=== PATIENT | male | born 1945 | race Caucasian/White ===

== ENCOUNTER → 2016-12-28 | Outpatient (CLI) | payer BC ==
[~2016-12-28] MED LIST: ATOR-22 PO; CIPR-255 PO; DOCU-94 PO; HYDR-3419 PO; HYDR-5688 PO; MULT-506 PO; NADO40TA PO; NAPR-1169 PO; TAMS0.4C38 PO; TRIA75TA PO; VTME400 PO
== END | disposition home or self-care (01) ==
LOC: C.LABPBG 09:22
PROVIDERS: ATTEND Urology
DX: R31.9 Hematuria, unspecified (principal)

== ENCOUNTER → 2017-01-28 | Outpatient (CLI) | payer BC ==
[2017-01-28 14:44] LABS: BASO % 0.9 %; BASO ABS # 0.06 K/uL (0-0.2); COMPLETE YES; EOS % 7.2 %; HEMATOCRIT 37.3 % (42-52); IG% 0.2 %; LYMPH % 17.1 %; LYMPH ABS # 1.14 K/uL (1.2-3.4); MEAN CELL VOLUME 89.7 fL (80-100); MEAN CORPUSCULAR HEMOGLOBIN 31.5 pg (25-34); MEAN CORPUSCULAR HGB CONC 35.1 g/dl (32-36); MEAN PLATELET VOLUME 11.2 fL (7.4-10.4); MONO % 12.3 %; NEUT % 62.3 %; PLATELET COUNT 118 K/uL (130-400); RED BLOOD COUNT 4.16 M/uL (4.7-6.1); WHITE BLOOD COUNT 6.66 K/uL (4.8-10.8)
[2017-01-28 14:56] LABS: BLOOD UREA NITROGEN 6 mg/dl (7-18); BUN/CREATININE RATIO 8.4 (10-20); CALCIUM 9.1 mg/dl (8.5-10.1); CARBON DIOXIDE 24 mmol/L (21-32); CHLORIDE 107 mmol/L (98-107); CREATININE 0.74 mg/dl (0.60-1.40); GLUCOSE 67 mg/dl (70-99); POTASSIUM 4.4 mmol/L (3.5-5.1); SODIUM 142 mmol/L (136-145)
== END | disposition home or self-care (01) ==
LOC: C.LAB 13:09
PROVIDERS: ATTEND Urology
DX: N40.0 Benign prostatic hyperplasia without lower urinary tract symptoms (principal)

== ENCOUNTER 2017-02-12 09:11 | Day surgery (SDC) | payer BC ==
[2017-01-29 14:21] VITALS: BMI 32.0
[~2017-02-12] VITALS: Ht 172.7 cm; Wt 96.4 kg
[~2017-02-12 09:11] MED LIST changes: +CEFAZOLIN 2000 MG/60 ML D5W IV SCH; -CIPR-255 PO; -DOCU-94 PO; -HYDR-3419 PO; -HYDR-5688 PO; +LACTATED RINGER'S 1000ML 1,000 ML IV SCH
[2017-02-12 09:44] VITALS: BP 145/83; PULSE 76; TEMP 37; O2SAT 98; Ht 172.7 cm; Wt 96.4 kg
--- NOTE | 2017-02-12 11:07 | History & Physical Bridge Note ---
H&P Re-Evaluation Bridge Note: I have examined the patient, reviewed the History & Physical and in the interval since the performance of the History & Physical I have noted the following changes of clinical significance: No changes noted
[2017-02-12] MEDS ORDERED: MIDAZOLAM HCL 1 MG/ML 2ML VIAL ONE (11:19)
[2017-02-12] MEDS ORDERED: PROPOFOL IV EMULSION 10 MG/ML 20 ML VIAL IV ONE (11:19)
[2017-02-12] MEDS ORDERED: FENTANYL CITRATE INJ 50 MCG/1 ML 2 ML VIAL ONE ×2 (11:19→12:06)
[2017-02-12] MEDS ORDERED: DEXAMETHASONE SOD INJ 4 MG/ML VIAL ONE (11:19)
[2017-02-12] MEDS ORDERED: ONDANSETRON INJ 2 MG/ML 2 ML VIAL ONE (11:19)
[2017-02-12] MEDS ORDERED: LIDOCAINE HCL 2% 2 ML VIAL (20MG/ML) ONE (11:19)
[2017-02-12] MEDS ORDERED: BUPIVACAINE 0.5 % 5 MG/1 ML MPF 30ML VIAL ONE (11:44)
[2017-02-12] MEDS ORDERED: EpHEDrine SULFATE INJ 50 MG/ML AMP IV PRN (12:15)
[2017-02-12] MEDS ORDERED: HYDROmorphone INJ 1 MG/ML SYR IV PRN (12:15)
[2017-02-12] MEDS ORDERED: ATROPINE SULFATE 0.1 MG/ML 5ML SYR IV PRN (12:15)
[2017-02-12] MEDS ORDERED: ONDANSETRON INJ 2 MG/ML 2 ML VIAL IV PRN (12:15)
[2017-02-12] MEDS ORDERED: FENTANYL CITRATE INJ 50 MCG/1 ML 2 ML VIAL IV PRN (12:15)
[2017-02-12] MEDS ORDERED: PHENYLEPHRINE 100MCG/ML 5ML SYR ONE (12:31)
[2017-02-12] MEDS ORDERED: EpHEDrine SULFATE 50MG/5ML SYR ONE (12:31)
[2017-02-12] MEDS ORDERED: BACITRACIN OINT 15 GM TUBE ONE (12:42)
[2017-02-12] MEDS ORDERED: SODIUM CHLORIDE 0.9% 1000ML 1,000 ML IV SCH (12:57)
--- NOTE | 2017-02-12 12:57 | [facility] Post Operative Brief Note ---
Immediate Operative Summary Operative Date Feb 12, 2017. Pre-Operative Diagnosis History of bladder cancer, Left hydrocele Post-Operative Diagnosis history of bladder cancer; left communicating hydrocele Procedure(s) Performed Flexible cystoscopy, Left scrotal hydrocelectomy Surgeon Dr Mccord Rn Primary Care Surgeon(s) none Estimated Blood Loss 15 ml Findings Bladder - no evidence of tumor recurrence - small hemangioma on the R lateral wall. - some mild irritation around the right UO - no papillary tumors, no areas consistent with or concerning for CIS Hydrocele - numerous dilated veins within the scrotum - large, non-reducible hydrocele on exam - upon opening the hydrocele sac, inspection revealed a communicating component - with a relatively large communication to the abdomen (2 finger breaths). No herniated intra-abdominal contents (no fat, omentum, bowel). Significant fluid (ascites) Specimens A. Left hydrocele sac Drains [place] Anesthesia gen Complication(s) None Disposition Recovery Room / PACU (stable)
[2017-02-12] MEDS ORDERED: HYDR-5688 PO (12:58)
[2017-02-12] MEDS ORDERED: ACETAMINOPHEN 325 MG TAB PO PRN (13:00)
[2017-02-12] MEDS ORDERED: OXYCODONE/ACETAMINOPHEN 5-325 TAB PO PRN ×2 (13:00)
--- NOTE | 2017-02-12 13:01 | Discharge Instructions ---
Discharge Instructions Date of Service Feb 12, 2017. Admission Reason for Admission: Left Hydrocele Discharge Discharge Diagnosis / Problem: left hydrocele; hx of bladder cancer (no evidence of recurrence) Discharge Goals Goal(s): Decrease discomfort, Improve function, Increase independence, Improve disease control, Prevent Disease Progression Activity Recommendations Activity Limitations: per Instructions/Follow-up section Lifting Limitations: no more than 25 pounds Exercise/Sports Limitations: until after follow-up appointment May Resume Sexual Activity: when tolerated Shower/Bathe: may shower/bathe in 3 days (after drain is removed) Driving or Machine Use: please do not drive while on pain medications . Instructions / Follow-Up Instructions / Follow-Up Please come to Dr. Mccord's office on to have your drain removed. Discharge Diet Recommended Diet: Regular Diet Procedures Procedures Performed: Flexible cystoscopy, Left scrotal hydrocelectomy Pending Studies Studies pending at discharge: no Medical Emergencies . Who to Call and When: Medical Emergencies: If at any time you feel your situation is an emergency, please call 911 immediately. . Non-Emergent Contact Non-Emergency issues call your: Urologist Call Non-Emergent contact if: you have a fever, temperature is above 101.5, your pain is not controlled, your pain is worsening . . "Provider Documentation" section prepared by Chuy Palacios. VTE Core Measure Inpt VTE Proph given/why not?: Treatment not indicated [place] Drug Monitoring Program Search Results: patient reviewed within database, no issues identified
[2017-02-12 13:45] VITALS: BP 136/75; PULSE 67; TEMP 36.5; O2SAT 95
--- NOTE | 2017-02-12 13:46 | Anesthesiology Progress Note ---
Anesthesia Post Op Note Date & Time Feb 12, 2017 at 13:46 Vital Signs Pain Intensity: 0 Vital Signs Past 12 Hours Date Time Temp Pulse Resp B/P Pulse Ox O2 Delivery O2 Flow Rate FiO2 02/12/17 13:40 36.2 70 18 12/79 96 Room Air 02/12/17 13:30 73 17 125/79 97 Room Air 02/12/17 13:20 73 15 134/80 98 Mask 10 02/12/17 13:10 36.2 69 17 132/90 100 Mask 10 02/12/17 13:00 36.2 74 16 121/76 98 Mask 10 02/12/17 09:44 37 76 18 145/83 98 Room Air Notes Mental Status: alert / awake / arousable, participated in evaluation Pt Amnestic to Procedure: Yes Nausea / Vomiting: adequately controlled Pain: adequately controlled Airway Patency, RR, SpO2: stable & adequate BP & HR: stable & adequate Hydration State: stable & adequate Anesthetic Complications: no major complications apparent
--- NOTE | 2017-02-12 13:52 | OPERATIVE REPORT ---
DATE OF OPERATION: 02/12/2017 PREOPERATIVE DIAGNOSES: 1. History of bladder cancer. 2. Left hydrocele. POSTOPERATIVE DIAGNOSES: 1. History of bladder cancer. 2. Left communicating hydrocele. PROCEDURE PERFORMED: 1. Cystoscopy. 2. Left scrotal hydrocelectomy. SURGEON: Dr. Moustapha Mccord. ANESTHESIA: General. ESTIMATED BLOOD LOSS: 15 mL. URINE OUTPUT: Not recorded. SPECIMENS: Hydrocele sac for routine pathology. DRAINS: Wally. DESCRIPTION OF THE PROCEDURE: Baljeet Purcell was identified in the preoperative holding area. Appropriate informed consents were reviewed and completed and the patient was transported to the operating suite. Upon arrival, he received appropriate preoperative antibiotics in the form of Ancef and adequate general anesthesia. He was placed in supine position and sterilely prepped and draped. PROCEDURE #1: Cystoscopy, I passed a flexible cystoscope per urethra. Inspection revealed no evidence of stricture disease and moderately enlarged prostate without significant obstruction. Full inspection was carried out of the bladder. Prior resection scars were visible and well healed. There were no papillary tumors appreciated. Ureteral orifices were in orthotopic position. There was very slight irritation, essentially hypervascularity around the right ureteral orifice; however, no evidence of papillary tumors and this did not appear consistent with classical appearing carcinoma in situ. There were no real findings of concern for cancer recurrence on the cystoscopy and following my complete inspection I withdrew the scope. Of note, I did find 1 hemangioma on the right anterior abdominal bladder wall. I then withdrew the scope and concluded portion #1 of the case. PROCEDURE #2: Portion #2 of the case the patient was reprepped and a midline scrotal incision of approximately 5-7 cm was made. I carried this through dartos fascia and delivered the testis with hydrocele through the incision. Of note, this hydrocele is moderately tense, but nonreducible. It shifted back from the lower scrotum towards the upper scrotum but did not reduce with gentle palpation. I skeletonized the full outside of the hydrocele sac. I encountered numerous dilated veins within the scrotum varicosities. After exposing the whole sac I opened it longitudinally for approximately 2 cm and drained approximately 1 liter of fluid from the hydrocele. Of note, based on my estimates when I would have expected approximately of 500 mL of fluid drainage and increased amount of fluid led me to suspect there may be a communicating component to this hydrocele. I opened the hydrocele sac further towards the inguinal ring by approximately 4 more cm to accommodate a finger and I passed a finger into the upper aspect of the hydrocele. Of note, there was a very small passage palpable at that time. With gentle pressure, I was able to push my finger through this and identify that this was in fact a communicating hydrocele and ultimately with a relatively wide channel I accommodated essentially 2 fingerbreadths up the hydrocele canal. There was no fat or omentum herniated through this hernia, additionally there was no bowel. Following my full inspection, I dissected distally and cleared the remaining portion of the hydrocele sac. I was able to dissect this off the underlying structures of the scrotum and keep the remaining portion of the hydrocele sac intact. I dissected this above the area where I had previously opened and I placed a hemostat across the hydrocele sac to make it watertight. I then used 0 silk suture ligatures to ligate the hernia sac in this location in the upper scrotum. Following this stitch, I placed a silk free tie with 0 silk to again repeat my ligation of the hernia sac. I trimmed the redundant sac. I ensured with gentle pressure on the lower abdomen that this was watertight and I returned the testis to its normal position to lie in the scrotum. I confirmed excellent hemostasis before placing a [place] drain in the dependent portion of the scrotum. This was fixed in place with a 2-0 Vicryl stitch. I then proceeded to reapproximate dartos fascia on the mid median rhaphe utilizing the same 2-0 Vicryl stitch in running fashion. I then reapproximated the skin utilizing 3-0 chromic with vertical mattress stitches. Bacitracin and scrotal supports were placed. The patient was extubated and taken to the PACU in stable condition. I attest to the content of the Intraoperative Record and any orders documented therein. Any exceptio ns are noted below.
[2017-02-12 14:15] VITALS: BP 139/79; PULSE 73; TEMP 36.5; O2SAT 96
[2017-02-12 14:50] VITALS: BP 121/66; PULSE 74; TEMP 36.6; O2SAT 95
[2017-02-12 15:20] VITALS: BP 124/71; PULSE 70; TEMP 36.6; O2SAT 94
== END 2017-02-12 15:35 | disposition home or self-care (01) ==
LOC: C.ACU 09:11
PROVIDERS: ATTEND Urology
DX: N43.2 Other hydrocele (principal); N40.0 Benign prostatic hyperplasia without lower urinary tract symptoms; Z85.51 Personal history of malignant neoplasm of bladder; E78.00 Pure hypercholesterolemia, unspecified; I10 Essential (primary) hypertension

== ENCOUNTER → 2017-02-20 | Outpatient (CLI) | payer BC ==
[~2017-02-20] MED LIST changes: -CEFAZOLIN 2000 MG/60 ML D5W IV SCH; +HYDR-5688 PO; -LACTATED RINGER'S 1000ML 1,000 ML IV SCH
--- NOTE | 2017-02-20 08:59 | DIAGNOSTIC IMAGING REPORT ---
ABDOMEN COMPLETE (US) CLINICAL HISTORY: Abdominal distention COMPARISON STUDY: Biliary ultrasound dated 06/04/2016 FINDINGS: The pancreas is nonvisualized. No focal hepatic masses were visualized. The liver is slightly heterogeneous in echotexture. The spleen is mildly enlarged measuring 13.7 cm. The gallbladder is distended. Multiple calculi are visualized. There are areas of gallbladder wall thickening measuring up to 6 mm. There is no common bile duct dilatation. The common bile duct measures 4 mm. The right kidney measures 12.7 cm in length. The left kidney measures 13 cm in length. There is minor prominence of the right renal collecting system. There is a 9 mm hypoechoic right renal lesion, probably representing a cyst although it does contain a few internal echoes. There is a suspected lower pole left renal calculus. The aorta was not visualized proximally. There is no evidence of a distal abdominal aortic aneurysm. There is low volume ascites. IMPRESSION: 1. Probable hepatic cirrhosis with splenomegaly and low volume ascites. No focal hepatic masses 2. Cholelithiasis with gallbladder distention and areas of gallbladder wall thickening. Clinical correlation in regards to acute cholecystitis is recommended. 3. Nonobstructing lower pole left renal calculus 4. Minimal dilatation of the upper pole right renal collecting system 5. Nondiagnostic evaluation the pancreas Electronically signed by: Jake Brown M.D. 02/20/2017 8:58 AM Dictated Date/Time: 02/20/2017 8:52 AM
== END | disposition home or self-care (01) ==
LOC: C.ULTR 07:57
PROVIDERS: ATTEND Internal Medicine Gastroenterology
DX: R14.0 Abdominal distension (gaseous) (principal); R16.1 Splenomegaly, not elsewhere classified; R18.8 Other ascites; K80.20 Calculus of gallbladder without cholecystitis without obstruction; N20.0 Calculus of kidney

== ENCOUNTER → 2017-03-28 | Outpatient (CLI) | payer BC ==
[~2017-03-28] MED LIST changes: +AMOX1TAB43 PO; +FRS/40 PO; +LACT10SO17 PO; +LCTS240 PO; +SPIR25TA PO; +SPIR50TA2 PO; +SPR25 PO; +VITA1TAB4 PO
== END | disposition home or self-care (01) ==
LOC: C.FOODA 10:19
PROVIDERS: ATTEND Internal Medicine Gastroenterology
DX: K74.60 Unspecified cirrhosis of liver (principal); R18.8 Other ascites

== ENCOUNTER → 2017-07-05 | Outpatient (CLI) | payer BC ==
[~2017-07-05] MED LIST changes: -AMOX1TAB43 PO; -FRS/40 PO; -LACT10SO17 PO; -LCTS240 PO; -SPIR25TA PO; -SPIR50TA2 PO; -SPR25 PO; -VITA1TAB4 PO
--- NOTE | 2017-07-05 09:36 | DIAGNOSTIC IMAGING REPORT ---
BILIARY ULTRASOUND CLINICAL HISTORY: Hepatic cirrhosis COMPARISON STUDY: 02/20/2017 FINDINGS: The liver is of coarsened echotexture with a nodular serosal margin. The findings are consistent with cirrhosis. No focal hepatic masses are generalized. There is no right-sided hydronephrosis. There is an 11 mm lower pole right renal cyst. Multiple gallstones are visualized. There is borderline gallbladder wall thickening. There is no ductal dilatation. The common bile duct measures 5 mm. There is a recannulized umbilical vein. There is suboptimal visualization the pancreas IMPRESSION: 1. Hepatic cirrhosis with minimal perihepatic ascites 2. No focal hepatic masses 3. Cholelithiasis. No ductal dilatation. Electronically signed by: Jake Brown M.D. 07/05/2017 9:34 AM Dictated Date/Time: 07/05/2017 9:33 AM
== END | disposition home or self-care (01) ==
LOC: C.ULTR 08:28
PROVIDERS: ATTEND Internal Medicine Gastroenterology
DX: K74.60 Unspecified cirrhosis of liver (principal); K80.20 Calculus of gallbladder without cholecystitis without obstruction

== ENCOUNTER 2017-10-01 13:17 | Inpatient (IN) | payer BC, OTHER ==
[~2017-10-01] VITALS: Ht 172.7 cm; Wt 88.5 kg
[~2017-10-01 13:17] MED LIST changes: +FRS/40 PO; -HYDR-5688 PO; +SPIR50TA2 PO
[2017-10-01] MEDS ORDERED: PIPERACILLIN/TAZOBACTAM 4.5 GM/100ML D5W IV STA (13:28)
[2017-10-01] MEDS ORDERED: VANCOMYCIN INJ 1,000 MG in SODIUM CHLORIDE 0.9% 250ML 250 ML IV STA (13:28)
[2017-10-01] MEDS ORDERED: SODIUM CHLORIDE 0.9% 1000ML 1,000 ML IV STA (13:28)
[2017-10-01 13:57] LABS: BASO % 0.2 %; BASO ABS # 0.03 K/uL (0-0.2); COMPLETE YES; EOS % 0.2 %; HEMATOCRIT 33.7 % (42-52); IG% 0.4 %; LYMPH ABS # 0.69 K/uL (1.2-3.4); MEAN CELL VOLUME 89.2 fL (80-100); MEAN CORPUSCULAR HEMOGLOBIN 30.4 pg (25-34); MEAN CORPUSCULAR HGB CONC 34.1 g/dl (32-36); MONO % 7.9 %; NEUT % 86.3 %; PLATELET COUNT 158 K/uL (130-400); RED BLOOD COUNT 3.78 M/uL (4.7-6.1); WHITE BLOOD COUNT 13.75 K/uL (4.8-10.8)
--- NOTE | 2017-10-01 14:04 | DIAGNOSTIC IMAGING REPORT ---
CHEST ONE VIEW PORTABLE CLINICAL HISTORY: 71 years-old Male presenting with ABDOMINAL PAIN/GI. TECHNIQUE: Portable upright AP view of the chest was obtained. COMPARISON: 07/18/2016. FINDINGS: Cardiomediastinal silhouette normal. Lungs and pleural spaces clear. Osseous structures normal. Upper abdomen normal. IMPRESSION: 1. No acute cardiopulmonary disease. Electronically signed by: Ollie Morin M.D. 10/01/2017 2:02 PM Dictated Date/Time: 10/01/2017 2:01 PM
[2017-10-01 14:07] LABS: INR 1.3 (0.9-1.1); PARTIAL THROMBOPLASTIN RATIO 1.3; PROTHROMBIN TIME (PATIENT) 14.6 SECONDS (9.0-12.0)
[2017-10-01 14:15] LABS: BUN/CREATININE RATIO 27.1 (10-20); CALCIUM 8.5 mg/dl (8.5-10.1); CREATININE 1.42 mg/dl (0.60-1.40); POTASSIUM 5.8 mmol/L (3.5-5.1)
[2017-10-01] MEDS ORDERED: VITA1TAB4 PO (14:25)
[2017-10-01] MEDS ORDERED: LIDOCAINE/EPINEPHRINE 1% 20 ML VIAL INFIL ONE (14:30)
[2017-10-01 15:40] LABS: PERIT FL WBC 182 /uL (0-300); PERITONEAL FLUID RBC 18000 /uL
--- NOTE | 2017-10-01 15:46 | EMERGENCY ROOM VISIT NOTE ---
History Report prepared by Corie: Mauri Hall Under the Supervision of: Dr. Keron Galdamez M.D. First contact with patient: 13:24 Chief Complaint: ILLNESS Stated Complaint: from [facility] History of Present Illness The patient is a 71 year old white male with a past medical history of liver cirrhosis, hernia and previous bladder cancer who presents to the ED with a cc of persistent generalized illness beginning today. Had a paracentesis for the first time shortly prior to arrival and was referred to the ED by his GI physician. Positive fevers, cough. Negative abdominal pain, leg swelling, bloody stools. No alcohol or tobacco use. No recent medication changes. Source of History: patient Onset: Today Position: other (generalized) Quality: other (illness) Timing: other (persistent) Associated Symptoms: + fevers, + cough, No abdominal pain Note: Negative: leg swelling. Review of Systems See HPI for pertinent positives and negatives. A total of ten systems were reviewed and were otherwise negative. Past Medical & Surgical Medical Problems: (1) Ascites (2) Bladder cancer (3) Cirrhosis (4) Hernia (5) Liver cirrhosis (6) Sepsis Family History No pertinent family history stated. Social History Smoking Status: Former Smoker Housing Status: lives with family Current/Historical Medications Scheduled Furosemide (Lasix), 20 MG PO DAILY Multivitamin (Multivitamin), 1 TAB PO QAM Nadolol (Corgard), 40 MG PO QAM Spironolactone (Aldactone), 50 MG PO BID Vitamin E (Vitamin E), 800 UNITS PO QAM Scheduled PRN Naproxen (Naprosyn), 500 MG PO BID PRN for Pain Allergies Coded Allergies: No Known Allergies (Unverified , 01/29/17) Physical Exam Vital Signs Date Time Temp Pulse Resp B/P (MAP) Pulse Ox O2 Delivery O2 Flow Rate FiO2 10/01/17 17:43 100 22 102/70 100 Nasal Cannula 3.0 10/01/17 17:30 96 10/01/17 16:24 Nasal Cannula 10/01/17 15:45 99 24 117/71 99 Nasal Cannula 3.0 10/01/17 14:00 103 34 97/61 96 Nasal Cannula 3.0 10/01/17 13:37 106 10/01/17 13:22 39.0 106 36 77/51 90 Nasal Cannula 2.0 Physical Exam GENERAL: Awake, alert, well-appearing, NAD HENT: Normocephalic, atraumatic. EYES: Normal conjunctiva. Sclera mildly icteric. NECK: Supple. No nuchal rigidity. FROM. RESPIRATORY: CTAB, no rhonchi, wheezing, crackles CARDIAC: RRR. Systolic ejection murmur noted. ABDOMEN: Soft, NT, BS+. Distended abdomen, positive fluid wave. MSK: No chest wall TTP. Trace bilateral lower extremity edema NEURO: AOx3. GCS 15, CN 2-12 intact, moves all 4s on command SKIN: Warm. No rash or jaundice noted Medical Decision & Procedures ER Provider Diagnostic Interpretation: X-ray: Per my interpretation, radiologist review. CHEST ONE VIEW PORTABLE FINDINGS: Cardiomediastinal silhouette normal. Lungs and pleural spaces clear. Osseous structures normal. Upper abdomen normal. IMPRESSION: 1. No acute cardiopulmonary disease. Electronically signed by: Ollie Morin M.D. 10/01/2017 2:02 PM Laboratory Results 10/01/17 13:40 Red Blood Count 3.78, Mean Corpuscular Volume 89.2, Mean Corpuscular Hemoglobin 30.4, Mean Corpuscular Hemoglobin Concent 34.1, Mean Platelet Volume 10.0, Neutrophils (%) (Auto) 86.3, Lymphocytes (%) (Auto) 5.0, Monocytes (%) (Auto) 7.9, Eosinophils (%) (Auto) 0.2, Basophils (%) (Auto) 0.2, Neutrophils # (Auto) 11.87, Lymphocytes # (Auto) 0.69, Monocytes # (Auto) 1.08, Eosinophils # (Auto) 0.03, Basophils # (Auto) 0.03 10/01/17 13:40 Test 10/01/17 13:40 10/01/17 13:41 10/01/17 16:23 10/01/17 18:22 White Blood Count 13.75 K/uL (4.8-10.8) Red Blood Count 3.78 M/uL (4.7-6.1) Hemoglobin 11.5 g/dL (14.0-18.0) Hematocrit 33.7 % (42-52) Mean Corpuscular Volume 89.2 fL (80-100) Mean Corpuscular Hemoglobin 30.4 pg (25-34) Mean Corpuscular Hemoglobin Concent 34.1 g/dl (32-36) Platelet Count 158 K/uL (130-400) Mean Platelet Volume 10.0 fL (7.4-10.4) Neutrophils (%) (Auto) 86.3 % Lymphocytes (%) (Auto) 5.0 % Monocytes (%) (Auto) 7.9 % Eosinophils (%) (Auto) 0.2 % Basophils (%) (Auto) 0.2 % Neutrophils # (Auto) 11.87 K/uL (1.4-6.5) Lymphocytes # (Auto) 0.69 K/uL (1.2-3.4) Monocytes # (Auto) 1.08 K/uL (0.11-0.59) Eosinophils # (Auto) 0.03 K/uL (0-0.5) Basophils # (Auto) 0.03 K/uL (0-0.2) RDW Standard Deviation 51.5 fL (36.4-46.3) RDW Coefficient of Variation 15.9 % (11.5-14.5) Immature Granulocyte % (Auto) 0.4 % Immature Granulocyte # (Auto) 0.05 K/uL (0.00-0.02) Prothrombin Time 14.6 SECONDS (9.0-12.0) Prothromb Time International Ratio 1.3 (0.9-1.1) Activated Partial Thromboplast Time 33.6 SECONDS (21.0-31.0) Partial Thromboplastin Ratio 1.3 Anion Gap 7.0 mmol/L (3-11) Est Creatinine Clear Calc Drug Dose 52.1 ml/min Estimated GFR () 58.0 Estimated GFR (Non- 50.0 BUN/Creatinine Ratio 27.1 (10-20) Calcium Level 8.5 mg/dl (8.5-10.1) Total Bilirubin 2.1 mg/dl (0.2-1) Direct Bilirubin 1.3 mg/dl (0-0.2) Aspartate Amino Transf (AST/SGOT) 65 U/L (15-37) Alanine Aminotransferase (ALT/SGPT) 48 U/L (12-78) Alkaline Phosphatase 206 U/L (45-117) Troponin I 0.032 ng/ml (0-0.045) Total Protein 7.7 gm/dl (6.4-8.2) Albumin 2.4 gm/dl (3.4-5.0) Lipase 440 U/L (73-393) Procalcitonin 3.91 ng/ml (0-0.5) Ammonia 42.9 umol/L (11-32) Laboratory results reviewed by me Medications Administered Medications (Trade) Dose Ordered Sig/Raffi Route Start Time Stop Time Status Last Admin Dose Admin Sodium Chloride 1,000 ml @ 999 mls/hr Q1H1M STAT IV 10/01/17 13:28 10/01/17 14:28 DC 10/01/17 13:33 999 MLS/HR Piperacillin Sod/ Tazobactam Sod (Zosyn Iv) 4.5 gm NOW STAT IV 10/01/17 13:28 10/01/17 13:31 DC 10/01/17 14:18 4.5 GM Vancomycin HCl 1000 mg/Sodium Chloride 270 ml @ 125 mls/hr NOW STAT IV 10/01/17 13:28 10/01/17 15:37 DC 10/01/17 14:17 125 MLS/HR Procedure Paracentesis Procedure Note INDICATION: Hypotension, ascites, r/o SBP PROCEDURE TIRE TECHNICIAN: Rudolph Ultrasound used to minoo location: Y PROCEDURE SUMMARY: A time-out was performed. My hands were washed immediately prior to the procedure. I wore a surgical cap, mask with protective eyewear, sterile gown and sterile gloves throughout the procedure. The area was cleansed and draped in usual sterile fashion using chlorhexidine scrub. Anesthesia was achieved with 1% lidocaine. The inferior portion of the abdomen was prepped and draped in a sterile fashion using chlorhexidine scrub. 1% lidocaine was used to numb the skin, soft tissue and peritoneum. A needle was inserted and advanced with negative pressure until yellow turbid colored fluid was aspirated. Approximately 10 mL of ascitic fluid was collected and sent for laboratory analysis. A bandaid was placed over the puncture wound. The patient tolerated the procedure well without any immediate complications. Estimated blood loss was < 5 cc. ECG Indication: other (fevers) Rate (beats per minute): 102 Rhythm: sinus tachycardia Findings: T-wave inversion (anterior and hilateral leads), other (Normal axis. No other STS changes or TWI. ) ED Course 1324: The patient was evaluated in room B10. A complete history and physical exam was performed. 1310: I conducted a bedside ultrasound on the patient which showed diffuse ascites. 1425: I preformed the paracentesis. See the procedure note for details. Medical Decision The patient is a 71 year old white male with a past medical history of liver cirrhosis, hernia and previous bladder cancer who presents to the ED with a cc of persistent generalized illness beginning today. Differential diagnosis: Etiologies such as appendicitis, diverticulitis, PUD, biliary pathology, UTI, pancreatitis, obstruction, mesenteric ischemia, aortic pathology, infections, inflammatory bowel disease, renal colic, as well as others were entertained. Patient was seen and evaluated the bedside. Patient did have a prior history of bladder cancer as well as cirrhosis.. This is not related to alcoholic cirrhosis. Patient is not had a prior paracentesis but was sent in for further evaluation and possible therapeutic paracentesis. On exam patient was febrile and was hypotensive. IV fluid was started empirically. Patient did have a bedside ultrasound which did show diffuse ascites. Patient denied abdominal pain. Patient has had some URI type symptoms as well as a cough but that has been nonproductive. Patient had blood work completed along with IV fluids as well as broad-spectrum antibiotics blood cultures urine cultures. Bedside ultrasound was completed that did show a diffuse ascites. Patient's abdomen was prepped appropriately and after marking the epigastric vessels a specimen of ascitic fluid was obtained from the midline inferior to the umbilicus. The fluid did appear cloudy and was sent off for further analysis. Patient did have a mild white count of 13. Patient did have mild elevations in his LFTs and total bilirubin. Patient's potassium is 5.8. Patient did have mild hyponatremia. I did speak with the admitting team for admission for septic workup, and eventually a therapeutic paracentesis for this was not obtained at this time given the recent hypotension and possible fluid shifts that could result in worsening hypotension. Patient's blood pressure did respond well with 1 L fluid. Medication Reconcilliation Current Medication List: was personally reviewed by me Blood Pressure Screening Patient's blood pressure: Low blood pressure Blood pressure disposition: Did not require urgent referral Consults Time Called: 1525 Consulting Physician: Dr. Alireza SYKES Returned Call: 1530 Discussed the patient's case. The patient will be evaluated for further treatment and disposition. Impression Primary Impression: Liver cirrhosis Additional Impressions: Fever Hyperkalemia CKD (chronic kidney disease) Sepsis Hypotension Scribe Attestation The scribe's documentation has been prepared under my direction and personally reviewed by me in its entirety. I confirm that the note above accurately reflects all work, treatment, procedures, and medical decision making performed by me. Departure Information Referrals Martir Brownlee D.O. (PCP) Patient Instructions My [facility] Problem Qualifiers Primary Impression: Liver cirrhosis Hepatic cirrhosis type: unspecified hepatic cirrhosis Ascites presence: with ascites Qualified Codes: K74.60 - Unspecified cirrhosis of liver Additional Impressions: Fever Fever type: unspecified Qualified Codes: R50.9 - Fever, unspecified CKD (chronic kidney disease) Chronic kidney disease stage: stage 3 (moderate) Qualified Codes: N18.3 - Chronic kidney disease, stage 3 (moderate) Sepsis Sepsis type: sepsis due to unspecified organism Qualified Codes: A41.9 - Sepsis, unspecified organism Hypotension Hypotension type: unspecified hypotension type Qualified Codes: I95.9 - Hypotension, unspecified
[2017-10-01 16:24] VITALS: BP 93/59; PULSE 95; TEMP 37.1; O2SAT 99; Ht 172.7 cm; Wt 88.5 kg
[2017-10-01] MEDS ORDERED: NITROGLYCERIN 0.4 MG SL PER TAB CHARGE SL PRN (18:00)
[2017-10-01] MEDS ORDERED: MoRPHine SULFATE 2 MG/ML CARP IV PRN (18:00)
--- NOTE | 2017-10-01 18:23 | History and Physical ---
History & Physical Date & Time of Service: Oct 01, 2017 at 16:42 Chief Complaint: from ASU Primary Care Physician: Martir Brownlee D.O. History of Present Illness 71 yo male with PMHX significant for liver cirrhosis comes to the ED with fever , tachypnea and feeling generally unwell Underlying cause of cirrhosis is steatohepatitis Pt was having a paracentesis of his abdominal ascites when he became acutely ill and severely SOB. Patient says that he was sat up and shortly became less short of breath. Prior to admission, the patient reports that since the beginning of Aug he has had low grade fevers and has felt generally fatigued. Pt reports that he assumed that he had a URI because he had blunted sense of smell and taste. Pt was diagnosed with cirrhosis in Jul 2016 Dr. Gutierrez, but was unaware of ascites until surgery for bladder cancer in January where Dr. Mccord pulled off 4 L of fluid. In addition to bladder surgery, pt had a procedure to treat scrotal hydroceles. Pt describes that since the surgeries he has a had a pink fluid draining from a sinus in his scrotum. With diagnosis of cirrhosis he was put on Lasix and Aldactone. Over this period, the patient denied abdominal pain, N/V/D. Family denies any mental status changes during this period. Pt denies a h/o alcohol abuse or viral hepatitis. Past Medical/Surgical History Medical Problems: (1) Bladder cancer Status: Resolved (2) Hernia Status: Chronic (3) Liver cirrhosis Status: Chronic Social History Smoking Status: Former Smoker Alcohol Use: occasionally Marital Status: Housing status: lives with family Allergies Coded Allergies: No Known Allergies (Unverified , 01/29/17) Home Medications Scheduled Furosemide (Lasix), 20 MG PO DAILY Multivitamin (Multivitamin), 1 TAB PO QAM Nadolol (Corgard), 40 MG PO QAM Spironolactone (Aldactone), 50 MG PO BID Vitamin E (Vitamin E), 800 UNITS PO QAM Scheduled PRN Naproxen (Naprosyn), 500 MG PO BID PRN for Pain Review of Systems Constitutional: + fever, + chills, + sweats Respiratory: + shortness of breath, No cough, No sputum, No wheezing Cardiovascular: No chest pain, No palpitations Abdomen: No pain, No nausea, No vomiting, No diarrhea Neurologic: No memory loss Endocrine: + fatigue Physical Exam Vital Signs Date Time Temp Pulse Resp B/P (MAP) Pulse Ox O2 Delivery O2 Flow Rate FiO2 10/01/17 16:24 Nasal Cannula 10/01/17 15:45 99 24 117/71 99 Nasal Cannula 3.0 10/01/17 14:00 103 34 97/61 96 Nasal Cannula 3.0 10/01/17 13:37 106 10/01/17 13:22 39.0 106 36 77/51 90 Nasal Cannula 2.0 General Appearance: WD/WN, no apparent distress Eyes: + abnormal sclerae exam (yellow sclera ) ENT: normal ENT inspection, hearing grossly normal, pharynx normal Neck: supple, no adenopathy, thyroid normal Respiratory/Chest: chest non-tender, lungs clear, normal breath sounds, no respiratory distress Cardiovascular: regular rate, rhythm, no edema, no gallop, + systolic murmur Abdomen/GI: non tender, + distended, + pertinent finding (distended abdomen, hyperactive bowel sounds) Genitourinary - Male: + pertinent finding (scrotal edema ) Extremities/Musculoskelatal: no pedal edema 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: 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 tech II-XII 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 as tested, no motor/sensory deficits, alert, normal mood/affect, normal reflexes, oriented x 3 Skin: normal color, warm/dry, no rash Diagnostics Laboratory Results Results Past 24 Hours Test 10/01/17 13:40 10/01/17 13:41 10/01/17 16:23 Range/Units White Blood Count 13.75 4.8-10.8 K/uL Red Blood Count 3.78 4.7-6.1 M/uL Hemoglobin 11.5 14.0-18.0 g/dL Hematocrit 33.7 42-52 % Mean Corpuscular Volume 89.2 80-100 fL Mean Corpuscular Hemoglobin 30.4 25-34 pg Mean Corpuscular Hemoglobin Concent 34.1 32-36 g/dl Platelet Count 158 130-400 K/uL Mean Platelet Volume 10.0 7.4-10.4 fL Neutrophils (%) (Auto) 86.3 % Lymphocytes (%) (Auto) 5.0 % Monocytes (%) (Auto) 7.9 % Eosinophils (%) (Auto) 0.2 % Basophils (%) (Auto) 0.2 % Neutrophils # (Auto) 11.87 1.4-6.5 K/uL Lymphocytes # (Auto) 0.69 1.2-3.4 K/uL Monocytes # (Auto) 1.08 0.11-0.59 K/uL Eosinophils # (Auto) 0.03 0-0.5 K/uL Basophils # (Auto) 0.03 0-0.2 K/uL RDW Standard Deviation 51.5 36.4-46.3 fL RDW Coefficient of Variation 15.9 11.5-14.5 % Immature Granulocyte % (Auto) 0.4 % Immature Granulocyte # (Auto) 0.05 0.00-0.02 K/uL Prothrombin Time 14.6 9.0-12.0 SECONDS Prothromb Time International Ratio 1.3 0.9-1.1 Activated Partial Thromboplast Time 33.6 21.0-31.0 SECONDS Partial Thromboplastin Ratio 1.3 Sodium Level 133 136-145 mmol/L Potassium Level 5.8 3.5-5.1 mmol/L Chloride Level 105 98-107 mmol/L Carbon Dioxide Level 22 21-32 mmol/L Anion Gap 7.0 3-11 mmol/L Blood Urea Nitrogen 39 7-18 mg/dl Creatinine 1.42 0.60-1.40 mg/dl Est Creatinine Clear Calc Drug Dose 52.1 ml/min Estimated GFR () 58.0 Estimated GFR (Non- 50.0 BUN/Creatinine Ratio 27.1 10-20 Random Glucose 73 70-99 mg/dl Calcium Level 8.5 8.5-10.1 mg/dl Total Bilirubin 2.1 0.2-1 mg/dl Direct Bilirubin 1.3 0-0.2 mg/dl Aspartate Amino Transf (AST/SGOT) 65 15-37 U/L Alanine Aminotransferase (ALT/SGPT) 48 12-78 U/L Alkaline Phosphatase 206 45-117 U/L Troponin I 0.032 0-0.045 ng/ml Total Protein 7.7 6.4-8.2 gm/dl Albumin 2.4 3.4-5.0 gm/dl Lipase 440 73-393 U/L Procalcitonin 3.91 0-0.5 ng/ml Ammonia 42.9 11-32 umol/L Microbiology Results 10/01/17 Blood Culture, Received Pending 10/01/17 Blood Culture, Received Pending Diagnostic Radiology CHEST ONE VIEW PORTABLE CLINICAL HISTORY: 71 years-old Male presenting with ABDOMINAL PAIN/GI. TECHNIQUE: Portable upright AP view of the chest was obtained. COMPARISON: 07/18/2016. FINDINGS: Cardiomediastinal silhouette normal. Lungs and pleural spaces clear. Osseous structures normal. Upper abdomen normal. IMPRESSION: 1. No acute cardiopulmonary disease. EKG Sinus tachycardia 102 Changes in noted--t waves inversions in V2-V4 No ectopy Impression Assessment and Plan 71 yo male with cirrhosis 2/2 to steatohepatitis comes to the ED with fever, tachypnea and tachycardia Sepsis secondary to potential peritonitis -Pt had a temp of 39, HR 106, RR 36, WBC 13.75, Procalcitonin 3.91 -BC x 2 -Abx;continuing IV Vancomycin/Zosyn -CXR in the ED-normal -UA pending -Lactate pending Hyperammonemia 2/2 to Liver cirrhosis -Lactulose 30 mg once -Recheck levels in the am -Gastro consult ordered Hyperkalemia -Pt seen to have EKG changes, but not typical for elevated K -Will follow K tomorrow EKG changes -New T wave inversions in Leads V2-V4 -Follow up EKG in the am -Troponins x3 q 8 hours Liver cirrhosis 2/2 to steatohepatitis -repeat coags -follow destiney, liver enzymes, lipase [facility] -Patients Cr increased above baseline -maintenence IVF Anemia -Follow CBC -Consider Fe studies if anemia persist Level of Care Telemetry Advanced Directives Existing Living Will: Yes Existing Power of Blueprint Blocker: Yes VTE Prophylaxis VTE Risk Assessment Done? Y/N: Yes Risk Level: Moderate Given or contraindicated: SCD's Assessment/Plan Resident Physician Supervision Note: I was present with Dr. Thomas and James during the history and exam. I discussed the case with the resident and agree with the findings and plan as documented in the note. Any exceptions or clarifications are listed here. 71 y/o male h/o hepatic steatosis induced cirrohosis with sx concerning for SBP.
[2017-10-01] MEDS ORDERED: LACTULOSE SYRUP 30 GM/45 ML UDP PO STA (19:29)
[2017-10-01] MEDS ORDERED: ASPIRIN 325 MG ECTAB PO ONE (19:43)
[2017-10-01] MEDS: SODIUM CHLORIDE 0.9% 1000ML 1,000 ML IV SCH (21:05)
[2017-10-01 23:08] VITALS: BP 100/62; PULSE 90; TEMP 36.6; O2SAT 100
[2017-10-02] MEDS ORDERED: VANCOMYCIN CONSULT ACTIVE PRN (00:54)
[2017-10-02] MEDS ORDERED: PIPERACILL/TAZOBAC CONSULT ACTIVE PRN (01:00)
[2017-10-02] MEDS ORDERED: PIPERACILL/TAZOBAC IV 3.375 GM in DEXTROSE 5% 100ML 100 ML IV ONE (01:00)
[2017-10-02] MEDS: VANCOMYCIN INJ 1,250 MG in SODIUM CHLORIDE 0.9% 250ML 250 ML IV SCH ×2 (01:18→19:01)
[2017-10-02 04:21] VITALS: BP 105/62; PULSE 78; TEMP 36.6; O2SAT 98
[2017-10-02] MEDS: PIPERACILL/TAZOBAC IV 3.375 GM in DEXTROSE 5% 100ML 100 ML IV SCH ×3 (05:51→20:47)
[2017-10-02 05:59] LABS: HEMATOCRIT 28.5 % (42-52); MEAN CELL VOLUME 89.6 fL (80-100); MEAN CORPUSCULAR HEMOGLOBIN 29.6 pg (25-34); RED BLOOD COUNT 3.18 M/uL (4.7-6.1)
[2017-10-02 06:10] LABS: INR 1.6 (0.9-1.1); PROTHROMBIN TIME (PATIENT) 17.6 SECONDS (9.0-12.0)
[2017-10-02 06:26] LABS: MEAN PLATELET VOLUME 10.7 fL (7.4-10.4); PLATELET COUNT 94 K/uL (130-400)
[2017-10-02 06:35] LABS: BASO % 0.1 %; BASO ABS # 0.01 K/uL (0-0.2); COMPLETE YES; HYPERSEGMENTED POLYS 1+; IG% 0.2 %; LYMPH % 8.9 %; LYMPH ABS # 0.78 K/uL (1.2-3.4); MONO % 6.9 %; NEUT % 83.9 %; PLT ESTIMATE DECREASED; VACUOLIZATION 1+
--- NOTE | 2017-10-02 06:44 | Family Medicine Progress Note ---
Progress Note Date of Service Oct 02, 2017. Subjective Pt evaluation today including: conversation w/ patient, physical exam, chart review, lab review Pt denies feeling feverish, being SOB. Pt describes being hungry. Has not eaten since yesterday at 4 am. Pt denies abdominal pain, NVD Constitutional: + fatigue, No fever, No chills, No sweats Respiratory: No cough, No sputum, No wheezing, No shortness of breath, No dyspnea on exertion Cardiovascular: No chest pain, No orthopnea, No palpitations Abdomen: No pain, No nausea, No vomiting, No diarrhea Medications Current Inpatient Medications Medications (Trade) Dose Ordered Sig/Raffi Route Start Time Stop Time Status Last Admin Dose Admin Sodium Chloride 1,000 ml @ 80 mls/hr [id number] IV 10/01/17 17:50 10/31/17 17:49 10/01/17 21:05 80 MLS/HR Ondansetron HCl (Zofran Inj) 4 mg Q6H PRN IV 10/01/17 18:00 10/31/17 17:59 Nitroglycerin (Nitrostat Tab) 0.4 mg UD PRN SL 10/01/17 18:00 10/31/17 17:59 Morphine Sulfate (MoRPHine SULFATE INJ) 2 mg Q30M PRN IV 10/01/17 18:00 10/15/17 17:59 Furosemide (Lasix Tab) 20 mg DAILY PO 10/02/17 09:00 11/01/17 08:59 Multivitamins (Multivitamin Tab) 1 tab QAM PO 10/02/17 09:00 11/01/17 08:59 Nadolol (Corgard Tab) 40 mg QAM PO 10/02/17 09:00 11/01/17 08:59 Spironolactone (Aldactone Tab) 50 mg BID17 PO 10/02/17 09:00 11/01/17 08:59 Piperacillin Sod/ Tazobactam Sod 3.375 gm/Dextrose 115 ml @ 28.75 mls/ hr Q8H IV 10/02/17 06:00 10/12/17 05:59 10/02/17 05:51 28.75 MLS/HR Vancomycin HCl 1250 mg/Sodium Chloride 275 ml @ 125 mls/hr Q18H IV 10/02/17 01:00 10/12/17 00:59 11/8/17 01:18 125 MLS/HR Vancomycin HCl (Consult) 1 ea UD PRN N/A 10/02/17 00:54 11/01/17 00:53 Piperacillin Sod/ Tazobactam Sod (Consult) 1 ea UD PRN N/A 10/02/17 01:00 11/01/17 00:59 Objective Vital Signs Date Time Temp Pulse Resp B/P (MAP) Pulse Ox O2 Delivery O2 Flow Rate FiO2 10/02/17 04:21 36.6 78 18 105/62 (76) 98 Nasal Cannula 2.0 10/02/17 04:00 Nasal Cannula 2.0 10/02/17 04:00 Nasal Cannula 2.0 10/02/17 00:01 Nasal Cannula 2.0 10/01/17 23:08 36.6 90 20 100/62 (75) 100 Nasal Cannula 2.0 10/01/17 19:38 38.7 98 20 105/63 100 10/01/17 19:34 101 20 96/51 100 Nasal Cannula 2.0 10/01/17 17:43 100 22 102/70 100 Nasal Cannula 3.0 10/01/17 17:30 96 10/01/17 16:24 37.1 95 26 93/59 99 Nasal Cannula 2.0 10/01/17 15:45 99 24 117/71 99 Nasal Cannula 3.0 10/01/17 14:00 103 34 97/61 96 Nasal Cannula 3.0 10/01/17 13:37 106 10/01/17 13:22 39.0 106 36 77/51 90 Nasal Cannula 2.0 Physical Exam General Appearance: WD/WN, no apparent distress Respiratory/Chest: chest non-tender, lungs clear, normal breath sounds, no respiratory distress, no accessory muscle use Cardiovascular: regular rate, rhythm, no edema, no gallop Abdomen: non tender, + distended, + pertinent finding (hyperactive bowel sounds ) 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iatric: alert, normal mood/affect, oriented x 3 Laboratory Results 10/02/17 05:29 Red Blood Count 3.18, Mean Corpuscular Volume 89.6, Mean Corpuscular Hemoglobin 29.6, Mean Corpuscular Hemoglobin Concent 33.0, Mean Platelet Volume 10.7, Neutrophils (%) (Auto) 83.9, Lymphocytes (%) (Auto) 8.9, Monocytes (%) (Auto) 6.9, Eosinophils (%) (Auto) 0.0, Basophils (%) (Auto) 0.1, Neutrophils # (Auto) 7.38, Lymphocytes # (Auto) 0.78, Monocytes # (Auto) 0.61, Eosinophils # (Auto) 0.00, Basophils # (Auto) 0.01 Test 10/01/17 13:40 10/01/17 16:23 10/01/17 20:06 10/02/17 05:29 Activated Partial Thromboplast Time 33.6 SECONDS (21.0-31.0) Partial Thromboplastin Ratio 1.3 Est Creatinine Clear Calc Drug Dose 52.1 ml/min Procalcitonin 3.91 ng/ml (0-0.5) Hepatitis C Antibody Screen NEG (NEG) Bedside Glucose 77 mg/dl (70-99) White Blood Count 8.80 K/uL (4.8-10.8) Red Blood Count 3.18 M/uL (4.7-6.1) Hemoglobin 9.4 g/dL (14.0-18.0) Hematocrit 28.5 % (42-52) Mean Corpuscular Volume 89.6 fL (80-100) Mean Corpuscular Hemoglobin 29.6 pg (25-34) Mean Corpuscular Hemoglobin Concent 33.0 g/dl (32-36) Platelet Count 94 K/uL (130-400) Mean Platelet Volume 10.7 fL (7.4-10.4) Neutrophils (%) (Auto) 83.9 % Lymphocytes (%) (Auto) 8.9 % Monocytes (%) (Auto) 6.9 % Eosinophils (%) (Auto) 0.0 % Basophils (%) (Auto) 0.1 % Neutrophils # (Auto) 7.38 K/uL (1.4-6.5) Lymphocytes # (Auto) 0.78 K/uL (1.2-3.4) Monocytes # (Auto) 0.61 K/uL (0.11-0.59) Eosinophils # (Auto) 0.00 K/uL (0-0.5) Basophils # (Auto) 0.01 K/uL (0-0.2) RDW Standard Deviation 52.7 fL (36.4-46.3) RDW Coefficient of Variation 16.2 % (11.5-14.5) Immature Granulocyte % (Auto) 0.2 % Immature Granulocyte # (Auto) 0.02 K/uL (0.00-0.02) Hypersegmented Polys 1+ Toxic Vacuolation 1+ Platelet Estimate DECREASED Prothrombin Time 17.6 SECONDS (9.0-12.0) Prothromb Time International Ratio 1.6 (0.9-1.1) Lactic Acid Level 3.5 mmol/L (0.4-2.0) Ammonia 69.0 umol/L (11-32) Troponin I 0.039 ng/ml (0-0.045) Assessment and Plan 71 yo male with cirrhosis 2/2 to steatohepatitis comes to the ED with fever, tachypnea and tachycardia 10/02 Pt is denies feeling feverish today No acute changes on EKG when compared to yesterday, in fact T inversions have improved Ascites fluid--positive for group B Strep, lymphocyte and blood. No metastatic cells seen. Pt WBC has improved today. 13.75--->8.8 Pt's lactic acid is 3.5 ammonia is 69 Sepsis secondary to potential peritonitis -Pt had a temp of 39, HR 106, RR 36, WBC 13.75, Procalcitonin 3.91 at admission -BC x 2 -Abx;continuing IV Vancomycin/Zosyn -CXR in the ED-normal -UA pending -Lactate 3.5 Hyperammonemia 2/2 to Liver cirrhosis -Lactulose 30 mg once -Gastro consult ordered--awaiting recs Hyperkalemia -Pt seen to have EKG changes, but not typical for elevated K -Will follow K tomorrow EKG changes -New T wave inversions in Leads V2-V4 at admission, improved -Troponins x3 q 8 hours---> .032, .041, .039 Liver cirrhosis 2/2 to steatohepatitis -repeat coags -follow destiney, liver enzymes, lipase [facility] -Patients Cr increased above baseline -maintenence IVF Anemia -Follow CBC -Consider Fe studies if anemia persist Assessment/Plan Resident Physician Supervision Note: I was present with Dr. Thomas and James during the history and exam. I discussed the case with the resident and agree with the findings and plan as documented in the note. Any exceptions or clarifications are listed here. 71 y/o male h/o hepatic steatosis induced cirrohosis p/w suspected sepsis. Today , pt feels less fatigue/malaise and denies abdominal pain, nausea, RODRIGUEZ, lightheadedness, fever. No BM as yet w/ lactulose but feels like may have BM soon. On examination, abdominal distention persists with fluid wave and mild diffuse TTP worse in the lower quadrants. CTAB. S1/S2 nl RRR no MCG. EENT: mild posterior OP cobblestoning and nl nasal mucosa w/o facial TTP SIRS w/o source - GI consulted for ?SBP w/ low suspicion at present based on fluid cell counts. Head imaging pending to evaluate for other pathology. BP has been stable. Repeat lactic acid in AM [facility] in the setting of ascites - continue hydration w/ IVF, can do small bolus and repeat if needed Cirrhosis 2/2 hepatosteatosis w/ hyperammonemia - continue lactulose, nadolol. Trend ammonia, LFTs, coags EKG changes - TWI resolved, troponins as noted above Hyperkalemia - improved w/ hydration, continue same, trend BMP
[2017-10-02] MEDS: MULTIVITAMIN TAB PO SCH (07:48)
[2017-10-02] MEDS: NADOLOL 40 MG TAB PO SCH (07:48)
[2017-10-02] MEDS: SODIUM CHLORIDE 0.9% 1000ML 1,000 ML IV SCH ×2 (07:51→19:02)
[2017-10-02 07:53] VITALS: BP 109/65
[2017-10-02] MEDS ORDERED: FUROSEMIDE 20 MG TAB PO SCH (09:00)
[2017-10-02] MEDS ORDERED: SPIRONOLACTONE 100 MG TAB PO SCH (09:00)
[2017-10-02] MEDS: LACTULOSE SYRUP 30 GM/45 ML UDP PO SCH ×2 (09:29→20:46)
[2017-10-02 09:45] LABS: URINE APPEARANCE CLEAR (CLEAR); URINE BILIRUBIN NEG (NEG); URINE COLOR DK YELLOW; URINE NITRITE NEG (NEG); URINE SPECIFIC GRAVITY 1.024 (1.000-1.030); UROBILINOGEN NEG (NEG); ZZUR CULT IF INDIC CLEAN CATCH NO
[2017-10-02 09:53] LABS: MANUAL MICROSCOPIC REQUIRED? NO; REVIEW REQ? NO
[2017-10-02 10:59] VITALS: BP 107/64; PULSE 76; TEMP 36.8; O2SAT 100
[2017-10-02 10:59] LABS: BUN/CREATININE RATIO 29.1 (10-20); CALCIUM 8.2 mg/dl (8.5-10.1); CREATININE 1.48 mg/dl (0.60-1.40); POTASSIUM 5.1 mmol/L (3.5-5.1)
[2017-10-02 11:05] LABS: ALB/GLOB RATIO 0.4 (0.9-2)
--- NOTE | 2017-10-02 13:40 | Pharmacy Progress Note ---
Pharmacy Abx Dose Short Note Date of Service Oct 02, 2017. Assessment & Plan Assessment 71 year old male receiving Vanc/Zosyn for treatment of sepsis/SBP * Day # 2 of antimicrobial therapy. Plan Vancomycin * Estimated p'kinetics: Vd~0.7L\kg, Ke~0.048hr-1, T1/2~14 hours * LOADING DOSE: VANC 1000mg IV x 1 10/01 @ 1417 * MAINTENANCE DOSE: VANC 1250mg (~14mg/kg) IV every 18 hours * Goal trough level 15 to 20 mcg/mL pending C&S * VANC Trough @ Css prior to 10/03 1300 dose Zosyn: 4.5 grams IV x 1, then 3.375 grams IV CI every 8 hours for est GFR > 20mL/min. Pharmacy will continue to follow and will adjust dose/frequency as necessary. Thank you.
--- NOTE | 2017-10-02 15:46 | Gastrointestinal Consultation ---
Gastrointestinal Consultation Date of Consultation: Oct 02, 2017 Attending Physician: DR Moustapha Dang Consulting Physician: Dr Alexei Tim Reason for Consultation: Ascites History of Present Illness Patient is a 71 year old male with CC of fever. with patient for H and P. Reviewed [facility] EMR and noted Dr Brenda most recent OV 09/27/17. OV note indicates cirrhosis with ascites and from presumed fatty liver as etiology of cirrhosis. Pt with superficial bladder cancer treated 07/[address] Mccord. Hydrocoele repair 01/2017 complicated by fluid leakage which resolved but started up recently. Pt has been fatigued and low grade fevers for last few months. He was getting paracentesis as outpt and noted to have fever of 39. Sent to ER and admitted. He has some green sinus drainage, cough. No abd pain. No red or black stools. Some sinus pressure but no sever pain. Has noted more accumulation of fluid in abdomen over last month. Marked scrotal edema but no significant pain. He has been on low salt diet at home per his . Has been on Aldactone and lasix to help control fluid. Diagnostic paracentesis. 10/01 total WBC only 182 with 17% neutrophils is NOT suggest of SBP. The strep culture positive from fluid I would worry is skin contaminant. CXR negative. UA 5-10 WBCs. Cytology from ascites fluid negative for malignancy. He has elevated ammonia 98 09/27/17 and 71 this admit. His BUN and CR are elevated and worse today. LFTs elevated. WBC 13.75 on admit better today. Past Medical/Surgical History Medical Problems: (1) CKD (chronic kidney disease) Status: Acute (2) Fever Status: Acute (3) Hyperkalemia Status: Acute (4) Hypotension Status: Acute (5) Liver cirrhosis Status: Chronic Family History non contributory Social History Smoking Status: Former Smoker Marital Status: Housing Status: lives with family Allergies Coded Allergies: No Known Allergies (Unverified , 01/29/17) Current Medications Home Meds and Scripts Medications Dose Route/Sig Max Daily Dose Days Date Category Vitamin E 400 Unit Tab 800 Units PO QAM 10/01/17 Reported Lasix (Furosemide) 40 Mg Tab 20 Mg PO DAILY 10/01/17 Reported Aldactone (Spironolactone) 50 Mg Tab 50 Mg PO BID 10/01/17 Reported Naprosyn (Naproxen) 500 Mg Tab 500 Mg PO BID PRN 07/18/16 Reported Corgard (Nadolol) 40 Mg Tab 40 Mg PO QAM 07/18/16 Reported Multivitamin (Multivitamins) Tab 1 Tab PO QAM 05/02/15 Reported Review of Systems ROS in HPI otherwise 10 systems negative. Physical Exam Date Time Temp Pulse Resp B/P (MAP) Pulse Ox O2 Delivery O2 Flow Rate FiO2 10/02/17 12:00 Nasal Cannula 2.0 10/02/17 10:59 36.8 76 22 107/64 (78) 100 Nasal Cannula 2.0 10/02/17 08:00 Nasal Cannula 2.0 10/02/17 07:53 109/65 (80) 10/02/17 04:21 36.6 78 18 105/62 (76) 98 Nasal Cannula 2.0 10/02/17 04:00 Nasal Cannula 2.0 10/02/17 04:00 Nasal Cannula 2.0 10/02/17 00:01 Nasal Cannula 2.0 10/01/17 23:08 36.6 90 20 100/62 (75) 100 Nasal Cannula 2.0 10/01/17 19:38 38.7 98 20 105/63 100 10/01/17 19:34 101 20 96/51 100 Nasal Cannula 2.0 10/01/17 17:43 100 22 102/70 100 Nasal Cannula 3.0 10/01/17 17:30 96 10/01/17 16:24 37.1 95 26 93/59 99 Nasal Cannula 2.0 10/01/17 15:45 99 24 117/71 99 Nasal Cannula 3.0 General Appearance: WD/WN, no apparent distress Eyes: normal inspection, PERRL ENT: hearing grossly normal, pharynx normal Neck: supple, no adenopathy Respiratory/Chest: lungs clear, no respiratory distress Cardiovascular: regular rate, rhythm, no murmur Abdomen: + pertinent finding (positive bowel sounds, marked ascites but not tense, no guarding nor rebound, no obvious organomegaly.) Extremities: normal range of motion, non-tender 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: 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, normal mood/affect, oriented x 3 Skin: normal color, no jaundice Laboratory Results Last 24 Hours Test 10/01/17 16:23 10/01/17 18:22 10/01/17 20:06 10/01/17 21:58 Hepatitis C Antibody Screen NEG Lactic Acid Level 3.2 mmol/L Bedside Glucose 77 mg/dl Troponin I 0.041 ng/ml Test 10/01/17 23:52 10/02/17 05:29 10/02/17 06:29 10/02/17 09:30 Lactic Acid Level 4.2 mmol/L 3.5 mmol/L White Blood Count 8.80 K/uL Red Blood Count 3.18 M/uL Hemoglobin 9.4 g/dL Hematocrit 28.5 % Mean Corpuscular Volume 89.6 fL Mean Corpuscular Hemoglobin 29.6 pg Mean Corpuscular Hemoglobin Concent 33.0 g/dl Platelet Count 94 K/uL Mean Platelet Volume 10.7 fL Neutrophils (%) (Auto) 83.9 % Lymphocytes (%) (Auto) 8.9 % Monocytes (%) (Auto) 6.9 % Eosinophils (%) (Auto) 0.0 % Basophils (%) (Auto) 0.1 % Neutrophils # (Auto) 7.38 K/uL Lymphocytes # (Auto) 0.78 K/uL Monocytes # (Auto) 0.61 K/uL Eosinophils # (Auto) 0.00 K/uL Basophils # (Auto) 0.01 K/uL RDW Standard Deviation 52.7 fL RDW Coefficient of Variation 16.2 % Immature Granulocyte % (Auto) 0.2 % Immature Granulocyte # (Auto) 0.02 K/uL Hypersegmented Polys 1+ Toxic Vacuolation 1+ Platelet Estimate DECREASED Prothrombin Time 17.6 SECONDS Prothromb Time International Ratio 1.6 Sodium Level 135 mmol/L Potassium Level 5.1 mmol/L Chloride Level 108 mmol/L Carbon Dioxide Level 19 mmol/L Anion Gap 8.0 mmol/L Blood Urea Nitrogen 43 mg/dl Creatinine 1.48 mg/dl Est Creatinine Clear Calc Drug Dose 50.4 ml/min Estimated GFR () 55.2 Estimated GFR (Non- 47.6 BUN/Creatinine Ratio 29.1 Random Glucose 113 mg/dl Calcium Level 8.2 mg/dl Magnesium Level 2.0 mg/dl Total Bilirubin 1.7 mg/dl Direct Bilirubin 1.2 mg/dl Aspartate Amino Transf (AST/SGOT) 53 U/L Alanine Aminotransferase (ALT/SGPT) 44 U/L Alkaline Phosphatase 133 U/L Ammonia 69.0 umol/L Troponin I 0.039 ng/ml Total Protein 6.6 gm/dl Albumin 1.9 gm/dl Globulin 4.7 gm/dl Albumin/Globulin Ratio 0.4 Lipase 183 U/L Bedside Glucose 106 mg/dl Urine Color DK YELLOW Urine Appearance CLEAR Urine pH 5.0 Urine Specific [place] 1.024 Urine Protein NEG Urine Glucose (UA) NEG Urine Ketones NEG Urine Occult Blood NEG Urine Nitrite NEG Urine Bilirubin NEG Urine Urobilinogen NEG Urine Leukocyte Esterase SMALL Urine WBC (Auto) 5-10 /hpf Urine RBC (Auto) 5-10 /hpf Urine Hyaline Casts (Auto) 1-5 /lpf Urine Epithelial Cells (Auto) 10-20 /lpf Urine Bacteria (Auto) NEG Test 10/02/17 13:47 Troponin I 0.028 ng/ml Impression Fever--go ahead with broad spectrum coverage until cultures are back but low cell count in ascites fluid argues against SBP; For other infections will get head CT, sinus CT and A/P CT ascites--DC diuretics in setting of worsening BUN/CR, give IVF, if/when BUN/CR better can do therapeutic paracentesis, cytology negative. cirrhosis--presumably from fatty liver---EGD 04/2015 1+ esophageal varices so continue Nadalol elevated ammonia--from cirrhosis--continue Lactulose Elevated lactic acid--sepsis and dehydration most likely, No abd pain to suggest bowel ischemia, follow anemia--no evidence of gross GI bleeding--follow elevated LFTS from cirrhosis--follow elev PT from cirrhosis--follow
[2017-10-02 16:32] VITALS: BP 96/58; PULSE 75; TEMP 36.5; O2SAT 98
--- NOTE | 2017-10-02 18:19 | DIAGNOSTIC IMAGING REPORT ---
CT SCAN OF THE BRAIN WITHOUT IV CONTRAST CLINICAL HISTORY: Fever. Loss of sense and smell and taste. COMPARISON STUDY: No priors. TECHNIQUE: Unenhanced axial CT scan of the brain is performed from the vertex to the skull base. CT DOSE: 2854.14 mGy.cm FINDINGS: Brain parenchyma: There are age-related involutional changes noting mild to moderate patchy subcortical and periventricular microangiopathic change. There is no hemorrhage, mass effect, or evidence of acute territorial ischemia by CT criteria. Cota-white matter is preserved. No extra-axial fluid collection is seen. Ventricles, sulci, cisterns: Prominent secondary to involutional change. Cavum septum pellucidum is incidentally noted. Intracranial vasculature: There is atherosclerotic calcification of the cavernous carotid arteries. Calvarium: Unremarkable. Sinuses and mastoids: There is complete opacification of the left frontal sinus, the sphenoid sinuses, and the left maxillary antrum. There is a 2.3 cm retention cyst in the right maxillary antrum. There is subtotal opacification of the posterior ethmoid sinuses. The mastoid air cells are well pneumatized. Orbits: The bony orbits are grossly intact. IMPRESSION: 1. There is no hemorrhage, mass effect, or evidence of acute territorial ischemia by CT criteria. 2. Paranasal sinus disease as above. Electronically signed by: Abimael Mclaughlin M.D. 10/02/2017 6:15 PM Dictated Date/Time: 10/02/2017 6:11 PM
--- NOTE | 2017-10-02 18:23 | DIAGNOSTIC IMAGING REPORT ---
CT SCAN OF THE PARANASAL SINUSES CLINICAL HISTORY: Fever. Sinus drainage. COMPARISON STUDY: CT of the brain performed concurrently on 10/02/2017. TECHNIQUE: High-resolution CT scan of the paranasal sinuses is performed. Images are reviewed in the axial, sagittal, and coronal planes. IV contrast was not administered for this examination. A dose lowering technique was utilized adhering to the principles of ALARA. FINDINGS: Maxillary antra: There is complete opacification of the left maxillary antrum. There is a 2.3 cm retention cyst in the right maxillary antrum with trace fluid. Anterior ethmoid sinuses: Mild mucosal thickening seen in the right. Moderate mucosal thickening is seen on the left. Posterior ethmoid sinuses: There is near complete opacification of the posterior ethmoid sinuses bilaterally. Sphenoid sinuses: Subtotally opacified bilaterally. Frontal sinuses: There is near complete opacification of the left frontal sinus. The right frontal sinus is clear. Ostiomeatal complexes: The left ostiomeatal complex is occluded. The right is patent. Frontoethmoidal and sphenoethmoidal recesses: The sphenoethmoidal recesses are patent. The frontoethmoidal recesses are patent, with significant narrowing on the left secondary to mucosal thickening. Carotid arteries: The carotid arteries are protuberant but covered. There are bilateral septal attachments. Ethmoid roofs: There is slightly asymmetric elevation of the right ethmoid roof as compared to the left. Nasal turbinates: Normal in appearance. Nasal septum: There is rightward deviation of the bony nasal septum with a small spur. Optic nerves: Covered. Orbits: The bony orbits are intact. Orbital contents are normal in appearance. Calvarium: The imaged calvarium is normal in appearance Mastoid air cells: Trace effusion is seen on the left. The right mastoid air cells are clear. Brain parenchyma: Partially visualized brain parenchyma is within normal limits. IMPRESSION: Pansinusitis as above. Electronically signed by: Abimael Mclaughlin M.D. 10/02/2017 6:21 PM Dictated Date/Time: 10/02/2017 6:16 PM
--- NOTE | 2017-10-02 18:33 | DIAGNOSTIC IMAGING REPORT ---
ABDOMEN AND PELVIS CT WITHOUT CONTRAST HISTORY: Acute fever with ascites fever, scrotum enlargement, cirrhosis, r/o abscess TECHNIQUE: Multiaxial CT images of the abdomen and pelvis were performed without contrast. A dose lowering technique was utilized adhering to the principles of ALARA. COMPARISON STUDY: CT abdomen and pelvis 07/11/2016. FINDINGS: Symmetric bilateral moderate gynecomastia. Moderate cardiomegaly with coronary arterial disease. Calcifications of the aortic annulus also noted. Respiratory motion limits evaluation of the lung bases. The lung bases are generally clear. Small right and trace left pleural effusions are present. No pneumoperitoneum identified. Evaluation of the solid abdominal organs is limited without the use of contrast. Cirrhotic morphology of the liver redemonstrated. No focal hepatic mass lesions or intrahepatic biliary ductal dilation identified. There is evidence of portal hypertension manifested by splenomegaly, 16.0 cm in length, abdominal and pelvic varices and portosystemic collaterals with moderate intra-abdominal and intrapelvic ascites. Ascitic fluid extends into a small fat filled periumbilical hernia, diastases 2.2 cm and also into bilateral fat filled inguinal hernias. Adrenal glands and pancreas are unremarkable. Gallstones are again seen layering within the gallbladder lumen. Areas of mild cortical atrophy are again seen within the kidneys bilaterally. There are 2 nonobstructing calculi of the inferior pole left kidney measuring up to 5 mm. Previously noted nonobstructing calculus of the interpolar right kidney is no longer seen, likely passed in the interval. Ureters are normal in caliber. No obstructive uropathy. Previously noted mass of the urinary bladder lumen is not seen. There is moderate soft tissue swelling of the scrotum with probable hydroceles. Mild atherosclerotic plaquing of the abdominal aorta. Nonspecific mild bilateral inguinal and iliac chain adenopathy with inguinal lymph nodes measuring up to 1.2 cm in short axis, progressed from prior study. Moderate subcutaneous edema is noted within the mons pubis. Wall thickening of the distal esophagus is noted without definite periesophageal varices. There is no bowel obstruction identified. Previously noted metallic linear structure is again seen within the right lower quadrant, image 411 of series 8 which is nonspecific. Moderate diffuse body wall edema. Grade 1 anterolisthesis L5 on S1 secondary to remote bilateral pars defects. IMPRESSION: 1. Cirrhotic morphology of the liver with stigmata of portal venous hypertension including splenomegaly, progressively worsened abdominal and pelvic ascites with abdominal and pelvic varices and portosystemic collaterals. 2. Ascitic fluid extends into a small periumbilical hernia and into large bilateral fat filled inguinal hernias. 3. Moderate soft tissue swelling of the scrotum with subcutaneous edema of the mons pubis and probable bilateral hydroceles. 4. Small right and trace left pleural effusions. 5. Mild bilateral inguinal and iliac chain adenopathy is nonspecific and may be reactive. 6. Additional findings as above including cholelithiasis and nonobstructing left nephrolithiasis. Electronically signed by: Colin Lopez M.D. 10/02/2017 6:32 PM Dictated Date/Time: 10/02/2017 6:18 PM
--- NOTE | 2017-10-02 19:04 | Medical Student: [facility] ---
Med Student Progress Note Date of Service Oct 02, 2017. 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 He experienced a fever shortly after receiving his first paracentesis. Vitals last night include BP 157/77, T 39.2, P 104, RR 36. EKG showed new T-wave inversions. He was admitted to telemetry last night for concern of sepsis and possible cardiac events. Pt was seen at the bedside this morning. No acute events occurred overnight. He reports no fever. He has not yet had a BM as of 0830 this AM. Review of Systems Constitutional: No fever, No chills, No sweats Respiratory: + shortness of breath Cardiac: No chest pain, No edema Abdomen: + problem reported, No pain, No nausea, No vomiting, No diarrhea, No constipation Objective Vital Signs Date Time Temp Pulse Resp B/P (MAP) Pulse Ox O2 Delivery O2 Flow Rate FiO2 10/02/17 16:32 36.5 75 96/58 (71) 98 Room Air 10/02/17 16:31 Nasal Cannula 2.0 10/02/17 12:00 Nasal Cannula 2.0 10/02/17 10:59 36.8 76 22 107/64 (78) 100 Nasal Cannula 2.0 10/02/17 08:00 Nasal Cannula 2.0 10/02/17 07:53 109/65 (80) 10/02/17 04:21 36.6 78 18 105/62 (76) 98 Nasal Cannula 2.0 10/02/17 04:00 Nasal Cannula 2.0 10/02/17 04:00 Nasal Cannula 2.0 10/02/17 00:01 Nasal Cannula 2.0 10/01/17 23:08 36.6 90 20 100/62 (75) 100 Nasal Cannula 2.0 10/01/17 19:38 38.7 98 20 105/63 100 10/01/17 19:34 101 20 96/51 100 Nasal Cannula 2.0 Physical Exam General Appearance: WD/WN, no apparent distress Eyes: bilateral eyes normal inspection, bilateral eyes PERRL Neck: supple, no adenopathy Respiratory/Chest: chest non-tender, lungs clear, normal breath sounds, no respiratory distress, no accessory muscle use Cardiovascular: regular rate, rhythm, no edema, no murmur Abdomen: normal bowel sounds, non tender, soft, + distended (ascites) 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iatric: normal mood/affect, oriented x 3 Skin: normal color Laboratory Results Last 24 Hours Test 10/01/17 20:06 10/01/17 21:58 10/01/17 23:52 10/02/17 05:29 Bedside Glucose 77 mg/dl Troponin I 0.041 ng/ml 0.039 ng/ml Lactic Acid Level 4.2 mmol/L 3.5 mmol/L White Blood Count 8.80 K/uL Red Blood Count 3.18 M/uL Hemoglobin 9.4 g/dL Hematocrit 28.5 % Mean Corpuscular Volume 89.6 fL Mean Corpuscular Hemoglobin 29.6 pg Mean Corpuscular Hemoglobin Concent 33.0 g/dl Platelet Count 94 K/uL Mean Platelet Volume 10.7 fL Neutrophils (%) (Auto) 83.9 % Lymphocytes (%) (Auto) 8.9 % Monocytes (%) (Auto) 6.9 % Eosinophils (%) (Auto) 0.0 % Basophils (%) (Auto) 0.1 % Neutrophils # (Auto) 7.38 K/uL Lymphocytes # (Auto) 0.78 K/uL Monocytes # (Auto) 0.61 K/uL Eosinophils # (Auto) 0.00 K/uL Basophils # (Auto) 0.01 K/uL RDW Standard Deviation 52.7 fL RDW Coefficient of Variation 16.2 % Immature Granulocyte % (Auto) 0.2 % Immature Granulocyte # (Auto) 0.02 K/uL Hypersegmented Polys 1+ Toxic Vacuolation 1+ Platelet Estimate DECREASED Prothrombin Time 17.6 SECONDS Prothromb Time International Ratio 1.6 Sodium Level 135 mmol/L Potassium Level 5.1 mmol/L Chloride Level 108 mmol/L Carbon Dioxide Level 19 mmol/L Anion Gap 8.0 mmol/L Blood Urea Nitrogen 43 mg/dl Creatinine 1.48 mg/dl Est Creatinine Clear Calc Drug Dose 50.4 ml/min Estimated GFR () 55.2 Estimated GFR (Non- 47.6 BUN/Creatinine Ratio 29.1 Random Glucose 113 mg/dl Calcium Level 8.2 mg/dl Magnesium Level 2.0 mg/dl Total Bilirubin 1.7 mg/dl Direct Bilirubin 1.2 mg/dl Aspartate Amino Transf (AST/SGOT) 53 U/L Alanine Aminotransferase (ALT/SGPT) 44 U/L Alkaline Phosphatase 133 U/L Ammonia 69.0 umol/L Total Protein 6.6 gm/dl Albumin 1.9 gm/dl Globulin 4.7 gm/dl Albumin/Globulin Ratio 0.4 Lipase 183 U/L Test 10/02/17 06:29 10/02/17 09:30 10/02/17 13:47 Bedside Glucose 106 mg/dl Urine Color DK YELLOW Urine Appearance CLEAR Urine pH 5.0 Urine Specific [place] 1.024 Urine Protein NEG Urine Glucose (UA) NEG Urine Ketones NEG Urine Occult Blood NEG Urine Nitrite NEG Urine Bilirubin NEG Urine Urobilinogen NEG Urine Leukocyte Esterase SMALL Urine WBC (Auto) 5-10 /hpf Urine RBC (Auto) 5-10 /hpf Urine Hyaline Casts (Auto) 1-5 /lpf Urine Epithelial Cells (Auto) 10-20 /lpf Urine Bacteria (Auto) NEG Troponin I 0.028 ng/ml Assessment and Plan Assessment and Plan: Baljeet is a 71 year old male with a history of cirrhosis secondary to steatohepatitis who presented to the ED with a fever after receiving a paracentesis. He was hospitalized for concerns of sepsis secondary to spontaneous bacterial pneumonitis and possible cardiac events given recent T- wave inversion as compared to an old EKG. He was started on IV vancomycin/Zosyn and fluids and given lactulose for hyperammonemia. 1) Suspected spontaneous bacterial pneumonitis from cirrhosis -WBC count has trended downwards from 13.75 --> 8.80 -Ascitic fluid grew group B strep -Blood and urine cultures are still pending as of this AM, therefore continue with IV vancomycin/Zosyn 2) Cirrhosis secondary to steatohepatitis -hyperammonemia still present (NH3 = 69 on AM labs) after two doses of lactulose - wait until patient has a BM and recheck ammonia tomorrow AM -continue to track coags, LFTs 3) EKG changes -New EKG today showed reversal of T-wave inversion -EKG tomorrow morning 4) Hyperkalemia -Continue monitoring
[2017-10-02 20:37] VITALS: BP 113/70; PULSE 77; TEMP 36.9; O2SAT 99
[2017-10-02 23:31] VITALS: BP 118/67; PULSE 78; TEMP 36.8; O2SAT 97
[2017-10-03 03:36] VITALS: BP 111/73; PULSE 96; TEMP 36.4; O2SAT 98
[2017-10-03] MEDS: PIPERACILL/TAZOBAC IV 3.375 GM in DEXTROSE 5% 100ML 100 ML IV SCH (05:53)
[2017-10-03 06:26] LABS: HEMATOCRIT 28.2 % (42-52); MEAN CELL VOLUME 90.1 fL (80-100); MEAN CORPUSCULAR HGB CONC 33.3 g/dl (32-36); RED BLOOD COUNT 3.13 M/uL (4.7-6.1); WHITE BLOOD COUNT 6.92 K/uL (4.8-10.8)
[2017-10-03 06:35] LABS: INR 1.6 (0.9-1.1); PROTHROMBIN TIME (PATIENT) 16.9 SECONDS (9.0-12.0)
[2017-10-03 06:40] LABS: PLATELET COUNT 89 K/uL (130-400)
[2017-10-03 06:50] LABS: BASO % 0.3 %; BASO ABS # 0.02 K/uL (0-0.2); COMPLETE YES; DOHLE BODIES 1+; ECHINOCYTES 1+; HYPERSEGMENTED POLYS 1+; IG% 0.1 %; LYMPH ABS # 0.62 K/uL (1.2-3.4); MONO % 15.3 %; NEUT % 74.3 %; VACUOLIZATION 1+
[2017-10-03 07:19] LABS: ALB/GLOB RATIO 0.4 (0.9-2); BUN/CREATININE RATIO 33.7 (10-20); CALCIUM 8.1 mg/dl (8.5-10.1); CREATININE 1.04 mg/dl (0.60-1.40); POTASSIUM 4.3 mmol/L (3.5-5.1)
[2017-10-03 07:56] VITALS: BP 120/62; PULSE 66; TEMP 36.8; O2SAT 99
--- NOTE | 2017-10-03 08:21 | Family Medicine Progress Note ---
Progress Note Date of Service Oct 03, 2017. Subjective Pt evaluation today including: conversation w/ patient, physical exam, chart review, lab review Constitutional: No fever, No chills, No sweats Respiratory: No cough, No sputum, No wheezing Cardiovascular: No chest pain, No orthopnea, No palpitations Abdomen: No pain, No nausea, No vomiting, No diarrhea Medications Current Inpatient Medications Medications (Trade) Dose Ordered Sig/Raffi Route Start Time Stop Time Status Last Admin Dose Admin Sodium Chloride 1,000 ml @ 80 mls/hr [id number] IV 10/01/17 17:50 10/31/17 17:49 10/03/17 09:12 80 MLS/HR Ondansetron HCl (Zofran Inj) 4 mg Q6H PRN IV 10/01/17 18:00 10/31/17 17:59 Nitroglycerin (Nitrostat Tab) 0.4 mg UD PRN SL 10/01/17 18:00 10/31/17 17:59 Morphine Sulfate (MoRPHine SULFATE INJ) 2 mg Q30M PRN IV 10/01/17 18:00 10/15/17 17:59 Multivitamins (Multivitamin Tab) 1 tab QAM PO 10/02/17 09:00 11/01/17 08:59 10/03/17 09:10 1 TAB Nadolol (Corgard Tab) 40 mg QAM PO 10/02/17 09:00 11/01/17 08:59 10/03/17 09:10 40 MG Lactulose (Chronulac Syrup) 15 gm DAILY PO 10/04/17 09:00 11/01/17 08:59 Amoxicillin/ Clavulanate Potassium (Augmentin Tab) 875 mg BIDM PO 10/03/17 16:45 10/13/17 16:44 10/03/17 15:26 875 MG Objective Vital Signs Date Time Temp Pulse Resp B/P (MAP) Pulse Ox O2 Delivery O2 Flow Rate FiO2 10/03/17 15:35 36.8 74 16 124/78 (93) 98 Room Air 10/03/17 12:00 Room Air Nasal Cannula 10/03/17 11:35 36.6 74 16 124/66 (85) 98 10/03/17 08:00 Room Air Nasal Cannula 10/03/17 07:56 36.8 66 18 120/62 (81) 99 11/9/17 04:00 Room Air 2.0 Nasal Cannula 10/03/17 03:36 36.4 96 20 111/73 (86) 98 Nasal Cannula 4.0 10/03/17 00:00 Room Air 2.0 Nasal Cannula 10/02/17 23:31 36.8 78 20 118/67 (84) 97 Room Air 10/02/17 20:37 36.9 77 18 113/70 (84) 99 Room Air 10/02/17 20:23 Nasal Cannula 2.0 Physical Exam General Appearance: WD/WN, no apparent distress Respiratory/Chest: chest non-tender, lungs clear, normal breath sounds, no respiratory distress Cardiovascular: regular rate, rhythm, no edema, no gallop, no JVD Abdomen: no organomegaly, no pulsatile mass, + distended 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iatric: alert, normal mood/affect, oriented x 3 Skin: normal color, warm/dry, no rash Laboratory Results 10/03/17 06:05 Red Blood Count 3.13, Mean Corpuscular Volume 90.1, Mean Corpuscular Hemoglobin 30.0, Mean Corpuscular Hemoglobin Concent 33.3, Mean Platelet Volume 11.0, Neutrophils (%) (Auto) 74.3, Lymphocytes (%) (Auto) 9.0, Monocytes (%) (Auto) 15.3, Eosinophils (%) (Auto) 1.0, Basophils (%) (Auto) 0.3, Neutrophils # (Auto ) 5.14, Lymphocytes # (Auto) 0.62, Monocytes # (Auto) 1.06, Eosinophils # (Auto ) 0.07, Basophils # (Auto) 0.02 10/03/17 06:15 Test 10/03/17 06:05 10/03/17 06:14 10/03/17 06:15 10/03/17 09:19 White Blood Count 6.92 K/uL (4.8-10.8) Red Blood Count 3.13 M/uL (4.7-6.1) Hemoglobin 9.4 g/dL (14.0-18.0) Hematocrit 28.2 % (42-52) Mean Corpuscular Volume 90.1 fL (80-100) Mean Corpuscular Hemoglobin 30.0 pg (25-34) Mean Corpuscular Hemoglobin Concent 33.3 g/dl (32-36) Platelet Count 89 K/uL (130-400) Mean Platelet Volume 11.0 fL (7.4-10.4) Neutrophils (%) (Auto) 74.3 % Lymphocytes (%) (Auto) 9.0 % Monocytes (%) (Auto) 15.3 % Eosinophils (%) (Auto) 1.0 % Basophils (%) (Auto) 0.3 % Neutrophils # (Auto) 5.14 K/uL (1.4-6.5) Lymphocytes # (Auto) 0.62 K/uL (1.2-3.4) Monocytes # (Auto) 1.06 K/uL (0.11-0.59) Eosinophils # (Auto) 0.07 K/uL (0-0.5) Basophils # (Auto) 0.02 K/uL (0-0.2) RDW Standard Deviation 54.3 fL (36.4-46.3) RDW Coefficient of Variation 16.4 % (11.5-14.5) Immature Granulocyte % (Auto) 0.1 % Immature Granulocyte # (Auto) 0.01 K/uL (0.00-0.02) Hypersegmented Polys 1+ Toxic Vacuolation 1+ Dohle Bodies 1+ Echinocytes 1+ Prothrombin Time 16.9 SECONDS (9.0-12.0) Prothromb Time International Ratio 1.6 (0.9-1.1) Ammonia 48.1 umol/L (11-32) Lactic Acid Level 1.5 mmol/L (0.4-2.0) Anion Gap 7.0 mmol/L (3-11) Est Creatinine Clear Calc Drug Dose 71.7 ml/min Estimated GFR () 84.5 Estimated GFR (Non- 72.9 BUN/Creatinine Ratio 33.7 (10-20) Calcium Level 8.1 mg/dl (8.5-10.1) Total Bilirubin 1.7 mg/dl (0.2-1) Aspartate Amino Transf (AST/SGOT) 40 U/L (15-37) Alanine Aminotransferase (ALT/SGPT) 38 U/L (12-78) Alkaline Phosphatase 119 U/L (45-117) Total Protein 6.6 gm/dl (6.4-8.2) Albumin 1.9 gm/dl (3.4-5.0) Globulin 4.7 gm/dl (2.5-4.0) Albumin/Globulin Ratio 0.4 (0.9-2) Lipase 328 U/L (73-393) Test 10/03/17 12:30 Vancomycin Level Trough 13.5 mcg/ml (SEE COMMENT) Assessment and Plan 71 yo male with cirrhosis 2/2 to steatohepatitis comes to the ED with fever, tachypnea and tachycardia 10/03 Pt is afebrile, white count WNL, lactic acid WNL CT of the sinuses demonstrate pansinusitis Ascites fluid--positive for group B Strep, lymphocyte and blood. No metastatic cells seen. DC IV vanyco/zosyn Switched to Augmentin to cross cover possible infection of peritoneal fluid and sinuses Sepsis secondary to potential peritonitis -Pt had a temp of 39, HR 106, RR 36, WBC 13.75, Procalcitonin 3.91 at admission -BC x 2 -Abx;DC'ed IV Vancomycin/Zosyn, switched to Augmentin -CXR in the ED-normal -UA inconclusive for UTI Hyperammonemia 2/2 to Liver cirrhosis -Gastro consulted -Liver US demonstrates no flow in the portal vein, likely due to thrombosis -Dr. Tim recommends IV heparin-starting tonight Hyperkalemia resolved EKG changes -New T wave inversions in Leads V2-V4 at admission, improved -Troponins x3 q 8 hours---> .032, .041, .039--likely demand ischemia Liver cirrhosis 2/2 to steatohepatitis -repeat coags -follow destiney, liver enzymes, lipase PARADISE resolved Anemia -Follow CBC -Consider Fe studies if anemia persist Assessment/Plan Resident Physician Supervision Note: I was present with Dr. Soliz during the history and exam. I discussed the case with the resident and agree with the findings and plan as documented in the note. Any exceptions or clarifications are listed here. 71 y/o male h/o hepatic steatosis induced cirrohosis p/w occult infection. Pt reports gradual improvement in malaise and fatigue and is close to baseline. Considerable BM 2/2 lactulose as expected. Abdominal distention persists with fluid wave with minimal TTP. CTAB. S1/S2 nl RRR no MCG. EENT: mild posterior OP cobblestoning and nl nasal mucosa w/o facial TTP unchanged. SBP v. ABRS - CT head w/ ?sinus disease concordant with symptoms, peritoneal fluid w/ strep on Cx. After discussion with gastroenterology, either bacteria would likely be covered by augmentin for identical recommended courses, and so will transition to PO augmentin. PARADISE in the setting of ascites - improved, use caution with large bolus Cirrhosis 2/2 hepatosteatosis w/ hyperammonemia - continue lactulose at reduced dose 2/2 diarrhea, nadolol. Trend ammonia, LFTs, coags. Doppler for venous thrombosis as potential source. Per GI recommendation, nutrition consult for hepatic diet. Hyperkalemia - trend BMP
[2017-10-03] MEDS: LACTULOSE SYRUP 30 GM/45 ML UDP PO SCH (09:10)
[2017-10-03] MEDS: NADOLOL 40 MG TAB PO SCH (09:10)
[2017-10-03] MEDS: MULTIVITAMIN TAB PO SCH (09:10)
[2017-10-03] MEDS: SODIUM CHLORIDE 0.9% 1000ML 1,000 ML IV SCH ×2 (09:12→19:29)
[2017-10-03 11:35] VITALS: BP 124/66; PULSE 74; TEMP 36.6; O2SAT 98
[2017-10-03] MEDS ORDERED: VANCOMYCIN TROUGH ONE (12:30)
[2017-10-03] MEDS: VANCOMYCIN INJ 1,250 MG in SODIUM CHLORIDE 0.9% 250ML 250 ML IV SCH (13:16)
[2017-10-03] MEDS: AMOXICILLIN/CLAVULANATE TAB 875 MG TAB PO SCH (15:26)
[2017-10-03 15:35] VITALS: BP 124/78; PULSE 74; TEMP 36.8; O2SAT 98
--- NOTE | 2017-10-03 16:02 | DIAGNOSTIC IMAGING REPORT ---
DOPPLER ULTRASOUND OF THE HEPATIC AND PORTAL VASCULATURE CLINICAL HISTORY: Worsening ascites. Cirrhosis. COMPARISON STUDY: Abdominal CT dated 10/02/2017. TECHNIQUE: Real-time, grayscale, and color Doppler sonography of the hepatic and portal vasculature is performed. FINDINGS: No flow is identified within the main portal vein or the left portal vein. Trace flow is questioned in the right portal vein. The hepatic veins are patent. There is loss of the normal triphasic hepatic venous waveforms. The splenic vein is patent. The liver is cirrhotic in morphology and heterogeneous in echotexture noting a nodular surface contour. There is a moderate to large volume of abdominal ascites containing debris. Gallbladder wall thickening is nonspecific and likely related to cirrhosis and ascites. The spleen is enlarged measuring up to 15.3 cm. IMPRESSION: 1. No flow is identified within the main portal vein or the left portal vein, likely represent thrombosis. Trace flow is questioned in the right portal vein. Contrast-enhanced CT scan could be used for confirmation. 2. The hepatic veins are patent with loss of the normal hepatic venous waveforms. 3. Cirrhosis, ascites, and splenomegaly as above. Electronically signed by: Abimael Mclaughlin M.D. 10/03/2017 4:00 PM Dictated Date/Time: 10/03/2017 3:57 PM
--- NOTE | 2017-10-03 17:07 | Medical Student: [facility] ---
Med Student Progress Note Date of Service Oct 03, 2017. 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 Developed acute bacterial sinusitis prior to entering the hospital. EKG in ED showed T-wave inversion and poor R-wave progression. He was admitted to telemetry and placed on IV vancomycin and zosyn. Ascitic fluid grew GBS (due to possible skin contamination) and negative blood and urine cultures. Baljeet was seen at the bedside, where he was lying comfortably. He had no complaints or concerns. No acute overnight events. He was transitioned to a clear liquids diet and is tolerating it well. He denies any fever, chills, nausea, or vomiting. Denies any abdominal pain, suprapubic tenderness, or dysuria. Reports continuing to feel "stuffed up" on the left side of his nose. Is having more frequent BMs presumably due to lactulose (which has been scaled back). He is sleeping well and has a good appetite. Review of Systems Constitutional: No fever, No chills, No sweats Respiratory: + sputum, No wheezing, No shortness of breath, No dyspnea on exertion Cardiac: No chest pain Abdomen: No pain, No nausea, No vomiting, No diarrhea, No constipation Male : No dysuria Objective Vital Signs Date Time Temp Pulse Resp B/P (MAP) Pulse Ox O2 Delivery O2 Flow Rate FiO2 10/03/17 15:35 36.8 74 16 124/78 (93) 98 Room Air 10/03/17 12:00 Room Air Nasal Cannula 10/03/17 11:35 36.6 74 16 124/66 (85) 98 10/03/17 08:00 Room Air Nasal Cannula 10/03/17 07:56 36.8 66 18 120/62 (81) 99 10/03/17 04:00 Room Air 2.0 Nasal Cannula 10/03/17 03:36 36.4 96 20 111/73 (86) 98 Nasal Cannula 4.0 10/03/17 00:00 Room Air 2.0 Nasal Cannula 10/02/17 23:31 36.8 78 20 118/67 (84) 97 Room Air 10/02/17 20:37 36.9 77 18 113/70 (84) 99 Room Air 10/02/17 20:23 Nasal Cannula 2.0 Physical Exam General Appearance: WD/WN, no apparent distress Eyes: bilateral eyes normal inspection, bilateral eyes PERRL, bilateral eyes EOMI Neck: supple, no adenopathy, thyroid normal, no JVD Respiratory/Chest: chest non-tender, lungs clear, normal breath sounds, no respiratory distress, no accessory muscle use Abdomen: non tender, + abnormal bowel sounds (hyperactive bowel sounds), + distended (secondary to ascites), + pertinent finding (gynecomastia) Extremities: no pedal edema, no calf tenderness 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iatric: alert, normal mood/affect, oriented x 3 Skin: normal color Laboratory Results Last 24 Hours Test 10/03/17 06:05 10/03/17 06:14 10/03/17 06:15 10/03/17 09:19 White Blood Count 6.92 K/uL Red Blood Count 3.13 M/uL Hemoglobin 9.4 g/dL Hematocrit 28.2 % Mean Corpuscular Volume 90.1 fL Mean Corpuscular Hemoglobin 30.0 pg Mean Corpuscular Hemoglobin Concent 33.3 g/dl Platelet Count 89 K/uL Mean Platelet Volume 11.0 fL Neutrophils (%) (Auto) 74.3 % Lymphocytes (%) (Auto) 9.0 % Monocytes (%) (Auto) 15.3 % Eosinophils (%) (Auto) 1.0 % Basophils (%) (Auto) 0.3 % Neutrophils # (Auto) 5.14 K/uL Lymphocytes # (Auto) 0.62 K/uL Monocytes # (Auto) 1.06 K/uL Eosinophils # (Auto) 0.07 K/uL Basophils # (Auto) 0.02 K/uL RDW Standard Deviation 54.3 fL RDW Coefficient of Variation 16.4 % Immature Granulocyte % (Auto) 0.1 % Immature Granulocyte # (Auto) 0.01 K/uL Hypersegmented Polys 1+ Toxic Vacuolation 1+ Dohle Bodies 1+ Echinocytes 1+ Prothrombin Time 16.9 SECONDS Prothromb Time International Ratio 1.6 Ammonia 48.1 umol/L Lactic Acid Level 1.5 mmol/L Sodium Level 136 mmol/L Potassium Level 4.3 mmol/L Chloride Level 108 mmol/L Carbon Dioxide Level 21 mmol/L Anion Gap 7.0 mmol/L Blood Urea Nitrogen 35 mg/dl Creatinine 1.04 mg/dl Est Creatinine Clear Calc Drug Dose 71.7 ml/min Estimated GFR () 84.5 Estimated GFR (Non- 72.9 BUN/Creatinine Ratio 33.7 Random Glucose 83 mg/dl Calcium Level 8.1 mg/dl Total Bilirubin 1.7 mg/dl Aspartate Amino Transf (AST/SGOT) 40 U/L Alanine Aminotransferase (ALT/SGPT) 38 U/L Alkaline Phosphatase 119 U/L Total Protein 6.6 gm/dl Albumin 1.9 gm/dl Globulin 4.7 gm/dl Albumin/Globulin Ratio 0.4 Lipase 328 U/L Test 10/03/17 12:30 Vancomycin Level Trough 13.5 mcg/ml Assessment and Plan Assessment and Plan: Baljeet is a 71-year-old male with a history of cirrhosis secondary to steatohepatitis who presented 2 days ago for concerns of fever shortly after paracentesis. EKG performed in the ED showed T-wave inversion and poor R-wave progression. Was admitted and started on IV vancomycin and zosyn. Repeat EKG showed reversal of T-wave inversion and improved R-wave progression. WBC, lactic acid are continuing to trend downward today. CT abdomen performed yesterday revealed cirrhosis and the stigmata of portal HTN, including ascites in abdomen/pelvis, esophageal varices, and splenomegaly. Nephrolithiasis was also seen in the left kidney. 1) Febrile illness -possible etiologies include peritonitis from GBS, acute bacterial sinusitis, and/or UTI. The former two are more likely. -given that pt is stable and that he continues to be afebrile with a decreasing WBC, we can transition him from IV vancomycin/zosyn to augmentin po for ten days at discharge 2) Cirrhosis secondary to steatohepatitis -continue to track LFTs, NH3, coag studies -GI consult today indicates a desire to obtain a portal venous doppler to look for thrombi Continued [facility] stay due to: other
[2017-10-03] MEDS: ONDANSETRON INJ 2 MG/ML 2 ML VIAL IV PRN (19:28)
[2017-10-03 19:57] VITALS: BP 105/68; PULSE 72; TEMP 36.4; O2SAT 99
[2017-10-03 21:03] LABS: BASO % 0.3 %; BASO ABS # 0.02 K/uL (0-0.2); EOS % 1.3 %; HEMATOCRIT 30.8 % (42-52); IG% 0.3 %; LYMPH % 10.4 %; LYMPH ABS # 0.77 K/uL (1.2-3.4); MEAN CELL VOLUME 90.1 fL (80-100); MEAN CORPUSCULAR HEMOGLOBIN 30.7 pg (25-34); MEAN PLATELET VOLUME 10.1 fL (7.4-10.4); MONO % 18.6 %; NEUT % 69.1 %; PLATELET COUNT 125 K/uL (130-400); RED BLOOD COUNT 3.42 M/uL (4.7-6.1); WHITE BLOOD COUNT 7.43 K/uL (4.8-10.8)
[2017-10-03 21:19] LABS: INR 1.4 (0.9-1.1); PARTIAL THROMBOPLASTIN RATIO 1.5; PROTHROMBIN TIME (PATIENT) 15.4 SECONDS (9.0-12.0)
[2017-10-03] MEDS: HEPARIN 25000 UNIT/ D5W 500 ML (PHARMACY PREPARED) IV PRN ×2 (21:29)
[2017-10-03 22:14] LABS: COMPLETE YES; MEAN CORPUSCULAR HGB CONC 34.1 g/dl (32-36)
[2017-10-04] VITALS (8 sets, daily range): BP systolic 104–123; BP diastolic 64–79; PULSE 69–76; TEMP 36.4–36.8; O2SAT 95–99
--- NOTE | 2017-10-04 00:32 | GASTROENTEROLOGY PROGRESS NOTE ---
DATE: 10/03/2017 SUBJECTIVE: The patient was seen and examined, patient had his at the bedside. The patient is awake, alert and oriented x3 without evidence of clouded sensorium or asterixis. He is experiencing no abdominal pain, fevers or shaking chills. The patient has a history of presumed fatty liver with cirrhosis. There is no report of prior gastrointestinal hemorrhage although the patient's ascites has been increasing recently. The patient presented with a fever and was found to have a group B beta strep isolated in his ascitic fluid; however, blood cultures to date have been negative. The patient is on antibiotics. Imaging of the CT of the head and sinuses does suggest pansinuitis. The patient's abdominal CT scan suggests identified cholelithiasis, large bilateral fat inguinal hernias, soft tissue swelling of the scrotum with subcutaneous edema. There was hepatosplenomegaly with portal hypertension with increased ascites noted on admission CT. The patient's sinus CT today suggested pansinusitis. Currently the patient is afebrile at 36.6, blood pressure 124/66, respirations 16, pulse ox 98%, heart rate 74. LABORATORY STUDIES: Earlier today show a white count of 6.9, hemoglobin 9.4, platelets are 89,000. Serum chemistry showed potassium 4.3. BUN and creatinine are 35 and 1.0, total bilirubin 1.7, AST 40, alkaline phosphatase 119, ALT 38, total protein 6.6. Lipase is 328. Hepatitis C antibody screen negative. The patient's INR today 1.6. MEDICATIONS: Lactulose 15 grams daily, subQ heparin, Zosyn, IV vancomycin, nadolol, multivitamins, Zofran. Urine culture showed no growth. PHYSICAL EXAMINATION: GENERAL: The patient is awake, alert and oriented x3. There is no discomfort. HEENT: Sclerae are anicteric, conjunctivae moist. Oral mucosa moist. HEART: Normal S1, S2. LUNGS: Clear to auscultation. ABDOMEN: Soft, markedly distended, moderately tense, without rebound, guarding or abdominal bruits. There are positive bowel sounds. There are no hepatic bruits. EXTREMITIES: Without clubbing, cyanosis. There is trace +1 edema. IMPRESSION AND PLAN: I spoke with the patient and his today at length regarding his portal hypertension, cirrhosis presumably due to fatty liver disease as all other markers have been unrevealing. The source of the patient's increased ascites may be multifactorial. There was no evidence for SBP based on cell count on admission, although there was a group B strep noted in it. However this was not present in the blood stream. There is also sinusitis that may be a source of the patient's fever and perhaps the ascites. Antibiotics seemed to be appropriate coverage. He also has been taking significant protein supplements and I am not sure if this is contributing to some of the patient's elevated ammonia level. The patient's BUN and creatinine on admission were 39 and 1.4 in this had increased yesterday morning. Lactate level was also elevated on 10/02/2017. This was 3.5. However, this did resolve this morning of 1.5. I did speak to the attending physician today. The source of the ascites is unclear, but I did recommend getting a portal Doppler to exclude portal vein thrombosis as a source of the increased ascites. Although his renal function had been decline, it seems like this has plateaued and perhaps is now trending back towards his baseline values. Based on this, his ascites, it may be reasonable to start to slow down his fluid intake just limited to oral intake and IV administration of medications although some of these can also be switched to oral. At some point, a therapeutic paracentesis may be helpful for patient comfort. We did speak regarding the necessity of watching for salt intake, excess water intake and high protein diet that be contribute encephalopathy. However, adequate amounts of protein and total calories need to be provided to prevent muscle wasting. I believe it is reasonable to have nutrition see the patient for instruction regarding a hepatic diet. At some point, we may need to reinstitute diuretic therapy cautiously with careful monitoring of the patient's electrolytes to prevent dehydration. If possible, the patient should start to ambulate. All questions answered. Dr. Tim will be following the patient on Saturday and throughout the weekend.
[2017-10-04 03:50] LABS: BASO % 0.5 %; BASO ABS # 0.03 K/uL (0-0.2); COMPLETE YES; EOS % 2.4 %; HEMATOCRIT 28.6 % (42-52); IG% 0.2 %; LYMPH % 13.6 %; LYMPH ABS # 0.75 K/uL (1.2-3.4); MEAN CELL VOLUME 90.2 fL (80-100); MEAN CORPUSCULAR HGB CONC 33.2 g/dl (32-36); MEAN PLATELET VOLUME 10.4 fL (7.4-10.4); MONO % 15.2 %; NEUT % 68.1 %; PLATELET COUNT 106 K/uL (130-400); RED BLOOD COUNT 3.17 M/uL (4.7-6.1); WHITE BLOOD COUNT 5.52 K/uL (4.8-10.8)
[2017-10-04 04:07] LABS: BUN/CREATININE RATIO 29.2 (10-20); CALCIUM 7.7 mg/dl (8.5-10.1); POTASSIUM 4.4 mmol/L (3.5-5.1)
[2017-10-04 04:10] LABS: ALB/GLOB RATIO 0.4 (0.9-2)
[2017-10-04 04:14] LABS: INR 1.4 (0.9-1.1); PARTIAL THROMBOPLASTIN RATIO 5.7; PROTHROMBIN TIME (PATIENT) 15.7 SECONDS (9.0-12.0)
[2017-10-04 06:34] LABS: PARTIAL THROMBOPLASTIN RATIO 3.1
--- NOTE | 2017-10-04 07:11 | Gastroenterology Progress Note ---
Progress Note Date of Service: Oct 04, 2017 Subjective Pt evaluation today including: conversation w/ patient, physical exam, chart review, lab review, review of studies, review of inpatient medication list CC f/u ascites HPI Was called last night by resident regarding report of PV thrombosis on doppler u/s and I recommended IV heparin for now. Pt has protuberant abdomen but no abd pain. Complains of some nausea. Review of Systems Respiratory: + shortness of breath Cardiac: No chest pain Medications Current Inpatient Medications Medications (Trade) Dose Ordered Sig/Raffi Route Start Time Stop Time Status Last Admin Dose Admin Sodium Chloride 1,000 ml @ 80 mls/hr [id number] IV 10/01/17 17:50 10/31/17 17:49 10/03/17 19:29 80 MLS/HR Ondansetron HCl (Zofran Inj) 4 mg Q6H PRN IV 10/01/17 18:00 10/31/17 17:59 10/03/17 19:28 4 MG Nitroglycerin (Nitrostat Tab) 0.4 mg UD PRN SL 10/01/17 18:00 10/31/17 17:59 Morphine Sulfate (MoRPHine SULFATE INJ) 2 mg Q30M PRN IV 10/01/17 18:00 10/15/17 17:59 Multivitamins (Multivitamin Tab) 1 tab QAM PO 10/02/17 09:00 11/01/17 08:59 10/03/17 09:10 1 TAB Nadolol (Corgard Tab) 40 mg QAM PO 10/02/17 09:00 11/01/17 08:59 10/03/17 09:10 40 MG Lactulose (Chronulac Syrup) 15 gm DAILY PO 10/04/17 09:00 11/01/17 08:59 Amoxicillin/ Clavulanate Potassium (Augmentin Tab) 875 mg BIDM PO 10/03/17 16:45 10/13/17 16:44 10/03/17 15:26 875 MG Heparin Sodium (Porcine) 21386 unit/Dextrose 500 ml @ 22 mls/hr [id number] PRN IV 10/03/17 21:00 11/02/17 20:59 10/03/17 21:29 27 MLS/HR Objective Vital Signs Date Time Temp Pulse Resp B/P (MAP) Pulse Ox O2 Delivery O2 Flow Rate FiO2 10/04/17 04:00 36.4 70 24 104/64 (77) 99 Nasal Cannula 2.0 10/04/17 04:00 Nasal Cannula 2.0 10/04/17 00:10 36.6 72 18 108/72 (84) 98 Nasal Cannula 2.0 10/04/17 00:00 Nasal Cannula 2.0 10/03/17 20:00 Nasal Cannula 2.0 10/03/17 19:57 36.4 72 17 105/68 (80) 99 Nasal Cannula 2.0 10/03/17 16:00 Nasal Cannula 2.0 10/03/17 15:35 36.8 74 16 124/78 (93) 98 Room Air 10/03/17 12:00 Room Air Nasal Cannula 10/03/17 11:35 36.6 74 16 124/66 (85) 98 10/03/17 08:00 Room Air Nasal Cannula 10/03/17 07:56 36.8 66 18 120/62 (81) 99 Physical Exam General Appearance: WD/WN, no apparent distress Respiratory/Chest: lungs clear, no respiratory distress Cardiovascular: no edema, no murmur Abdomen: normal bowel sounds, + pertinent finding (protuberant but not tense, no guarding nor rebound) 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: alert, normal mood/affect Skin: normal color, no jaundice Laboratory Results Last 24 Hours Test 10/03/17 09:19 10/03/17 12:30 10/03/17 20:46 10/04/17 03:39 Lipase 328 U/L Vancomycin Level Trough 13.5 mcg/ml White Blood Count 7.43 K/uL 5.52 K/uL Red Blood Count 3.42 M/uL 3.17 M/uL Hemoglobin 10.5 g/dL 9.5 g/dL Hematocrit 30.8 % 28.6 % Mean Corpuscular Volume 90.1 fL 90.2 fL Mean Corpuscular Hemoglobin 30.7 pg 30.0 pg Mean Corpuscular Hemoglobin Concent 34.1 g/dl 33.2 g/dl Platelet Count 125 K/uL 106 K/uL Mean Platelet Volume 10.1 fL 10.4 fL Neutrophils (%) (Auto) 69.1 % 68.1 % Lymphocytes (%) (Auto) 10.4 % 13.6 % Monocytes (%) (Auto) 18.6 % 15.2 % Eosinophils (%) (Auto) 1.3 % 2.4 % Basophils (%) (Auto) 0.3 % 0.5 % Neutrophils # (Auto) 5.14 K/uL 3.76 K/uL Lymphocytes # (Auto) 0.77 K/uL 0.75 K/uL Monocytes # (Auto) 1.38 K/uL 0.84 K/uL Eosinophils # (Auto) 0.10 K/uL 0.13 K/uL Basophils # (Auto) 0.02 K/uL 0.03 K/uL RDW Standard Deviation 53.3 fL 54.2 fL RDW Coefficient of Variation 16.2 % 16.4 % Immature Granulocyte % (Auto) 0.3 % 0.2 % Immature Granulocyte # (Auto) 0.02 K/uL 0.01 K/uL Prothrombin Time 15.4 SECONDS 15.7 SECONDS Prothromb Time International Ratio 1.4 1.4 Activated Partial Thromboplast Time 38.2 SECONDS 148.0 SECONDS Partial Thromboplastin Ratio 1.5 5.7 Sodium Level 136 mmol/L Potassium Level 4.4 mmol/L Chloride Level 108 mmol/L Carbon Dioxide Level 22 mmol/L Anion Gap 6.0 mmol/L Blood Urea Nitrogen 29 mg/dl Creatinine 1.00 mg/dl Est Creatinine Clear Calc Drug Dose 74.6 ml/min Estimated GFR () 88.6 Estimated GFR (Non- 76.5 BUN/Creatinine Ratio 29.2 Random Glucose 85 mg/dl Lactic Acid Level 1.2 mmol/L Calcium Level 7.7 mg/dl Total Bilirubin 1.7 mg/dl Aspartate Amino Transf (AST/SGOT) 64 U/L Alanine Aminotransferase (ALT/SGPT) 51 U/L Alkaline Phosphatase 142 U/L Ammonia 40.0 umol/L Total Protein 6.5 gm/dl Albumin 1.8 gm/dl Globulin 4.7 gm/dl Albumin/Globulin Ratio 0.4 Test 10/04/17 05:21 Activated Partial Thromboplast Time 80.0 SECONDS Partial Thromboplastin Ratio 3.1 Assessment and Plan PV thrombosis--want to get CT A/P with IV contrast once BUN/CR optimized perhaps tomorrow depending on labs to confirm the doppler u/s findings. 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 If the thrombosis is confirmed then would do EGD to assess for large varices that would need attention. For now continue IV heparin as it is short acting and can be stopped is has problemd.. Fever--likely from sinusitis ascites-no diuretics nor large volume paracentesis until renal function optimized and stable after IV CT study. After that would do large volume paracentesis with albumin infusion. Worsening of ascites recently may be from PV thrombosis. cirrhosis--presumably from fatty liver---EGD 04/2015 1+ esophageal varices so continue Nadalol elevated ammonia--from cirrhosis--stable---continue Lactulose Elevated lactic acid--sepsis and dehydration most likely resolved. anemia--no evidence of gross GI bleeding--follow elevated LFTS from cirrhosis--follow elev PT from cirrhosis--follow
--- NOTE | 2017-10-04 07:40 | Family Medicine Progress Note ---
Progress Note Date of Service Oct 04, 2017. Subjective Pt evaluation today including: conversation w/ patient, physical exam, chart review, lab review, review of studies pt describes dyspepsia and nausea on Augmentin Constitutional: No fever, No chills, No sweats Respiratory: No cough, No sputum, No wheezing Cardiovascular: No chest pain, No orthopnea, No edema, No palpitations Abdomen: + pain, + nausea, No vomiting, No diarrhea Medications Reported Home Medications Medications Dose Route/Sig Max Daily Dose Days Date Category Vitamin E 400 Unit Tab 800 Units PO QAM 10/01/17 Reported Lasix (Furosemide) 40 Mg Tab 20 Mg PO DAILY 10/01/17 Reported Aldactone (Spironolactone) 50 Mg Tab 50 Mg PO BID 10/01/17 Reported Naprosyn (Naproxen) 500 Mg Tab 500 Mg PO BID PRN 07/18/16 Reported Corgard (Nadolol) 40 Mg Tab 40 Mg PO QAM 07/18/16 Reported Multivitamin (Multivitamins) Tab 1 Tab PO QAM 05/02/15 Reported Objective Vital Signs Date Time Temp Pulse Resp B/P (MAP) Pulse Ox O2 Delivery O2 Flow Rate FiO2 10/04/17 16:00 Room Air 10/04/17 15:28 36.6 76 18 123/79 (94) 95 Room Air 10/04/17 12:31 36.8 69 18 118/78 (91) 98 10/04/17 12:00 Room Air 10/04/17 08:13 36.8 69 18 118/68 (85) 96 10/04/17 08:00 98 Room Air 10/04/17 04:00 36.4 70 24 104/64 (77) 99 Nasal Cannula 2.0 10/04/17 04:00 Nasal Cannula 2.0 10/04/17 00:10 36.6 72 18 108/72 (84) 98 Nasal Cannula 2.0 10/04/17 00:00 Nasal Cannula 2.0 10/03/17 20:00 Nasal Cannula 2.0 10/03/17 19:57 36.4 72 17 105/68 (80) 99 Nasal Cannula 2.0 Physical Exam General Appearance: WD/WN, no apparent distress Neck: supple, no adenopathy Respiratory/Chest: chest non-tender, lungs clear, normal breath sounds, no respiratory distress, no accessory muscle use Cardiovascular: regular rate, rhythm, no edema, no gallop, no JVD Abdomen: non tender, no pulsatile mass, + distended 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iatric: alert, normal mood/affect, oriented x 3 Skin: normal color, warm/dry, no rash Laboratory Results 10/04/17 03:39 Red Blood Count 3.17, Mean Corpuscular Volume 90.2, Mean Corpuscular Hemoglobin 30.0, Mean Corpuscular Hemoglobin Concent 33.2, Mean Platelet Volume 10.4, Neutrophils (%) (Auto) 68.1, Lymphocytes (%) (Auto) 13.6, Monocytes (%) (Auto) 15.2, Eosinophils (%) (Auto) 2.4, Basophils (%) (Auto) 0.5, Neutrophils # (Auto ) 3.76, Lymphocytes # (Auto) 0.75, Monocytes # (Auto) 0.84, Eosinophils # (Auto ) 0.13, Basophils # (Auto) 0.03 Test 10/04/17 03:39 10/04/17 12:35 10/04/17 16:24 White Blood Count 5.52 K/uL (4.8-10.8) Red Blood Count 3.17 M/uL (4.7-6.1) Hemoglobin 9.5 g/dL (14.0-18.0) Hematocrit 28.6 % (42-52) Mean Corpuscular Volume 90.2 fL (80-100) Mean Corpuscular Hemoglobin 30.0 pg (25-34) Mean Corpuscular Hemoglobin Concent 33.2 g/dl (32-36) Platelet Count 106 K/uL (130-400) Mean Platelet Volume 10.4 fL (7.4-10.4) Neutrophils (%) (Auto) 68.1 % Lymphocytes (%) (Auto) 13.6 % Monocytes (%) (Auto) 15.2 % Eosinophils (%) (Auto) 2.4 % Basophils (%) (Auto) 0.5 % Neutrophils # (Auto) 3.76 K/uL (1.4-6.5) Lymphocytes # (Auto) 0.75 K/uL (1.2-3.4) Monocytes # (Auto) 0.84 K/uL (0.11-0.59) Eosinophils # (Auto) 0.13 K/uL (0-0.5) Basophils # (Auto) 0.03 K/uL (0-0.2) RDW Standard Deviation 54.2 fL (36.4-46.3) RDW Coefficient of Variation 16.4 % (11.5-14.5) Immature Granulocyte % (Auto) 0.2 % Immature Granulocyte # (Auto) 0.01 K/uL (0.00-0.02) Prothrombin Time 15.7 SECONDS (9.0-12.0) Prothromb Time International Ratio 1.4 (0.9-1.1) Est Creatinine Clear Calc Drug Dose 74.6 ml/min Lactic Acid Level 1.2 mmol/L (0.4-2.0) Total Bilirubin 1.7 mg/dl (0.2-1) Aspartate Amino Transf (AST/SGOT) 64 U/L (15-37) Alanine Aminotransferase (ALT/SGPT) 51 U/L (12-78) Alkaline Phosphatase 142 U/L (45-117) Ammonia 40.0 umol/L (11-32) Total Protein 6.5 gm/dl (6.4-8.2) Albumin 1.8 gm/dl (3.4-5.0) Globulin 4.7 gm/dl (2.5-4.0) Albumin/Globulin Ratio 0.4 (0.9-2) Activated Partial Thromboplast Time 74.2 SECONDS (21.0-31.0) Partial Thromboplastin Ratio 2.9 Assessment and Plan 71 yo male with cirrhosis 2/2 to steatohepatitis comes to the ED with fever, tachypnea and tachycardia 10/04 Dr. Tim consulted this morning--waiting for Bun/Cr to optimize for CT with contrast to confirm thrombosis ("Liver CT with contrast") Pt may need EGD if thrombosis is confirmed to access esophageal varices Pt is afebrile, white count WNL, lactic acid WNL Continuing Augmentin (day 2) Sepsis secondary to potential peritonitis -Resolved -Pt peritoneal fluid did show Group B strep -Treating with Augmentin Hyperammonemia 2/2 to Liver cirrhosis -Gastro consulted -Liver US demonstrates no flow in the portal vein, likely due to thrombosis -Dr. Tim recommends IV heparin-starting tonight Hyperkalemia resolved EKG changes -New T wave inversions in Leads V2-V4 at admission, improved -Troponins x3 q 8 hours---> .032, .041, .039--likely demand ischemia Liver cirrhosis 2/2 to steatohepatitis -repeat coags -follow destiney, liver enzymes, lipase PARADISE resolved Anemia -Follow CBC -Consider Fe studies if anemia persist Assessment/Plan Resident Physician Supervision Note: I was present with Dr. Thomas during the history and exam. I discussed the case with the resident and agree with the findings and plan as documented in the note. Any exceptions or clarifications are listed here. 71 y/o male h/o hepatic steatosis induced cirrohosis p/w occult infection. Pt reports gradual improvement in malaise and fatigue and is close to baseline. Improvement in BM frequency w/ decreased lactulose. Abdominal distention persists with fluid wave with minimal TTP. CTAB. S1/S2 nl RRR no MCG. SBP v. ABRS - CT head w/ ?sinus disease concordant with symptoms, peritoneal fluid w/ strep on Cx. After discussion with gastroenterology, either bacteria would likely be covered by augmentin for identical recommended courses - continue augmentin. Portal venous thrombus - after discussion w/ GI, will confirm thrombus w/ CT contrasted in AM. Continue gentle hydration to maintain renal fx. If +ve, will likely need EGD on Saturday to assess bleeding risk re: varices and to determine intermediate AC at that time. PARADISE in the setting of ascites - improved, use caution with large bolus Cirrhosis 2/2 hepatosteatosis w/ hyperammonemia - continue lactulose at reduced dose 2/2 diarrhea, nadolol. Trend ammonia, LFTs, coags. Hyperkalemia - trend BMP
--- NOTE | 2017-10-04 08:01 | Medical Student: [facility] ---
Med Student Progress Note Date of Service Oct 04, 2017. 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 EKG changes (T-wave inversion & poor R-wave progression) developed and he was admitted to telemetry and placed on IV vancomycin/Zosyn. Ascitic fluid grew GBS but blood and urine cultures have been negative to date. Yesterday he was transitioned to Augmentin 875 mg po BID. Experienced some nausea with it and was subsequently given Zofran. Patient was seen at bedside during breakfast. He had no acute complaints/ concerns. Reports eating well and no problem with either urination or BMs. Reports his sinusitis improving. A portal venous Doppler was performed yesterday revealing the presence of a portal vein thrombosis. A CT with IV contrast will be performed today. On ROS, patient denies any chest pain. Reports LYNN and fatigue. Denies abdominal pain and LE edema. Review of Systems Constitutional: + fatigue, No fever, No chills, No sweats ENT: No sore throat Respiratory: + cough, + dyspnea on exertion Cardiac: No chest pain, No orthopnea, No edema Abdomen: + nausea (from augmentin, given Zofran), No pain, No vomiting Male : No dysuria, No urinary frequency Objective Vital Signs Date Time Temp Pulse Resp B/P (MAP) Pulse Ox O2 Delivery O2 Flow Rate FiO2 10/04/17 04:00 36.4 70 24 104/64 (77) 99 Nasal Cannula 2.0 10/04/17 04:00 Nasal Cannula 2.0 10/04/17 00:10 36.6 72 18 108/72 (84) 98 Nasal Cannula 2.0 10/04/17 00:00 Nasal Cannula 2.0 10/03/17 20:00 Nasal Cannula 2.0 10/03/17 19:57 36.4 72 17 105/68 (80) 99 Nasal Cannula 2.0 10/03/17 16:00 Nasal Cannula 2.0 10/03/17 15:35 36.8 74 16 124/78 (93) 98 Room Air 10/03/17 12:00 Room Air Nasal Cannula 10/03/17 11:35 36.6 74 16 124/66 (85) 98 10/03/17 08:00 Room Air Nasal Cannula Physical Exam General Appearance: WD/WN, no apparent distress Eyes: bilateral eyes normal inspection, bilateral eyes PERRL Neck: supple, no adenopathy Respiratory/Chest: chest non-tender, lungs clear, normal breath sounds, no respiratory distress, no accessory muscle use Cardiovascular: regular rate, rhythm, no edema, no murmur Abdomen: normal bowel sounds, non tender, + distended Extremities: normal inspection 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iatric: alert, normal mood/affect, oriented x 3 Skin: normal color Laboratory Results Last 24 Hours Test 10/03/17 09:19 10/03/17 12:30 10/03/17 20:46 10/04/17 03:39 Lipase 328 U/L Vancomycin Level Trough 13.5 mcg/ml White Blood Count 7.43 K/uL 5.52 K/uL Red Blood Count 3.42 M/uL 3.17 M/uL Hemoglobin 10.5 g/dL 9.5 g/dL Hematocrit 30.8 % 28.6 % Mean Corpuscular Volume 90.1 fL 90.2 fL Mean Corpuscular Hemoglobin 30.7 pg 30.0 pg Mean Corpuscular Hemoglobin Concent 34.1 g/dl 33.2 g/dl Platelet Count 125 K/uL 106 K/uL Mean Platelet Volume 10.1 fL 10.4 fL Neutrophils (%) (Auto) 69.1 % 68.1 % Lymphocytes (%) (Auto) 10.4 % 13.6 % Monocytes (%) (Auto) 18.6 % 15.2 % Eosinophils (%) (Auto) 1.3 % 2.4 % Basophils (%) (Auto) 0.3 % 0.5 % Neutrophils # (Auto) 5.14 K/uL 3.76 K/uL Lymphocytes # (Auto) 0.77 K/uL 0.75 K/uL Monocytes # (Auto) 1.38 K/uL 0.84 K/uL Eosinophils # (Auto) 0.10 K/uL 0.13 K/uL Basophils # (Auto) 0.02 K/uL 0.03 K/uL RDW Standard Deviation 53.3 fL 54.2 fL RDW Coefficient of Variation 16.2 % 16.4 % Immature Granulocyte % (Auto) 0.3 % 0.2 % Immature Granulocyte # (Auto) 0.02 K/uL 0.01 K/uL Prothrombin Time 15.4 SECONDS 15.7 SECONDS Prothromb Time International Ratio 1.4 1.4 Activated Partial Thromboplast Time 38.2 SECONDS 148.0 SECONDS Partial Thromboplastin Ratio 1.5 5.7 Sodium Level 136 mmol/L Potassium Level 4.4 mmol/L Chloride Level 108 mmol/L Carbon Dioxide Level 22 mmol/L Anion Gap 6.0 mmol/L Blood Urea Nitrogen 29 mg/dl Creatinine 1.00 mg/dl Est Creatinine Clear Calc Drug Dose 74.6 ml/min Estimated GFR () 88.6 Estimated GFR (Non- 76.5 BUN/Creatinine Ratio 29.2 Random Glucose 85 mg/dl Lactic Acid Level 1.2 mmol/L Calcium Level 7.7 mg/dl Total Bilirubin 1.7 mg/dl Aspartate Amino Transf (AST/SGOT) 64 U/L Alanine Aminotransferase (ALT/SGPT) 51 U/L Alkaline Phosphatase 142 U/L Ammonia 40.0 umol/L Total Protein 6.5 gm/dl Albumin 1.8 gm/dl Globulin 4.7 gm/dl Albumin/Globulin Ratio 0.4 Test 10/04/17 05:21 Activated Partial Thromboplast Time 80.0 SECONDS Partial Thromboplastin Ratio 3.1 Assessment and Plan Assessment and Plan: Baljeet is a 71 year old male with 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 He was placed on IV vancomycin/Zosyn. Ascitic fluid grew GBS; blood and urine cultures have so far been negative. He was transitioned to Augmentin yesterday. CT showed stigmata of portal venous hypertension and left-sided nephrolithiasis. Portal vein Doppler showed signs of thrombosis. Baljeet has been afebrile since starting abx and his WBC has trended downward and remained stable. 1) Fever -continue with Augmentin 875 po BID -administer Zofran prn for nausea 2) Cirrhosis secondary to steatohepatitis -continue tracking labs, including LFTs, coag studies -monitor kidney function with CMP for future use of IV contrast and paracentesis -CT liver with contrast to confirm thrombosis -screen for esophageal varices with an EGD - pending presence of varices, consider anticoagulation. Patient is already on nadolol for BP management and it can also serve as prophylaxis against variceal bleeding. -paracentesis Continued [facility] stay due to: other Discharge planning: home
[2017-10-04] MEDS: NADOLOL 40 MG TAB PO SCH (08:47)
[2017-10-04] MEDS: AMOXICILLIN/CLAVULANATE TAB 875 MG TAB PO SCH ×2 (08:47→17:42)
[2017-10-04] MEDS: MULTIVITAMIN TAB PO SCH (08:48)
[2017-10-04] MEDS: LACTULOSE SYRUP 10 GM/15 ML BTL 473 ML PO SCH (08:48)
[2017-10-04] MEDS: SODIUM CHLORIDE 0.9% 1000ML 1,000 ML IV SCH ×2 (08:52→20:37)
[2017-10-04 13:08] LABS: PARTIAL THROMBOPLASTIN RATIO 2.9
[2017-10-04 19:55] LABS: BUN/CREATININE RATIO 27.4 (10-20); CREATININE 1.14 mg/dl (0.60-1.40); POTASSIUM 4.5 mmol/L (3.5-5.1)
[2017-10-04 20:03] LABS: PARTIAL THROMBOPLASTIN RATIO 2.9
[2017-10-05] VITALS (8 sets, daily range): BP systolic 103–148; BP diastolic 69–80; PULSE 71–75; TEMP 36.5–36.9; O2SAT 95–99
[2017-10-05 03:10] LABS: PARTIAL THROMBOPLASTIN RATIO 3.9
[2017-10-05] MEDS: HEPARIN 25000 UNIT/ D5W 500 ML (PHARMACY PREPARED) IV PRN ×2 (03:45)
[2017-10-05 06:45] LABS: BASO % 0.9 %; BASO ABS # 0.05 K/uL (0-0.2); COMPLETE YES; EOS % 3.5 %; HEMATOCRIT 30.4 % (42-52); IG% 0.2 %; LYMPH % 18.3 %; MEAN CELL VOLUME 89.4 fL (80-100); MEAN CORPUSCULAR HGB CONC 33.6 g/dl (32-36); MEAN PLATELET VOLUME 9.8 fL (7.4-10.4); MONO % 15.7 %; NEUT % 61.4 %; PLATELET COUNT 132 K/uL (130-400); WHITE BLOOD COUNT 5.47 K/uL (4.8-10.8)
[2017-10-05 07:01] LABS: INR 1.4 (0.9-1.1); PARTIAL THROMBOPLASTIN RATIO 2.7; PROTHROMBIN TIME (PATIENT) 14.8 SECONDS (9.0-12.0)
[2017-10-05 07:18] LABS: BUN/CREATININE RATIO 29.1 (10-20); CALCIUM 7.8 mg/dl (8.5-10.1); CREATININE 0.98 mg/dl (0.60-1.40); POTASSIUM 4.8 mmol/L (3.5-5.1)
[2017-10-05 07:21] LABS: ALB/GLOB RATIO 0.4 (0.9-2)
--- NOTE | 2017-10-05 07:41 | Family Medicine Progress Note ---
Progress Note Date of Service Oct 05, 2017. Subjective Pt evaluation today including: conversation w/ patient, physical exam, chart review, lab review, review of studies Pain: Patient reports significant abdominal discomfort Patient reports he is eager to have paracentesis performed. He reports drainage from previous tract formation in scrotum. Constitutional: No fever, No chills, No problem reported Respiratory: No cough, No sputum Cardiovascular: No chest pain, No edema Abdomen: + pain, + nausea Musculoskeletal: No calf pain All Other Systems: Reviewed and Negative Medications Current Inpatient Medications Medications (Trade) Dose Ordered Sig/Raffi Route Start Time Stop Time Status Last Admin Dose Admin Sodium Chloride 1,000 ml @ 80 mls/hr [id number] IV 10/01/17 17:50 10/31/17 17:49 10/05/17 22:04 80 MLS/HR Ondansetron HCl (Zofran Inj) 4 mg Q6H PRN IV 10/01/17 18:00 10/31/17 17:59 10/03/17 19:28 4 MG Nitroglycerin (Nitrostat Tab) 0.4 mg UD PRN SL 10/01/17 18:00 10/31/17 17:59 Morphine Sulfate (MoRPHine SULFATE INJ) 2 mg Q30M PRN IV 10/01/17 18:00 10/15/17 17:59 Multivitamins (Multivitamin Tab) 1 tab QAM PO 10/02/17 09:00 11/01/17 08:59 10/05/17 07:43 1 TAB Nadolol (Corgard Tab) 40 mg QAM PO 10/02/17 09:00 11/01/17 08:59 10/05/17 07:43 40 MG Lactulose (Chronulac Syrup) 15 gm DAILY PO 10/04/17 09:00 11/01/17 08:59 10/05/17 07:43 15 GM Amoxicillin/ Clavulanate Potassium (Augmentin Tab) 875 mg BIDM PO 10/03/17 16:45 10/13/17 16:44 10/05/17 16:49 875 MG Heparin Sodium (Porcine) 58309 unit/Dextrose 500 ml @ 15 mls/hr Q24H PRN IV 10/03/17 21:00 11/02/17 20:59 10/05/17 03:45 18 MLS/HR Ioversol (Optiray 320) 100 ml UD PRN IV 10/05/17 14:00 10/09/17 13:59 Objective Vital Signs Date Time Temp Pulse Resp B/P (MAP) Pulse Ox O2 Delivery O2 Flow Rate FiO2 10/05/17 20:00 Room Air 10/05/17 19:02 36.9 71 16 119/79 (92) 97 Room Air 10/05/17 16:00 Room Air 10/05/17 15:45 36.5 72 16 129/78 (95) 98 10/05/17 12:00 98 Room Air 10/05/17 11:35 36.6 73 16 121/75 (90) 99 Room Air 10/05/17 08:09 75 16 148/80 (102) 99 Room Air 10/05/17 08:00 98 Room Air 10/05/17 04:15 Room Air 10/05/17 03:03 36.7 72 18 112/71 (85) 96 Room Air 10/05/17 00:20 Room Air 10/04/17 23:35 36.8 74 19 118/77 (91) 96 Room Air Physical Exam General Appearance: WD/WN, no apparent distress Eyes: normal inspection, PERRL, EOMI ENT: hearing grossly normal Respiratory/Chest: chest non-tender, lungs clear, normal breath sounds, no respiratory distress, no accessory muscle use Cardiovascular: regular rate, rhythm, no edema, no murmur Abdomen: normal bowel sounds, + distended, + tenderness Extremities: non-tender, no pedal edema 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iatric: no motor/sensory deficits, alert, normal mood/affect, oriented x 3 Skin: normal color, warm/dry, no rash Laboratory Results 10/05/17 06:34 Red Blood Count 3.40, Mean Corpuscular Volume 89.4, Mean Corpuscular Hemoglobin 30.0, Mean Corpuscular Hemoglobin Concent 33.6, Mean Platelet Volume 9.8, Neutrophils (%) (Auto) 61.4, Lymphocytes (%) (Auto) 18.3, Monocytes (%) (Auto) 15.7, Eosinophils (%) (Auto) 3.5, Basophils (%) (Auto) 0.9, Neutrophils # (Auto ) 3.36, Lymphocytes # (Auto) 1.00, Monocytes # (Auto) 0.86, Eosinophils # (Auto ) 0.19, Basophils # (Auto) 0.05 10/05/17 06:34 Test 10/05/17 06:34 10/05/17 10:26 White Blood Count 5.47 K/uL (4.8-10.8) Red Blood Count 3.40 M/uL (4.7-6.1) Hemoglobin 10.2 g/dL (14.0-18.0) Hematocrit 30.4 % (42-52) Mean Corpuscular Volume 89.4 fL (80-100) Mean Corpuscular Hemoglobin 30.0 pg (25-34) Mean Corpuscular Hemoglobin Concent 33.6 g/dl (32-36) Platelet Count 132 K/uL (130-400) Mean Platelet Volume 9.8 fL (7.4-10.4) Neutrophils (%) (Auto) 61.4 % Lymphocytes (%) (Auto) 18.3 % Monocytes (%) (Auto) 15.7 % Eosinophils (%) (Auto) 3.5 % Basophils (%) (Auto) 0.9 % Neutrophils # (Auto) 3.36 K/uL (1.4-6.5) Lymphocytes # (Auto) 1.00 K/uL (1.2-3.4) Monocytes # (Auto) 0.86 K/uL (0.11-0.59) Eosinophils # (Auto) 0.19 K/uL (0-0.5) Basophils # (Auto) 0.05 K/uL (0-0.2) RDW Standard Deviation 52.8 fL (36.4-46.3) RDW Coefficient of Variation 16.2 % (11.5-14.5) Immature Granulocyte % (Auto) 0.2 % Immature Granulocyte # (Auto) 0.01 K/uL (0.00-0.02) Prothrombin Time 14.8 SECONDS (9.0-12.0) Prothromb Time International Ratio 1.4 (0.9-1.1) Anion Gap 7.0 mmol/L (3-11) Est Creatinine Clear Calc Drug Dose 77.3 ml/min Estimated GFR () 90.8 Estimated GFR (Non- 78.4 BUN/Creatinine Ratio 29.1 (10-20) Lactic Acid Level 1.3 mmol/L (0.4-2.0) Calcium Level 7.8 mg/dl (8.5-10.1) Total Bilirubin 2.0 mg/dl (0.2-1) Aspartate Amino Transf (AST/SGOT) 74 U/L (15-37) Alanine Aminotransferase (ALT/SGPT) 62 U/L (12-78) Alkaline Phosphatase 168 U/L (45-117) Ammonia 28.0 umol/L (11-32) Total Protein 7.0 gm/dl (6.4-8.2) Albumin 2.0 gm/dl (3.4-5.0) Globulin 5.0 gm/dl (2.5-4.0) Albumin/Globulin Ratio 0.4 (0.9-2) Activated Partial Thromboplast Time 67.1 SECONDS (21.0-31.0) Partial Thromboplastin Ratio 2.6 Assessment and Plan 71 yo male with cirrhosis 2/2 to steatohepatitis came to the ED with fever, tachypnea and tachycardia; admitted for occult infection 10/[address] with contrast showed no portal v. thrombosis; EGD scheduled for saturday Pt is afebrile, white count WNL, lactic acid WNL Continuing Augmentin (day 3) Sepsis secondary to potential peritonitis -Resolved -Pt peritoneal fluid did show Group B strep -Treating with Augmentin Hyperammonemia /2 to Liver cirrhosis -Gastro consulted -Liver US demonstrated no flow in the portal vein, likely due to thrombosis -IV heparin-started -Ct AP repeat showed no evidence of portal vein thrombosis Hyperkalemia resolved EKG changes -New T wave inversions in Leads V2-V4 at admission, improved -Troponins x3 q 8 hours---> .032, .041, .039--likely demand ischemia Liver cirrhosis 2/2 to steatohepatitis -repeat coags -follow destiney, liver enzymes, lipase -EGD saturday -increasing abdominal discomfort: positional modification and supplemental O2 prn; cannot tap until after EGD PARADISE resolved Anemia -Follow CBC -Consider Fe studies if anemia persist Dispo: tele DVTP: heparin Code: full code Assessment/Plan Resident Physician Supervision Note: I was present with Dr. Philip during the history and exam. I discussed the case with the resident and agree with the findings and plan as documented in the note. Any exceptions or clarifications are listed here. 71 y/o male h/o hepatic steatosis induced cirrohosis p/w occult infection. Presently, abdominal distention is at baseline per patient with minimal discomfort and breathing at baseline. Abdominal distention persists with fluid wave with minimal TTP. CTAB. S1/S2 nl RRR no MCG. SBP v. ABRS - CT head w/ ?sinus disease concordant with symptoms, peritoneal fluid w/ strep on Cx. - continue augmentin. Portal venous thrombus - GI consulted, awaiting contrasted CT. Continue gentle hydration to maintain renal fx. If +ve, will likely need EGD on Saturday to assess bleeding risk re: varices and to determine manager terminal AC at that time. PARADISE in the setting of ascites - improved, use caution with large bolus Cirrhosis 2/2 hepatosteatosis w/ hyperammonemia - continue lactulose at reduced dose 2/2 diarrhea, nadolol. Trend ammonia, LFTs, coags. Hyperkalemia - trend BMP Resident Tracking Resident Involvement: Resident Care Provided Care Provided: Adult Hospital Medicine
[2017-10-05] MEDS: LACTULOSE SYRUP 10 GM/15 ML BTL 473 ML PO SCH (07:43)
[2017-10-05] MEDS: MULTIVITAMIN TAB PO SCH (07:43)
[2017-10-05] MEDS: NADOLOL 40 MG TAB PO SCH (07:43)
[2017-10-05] MEDS: AMOXICILLIN/CLAVULANATE TAB 875 MG TAB PO SCH ×2 (07:43→16:49)
[2017-10-05] MEDS: SODIUM CHLORIDE 0.9% 1000ML 1,000 ML IV SCH ×2 (07:46→22:04)
[2017-10-05 10:59] LABS: PARTIAL THROMBOPLASTIN RATIO 2.6
[2017-10-05] MEDS ORDERED: OPTIRAY 320 IV PRN (14:00)
--- NOTE | 2017-10-05 14:01 | Gastroenterology Progress Note ---
Progress Note Date of Service: Oct 05, 2017 Subjective Pt evaluation today including: conversation w/ patient, conversation w/ family (), physical exam, chart review, lab review, review of studies, review of inpatient medication list CC f/u ascites, PV thrombosis HPI Has some abdominal pressure and shortness of breath from ascites. Review of Systems Respiratory: + shortness of breath (from abd distension) Cardiac: No chest pain Medications Current Inpatient Medications Medications (Trade) Dose Ordered Sig/Raffi Route Start Time Stop Time Status Last Admin Dose Admin Sodium Chloride 1,000 ml @ 80 mls/hr [id number] IV 10/01/17 17:50 10/31/17 17:49 10/05/17 07:46 80 MLS/HR Ondansetron HCl (Zofran Inj) 4 mg Q6H PRN IV 10/01/17 18:00 10/31/17 17:59 10/03/17 19:28 4 MG Nitroglycerin (Nitrostat Tab) 0.4 mg UD PRN SL 10/01/17 18:00 10/31/17 17:59 Morphine Sulfate (MoRPHine SULFATE INJ) 2 mg Q30M PRN IV 10/01/17 18:00 10/15/17 17:59 Multivitamins (Multivitamin Tab) 1 tab QAM PO 10/02/17 09:00 11/01/17 08:59 10/05/17 07:43 1 TAB Nadolol (Corgard Tab) 40 mg QAM PO 10/02/17 09:00 11/01/17 08:59 10/05/17 07:43 40 MG Lactulose (Chronulac Syrup) 15 gm DAILY PO 10/04/17 09:00 11/01/17 08:59 10/05/17 07:43 15 GM Amoxicillin/ Clavulanate Potassium (Augmentin Tab) 875 mg BIDM PO 10/03/17 16:45 10/13/17 16:44 10/05/17 07:43 875 MG Heparin Sodium (Porcine) 69528 unit/Dextrose 500 ml @ 15 mls/hr Q24H PRN IV 10/03/17 21:00 11/02/17 20:59 10/05/17 03:45 18 MLS/HR Objective Vital Signs Date Time Temp Pulse Resp B/P (MAP) Pulse Ox O2 Delivery O2 Flow Rate FiO2 10/05/17 12:00 98 Room Air 10/05/17 11:35 36.6 73 16 121/75 (90) 99 Room Air 10/05/17 08:09 75 16 148/80 (102) 99 Room Air 10/05/17 08:00 98 Room Air 10/05/17 04:15 Room Air 10/05/17 03:03 36.7 72 18 112/71 (85) 96 Room Air 10/05/17 00:20 Room Air 10/04/17 23:35 36.8 74 19 118/77 (91) 96 Room Air 10/04/17 20:00 Room Air 10/04/17 19:17 36.8 75 18 118/75 (89) 99 Room Air 10/04/17 16:00 Room Air 10/04/17 15:28 36.6 76 18 123/79 (94) 95 Room Air Physical Exam General Appearance: WD/WN, no apparent distress Respiratory/Chest: lungs clear, no respiratory distress Cardiovascular: no murmur, + pertinent finding (bilateral lower ext edema) Abdomen: normal bowel sounds, non tender, no organomegaly, + pertinent finding (protuberant but not tense, no guarding nor rebound) 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: alert, oriented x 3 Laboratory Results Last 24 Hours Test 10/04/17 19:27 10/05/17 02:41 10/05/17 06:34 10/05/17 10:26 Activated Partial Thromboplast Time 75.3 SECONDS 102.2 SECONDS 69.7 SECONDS 67.1 SECONDS Partial Thromboplastin Ratio 2.9 3.9 2.7 2.6 Sodium Level 135 mmol/L 135 mmol/L Potassium Level 4.5 mmol/L 4.8 mmol/L Chloride Level 107 mmol/L 107 mmol/L Carbon Dioxide Level 22 mmol/L 21 mmol/L Anion Gap 6.0 mmol/L 7.0 mmol/L Blood Urea Nitrogen 31 mg/dl 28 mg/dl Creatinine 1.14 mg/dl 0.98 mg/dl Est Creatinine Clear Calc Drug Dose 66.4 ml/min 77.3 ml/min Estimated GFR () 75.6 90.8 Estimated GFR (Non- 65.3 78.4 BUN/Creatinine Ratio 27.4 29.1 Random Glucose 94 mg/dl 85 mg/dl Calcium Level 8.0 mg/dl 7.8 mg/dl White Blood Count 5.47 K/uL Red Blood Count 3.40 M/uL Hemoglobin 10.2 g/dL Hematocrit 30.4 % Mean Corpuscular Volume 89.4 fL Mean Corpuscular Hemoglobin 30.0 pg Mean Corpuscular Hemoglobin Concent 33.6 g/dl Platelet Count 132 K/uL Mean Platelet Volume 9.8 fL Neutrophils (%) (Auto) 61.4 % Lymphocytes (%) (Auto) 18.3 % Monocytes (%) (Auto) 15.7 % Eosinophils (%) (Auto) 3.5 % Basophils (%) (Auto) 0.9 % Neutrophils # (Auto) 3.36 K/uL Lymphocytes # (Auto) 1.00 K/uL Monocytes # (Auto) 0.86 K/uL Eosinophils # (Auto) 0.19 K/uL Basophils # (Auto) 0.05 K/uL RDW Standard Deviation 52.8 fL RDW Coefficient of Variation 16.2 % Immature Granulocyte % (Auto) 0.2 % Immature Granulocyte # (Auto) 0.01 K/uL Prothrombin Time 14.8 SECONDS Prothromb Time International Ratio 1.4 Lactic Acid Level 1.3 mmol/L Total Bilirubin 2.0 mg/dl Aspartate Amino Transf (AST/SGOT) 74 U/L Alanine Aminotransferase (ALT/SGPT) 62 U/L Alkaline Phosphatase 168 U/L Ammonia 28.0 umol/L Total Protein 7.0 gm/dl Albumin 2.0 gm/dl Globulin 5.0 gm/dl Albumin/Globulin Ratio 0.4 Assessment and Plan PV thrombosis--CT with IV contrast pending to confirms diagnosis, If confirmed will need EGD saturday to assess risk for ongoing anticoagulation Fever--likely from sinusitis--resolveedDi ascites-no diuretics nor large volume paracentesis until renal function optimized and stable after IV CT study. After that would do large volume paracentesis with albumin infusion. Worsening of ascites recently may be from PV thrombosis. cirrhosis--presumably from fatty liver---EGD 04/2015 1+ esophageal varices so continue Nadalol elevated ammonia--from cirrhosis--stable---continue Lactulose Elevated lactic acid--sepsis and dehydration most likely resolved. anemia--no evidence of gross GI bleeding--follow elevated LFTS from cirrhosis--worse elev PT from cirrhosis--follow Discussed with Dr Dang.
--- NOTE | 2017-10-05 17:14 | DIAGNOSTIC IMAGING REPORT ---
ABD/PELVIS IV CONTRAST ONLY CLINICAL HISTORY: 71 years-old Male presenting with Rule out portal vein thrombosis, ascites, cirrhosis, sepsis. TECHNIQUE: Multidetector CT of the abdomen and pelvis was performed after the administration of intravenous contrast. IV contrast: 95 mL of Optiray 320. A dose lowering technique was used consistent with the principles of ALARA (as low as reasonably achievable). COMPARISON: 10/02/2017. CT DOSE (mGy.cm): The estimated cumulative dose is 1417.48 mGy.cm. 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 Lung bases: Lung bases clear. Aortic valve and coronary artery calcification. Normal heart size. No pericardial or pleural effusion. Liver: Cirrhotic morphology of the liver. Allowing for the single postcontrast phase, no evidence of a mass. Patent hepatic vasculature. Specifically, the portal vein is patent. Biliary: No intrahepatic or extrahepatic biliary ductal dilatation. Gallbladder contains gallstones. Pancreas: Normal. Spleen: Top normal in size measuring nearly 13 cm in sagittal dimension. Adrenal glands: Normal. Kidneys and ureters: Few hypodensities in the kidneys, too small to characterize but likely simple cysts. No hydronephrosis. Nonobstructing calculi noted at the lower pole of the left kidney. Bladder: Mild circumferential bladder wall thickening. Pelvic organs: Prostate and seminal vesicles normal. Bowel: Mild small bowel wall thickening, likely portal enteropathy. No bowel obstruction. Peritoneal cavity: Large volume ascites stable to slightly increased from prior exam. No free intraperitoneal gas. Lymph nodes: No enlarged lymph nodes in the abdomen or pelvis. Vasculature: Atherosclerosis of the normal caliber abdominal aorta. IVC patent. Prominent perisplenic and perigastric varices. Abdominal wall: Ascites containing umbilical hernia. Ascites containing bilateral inguinal hernias. Bilateral gynecomastia. Musculoskeletal: Bilateral pars defects of L5. IMPRESSION: 1. Cirrhosis with portal hypertension evidenced by top normal spleen size, varices, and increasing large volume ascites. 2. No evidence of portal vein thrombosis. 3. Nonobstructing left nephrolithiasis. Electronically signed by: Ollie Morin M.D. 10/05/2017 5:13 PM Dictated Date/Time: 10/05/2017 5:05 PM
[2017-10-06] VITALS (8 sets, daily range): BP systolic 111–131; BP diastolic 71–87; PULSE 66–79; TEMP 36.3–36.7; O2SAT 96–100
[2017-10-06 06:12] LABS: BASO % 0.9 %; BASO ABS # 0.05 K/uL (0-0.2); COMPLETE YES; HEMATOCRIT 29.6 % (42-52); IG% 0.4 %; LYMPH ABS # 0.87 K/uL (1.2-3.4); MEAN CELL VOLUME 88.6 fL (80-100); MEAN CORPUSCULAR HEMOGLOBIN 29.9 pg (25-34); MEAN CORPUSCULAR HGB CONC 33.8 g/dl (32-36); MONO % 16.3 %; NEUT % 61.4 %; PLATELET COUNT 124 K/uL (130-400); RED BLOOD COUNT 3.34 M/uL (4.7-6.1); WHITE BLOOD COUNT 5.45 K/uL (4.8-10.8)
[2017-10-06 06:50] LABS: INR 1.3 (0.9-1.1); PARTIAL THROMBOPLASTIN RATIO 3.3; PROTHROMBIN TIME (PATIENT) 14.4 SECONDS (9.0-12.0)
[2017-10-06 06:52] LABS: BUN/CREATININE RATIO 31.7 (10-20); CREATININE 0.84 mg/dl (0.60-1.40); POTASSIUM 4.6 mmol/L (3.5-5.1)
[2017-10-06 06:55] LABS: ALB/GLOB RATIO 0.4 (0.9-2)
--- NOTE | 2017-10-06 07:23 | Family Medicine Progress Note ---
Progress Note Date of Service Oct 06, 2017. Subjective Pt evaluation today including: conversation w/ patient, conversation w/ family Pain: moderate discomfort Voiding: no voiding problems Patient reports moderate discomfort but is tolerating well. Eager to have paracentesis performed. No scrotal drainage today Constitutional: + weakness, No fever, No chills, No sweats, No weight loss, No fatigue, No problem reported Abdomen: + pain All Other Systems: Reviewed and Negative Medications Current Inpatient Medications Medications (Trade) Dose Ordered Sig/Raffi Route Start Time Stop Time Status Last Admin Dose Admin Ondansetron HCl (Zofran Inj) 4 mg Q6H PRN IV 10/01/17 18:00 10/31/17 17:59 10/03/17 19:28 4 MG Nitroglycerin (Nitrostat Tab) 0.4 mg UD PRN SL 10/01/17 18:00 10/31/17 17:59 Morphine Sulfate (MoRPHine SULFATE INJ) 2 mg Q30M PRN IV 10/01/17 18:00 10/15/17 17:59 Multivitamins (Multivitamin Tab) 1 tab QAM PO 10/02/17 09:00 11/01/17 08:59 10/06/17 07:45 1 TAB Nadolol (Corgard Tab) 40 mg QAM PO 10/02/17 09:00 11/01/17 08:59 10/06/17 07:45 40 MG Lactulose (Chronulac Syrup) 15 gm DAILY PO 10/04/17 09:00 11/01/17 08:59 10/05/17 07:43 15 GM Amoxicillin/ Clavulanate Potassium (Augmentin Tab) 875 mg BIDM PO 10/03/17 16:45 10/13/17 16:44 10/06/17 16:58 875 MG Ioversol (Optiray 320) 100 ml UD PRN IV 10/05/17 14:00 10/09/17 13:59 Objective Vital Signs Date Time Temp Pulse Resp B/P (MAP) Pulse Ox O2 Delivery O2 Flow Rate FiO2 10/06/17 20:00 Room Air 10/06/17 19:10 36.6 72 16 131/78 (95) 99 Room Air 10/06/17 16:00 Room Air 10/06/17 15:05 36.5 69 18 130/80 (97) 97 Room Air 10/06/17 12:24 98 Room Air 10/06/17 12:19 36.4 66 20 122/78 (93) 98 10/06/17 08:20 36.4 76 16 127/87 (100) 100 Room Air 10/06/17 08:00 98 Room Air 10/06/17 04:00 Room Air 10/06/17 03:25 36.3 79 22 128/78 (95) 97 Room Air 10/05/17 23:59 Room Air Physical Exam General Appearance: WD/WN, no apparent distress Eyes: normal inspection, PERRL ENT: normal ENT inspection Neck: supple, no adenopathy Respiratory/Chest: chest non-tender, lungs clear, normal breath sounds, no respiratory distress, no accessory muscle use Cardiovascular: regular rate, rhythm, no edema, + systolic murmur Abdomen: normal bowel sounds, + distended, + tenderness Extremities: non-tender, no pedal edema 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iatric: no motor/sensory deficits, alert, normal mood/affect, oriented x 3 Skin: + jaundice Laboratory Results 10/06/17 06:00 Red Blood Count 3.34, Mean Corpuscular Volume 88.6, Mean Corpuscular Hemoglobin 29.9, Mean Corpuscular Hemoglobin Concent 33.8, Mean Platelet Volume 10.0, Neutrophils (%) (Auto) 61.4, Lymphocytes (%) (Auto) 16.0, Monocytes (%) (Auto) 16.3, Eosinophils (%) (Auto) 5.0, Basophils (%) (Auto) 0.9, Neutrophils # (Auto ) 3.35, Lymphocytes # (Auto) 0.87, Monocytes # (Auto) 0.89, Eosinophils # (Auto ) 0.27, Basophils # (Auto) 0.05 10/06/17 06:00 Test 10/06/17 06:00 White Blood Count 5.45 K/uL (4.8-10.8) Red Blood Count 3.34 M/uL (4.7-6.1) Hemoglobin 10.0 g/dL (14.0-18.0) Hematocrit 29.6 % (42-52) Mean Corpuscular Volume 88.6 fL (80-100) Mean Corpuscular Hemoglobin 29.9 pg (25-34) Mean Corpuscular Hemoglobin Concent 33.8 g/dl (32-36) Platelet Count 124 K/uL (130-400) Mean Platelet Volume 10.0 fL (7.4-10.4) Neutrophils (%) (Auto) 61.4 % Lymphocytes (%) (Auto) 16.0 % Monocytes (%) (Auto) 16.3 % Eosinophils (%) (Auto) 5.0 % Basophils (%) (Auto) 0.9 % Neutrophils # (Auto) 3.35 K/uL (1.4-6.5) Lymphocytes # (Auto) 0.87 K/uL (1.2-3.4) Monocytes # (Auto) 0.89 K/uL (0.11-0.59) Eosinophils # (Auto) 0.27 K/uL (0-0.5) Basophils # (Auto) 0.05 K/uL (0-0.2) RDW Standard Deviation 52.4 fL (36.4-46.3) RDW Coefficient of Variation 16.3 % (11.5-14.5) Immature Granulocyte % (Auto) 0.4 % Immature Granulocyte # (Auto) 0.02 K/uL (0.00-0.02) Prothrombin Time 14.4 SECONDS (9.0-12.0) Prothromb Time International Ratio 1.3 (0.9-1.1) Activated Partial Thromboplast Time 87.0 SECONDS (21.0-31.0) Partial Thromboplastin Ratio 3.3 Anion Gap 6.0 mmol/L (3-11) Est Creatinine Clear Calc Drug Dose 91.2 ml/min Estimated GFR () 103.5 Estimated GFR (Non- 89.3 BUN/Creatinine Ratio 31.7 (10-20) Lactic Acid Level 1.2 mmol/L (0.4-2.0) Calcium Level 8.0 mg/dl (8.5-10.1) Total Bilirubin 1.7 mg/dl (0.2-1) Aspartate Amino Transf (AST/SGOT) 58 U/L (15-37) Alanine Aminotransferase (ALT/SGPT) 52 U/L (12-78) Alkaline Phosphatase 170 U/L (45-117) Ammonia 39.5 umol/L (11-32) Total Protein 6.7 gm/dl (6.4-8.2) Albumin 1.9 gm/dl (3.4-5.0) Globulin 4.8 gm/dl (2.5-4.0) Albumin/Globulin Ratio 0.4 (0.9-2) Assessment and Plan 71 yo male with cirrhosis 2/2 to steatohepatitis came to the ED with fever, tachypnea and tachycardia; admitted for occult infection 10/[address] with contrast showed no portal v. thrombosis; EGD cancelled, IV hep DCd , Paracentesis saturday Pt is afebrile, white count WNL, lactic acid WNL Continuing Augmentin (day 3) IVF DCd Albumin infusion tomorrow with paracentesis Send for paracentesis culture and cell count tomorrow Gentle aldactone supplement at 50 mg tomorrow: NO LASIX Continue <2G salt diet on discharge. Plan for weekly BMP on discharge Sepsis secondary to potential peritonitis -Resolved -Pt peritoneal fluid did show Group B strep -Treating with Augmentin, finish course as outpatient Hyperammonemia 2/2 to Liver cirrhosis -Gastro consulted -Liver US demonstrated no flow in the portal vein, likely due to thrombosis -IV heparin-started -Ct AP repeat showed no evidence of portal vein thrombosis -IV Hep DCd--consider anticoag options if patient stays Hyperkalemia resolved EKG changes -New T wave inversions in Leads V2-V4 at admission, improved -Troponins x3 q 8 hours---> .032, .041, .039--likely demand ischemia Liver cirrhosis 2/2 to steatohepatitis -repeat coags -follow destiney, liver enzymes, lipase -EGD cancelled as has NPO after midnight order -increasing abdominal discomfort: positional modification and supplemental O2 prn; cannot tap til Mon PARADISE resolved Anemia -Follow CBC -Consider Fe studies if anemia persist Dispo: tele DVTP: IV hep DCd Code: full code Assessment/Plan Resident Physician Supervision Note: I was present with Dr. Philip during the history and exam. I discussed the case with the resident and agree with the findings and plan as documented in the note. Any exceptions or clarifications are listed here. 71 y/o male h/o hepatic steatosis induced cirrohosis p/w occult infection. Abdominal distention is at baseline per patient with minimal discomfort and breathing at baseline. Abdominal distention persists with fluid wave with minimal TTP. CTAB. S1/S2 nl RRR no MCG. Completed contrasted CT shows no portal venous thrombus. Cirrhosis 2/2 hepatosteatosis w/ hyperammonemia - GI consulted. d/c maintenance fluids and heparin today. No EGD Wednesday 12/[address] therefore no need for AC. Will be prepped for therapeutic paracentesis on Saturday w/ albumin infusion prior. continue lactulose at reduced dose 2/2 diarrhea, nadolol. Trend ammonia, LFTs, coags SBP v. ABRS - CT head w/ ?sinus disease concordant with symptoms, peritoneal fluid w/ strep on Cx. - continue augmentin. PARADISE in the setting of ascites - improved, use caution with large bolus Resident Tracking Resident Involvement: Resident Care Provided Care Provided: Adult Hospital Medicine
[2017-10-06] MEDS: AMOXICILLIN/CLAVULANATE TAB 875 MG TAB PO SCH ×2 (07:44→16:58)
[2017-10-06] MEDS: MULTIVITAMIN TAB PO SCH (07:45)
[2017-10-06] MEDS: NADOLOL 40 MG TAB PO SCH (07:45)
[2017-10-06] MEDS: LACTULOSE SYRUP 10 GM/15 ML BTL 473 ML PO SCH (09:00)
[2017-10-06] MEDS: SODIUM CHLORIDE 0.9% 1000ML 1,000 ML IV SCH (10:35)
--- NOTE | 2017-10-06 13:31 | Gastroenterology Progress Note ---
Progress Note Date of Service: Oct 06, 2017 Subjective Pt evaluation today including: conversation w/ patient, physical exam, chart review, lab review, review of studies, review of inpatient medication list CC f/u ascites HPI Pt states abd pressure about the same with some shortness of breath secondary to that. Review of Systems Respiratory: + shortness of breath Cardiac: No chest pain Medications Current Inpatient Medications Medications (Trade) Dose Ordered Sig/Raffi Route Start Time Stop Time Status Last Admin Dose Admin Ondansetron HCl (Zofran Inj) 4 mg Q6H PRN IV 10/01/17 18:00 10/31/17 17:59 10/03/17 19:28 4 MG Nitroglycerin (Nitrostat Tab) 0.4 mg UD PRN SL 10/01/17 18:00 10/31/17 17:59 Morphine Sulfate (MoRPHine SULFATE INJ) 2 mg Q30M PRN IV 10/01/17 18:00 10/15/17 17:59 Multivitamins (Multivitamin Tab) 1 tab QAM PO 10/02/17 09:00 11/01/17 08:59 10/06/17 07:45 1 TAB Nadolol (Corgard Tab) 40 mg QAM PO 10/02/17 09:00 11/01/17 08:59 10/06/17 07:45 40 MG Lactulose (Chronulac Syrup) 15 gm DAILY PO 10/04/17 09:00 11/01/17 08:59 10/05/17 07:43 15 GM Amoxicillin/ Clavulanate Potassium (Augmentin Tab) 875 mg BIDM PO 10/03/17 16:45 10/13/17 16:44 10/06/17 07:44 875 MG Heparin Sodium (Porcine) 19127 unit/Dextrose 500 ml @ 12 mls/hr Q24H PRN IV 10/03/17 21:00 11/02/17 20:59 10/05/17 03:45 18 MLS/HR Ioversol (Optiray 320) 100 ml UD PRN IV 10/05/17 14:00 10/09/17 13:59 Objective Vital Signs Date Time Temp Pulse Resp B/P (MAP) Pulse Ox O2 Delivery O2 Flow Rate FiO2 10/06/17 12:24 98 Room Air 10/06/17 12:19 36.4 66 20 122/78 (93) 98 11/12/17 08:20 36.4 76 16 127/87 (100) 100 Room Air 10/06/17 08:00 98 Room Air 10/06/17 04:00 Room Air 10/06/17 03:25 36.3 79 22 128/78 (95) 97 Room Air 10/05/17 23:59 Room Air 10/05/17 23:15 36.7 75 19 103/69 (80) 95 Room Air 10/05/17 20:00 Room Air 10/05/17 19:02 36.9 71 16 119/79 (92) 97 Room Air 10/05/17 16:00 Room Air 10/05/17 15:45 36.5 72 16 129/78 (95) 98 Physical Exam General Appearance: WD/WN, no apparent distress Respiratory/Chest: lungs clear, no respiratory distress Cardiovascular: regular rate, rhythm, no murmur Abdomen: normal bowel sounds, non tender, no organomegaly, + pertinent finding (protuberant but not tense, no guarding nor rebound) Laboratory Results Last 24 Hours Test 10/06/17 06:00 White Blood Count 5.45 K/uL Red Blood Count 3.34 M/uL Hemoglobin 10.0 g/dL Hematocrit 29.6 % Mean Corpuscular Volume 88.6 fL Mean Corpuscular Hemoglobin 29.9 pg Mean Corpuscular Hemoglobin Concent 33.8 g/dl Platelet Count 124 K/uL Mean Platelet Volume 10.0 fL Neutrophils (%) (Auto) 61.4 % Lymphocytes (%) (Auto) 16.0 % Monocytes (%) (Auto) 16.3 % Eosinophils (%) (Auto) 5.0 % Basophils (%) (Auto) 0.9 % Neutrophils # (Auto) 3.35 K/uL Lymphocytes # (Auto) 0.87 K/uL Monocytes # (Auto) 0.89 K/uL Eosinophils # (Auto) 0.27 K/uL Basophils # (Auto) 0.05 K/uL RDW Standard Deviation 52.4 fL RDW Coefficient of Variation 16.3 % Immature Granulocyte % (Auto) 0.4 % Immature Granulocyte # (Auto) 0.02 K/uL Prothrombin Time 14.4 SECONDS Prothromb Time International Ratio 1.3 Activated Partial Thromboplast Time 87.0 SECONDS Partial Thromboplastin Ratio 3.3 Sodium Level 136 mmol/L Potassium Level 4.6 mmol/L Chloride Level 109 mmol/L Carbon Dioxide Level 21 mmol/L Anion Gap 6.0 mmol/L Blood Urea Nitrogen 27 mg/dl Creatinine 0.84 mg/dl Est Creatinine Clear Calc Drug Dose 91.2 ml/min Estimated GFR () 103.5 Estimated GFR (Non- 89.3 BUN/Creatinine Ratio 31.7 Random Glucose 79 mg/dl Lactic Acid Level 1.2 mmol/L Calcium Level 8.0 mg/dl Total Bilirubin 1.7 mg/dl Aspartate Amino Transf (AST/SGOT) 58 U/L Alanine Aminotransferase (ALT/SGPT) 52 U/L Alkaline Phosphatase 170 U/L Ammonia 39.5 umol/L Total Protein 6.7 gm/dl Albumin 1.9 gm/dl Globulin 4.8 gm/dl Albumin/Globulin Ratio 0.4 Assessment and Plan PV thrombosis on u/S-CT with IV contrast normal so no PV thrombosis as far as I am concerned. DC heparin. No need for EGD at this time. Fever--likely from sinusitis--resolveed ascites-recommend large volume paracentesis with albumin infusion tomorrow with repeat of cell count and culture--then recommend restart diuretics at lower dose aldactone 50mg daily and no lasix with weekly BMP to follow renal function. Also 2gm Na diet should be strictly followed. cirrhosis--presumably from fatty liver---EGD 04/2015 1+ esophageal varices so continue Nadalol elevated ammonia--from cirrhosis--stable---continue Lactulose Elevated lactic acid--sepsis and dehydration most likely resolved. anemia--no evidence of gross GI bleeding--follow elevated LFTS from cirrhosis--worse elev PT from cirrhosis--follow Discussed DC heparin and paracentesis with albumin infusion with resident on primary team.
[2017-10-06] MEDS: ONDANSETRON INJ 2 MG/ML 2 ML VIAL IV PRN (23:35)
[2017-10-07 03:51] VITALS: BP 104/64; PULSE 71; TEMP 36.9; O2SAT 96
[2017-10-07 06:49] LABS: BASO ABS # 0.06 K/uL (0-0.2); COMPLETE YES; EOS % 4.6 %; HEMATOCRIT 31.6 % (42-52); IG% 0.3 %; LYMPH % 14.2 %; LYMPH ABS # 0.89 K/uL (1.2-3.4); MEAN CORPUSCULAR HEMOGLOBIN 30.1 pg (25-34); MEAN CORPUSCULAR HGB CONC 33.9 g/dl (32-36); MONO % 12.5 %; NEUT % 67.4 %; PLATELET COUNT 172 K/uL (130-400); RED BLOOD COUNT 3.55 M/uL (4.7-6.1); WHITE BLOOD COUNT 6.25 K/uL (4.8-10.8)
[2017-10-07 07:20] LABS: BUN/CREATININE RATIO 27.7 (10-20); CALCIUM 8.4 mg/dl (8.5-10.1); CREATININE 0.92 mg/dl (0.60-1.40); POTASSIUM 5.1 mmol/L (3.5-5.1)
[2017-10-07 07:23] LABS: ALB/GLOB RATIO 0.4 (0.9-2)
[2017-10-07 07:25] LABS: INR 1.3 (0.9-1.1); PARTIAL THROMBOPLASTIN RATIO 1.4; PROTHROMBIN TIME (PATIENT) 14.3 SECONDS (9.0-12.0)
[2017-10-07] MEDS: LACTULOSE SYRUP 10 GM/15 ML BTL 473 ML PO SCH (07:47)
[2017-10-07] MEDS: SPIRONOLACTONE 25 MG TAB PO SCH (07:47)
[2017-10-07] MEDS: AMOXICILLIN/CLAVULANATE TAB 875 MG TAB PO SCH ×2 (07:47→17:02)
[2017-10-07] MEDS: MULTIVITAMIN TAB PO SCH (07:47)
[2017-10-07 07:51] VITALS: BP 137/84; PULSE 72; TEMP 36.4; O2SAT 97
[2017-10-07] MEDS ORDERED: ALBUMIN HUMAN 25% 12.5 GM/50 ML VIAL IV ONE (10:00)
[2017-10-07 12:06] VITALS: BP 142/88; PULSE 73; TEMP 36.9; O2SAT 98
[2017-10-07] MEDS: NADOLOL 40 MG TAB PO SCH (13:43)
--- NOTE | 2017-10-07 15:00 | DIAGNOSTIC IMAGING REPORT ---
PARACENTESIS ABDOMEN W/IMAGING CLINICAL HISTORY: 71 years-old Male with ascites. COMPARISON: CT abdomen 10/05/2017 PROCEDURE: The procedure was explained to the patient in the care including the benefits and possible risks/complications. The patient gave verbal understanding and written consent was obtained. A time-out was performed prior to the start of the procedure. The patient was placed on the ultrasound table in the supine position. Using ultrasound guidance, an appropriate procedure site in the left lower abdomen was marked. This area was then prepped and draped in the usual sterile fashion. Local anesthesia was achieved within 1% lidocaine. An 8-Lithuanian centesis catheter was then inserted. Approximately 3 liters of clear, yellowish fluid was removed and sent to the lab for analysis. The catheter was removed and external pressure was held to achieve hemostasis. A sterile dressing was applied to the procedure site. The patient tolerated the procedure well without immediate complications. IMPRESSION: Successful ultrasound-guided paracentesis with removal of 3 L ascitic fluid The above report was generated using voice recognition software. It may contain grammatical, syntax or spelling errors. Electronically signed by: Colin Lopez M.D. 10/07/2017 2:58 PM Dictated Date/Time: 10/07/2017 2:58 PM
[2017-10-07 15:30] VITALS: BP 109/68; PULSE 73; TEMP 36.9; O2SAT 97
--- NOTE | 2017-10-07 16:15 | Family Medicine Progress Note ---
Progress Note Date of Service Oct 07, 2017. Subjective Pt evaluation today including: conversation w/ patient, physical exam, chart review, lab review, review of studies Pt is feeling fine today No fever, NV or diarrhea Reports discomfort from abdominal distension Constitutional: No fever, No chills, No sweats Respiratory: No cough, No sputum, No wheezing, No shortness of breath Cardiovascular: No chest pain, No orthopnea, No edema, No palpitations Abdomen: No pain, No nausea, No vomiting, No diarrhea Medications Current Inpatient Medications Medications (Trade) Dose Ordered Sig/Raffi Route Start Time Stop Time Status Last Admin Dose Admin Ondansetron HCl (Zofran Inj) 4 mg Q6H PRN IV 10/01/17 18:00 10/31/17 17:59 10/06/17 23:35 4 MG Nitroglycerin (Nitrostat Tab) 0.4 mg UD PRN SL 10/01/17 18:00 10/31/17 17:59 Morphine Sulfate (MoRPHine SULFATE INJ) 2 mg Q30M PRN IV 10/01/17 18:00 10/15/17 17:59 Multivitamins (Multivitamin Tab) 1 tab QAM PO 10/02/17 09:00 11/01/17 08:59 10/07/17 07:47 1 TAB Nadolol (Corgard Tab) 40 mg QAM PO 10/02/17 09:00 11/01/17 08:59 10/07/17 13:43 40 MG Lactulose (Chronulac Syrup) 15 gm DAILY PO 10/04/17 09:00 11/01/17 08:59 10/07/17 07:47 15 GM Amoxicillin/ Clavulanate Potassium (Augmentin Tab) 875 mg BIDM PO 10/03/17 16:45 10/13/17 16:44 10/07/17 07:47 875 MG Ioversol (Optiray 320) 100 ml UD PRN IV 10/05/17 14:00 10/09/17 13:59 Spironolactone (Aldactone Tab) 50 mg QAM PO 10/07/17 09:00 11/06/17 08:59 10/07/17 07:47 50 MG Objective Vital Signs Date Time Temp Pulse Resp B/P (MAP) Pulse Ox O2 Delivery O2 Flow Rate FiO2 10/07/17 15:30 36.9 73 16 109/68 (82) 97 Room Air 10/07/17 12:06 36.9 73 16 142/88 (106) 98 Room Air 10/07/17 11:00 Room Air 10/07/17 07:51 36.4 72 16 137/84 (101) 97 Room Air 10/07/17 07:30 Room Air 10/07/17 04:00 Room Air 10/07/17 03:51 36.9 71 18 104/64 (77) 96 Room Air 10/06/17 23:59 Room Air 10/06/17 23:07 36.7 73 18 111/71 (84) 96 Room Air 10/06/17 20:00 Room Air 10/06/17 19:10 36.6 72 16 131/78 (95) 99 Room Air Physical Exam General Appearance: WD/WN, no apparent distress Respiratory/Chest: chest non-tender, lungs clear, normal breath sounds, no respiratory distress, no accessory muscle use Cardiovascular: regular rate, rhythm, no edema, no gallop, no JVD, no murmur Abdomen: normal bowel sounds, + distended 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iatric: alert, normal mood/affect, oriented x 3 Skin: normal color, warm/dry, no rash Laboratory Results 10/07/17 06:29 Red Blood Count 3.55, Mean Corpuscular Volume 89.0, Mean Corpuscular Hemoglobin 30.1, Mean Corpuscular Hemoglobin Concent 33.9, Mean Platelet Volume 10.0, Neutrophils (%) (Auto) 67.4, Lymphocytes (%) (Auto) 14.2, Monocytes (%) (Auto) 12.5, Eosinophils (%) (Auto) 4.6, Basophils (%) (Auto) 1.0, Neutrophils # (Auto ) 4.21, Lymphocytes # (Auto) 0.89, Monocytes # (Auto) 0.78, Eosinophils # (Auto ) 0.29, Basophils # (Auto) 0.06 10/07/17 06:29 Test 10/07/17 06:29 10/07/17 12:50 White Blood Count 6.25 K/uL (4.8-10.8) Red Blood Count 3.55 M/uL (4.7-6.1) Hemoglobin 10.7 g/dL (14.0-18.0) Hematocrit 31.6 % (42-52) Mean Corpuscular Volume 89.0 fL (80-100) Mean Corpuscular Hemoglobin 30.1 pg (25-34) Mean Corpuscular Hemoglobin Concent 33.9 g/dl (32-36) Platelet Count 172 K/uL (130-400) Mean Platelet Volume 10.0 fL (7.4-10.4) Neutrophils (%) (Auto) 67.4 % Lymphocytes (%) (Auto) 14.2 % Monocytes (%) (Auto) 12.5 % Eosinophils (%) (Auto) 4.6 % Basophils (%) (Auto) 1.0 % Neutrophils # (Auto) 4.21 K/uL (1.4-6.5) Lymphocytes # (Auto) 0.89 K/uL (1.2-3.4) Monocytes # (Auto) 0.78 K/uL (0.11-0.59) Eosinophils # (Auto) 0.29 K/uL (0-0.5) Basophils # (Auto) 0.06 K/uL (0-0.2) RDW Standard Deviation 52.5 fL (36.4-46.3) RDW Coefficient of Variation 16.2 % (11.5-14.5) Immature Granulocyte % (Auto) 0.3 % Immature Granulocyte # (Auto) 0.02 K/uL (0.00-0.02) Prothrombin Time 14.3 SECONDS (9.0-12.0) Prothromb Time International Ratio 1.3 (0.9-1.1) Activated Partial Thromboplast Time 37.0 SECONDS (21.0-31.0) Partial Thromboplastin Ratio 1.4 Anion Gap 10.0 mmol/L (3-11) Est Creatinine Clear Calc Drug Dose 83.4 ml/min Estimated GFR () 98.0 Estimated GFR (Non- 84.6 BUN/Creatinine Ratio 27.7 (10-20) Calcium Level 8.4 mg/dl (8.5-10.1) Total Bilirubin 1.7 mg/dl (0.2-1) Aspartate Amino Transf (AST/SGOT) 58 U/L (15-37) Alanine Aminotransferase (ALT/SGPT) 52 U/L (12-78) Alkaline Phosphatase 187 U/L (45-117) Ammonia 37.1 umol/L (11-32) Total Protein 7.2 gm/dl (6.4-8.2) Albumin 2.0 gm/dl (3.4-5.0) Globulin 5.2 gm/dl (2.5-4.0) Albumin/Globulin Ratio 0.4 (0.9-2) Peritoneal Fluid Total Protein 0.4 g/dl Peritoneal Fluid Albumin < 0.6 g/dl Peritoneal Fluid LDH 23 IU Peritoneal Fluid Glucose 103 mg/dl Peritoneal Fluid Amylase 25 U/L Peritoneal Fluid Lipase 392 U/L Peritoneal Fluid Triglycerides 88 mg/dl Assessment and Plan 71 yo male with 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 Plan for weekly BMP on discharge Liver cirrhosis 2/2 to steatohepatitis Hyperammonemia 2/2 to Liver cirrhosis -Gastro consulted -Liver CT with contrast showed no portal v. thrombosis; EGD cancelled, IV hep DCd, -Paracentesis today, 3L removed -Pt no longer on anticoagulation Hyperkalemia resolved EKG changes -New T wave inversions in Leads V2-V4 at admission, improved -Troponins x3 q 8 hours---> .032, .041, .039--likely demand ischemia PARADISE resolved Anemia -Follow CBC Dispo: tele DVTP: IV hep DCd Code: full code Reviewed: Pt Seen/Exam by Me History abdomen distension from ascites is very uncomfortable Constitutional: denies: fever Respiratory: negative: short of breath Cardiovascular: denies chest pain General Appearance: mild distress (sec to abdominal distension) Respiratory: lungs clear, no respiratory distress Cardiovascular: regular rate, rhythm Gastrointestinal: non tender, soft, distended 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iatric: alert, oriented x 3 Skin Characteristics: warm/dry Assessment/Plan Resident Physician Supervision Note: I independently interviewed and examined the patient and verified the no history and physical, reviewed labs and image studies, discussed the case with the resident Dr. Thomas and agree with the findings and care plan.
[2017-10-07 16:18] LABS: PERIT FL WBC 194 /uL (0-300); PERITONEAL FLUID RBC 15000 /uL
[2017-10-07 19:00] VITALS: BP 121/75; PULSE 75; TEMP 37.1; O2SAT 98
[2017-10-07 23:26] VITALS: BP 119/73; PULSE 85; TEMP 36.5; O2SAT 98
[2017-10-08 04:09] VITALS: BP 117/69; PULSE 72; TEMP 36.5; O2SAT 93
[2017-10-08] MEDS ORDERED: ALBUMIN HUMAN 25% 12.5 GM/50 ML VIAL IV SCH (07:30)
[2017-10-08 07:47] LABS: BASO % 0.8 %; BASO ABS # 0.05 K/uL (0-0.2); COMPLETE YES; HEMATOCRIT 32.2 % (42-52); IG% 0.3 %; LYMPH ABS # 0.96 K/uL (1.2-3.4); MEAN CELL VOLUME 89.7 fL (80-100); MEAN CORPUSCULAR HEMOGLOBIN 30.1 pg (25-34); MEAN CORPUSCULAR HGB CONC 33.5 g/dl (32-36); MEAN PLATELET VOLUME 9.6 fL (7.4-10.4); NEUT % 70.9 %; PLATELET COUNT 166 K/uL (130-400); RED BLOOD COUNT 3.59 M/uL (4.7-6.1); WHITE BLOOD COUNT 6.39 K/uL (4.8-10.8)
[2017-10-08 07:56] LABS: INR 1.4 (0.9-1.1); PARTIAL THROMBOPLASTIN RATIO 1.4
[2017-10-08 07:57] VITALS: BP 133/82; PULSE 73; TEMP 36.5; O2SAT 94
[2017-10-08 08:23] LABS: BUN/CREATININE RATIO 24.1 (10-20); CALCIUM 8.5 mg/dl (8.5-10.1); CREATININE 0.9 mg/dl (0.60-1.40); POTASSIUM 5.1 mmol/L (3.5-5.1)
[2017-10-08 08:27] LABS: ALB/GLOB RATIO 0.4 (0.9-2)
--- NOTE | 2017-10-08 08:46 | Discharge Instructions ---
Discharge Instructions Date of Service Oct 08, 2017. Admission Reason for Admission: Ascites, Cirrhosis, Sepsis Discharge Discharge Diagnosis / Problem: Ascites (abdominal swelling) Discharge Goals Goal(s): Improve function, Improve disease control Activity Recommendations Activity Limitations: resume your previous activity . Instructions / Follow-Up Instructions / Follow-Up Kobi Becerra came to the hospital with fever and shortness of breath. You were found to have lab markers suggestive of infection. You were started on IV antibiotics. We suspected the source of the infection to be from your abdominal fluid. We tested the fluid and selected an antibiotic specific to the organisms grown on culture. Within the first day, your fevers subsided and your lab numbers improved. On ultrasound of the liver, we suspected a blood clot in the liver. After further imaging, you were determined to not have a clot. We kept you in the hospital to further treat the fluid in your abdomen. We did a paracentesis and albumin infusion. We removed 6L of fluid. We advise you to follow up with your assistant pastry chef and PCP as soon as possible. The hospital is arranging these appointments. Please review the following changes to your medications: 1. Take two more days of Augmentin-->875mg twice daily 2. We are reducing your Aldactone to 25mg twice daily. Continue to take Lasix 20 mg. 3. Lactulose 15mg once daily Current Hospital Diet Patient's current hospital diet: Low Sodium Diet (2gm Na) Discharge Diet Recommended Diet: Low Sodium Diet (2gm Na) Pending Studies Studies pending at discharge: yes List of pending studies: paracentesis cultures Medical Emergencies . Who to Call and When: Medical Emergencies: If at any time you feel your situation is an emergency, please call 911 immediately. . Non-Emergent Contact Non-Emergency issues call your: Primary Care Provider, Internet Retailer Call Non-Emergent contact if: you have a fever, wound has increased drainage, wound has increased redness . . "Provider Documentation" section prepared by Connor Thomas. . VTE Core Measure Inpt VTE Proph given/why not?: SCD's
--- NOTE | 2017-10-08 08:51 | GASTROENTEROLOGY PROGRESS NOTE ---
DATE: 10/07/2017 DATE: 10/07/2017 at 6:30 p.m. I spoke with the patient, examine him, and reviewed the chart. HISTORY OF PRESENT ILLNESS: The patient underwent a 3 liter paracentesis for therapeutic reasons for which the patient did derive some relief in his respiratory status. The cell count on that was a total white count of under 200 with multiple red blood cells. Clinically the patient is doing well, is lucid, awake, alert and oriented x3. His appetite is fair. He has not been on diuretic at this point since earlier in hospitalization due to some mild renal insufficiency. This has resolved. In addition, the patient was seen by nutrition counseling regarding a sodium water restriction and hepatic diet and continues to work with them. Initial cytology from last week was unrevealing. There is a large serum albumin ascites albumin grade greater than 1.3 and this likely reflects portal hypertension. CURRENT MEDICATIONS: Include Augmentin, multivitamins, nadolol, Zofran and nitroglycerin as well as p.r.n. morphine. He is also on lactulose 15 grams daily. LABORATORY STUDIES: Blood work from 10/07/2017 include white count 6.25, hemoglobin 10.7, MCV is 89, platelets are 172,000. Coagulation status shows an INR of 1.3. The fluid showed 194 white blood cells, 15,000 red blood cells with satisfactory lipase, triglyceride, amylase and glucose levels as well as a normal LDH. PHYSICAL EXAMINATION: VITAL SIGNS: Today blood pressure 117/69, heart rate 72, respirations 93% on room air, respiratory rate 17, afebrile at 36.5. GENERAL: The patient demonstrates no evidence of asterixis, is fully awake and alert and lucid to all questions. HEART: Normal S1, S2. LUNGS: Clear to auscultation without rales, rhonchi or wheezes. ABDOMEN: Distended; however, mostly tympanitic. The body habitus is somewhat difficult to ascertain whether or not there is still tense ascites present however. EXTREMITIES: Show trace to +1 pitting edema. RECTAL: Deferred. HEENT: Sclerae are anicteric. Conjunctivae are moist. IMPRESSION AND PLAN: The patient with worsening of ascites. There was a question on imaging which demonstrated no flow in the main portal vein or left portal vein with trace flow in the right portal vein. The hepatic veins are patent. Splenic vein is patent; therefore, there may be suggestion of a thrombosis; however, review of the CT scan from 10/05/2017 suggests patent hepatic vasculature, specifically with a patent portal vein and morphology consistent with a cirrhotic liver. There is no evidence of mass. These are equivocal studies, although at the present time I would not favor anticoagulation. I believe with the patient's current renal function and fluid status that it is reasonable to begin a diuretic therapy; however, would reduce if from his admission dosing schedule. At the present time, his BUN and creatinine earlier this morning was 26 and 0.9, so there is still a component of prerenal status. The patient is interested in having an additional paracentesis done. Will attempt to arrange for this for Saturday. I would suggest pretreating with albumin in order to minimize any intravascular depletion during large volume paracentesis. If his renal function remains satisfactory, then he could consider starting Lasix 40 mg daily, along with spironolactone 50 mg daily, and titrate this upwards. We also spoke about the importance of salt and water restriction and to maintain an adequate protein intake, but not excessive to avoid concerns of hepatic encephalopathy. All questions answered. Dr. Gutierrez will be following the patient tomorrow in the hospital. Thank you for allowing me to participate in this patient's care. Sincerely.
[2017-10-08] MEDS: MULTIVITAMIN TAB PO SCH (09:03)
[2017-10-08] MEDS: NADOLOL 40 MG TAB PO SCH (09:03)
[2017-10-08] MEDS: AMOXICILLIN/CLAVULANATE TAB 875 MG TAB PO SCH (09:03)
[2017-10-08] MEDS: LACTULOSE SYRUP 10 GM/15 ML BTL 473 ML PO SCH (09:04)
[2017-10-08] MEDS: SPIRONOLACTONE 25 MG TAB PO SCH (09:04)
--- NOTE | 2017-10-08 10:55 | DIAGNOSTIC IMAGING REPORT ---
PARACENTESIS ABDOMEN W/IMAGING CLINICAL HISTORY: 71 years-old Male with ascites 2/2 to cirrhosis . Ascites. COMPARISON: Ultrasound guided paracentesis 10/07/2017 PROCEDURE: The procedure was explained to the patient in the care including the benefits and possible risks/complications. The patient gave verbal understanding and written consent was obtained. A time-out was performed prior to the start of the procedure. The patient was placed on the ultrasound table in the supine position. Using ultrasound guidance, an appropriate procedure site in the left lower abdomen was marked. This area was then prepped and draped in the usual sterile fashion. Local anesthesia was achieved within 1% lidocaine. An 8-[place] centesis catheter was then inserted. Approximately 3 liters of clear, yellowish fluid was removed for therapeutic purposes only. The catheter was removed and external pressure was held to achieve hemostasis. A sterile dressing was applied to the procedure site. The patient tolerated the procedure well without immediate complications. IMPRESSION: Successful ultrasound-guided paracentesis with removal of 3 L ascitic fluid The above report was generated using voice recognition software. It may contain grammatical, syntax or spelling errors. Electronically signed by: Colin Lopez M.D. 10/08/2017 10:54 AM Dictated Date/Time: 10/08/2017 10:53 AM
[2017-10-08 11:36] VITALS: BP 136/78; PULSE 67; TEMP 36.4; O2SAT 99
[2017-10-08] MEDS ORDERED: LCTS240 PO (12:01)
[2017-10-08] MEDS ORDERED: AMOX1TAB43 PO (12:01)
[2017-10-08] MEDS ORDERED: SPR25 PO (12:01)
[2017-10-08 12:18] VITALS: BP 136/78; PULSE 67; TEMP 36.4; O2SAT 99
--- NOTE | 2017-10-08 16:44 | Discharge Summary ---
Discharge Summary Date of Service Oct 08, 2017. (Connor Thomas M.D.) Discharge Summary Admission Date: Oct 01, 2017 at 18:07 Discharge Date: Oct 08, 2017 Discharge Disposition: Home Principal Diagnosis: Spontaneous Bacterial Peritonitis Problems/Secondary Diagnoses: (1) Liver cirrhosis Status: Chronic (Connor Thomas M.D.) Medication Reconciliation New Medications: Amoxicillin & Pot Clavulanate (Amoxicillin/Clavulanate P) 1 Tab Tab 875 MG PO BIDM for 2 Days, #5 TAB Lactulose (Chronulac) 10 Gm/15 Ml Syrp 15 GM PO DAILY for 30 Days, #1 BTL Spironolactone (Spironolactone) 25 Mg Tab 25 MG PO QAM for 30 Days, #30 TAB Continued Medications: Furosemide (Lasix) 40 Mg Tab 20 MG PO DAILY, TAB Multivitamin (Multivitamin) Tab 1 TAB PO QAM, TAB Nadolol (Corgard) 40 Mg Tab 40 MG PO QAM, TAB Naproxen (Naprosyn) 500 Mg Tab 500 MG PO BID PRN for Pain, TAB Vitamin E (Vitamin E) 400 Unit Tab 800 UNITS PO QAM Discontinued Medications: Spironolactone (Aldactone) 50 Mg Tab 50 MG PO BID, TAB Discharge Exam Review of Systems: Constitutional: No fever, No chills, No sweats Respiratory: No cough, No sputum, No shortness of breath Cardiovascular: No chest pain, No edema, No palpitations Abdomen: No pain, No nausea, No vomiting, No diarrhea Physical Exam: General Appearance: WD/WN, no apparent distress Neck: supple, no adenopathy Respiratory/Chest: chest non-tender, lungs clear, normal breath sounds, no respiratory distress, no accessory muscle use Cardiovascular: regular rate, rhythm, no edema, no gallop, no JVD, no murmur Abdomen / GI: normal bowel sounds, non tender, + distended 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iatric: alert, normal mood/affect Skin: normal color, warm/dry, no rash (Connor Thomas M.D.) Review of Systems: Constitutional: No fever Respiratory: No shortness of breath Cardiovascular: No chest pain Abdomen: No pain Physical Exam: General Appearance: no apparent distress Respiratory/Chest: lungs clear, no respiratory distress Cardiovascular: regular rate, rhythm Abdomen / GI: normal bowel sounds, non tender, soft, + distended 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iatric: alert, oriented x 3 Skin: warm/dry (Valencia Colmenares M.D.) Hospital Course 71 yo male presented to [facility] with fever and SOB. He was experiencing the symptoms when receiving paracentesis for worsening ascites. The patient was admitted and treated for suspected SBP. Pt was started on broad spectrum antibiotics. Fluid cultures grew Group B Strep and patient was started on Augmentin and continued in the outpatient. Pts clinical status improved markedly on day 2. Pt lactic acid, WBC and temp normalized. Pt was seen by GI who found a suspected PV thrombosis on liver USG, pt was empirically started on anticoagulation, but later withdrawn after CT with IV contrast did not show PV thrombosis. Pt is not currently on anticoagulation. Although patients sepsis picture improved, patient was uncomfortable due to ascites. Two paracentesis were completed, withdrawing 6 L of fluid. Pt was also administered albumin infusion x2. Pt was dc with instructions to closely follow up with GI and PCP. 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 (Connor Thomas M.D.) Resident Physician Supervision Note: I independently interviewed and examined the patient and verified the no history and physical, reviewed labs and image studies, discussed the case with the resident Dr. Thomas and agree with the findings and care plan. Total Time Spent: Greater than 30 minutes (35) (Valencia Colmenares M.D.) Discharge Instructions Please refer to the electronic Patient Visit Report (Discharge Instructions) for additional information. (Connor Thomas M.D.) Additional Copies To Joey Gutierrez M.D.
== END 2017-10-08 13:00 | disposition home or self-care (01) | DRG 871 ==
LOC: EDBD 13:17 → C.EDB 13:18 → C.2T 18:07 → ENRESERV 19:21 → C.2T 10-03 05:02 → CANBEDREQ 10-08 11:30
PROVIDERS: ADMIT Family Medicine; ATTEND Family Medicine
PROC: 0W9G3ZZ Drainage of Peritoneal Cavity, Percutaneous Approach (ICD-10-PCS; principal; 2017-10-07)
DX: A40.1 Sepsis due to streptococcus, group B (principal); K65.2 Spontaneous bacterial peritonitis; N17.9 Acute kidney failure, unspecified; R18.8 Other ascites; K76.6 Portal hypertension; E72.20 Disorder of urea cycle metabolism, unspecified; K52.1 Toxic gastroenteritis and colitis; T47.3X5A Adverse effect of saline and osmotic laxatives, initial encounter; K74.60 Unspecified cirrhosis of liver; K75.81 Nonalcoholic steatohepatitis (NASH); R93.2 Abnormal findings on diagnostic imaging of liver and biliary tract; E87.5 Hyperkalemia; E86.0 Dehydration; R79.1 Abnormal coagulation profile; R94.31 Abnormal electrocardiogram [ECG] [EKG]; J32.4 Chronic pansinusitis; D64.9 Anemia, unspecified; Z87.891 Personal history of nicotine dependence; Z79.899 Other long term (current) drug therapy

== ENCOUNTER 2017-10-27 14:10 | Inpatient (IN) | payer BC, OTHER ==
[~2017-10-27] VITALS: Ht 170.2 cm; Wt 72.4 kg
[~2017-10-27 14:10] MED LIST changes: +AMOX1TAB43 PO; -ATOR-22 PO; +LCTS240 PO; -SPIR50TA2 PO; +SPR25 PO; -TAMS0.4C38 PO; -TRIA75TA PO; +VITA1TAB4 PO; -VTME400 PO
[2017-10-27] MEDS ORDERED: LACT10SO17 PO (15:04)
[2017-10-27] MEDS ORDERED: SPIR25TA PO (15:04)
--- NOTE | 2017-10-27 15:39 | DIAGNOSTIC IMAGING REPORT ---
SINGLE VIEW CHEST CLINICAL HISTORY: Fever. FINDINGS: An AP, portable, semierect chest radiograph is compared to study dated 10/01/2017. The examination is degraded by portable technique and patient rotation. The cardiomediastinal silhouette is unremarkable. There are low lung volumes. No airspace consolidation or large pleural effusion is identified. No pneumothorax is seen. The skeletal structures are osteopenic. The bony thorax is grossly intact. IMPRESSION: Low lung volumes with no acute cardiopulmonary abnormality. Electronically signed by: Abimael Mclaughlin M.D. 10/27/2017 3:37 PM Dictated Date/Time: 10/27/2017 3:37 PM
[2017-10-27 16:40] LABS: ISTAT CREATININE 2.3 mg/dl (0.6-1.3); ISTAT HEMOGLOBIN 11.6 g/dl (14.0-18.0); ISTAT IONIZED CALCIUM 1.18 mmol/l (1.12-1.32)
[2017-10-27 16:47] LABS: INR 1.4 (0.9-1.1); PROTHROMBIN TIME (PATIENT) 15.3 SECONDS (9.0-12.0)
[2017-10-27 16:48] LABS: BASO % 0.1 %; BASO ABS # 0.01 K/uL (0-0.2); COMPLETE YES; EOS % 0.5 %; HEMATOCRIT 34.7 % (42-52); IG% 0.3 %; LYMPH % 13.2 %; LYMPH ABS # 1.45 K/uL (1.2-3.4); MEAN CELL VOLUME 88.7 fL (80-100); MEAN CORPUSCULAR HEMOGLOBIN 30.9 pg (25-34); MEAN CORPUSCULAR HGB CONC 34.9 g/dl (32-36); MEAN PLATELET VOLUME 10.9 fL (7.4-10.4); MONO % 6.7 %; NEUT % 79.2 %; PLATELET COUNT 191 K/uL (130-400); RED BLOOD COUNT 3.91 M/uL (4.7-6.1); WHITE BLOOD COUNT 10.96 K/uL (4.8-10.8)
[2017-10-27 16:55] LABS: BUN/CREATININE RATIO 41.3 (10-20); CALCIUM 8.7 mg/dl (8.5-10.1); CREATININE 2.24 mg/dl (0.60-1.40); MAGNESIUM 2.5 mg/dl (1.8-2.4); POTASSIUM 5.7 mmol/L (3.5-5.1)
[2017-10-27] MEDS ORDERED: SODIUM CHLORIDE 0.9% 1000ML 1,000 ML IV STA (17:02)
[2017-10-27] MEDS ORDERED: ALBUMIN HUMAN 25% 12.5 GM/50 ML VIAL IV STA (17:02)
--- NOTE | 2017-10-27 17:04 | DIAGNOSTIC IMAGING REPORT ---
CT SCAN OF THE ABDOMEN AND PELVIS WITHOUT IV CONTRAST CLINICAL HISTORY: Generalized abdominal pain. COMPARISON STUDY: Abdominal CT dated 10/05/2017. TECHNIQUE: CT scan of the abdomen and pelvis is performed from the lung bases to the proximal femora. Images are reviewed in the axial, sagittal, and coronal planes. IV contrast was not administered for this examination as per the referring clinician. Note that the examination was performed in significantly suboptimal fashion without oral and IV contrast. A dose lowering technique was utilized adhering to the principles of ALARA. CT DOSE: 786.14 mGy.cm FINDINGS: Lung bases: The heart is normal in size and without pericardial effusion. The coronary arteries are densely calcified. There is calcification of the aortic valve leaflets and mitral annulus. There is diminished attenuation of the cardiac blood pool as compared to the myocardium suggesting anemia. The lung bases are clear. Gynecomastia is noted. Liver: The unenhanced liver is normal in size, contour, and attenuation. There is no intrahepatic biliary ductal dilatation. Gallbladder: There are numerous small calcified gallstones without CT evidence of acute cholecystitis. Spleen: The spleen is mildly enlarged, measuring 13.6 cm in length. There are numerous perisplenic collaterals. Perigastric collaterals are also noted. Pancreas: The unenhanced pancreas is atrophic and grossly unremarkable. Adrenal glands: Unremarkable. Kidneys: The unenhanced kidneys demonstrate cortical atrophy and are without hydronephrosis. A 7 mm nonobstructing calculus is present in the left lower pole. There is no evidence of contour deforming renal mass lesion. Abdominal vasculature: The abdominal aorta is normal in course and caliber noting moderate atherosclerotic calcification. Bowel: The small bowel and colon are normal in course and caliber. The appendix is identified in the right lower quadrant and is filled with hyperdense material. There is no CT evidence of acute appendicitis. Peritoneum: There is a moderate volume of abdominopelvic ascites. No intraperitoneal free air is seen. There is a fluid containing umbilical hernia. Lymphadenopathy: None. Pelvic viscera: The bladder, prostate, and seminal vesicles are normal as visualized. Fluid fills bilateral inguinal hernias. Skeletal structures: The skeletal structures are osteopenic. There is moderate lumbosacral spondylosis. There are bilateral pars defects at L5 with 10 mm anterolisthesis at L5-S1. No lytic or blastic lesions are seen. IMPRESSION: 1. Suboptimal examination without oral and IV contrast. 2. Cirrhotic liver morphology with evidence of portal hypertension. 3. There is a moderate volume of abdominopelvic ascites, decreased from 10/05/2017. 4. There is mild splenomegaly and numerous perisplenic collaterals. 5. Cholelithiasis without CT evidence of acute cholecystitis. 6. Nonobstructing left renal calculus. 7. Additional findings as above. Electronically signed by: Abimael Mclaughlin M.D. 10/27/2017 5:02 PM Dictated Date/Time: 10/27/2017 4:53 PM
[2017-10-27] MEDS ORDERED: NAPROXEN 250 MG TAB PO PRN (19:45)
[2017-10-27] MEDS ORDERED: ONDANSETRON INJ 2 MG/ML 2 ML VIAL IV PRN (19:45)
--- NOTE | 2017-10-27 20:30 | EMERGENCY ROOM VISIT NOTE ---
History Report prepared by Corie: Evgeny Espinal Under the Supervision of: Dr. Jeffrey Aquino D.O. First contact with patient: 14:51 Chief Complaint: DEHYDRATION Stated Complaint: DEHYDRATION, NOT EATING/DRINKING C. LIVER PATIENT Nursing Triage Summary: Pt arrived to triage in wheelchair. Pt nikhil. Pt states patient is incoherant, weakness, possible constipation and not eating and drinking since Saturday. Cirrhosis. Admitted for a week 2 weeks ago. Pt called Dr Gutierrez's office and was told to bring him here. Last BM Saturday. History of Present Illness The patient is a 72 year old male who presents to the Emergency Room with complaints of constant confusion starting two days ago. The patient's family states that the patient does not want to drink, eat, sleep, or do anything. The family additionally states that the patient is not talking, and all of these things are abnormal for the patient and has never had anything like this before. The patient is stating that he is currently nauseous, and he has had dark stools for the past while. He has a history of non-alcoholic cirrhosis. Additionally, the states that the patient had a paracentesis done, and he is currently having drainage from his scrotum from a sore. Pt denies headache, change in vision, fevers, chest pain, shortness of breath, vomiting, diarrhea, and pain with urination. Source of History: patient Onset: two days ago Position: other (global) Quality: other (confusion) Timing: constant Associated Symptoms: + nausea Note: Associated symptoms: Not eating, drinking, sleeping, or doing anything. Review of Systems See HPI for pertinent positives & negatives. A total of 10 systems reviewed and were otherwise negative. Past Medical & Surgical Medical Problems: (1) Ascites (2) Bladder cancer (3) Cirrhosis (4) Cirrhosis (5) Dehydration (6) Fatigue (7) Hernia (8) Hyperammonemia (9) Liver cirrhosis (10) Sepsis Social History Smoking Status: Never Smoker Marital Status: Housing Status: lives with family Occupation Status: retired Current/Historical Medications Scheduled Furosemide (Lasix), 20 MG PO QAM Lactulose (Chronulac), 10 GM PO QAM Multivitamin (Multivitamin), 1 TAB PO QAM Nadolol (Corgard), 40 MG PO QAM Spironolactone (Aldactone), 25 MG PO QAM Vitamin E (Vitamin E), 800 UNITS PO QAM Scheduled PRN Naproxen (Naprosyn), 500 MG PO BID PRN for GOUT PAIN Allergies Coded Allergies: No Known Allergies (Unverified , 10/27/17) Physical Exam Vital Signs Date Time Temp Pulse Resp B/P (MAP) Pulse Ox O2 Delivery O2 Flow Rate FiO2 10/27/17 19:52 64 18 91/48 98 Room Air 10/27/17 18:51 66 18 108/62 99 Room Air 10/27/17 17:47 67 18 91/55 100 Room Air 10/27/17 16:28 62 18 89/63 100 Room Air 10/27/17 14:13 36.3 62 22 102/66 100 Room Air Physical Exam GENERAL: Ill-appearing, disheveled, no distress, non-toxic EYE EXAM: normal conjunctiva. OROPHARYNX: no exudate, no erythema, lips, buccal mucosa, and tongue normal and mucous membranes are moist NECK: supple, no nuchal rigidity, no adenopathy, non-tender LUNGS: Clear to auscultation. Normal chest wall mechanics HEART: no murmurs, S1 normal and S2 normal ABDOMEN: abdomen soft, non-tender, but distended, normo-active bowel sounds, no masses, no rebound or guarding. BACK: Back is symmetrical on inspection and there is no deformity, no midline tenderness, no CVA tenderness. RECTAL: Gross heme positive. SKIN: no rashes and no bruising UPPER EXTREMITIES: upper extremities are grossly normal. LOWER EXTREMITIES: No pitting edema. NEURO EXAM: Awake, alert, oriented. Following commands. No focal deficits. Medical Decision & Procedures ER Provider Diagnostic Interpretation: Radiology results as stated below per my review and the radiologist's interpretation: SINGLE VIEW CHEST CLINICAL HISTORY: Fever. FINDINGS: An AP, portable, semierect chest radiograph is compared to study dated 10/01/2017. The examination is degraded by portable technique and patient rotation. The cardiomediastinal silhouette is unremarkable. There are low lung volumes. No airspace consolidation or large pleural effusion is identified. No pneumothorax is seen. The skeletal structures are osteopenic. The bony thorax is grossly intact. IMPRESSION: Low lung volumes with no acute cardiopulmonary abnormality. Electronically signed by: Abimael Mclaughlin M.D. 10/27/2017 3:37 PM Dictated Date/Time: 10/27/2017 3:[address] SCAN OF THE ABDOMEN AND PELVIS WITHOUT IV CONTRAST CLINICAL HISTORY: Generalized abdominal pain. COMPARISON STUDY: Abdominal CT dated 10/05/2017. TECHNIQUE: CT scan of the abdomen and pelvis is performed from the lung bases to the proximal femora. Images are reviewed in the axial, sagittal, and coronal planes. IV contrast was not administered for this examination as per the referring clinician. Note that the examination was performed in significantly suboptimal fashion without oral and IV contrast. A dose lowering technique was utilized adhering to the principles of ALARA. CT DOSE: 786.14 mGy.cm FINDINGS: Lung bases: The heart is normal in size and without pericardial effusion. The coronary arteries are densely calcified. There is calcification of the aortic valve leaflets and mitral annulus. There is diminished attenuation of the cardiac blood pool as compared to the myocardium suggesting anemia. The lung bases are clear. Gynecomastia is noted. Liver: The unenhanced liver is normal in size, contour, and attenuation. There is no intrahepatic biliary ductal dilatation. Gallbladder: There are numerous small calcified gallstones without CT evidence of acute cholecystitis. Spleen: The spleen is mildly enlarged, measuring 13.6 cm in length. There are numerous perisplenic collaterals. Perigastric collaterals are also noted. Pancreas: The unenhanced pancreas is atrophic and grossly unremarkable. Adrenal glands: Unremarkable. Kidneys: The unenhanced kidneys demonstrate cortical atrophy and are without hydronephrosis. A 7 mm nonobstructing calculus is present in the left lower pole. There is no evidence of contour deforming renal mass lesion. Abdominal vasculature: The abdominal aorta is normal in course and caliber noting moderate atherosclerotic calcification. Bowel: The small bowel and colon are normal in course and caliber. The appendix is identified in the right lower quadrant and is filled with hyperdense material. There is no CT evidence of acute appendicitis. Peritoneum: There is a moderate volume of abdominopelvic ascites. No intraperitoneal free air is seen. There is a fluid containing umbilical hernia. Lymphadenopathy: None. Pelvic viscera: The bladder, prostate, and seminal vesicles are normal as visualized. Fluid fills bilateral inguinal hernias. Skeletal structures: The skeletal structures are osteopenic. There is moderate lumbosacral spondylosis. There are bilateral pars defects at L5 with 10 mm anterolisthesis at L5-S1. No lytic or blastic lesions are seen. IMPRESSION: 1. Suboptimal examination without oral and IV contrast. 2. Cirrhotic liver morphology with evidence of portal hypertension. 3. There is a moderate volume of abdominopelvic ascites, decreased from 10/05/2017. 4. There is mild splenomegaly and numerous perisplenic collaterals. 5. Cholelithiasis without CT evidence of acute cholecystitis. 6. Nonobstructing left renal calculus. 7. Additional findings as above. Electronically signed by: Abimael Mclaughlin M.D. 10/27/2017 5:02 PM Dictated Date/Time: 10/27/2017 4:53 PM Laboratory Results 10/27/17 15:56 Red Blood Count 3.91, Mean Corpuscular Volume 88.7, Mean Corpuscular Hemoglobin 30.9, Mean Corpuscular Hemoglobin Concent 34.9, Mean Platelet Volume 10.9, Neutrophils (%) (Auto) 79.2, Lymphocytes (%) (Auto) 13.2, Monocytes (%) (Auto) 6.7, Eosinophils (%) (Auto) 0.5, Basophils (%) (Auto) 0.1, Neutrophils # (Auto) 8.68, Lymphocytes # (Auto) 1.45, Monocytes # (Auto) 0.73, Eosinophils # (Auto) 0.06, Basophils # (Auto) 0.01 10/27/17 15:56 Test 10/27/17 15:56 10/27/17 16:07 10/27/17 16:18 10/27/17 16:24 White Blood Count 10.96 K/uL (4.8-10.8) Red Blood Count 3.91 M/uL (4.7-6.1) Hemoglobin 12.1 g/dL (14.0-18.0) Hematocrit 34.7 % (42-52) Mean Corpuscular Volume 88.7 fL (80-100) Mean Corpuscular Hemoglobin 30.9 pg (25-34) Mean Corpuscular Hemoglobin Concent 34.9 g/dl (32-36) Platelet Count 191 K/uL (130-400) Mean Platelet Volume 10.9 fL (7.4-10.4) Neutrophils (%) (Auto) 79.2 % Lymphocytes (%) (Auto) 13.2 % Monocytes (%) (Auto) 6.7 % Eosinophils (%) (Auto) 0.5 % Basophils (%) (Auto) 0.1 % Neutrophils # (Auto) 8.68 K/uL (1.4-6.5) Lymphocytes # (Auto) 1.45 K/uL (1.2-3.4) Monocytes # (Auto) 0.73 K/uL (0.11-0.59) Eosinophils # (Auto) 0.06 K/uL (0-0.5) Basophils # (Auto) 0.01 K/uL (0-0.2) RDW Standard Deviation 54.8 fL (36.4-46.3) RDW Coefficient of Variation 16.9 % (11.5-14.5) Immature Granulocyte % (Auto) 0.3 % Immature Granulocyte # (Auto) 0.03 K/uL (0.00-0.02) Prothrombin Time 15.3 SECONDS (9.0-12.0) Prothromb Time International Ratio 1.4 (0.9-1.1) Est Creatinine Clear Calc Drug Dose 28.7 ml/min Estimated GFR () 33.2 Estimated GFR (Non- 28.6 BUN/Creatinine Ratio 41.3 (10-20) Calcium Level 8.7 mg/dl (8.5-10.1) Magnesium Level 2.5 mg/dl (1.8-2.4) Total Bilirubin 2.4 mg/dl (0.2-1) Direct Bilirubin 1.3 mg/dl (0-0.2) Aspartate Amino Transf (AST/SGOT) 49 U/L (15-37) Alanine Aminotransferase (ALT/SGPT) 57 U/L (12-78) Alkaline Phosphatase 180 U/L (45-117) Total Creatine Kinase 30 U/L (39-308) Creatine Kinase MB 1.2 ng/ml (0.5-3.6) Creatine Kinase MB Ratio 4.0 (0-3.0) Troponin I 0.038 ng/ml (0-0.045) Total Protein 7.7 gm/dl (6.4-8.2) Albumin 2.0 gm/dl (3.4-5.0) Ammonia 58.0 umol/L (11-32) Bedside Lactic Acid Venous 2.55 mmol/L (0.90-1.70) Bedside Hemoglobin 11.6 g/dl (14.0-18.0) Bedside Hematocrit 34 % (42-52) Bedside Sodium 135 mEq/L (135-144) Bedside Potassium 5.8 mEq/L (3.3-5.0) Bedside Chloride 105 mEq/L (101-112) Bedside Total CO2 20 mEq/l (24-31) Anion Gap 17.0 mmol/L (16-25) Bedside Blood Urea Nitrogen 80 mg/dl (7-18) Bedside Creatinine 2.3 mg/dl (0.6-1.3) Bedside Glucose (other) 93 mg/dl (70-99) Bedside Ionized Calcium (Jackie) 1.18 mmol/l (1.12-1.32) Laboratory results per my review. Medications Administered Medications (Trade) Dose Ordered Sig/Raffi Route Start Time Stop Time Status Last Admin Dose Admin Albumin Human (Albumin 25%) 25 gm NOW STAT IV 10/27/17 17:02 10/27/17 17:04 DC 10/27/17 17:45 25 GM Sodium Chloride 1,000 ml @ 999 mls/hr Q1H1M STAT IV 10/27/17 17:02 10/27/17 18:02 DC 10/27/17 17:44 999 MLS/HR ECG Indication: weakness Rate (beats per minute): 62 Rhythm: sinus rhythm Findings: left axis deviation, other (Early R wave progression) Comparison ECG Date: 10/02/17 Change: no significant change ED Course ED COURSE: Vital signs were reviewed and showed hypotension The patients medical record was reviewed The above diagnostic studies were performed and reviewed. ED treatments and interventions as stated above. 1451: The patient was evaluated in room B5. A complete history and physical examination was performed. 1702: Sodium Chloride 1000 ml @ 999 mls/hr IV, Albumin 25% 25gm IV 1705: Upon reevaluation, the patient is resting.I discussed my findings with the patient and he understands and agrees with the treatment plan. Based on the patients age, coexisting illnesses, exam and lab findings the decision to treat as an inpatient was made. The patient remained stable while under my care. The patient will be evaluated for further management. 1725: I reviewed the patient's case with Dr. Mathis. She will evaluate the patient for further management. Medical Decision Differential Diagnosis includes but is not limited to dehydration, stroke, anemia, hypoglycemia, hyponatremia, hypernatremia, urinary tract infection, pneumonia, bronchitis, sepsis, gastroenteritis, additional abdominal pathology, metabolic abnormalities and infections. Patient is a 72-year-old male who presents to ER for lethargy associated with not eating and drinking. He does have cirrhosis. CBC shows a stable hemoglobin. BMP shows an elevated creatinine at 2.2 off of the baseline of 1. Potassium was slightly elevated at 5.7. EKG does not show peaked T waves. Ammonia was elevated at 58. He is mentating. Bilirubin is elevated. Chest x- ray shows no acute pathology. CT of the abdomen and pelvis was unremarkable. No fevers. Nothing to suggest SBI. Systolic blood pressures were in the 80s. Due to his dehydration was given IV fluids and albumin as his albumin was only 2. Systolic blood pressures did trend up into the low 100s. Rectal was heme positive. He is not having any active bleeding at this time. Discussed case with internal medicine. Patient was admitted for further workup of his [place], lethargy, hyperkalemia, heme positive stools and ascites. Medication Reconcilliation Current Medication List: was personally reviewed by me Blood Pressure Screening Patient's blood pressure: Low blood pressure Consults Time Called: 1705 Consulting Physician: Dr. Mathis Returned Call: 1725 I reviewed the patient's case with Dr. Mathis. She will evaluate the patient for further management. Impression Primary Impression: Acute kidney injury Additional Impressions: Hyperkalemia Ascites Heme positive stool Scribe Attestation The scribe's documentation has been prepared under my direction and personally reviewed by me in its entirety. I confirm that the note above accurately reflects all work, treatment, procedures, and medical decision making performed by me. Departure Information Dispostion Being Evaluated By Hospitalist Referrals No Doctor, Assigned (PCP) Patient Instructions My [facility] Problem Qualifiers Additional Impressions: Ascites Ascites type: other type Qualified Codes: R18.8 - Other ascites
--- NOTE | 2017-10-27 20:37 | History and Physical ---
History & Physical Date & Time of Service: Oct 27, 2017 at 20:37 Chief Complaint: Dehydration, Not Eating/Drinking C. Liver Patient Primary Care Physician: Martir Brownlee D.O. History of Present Illness Source: hospital records Mr Purcell is a 72 yo M with WELCH cirrhosis and hx of bladder cancer who presents with his family for fatigue today and decreased oral intake. Per family , they reported he was not taking anything PO over the weekend, and then was not doing anything around the house which is very unusual for him. He apparently also has a sore on his scrotal area. The pt was recently admitted after an episode of fever and dyspnea during a paracentesis. He was given a course of Augmentin for group B strep in his blood cultures. The pt currently denies any pain. He is not communicating much to me but able to follow commands and provide simple responses. Past Medical/Surgical History Medical Problems: (1) Bladder cancer Status: Resolved (2) Hernia Status: Chronic (3) Liver cirrhosis Status: Chronic PSHx Paracentesis Cystoscopy Family History No pertinent Fhx Social History Smoking Status: Never Smoker Smokeless Tobacco Use: No Alcohol Use: none Drug Use: none Marital Status: Housing status: lives with family Occupational Status: retired Immunizations History of Influenza Vaccine: Unknown History of Tetanus Vaccine?: Unknown History of Pneumococcal: Unknown History of Hepatitis B Vaccine: Unknown Multi-Drug Resistant Organisms History of MDRO: No Allergies Coded Allergies: No Known Allergies (Unverified , 10/27/17) Home Medications Scheduled Furosemide (Lasix), 20 MG PO QAM Lactulose (Chronulac), 10 GM PO QAM Multivitamin (Multivitamin), 1 TAB PO QAM Nadolol (Corgard), 40 MG PO QAM Spironolactone (Aldactone), 25 MG PO QAM Vitamin E (Vitamin E), 800 UNITS PO QAM Scheduled PRN Naproxen (Naprosyn), 500 MG PO BID PRN for GOUT PAIN Review of Systems See HPI for pertinent positives & negatives. A total of 10 systems reviewed and were otherwise negative. Physical Exam Vital Signs Date Time Temp Pulse Resp B/P (MAP) Pulse Ox O2 Delivery O2 Flow Rate FiO2 10/27/17 19:52 64 18 91/48 98 Room Air 10/27/17 18:51 66 18 108/62 99 Room Air 10/27/17 17:47 67 18 91/55 100 Room Air 10/27/17 16:28 62 18 89/63 100 Room Air 10/27/17 14:13 36.3 62 22 102/66 100 Room Air General Appearance: WD/WN, no apparent distress, + cachetic, + thin Head: normocephalic, atraumatic Eyes: normal inspection, PERRL ENT: hearing grossly normal Neck: supple, no JVD Respiratory/Chest: lungs clear, normal breath sounds, no respiratory distress Cardiovascular: regular rate, rhythm, no murmur, normal peripheral pulses Abdomen/GI: normal bowel sounds, non tender, soft, + distended Back: no CVA tenderness, no muscle spasm Extremities/Musculoskelatal: normal inspection, no pedal edema 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: alert Skin: no rash Diagnostics Laboratory Results Results Past 24 Hours Test 10/27/17 15:56 10/27/17 16:07 10/27/17 16:18 10/27/17 16:24 Range/Units White Blood Count 10.96 4.8-10.8 K/uL Red Blood Count 3.91 4.7-6.1 M/uL Hemoglobin 12.1 14.0-18.0 g/dL Hematocrit 34.7 42-52 % Mean Corpuscular Volume 88.7 80-100 fL Mean Corpuscular Hemoglobin 30.9 25-34 pg Mean Corpuscular Hemoglobin Concent 34.9 32-36 g/dl Platelet Count 191 130-400 K/uL Mean Platelet Volume 10.9 7.4-10.4 fL Neutrophils (%) (Auto) 79.2 % Lymphocytes (%) (Auto) 13.2 % Monocytes (%) (Auto) 6.7 % Eosinophils (%) (Auto) 0.5 % Basophils (%) (Auto) 0.1 % Neutrophils # (Auto) 8.68 1.4-6.5 K/uL Lymphocytes # (Auto) 1.45 1.2-3.4 K/uL Monocytes # (Auto) 0.73 0.11-0.59 K/uL Eosinophils # (Auto) 0.06 0-0.5 K/uL Basophils # (Auto) 0.01 0-0.2 K/uL RDW Standard Deviation 54.8 36.4-46.3 fL RDW Coefficient of Variation 16.9 11.5-14.5 % Immature Granulocyte % (Auto) 0.3 % Immature Granulocyte # (Auto) 0.03 0.00-0.02 K/uL Prothrombin Time 15.3 9.0-12.0 SECONDS Prothromb Time International Ratio 1.4 0.9-1.1 Sodium Level 133 136-145 mmol/L Potassium Level 5.7 3.5-5.1 mmol/L Chloride Level 103 98-107 mmol/L Carbon Dioxide Level 19 21-32 mmol/L Anion Gap 12.0 17.0 16-25 mmol/L Blood Urea Nitrogen 93 7-18 mg/dl Creatinine 2.24 0.60-1.40 mg/dl Est Creatinine Clear Calc Drug Dose 28.7 ml/min Estimated GFR () 33.2 Estimated GFR (Non- 28.6 BUN/Creatinine Ratio 41.3 10-20 Random Glucose 89 70-99 mg/dl Calcium Level 8.7 8.5-10.1 mg/dl Magnesium Level 2.5 1.8-2.4 mg/dl Total Bilirubin 2.4 0.2-1 mg/dl Direct Bilirubin 1.3 0-0.2 mg/dl Aspartate Amino Transf (AST/SGOT) 49 15-37 U/L Alanine Aminotransferase (ALT/SGPT) 57 12-78 U/L Alkaline Phosphatase 180 45-117 U/L Total Creatine Kinase 30 39-308 U/L Creatine Kinase MB 1.2 0.5-3.6 ng/ml Creatine Kinase MB Ratio 4.0 0-3.0 Troponin I 0.038 0-0.045 ng/ml Total Protein 7.7 6.4-8.2 gm/dl Albumin 2.0 3.4-5.0 gm/dl Ammonia 58.0 11-32 umol/L Bedside Lactic Acid Venous 2.55 0.90-1.70 mmol/L Bedside Hemoglobin 11.6 14.0-18.0 g/dl Bedside Hematocrit 34 42-52 % Bedside Sodium 135 135-144 mEq/L Bedside Potassium 5.8 3.3-5.0 mEq/L Bedside Chloride 105 101-112 mEq/L Bedside Total CO2 20 24-31 mEq/l Bedside Blood Urea Nitrogen 80 7-18 mg/dl Bedside Creatinine 2.3 0.6-1.3 mg/dl Bedside Glucose (other) 93 70-99 mg/dl Bedside Ionized Calcium (Jackie) 1.18 1.12-1.32 mmol/l Microbiology Results 10/27/17 Blood Culture, Received Pending 10/27/17 Blood Culture, Ordered Pending Diagnostic Radiology SINGLE VIEW CHEST CLINICAL HISTORY: Fever. FINDINGS: An AP, portable, semierect chest radiograph is compared to study dated 10/01/2017. The examination is degraded by portable technique and patient rotation. The cardiomediastinal silhouette is unremarkable. There are low lung volumes. No airspace consolidation or large pleural effusion is identified. No pneumothorax is seen. The skeletal structures are osteopenic. The bony thorax is grossly intact. IMPRESSION: Low lung volumes with no acute cardiopulmonary abnormality. Electronically signed by: Abimael Mclaughlin M.D. 10/27/2017 3:37 PM Dictated Date/Time: 10/27/2017 3:[address] SCAN OF THE ABDOMEN AND PELVIS WITHOUT IV CONTRAST CLINICAL HISTORY: Generalized abdominal pain. COMPARISON STUDY: Abdominal CT dated 10/05/2017. TECHNIQUE: CT scan of the abdomen and pelvis is performed from the lung bases to the proximal femora. Images are reviewed in the axial, sagittal, and coronal planes. IV contrast was not administered for this examination as per the referring clinician. Note that the examination was performed in significantly suboptimal fashion without oral and IV contrast. A dose lowering technique was utilized adhering to the principles of ALARA. CT DOSE: 786.14 mGy.cm FINDINGS: Lung bases: The heart is normal in size and without pericardial effusion. The coronary arteries are densely calcified. There is calcification of the aortic valve leaflets and mitral annulus. There is diminished attenuation of the cardiac blood pool as compared to the myocardium suggesting anemia. The lung bases are clear. Gynecomastia is noted. Liver: The unenhanced liver is normal in size, contour, and attenuation. There is no intrahepatic biliary ductal dilatation. Gallbladder: There are numerous small calcified gallstones without CT evidence of acute cholecystitis. Spleen: The spleen is mildly enlarged, measuring 13.6 cm in length. There are numerous perisplenic collaterals. Perigastric collaterals are also noted. Pancreas: The unenhanced pancreas is atrophic and grossly unremarkable. Adrenal glands: Unremarkable. Kidneys: The unenhanced kidneys demonstrate cortical atrophy and are without hydronephrosis. A 7 mm nonobstructing calculus is present in the left lower pole. There is no evidence of contour deforming renal mass lesion. Abdominal vasculature: The abdominal aorta is normal in course and caliber noting moderate atherosclerotic calcification. Bowel: The small bowel and colon are normal in course and caliber. The appendix is identified in the right lower quadrant and is filled with hyperdense material. There is no CT evidence of acute appendicitis. Peritoneum: There is a moderate volume of abdominopelvic ascites. No intraperitoneal free air is seen. There is a fluid containing umbilical hernia. Lymphadenopathy: None. Pelvic viscera: The bladder, prostate, and seminal vesicles are normal as visualized. Fluid fills bilateral inguinal hernias. Skeletal structures: The skeletal structures are osteopenic. There is moderate lumbosacral spondylosis. There are bilateral pars defects at L5 with 10 mm anterolisthesis at L5-S1. No lytic or blastic lesions are seen. IMPRESSION: 1. Suboptimal examination without oral and IV contrast. 2. Cirrhotic liver morphology with evidence of portal hypertension. 3. There is a moderate volume of abdominopelvic ascites, decreased from 10/05/2017. 4. There is mild splenomegaly and numerous perisplenic collaterals. 5. Cholelithiasis without CT evidence of acute cholecystitis. 6. Nonobstructing left renal calculus. 7. Additional findings as above. Normal EKG (62bpm, no ST elevation), No change from prior EKG Impression Assessment and Plan 72 yo M, WELCH cirrhosis, presents with fatigue, poor PO intake, found to have ammonia of 58, mild hyperkalemia. Hyperammonemia - Lactulose now, continue in AM Mild hyperkalemia - Hold spironolactone - Continue to monitor Acute renal insufficiency - Baseline Cr around 1 - Hold Lasix - Monitor urine output Hypotension - Received a dose of albumin in ED with IV fluids - Repeat his dose of Albumin q6h overnight and NSS at 40cc/hour WELCH Cirrhosis - Ascites improved compared to before - GI Consult - Hold Nadolol tonight - Would consider a Palliative Care consult in AM to establish his goals of care ?Scrotal wound - Wound care consult VTE: SCDs Code status: Full Dispo: Admit to Med/Surg Attending addendum: I have physically seen this patient, have supervised the medical residents activities, and agree with the H&P unless as otherwise noted. Assessment and Plan: 1. Altered mental status/hyperammonemia/cirrhosis due to WELCH-- Increase lactulose, and retest ammonia level serially, to target normal range. Hold Lasix, spironolactone and nadolol due to borderline blood pressure Albumin 25 g IV every 6 hours overnight to support blood pressure NSS at 40 mL's per hour 2. Acute renal insufficiency/mild hyperkalemia/mild hypotension-- Hold Lasix and spironolactone. Gentle hydration with normal saline Serial BMP and magnesium levels Abdomen 25 g IV every 6 hours overnight Level of Care Med/Surg Advanced Directives Existing Advance Directive: No Existing Living Will: No Existing Power of Fabrication Specialist: No Resuscitation Status FULL RESUSCITATION VTE Prophylaxis VTE Risk Assessment Done? Y/N: Yes Risk Level: Moderate Resident Tracking Resident Involvement: Resident Care Provided Care Provided: Adult Hospital Medicine
[2017-10-27 21:07] VITALS: BP 109/68; PULSE 60; TEMP 36.7; O2SAT 100
[2017-10-27 21:16] VITALS: O2SAT 100; Ht 170.2 cm; Wt 72.4 kg
[2017-10-27] MEDS ORDERED: LACTULOSE SYRUP 30 GM/45 ML UDP PO ONE (22:30)
[2017-10-27] MEDS ORDERED: ALBUMIN HUMAN 25% 12.5 GM/50 ML VIAL IV SCH (23:00)
[2017-10-27] MEDS: SODIUM CHLORIDE 0.9% 1000ML 1,000 ML IV SCH (23:24)
[2017-10-27 23:25] VITALS: O2SAT 100
[2017-10-27 23:27] VITALS: BP 90/53; PULSE 64; TEMP 36.7; O2SAT 100
[2017-10-28 00:22] VITALS: BP 109/68; PULSE 59; TEMP 36.3; O2SAT 100
[2017-10-28 07:14] VITALS: BP 95/58; PULSE 69; TEMP 36.5; O2SAT 98
[2017-10-28] MEDS: LACTULOSE SYRUP 10 GM/15 ML BTL 473 ML PO SCH (07:31)
[2017-10-28] MEDS: TOCOPHERYL, DL-ALPHA 400 INTER.UNIT CAP PO SCH (07:31)
[2017-10-28] MEDS ORDERED: NADOLOL 40 MG TAB PO SCH (08:00)
[2017-10-28] MEDS ORDERED: FUROSEMIDE 40 MG TAB PO SCH (08:00)
[2017-10-28] MEDS ORDERED: SPIRONOLACTONE 25 MG TAB PO SCH (08:00)
[2017-10-28] MEDS ORDERED: LACTULOSE SYRUP 20 GM/30 ML UDC PO SCH (08:00)
[2017-10-28 08:49] LABS: BUN/CREATININE RATIO 45.9 (10-20); CALCIUM 8.7 mg/dl (8.5-10.1); CREATININE 1.73 mg/dl (0.60-1.40); POTASSIUM 5.2 mmol/L (3.5-5.1)
[2017-10-28 08:55] LABS: ALB/GLOB RATIO 0.5 (0.9-2)
--- NOTE | 2017-10-28 14:17 | Family Medicine Progress Note ---
Progress Note Date of Service Oct 28, 2017. Subjective Pt evaluation today including: conversation w/ patient, physical exam, chart review, lab review, review of studies Found pt sitting up in bed this morning, stated that he felt "pretty good", denied any pain or current complaints. Knew his name, , date and location without difficulty. Constitutional: No fever, No chills Cardiovascular: No chest pain, No edema Abdomen: + problem reported (ascites), No pain, No nausea, No vomiting Skin: + problem reported (scrotal swelling) Medications Current Inpatient Medications Medications (Trade) Dose Ordered Sig/Raffi Route Start Time Stop Time Status Last Admin Dose Admin Ondansetron HCl (Zofran Inj) 4 mg Q6H PRN IV 10/27/17 19:45 11/26/17 19:44 Naproxen (Naprosyn Tab) 500 mg BID PRN PO 10/27/17 19:45 11/26/17 19:44 Future Hold ra-Nyltz-Kmrkyuvlbz Acetate (Vitamin E Cap) 800 interunit QAM PO 10/28/17 08:00 11/27/17 08:59 10/28/17 07:31 800 INTERUNIT Lactulose (Chronulac Syrup) 10 gm QAM PO 10/28/17 08:00 11/27/17 07:59 10/28/17 07:31 10 GM Sodium Chloride 1,000 ml @ 40 mls/hr Q24H IV 10/27/17 23:00 10/29/17 22:59 10/27/17 23:24 40 MLS/HR Objective Vital Signs Date Time Temp Pulse Resp B/P (MAP) Pulse Ox O2 Delivery O2 Flow Rate FiO2 10/28/17 08:00 Room Air 10/28/17 07:14 36.5 69 18 95/58 (70) 98 Room Air 10/28/17 00:22 36.3 59 16 109/68 (82) 100 Room Air 10/27/17 23:27 36.7 64 16 90/53 (65) 100 Room Air 10/27/17 23:25 100 Room Air 10/27/17 21:16 100 Room Air 10/27/17 21:07 36.7 60 18 109/68 (82) 100 Room Air 10/27/17 20:42 71 18 95/55 98 10/27/17 19:52 64 18 91/48 98 Room Air 10/27/17 18:51 66 18 108/62 99 Room Air 10/27/17 17:47 67 18 91/55 100 Room Air 10/27/17 16:28 62 18 89/63 100 Room Air Physical Exam General Appearance: WD/WN, no apparent distress Respiratory/Chest: lungs clear, normal breath sounds, no respiratory distress Cardiovascular: regular rate, rhythm, no murmur Abdomen: normal bowel sounds, non tender, soft, + distended (with ascitic fluid wave) Extremities: non-tender, no pedal edema Skin: + pertinent finding (fluid-filled stone-edematous scrotum without noted erythema or tenderness) Laboratory Results 10/27/17 15:56 Red Blood Count 3.91, Mean Corpuscular Volume 88.7, Mean Corpuscular Hemoglobin 30.9, Mean Corpuscular Hemoglobin Concent 34.9, Mean Platelet Volume 10.9, Neutrophils (%) (Auto) 79.2, Lymphocytes (%) (Auto) 13.2, Monocytes (%) (Auto) 6.7, Eosinophils (%) (Auto) 0.5, Basophils (%) (Auto) 0.1, Neutrophils # (Auto) 8.68, Lymphocytes # (Auto) 1.45, Monocytes # (Auto) 0.73, Eosinophils # (Auto) 0.06, Basophils # (Auto) 0.01 10/28/17 08:01 Test 10/27/17 15:56 10/27/17 16:18 10/27/17 16:24 10/28/17 08:01 White Blood Count 10.96 K/uL (4.8-10.8) Red Blood Count 3.91 M/uL (4.7-6.1) Hemoglobin 12.1 g/dL (14.0-18.0) Hematocrit 34.7 % (42-52) Mean Corpuscular Volume 88.7 fL (80-100) Mean Corpuscular Hemoglobin 30.9 pg (25-34) Mean Corpuscular Hemoglobin Concent 34.9 g/dl (32-36) Platelet Count 191 K/uL (130-400) Mean Platelet Volume 10.9 fL (7.4-10.4) Neutrophils (%) (Auto) 79.2 % Lymphocytes (%) (Auto) 13.2 % Monocytes (%) (Auto) 6.7 % Eosinophils (%) (Auto) 0.5 % Basophils (%) (Auto) 0.1 % Neutrophils # (Auto) 8.68 K/uL (1.4-6.5) Lymphocytes # (Auto) 1.45 K/uL (1.2-3.4) Monocytes # (Auto) 0.73 K/uL (0.11-0.59) Eosinophils # (Auto) 0.06 K/uL (0-0.5) Basophils # (Auto) 0.01 K/uL (0-0.2) RDW Standard Deviation 54.8 fL (36.4-46.3) RDW Coefficient of Variation 16.9 % (11.5-14.5) Immature Granulocyte % (Auto) 0.3 % Immature Granulocyte # (Auto) 0.03 K/uL (0.00-0.02) Prothrombin Time 15.3 SECONDS (9.0-12.0) Prothromb Time International Ratio 1.4 (0.9-1.1) Magnesium Level 2.5 mg/dl (1.8-2.4) Direct Bilirubin 1.3 mg/dl (0-0.2) Total Creatine Kinase 30 U/L (39-308) Creatine Kinase MB 1.2 ng/ml (0.5-3.6) Creatine Kinase MB Ratio 4.0 (0-3.0) Troponin I 0.038 ng/ml (0-0.045) Bedside Lactic Acid Venous 2.55 mmol/L (0.90-1.70) Bedside Hemoglobin 11.6 g/dl (14.0-18.0) Bedside Hematocrit 34 % (42-52) Bedside Sodium 135 mEq/L (135-144) Bedside Potassium 5.8 mEq/L (3.3-5.0) Bedside Chloride 105 mEq/L (101-112) Bedside Total CO2 20 mEq/l (24-31) Bedside Blood Urea Nitrogen 80 mg/dl (7-18) Bedside Creatinine 2.3 mg/dl (0.6-1.3) Bedside Glucose (other) 93 mg/dl (70-99) Bedside Ionized Calcium (Jackie) 1.18 mmol/l (1.12-1.32) Anion Gap 11.0 mmol/L (3-11) Est Creatinine Clear Calc Drug Dose 37.2 ml/min Estimated GFR () 45.4 Estimated GFR (Non- 39.1 BUN/Creatinine Ratio 45.9 (10-20) Calcium Level 8.7 mg/dl (8.5-10.1) Total Bilirubin 3.1 mg/dl (0.2-1) Aspartate Amino Transf (AST/SGOT) 40 U/L (15-37) Alanine Aminotransferase (ALT/SGPT) 46 U/L (12-78) Alkaline Phosphatase 148 U/L (45-117) Ammonia 26.5 umol/L (11-32) Total Protein 7.3 gm/dl (6.4-8.2) Albumin 2.5 gm/dl (3.4-5.0) Globulin 4.8 gm/dl (2.5-4.0) Albumin/Globulin Ratio 0.5 (0.9-2) Assessment and Plan Mr. Purcell is a 72 yo male with PMH of WELCH cirrhosis & bladder cancer was admitted on after c/o fatigue, poor PO intake, and found to have ammonia of 58 with mild hyperkalemia. Hyperammonemia - On admit 58.0. Repeat following day was improved to 26.5. - Given lactulose 30 grams x1, then started on 10 grams q AM. Mild hyperkalemia - On admit 5.7. Repeat following day was improved to 5.2. Continuing to monitor. - Holding his home spironolactone 25 mg AM. Acute renal insufficiency - Baseline Cr around 1.0 back in early Sep 2017. - Admit Cr here was 2.24. Repeat following day was improved to 1.73. Continuing to monitor. - Holding home lasix 20 mg AM. - Trying to monitor UOP but patient has some urinary incontence. Hypotension on admission - Transient on admittion, since resolved. - Received a dose of albumin in ED with IV fluids - Repeat his dose of Albumin q6h overnight and NSS at 40cc/hour WELCH Cirrhosis - PMH of same. Patient says Dr. Gutierrez (GI) is his outpt provider for same but hasn't been there "in awhile". - GI consulted while inpt, appreciate recs. - Held his home nadolol overnight. Will monitor BP. - Considering Palliative care consult to help establish goals of care. Scrotal swelling - Likely related to his ascites. Not particularly erythematous or tender, though is oozing some yellowish (? ascitic) fluid. No fever, normal WBC count yesterday, thus no clear evidence of infection needing abx coverage at moment. - 03Dec BCx x 2 results pending. - Wound care consulted, appreciate recs. VTE: SCDs Code status: Full Dispo: On Med/Surg. Resident Physician Supervision Note: I was present with Dr. Rawls during the history and exam. I discussed the case with the resident and agree with the findings and plan as documented in the note. Any exceptions or clarifications are listed here: 72 y/o male with WELCH with second admission is roughly one month. Ammonia is improved with Lactulose. Scrotal edema appreciated, however diuretics on hold in setting of worsening renal function. Noted history of 1+ esophageal varices (EGD, April of 2015), continues on Nadalol. Elevated LFTS and PT secondary to cirrhosis; sodium 135 today. MELD score 24 upon admission. PLAN 1) GI consult pending. 2) Monitor LFTs, renal function, and electrolytes. 3) Scrotal elevation and wound care. 4) Continue lactulose 5) Restart diuretics as renal function permits. Resident Tracking Resident Involvement: Resident Care Provided Care Provided: Adult Hospital Medicine (inpt rounds)
[2017-10-28 15:17] VITALS: BP 105/68; PULSE 67; TEMP 36.5; O2SAT 99
[2017-10-28] MEDS: BOOST BREEZE NUTRITION DRINK 1 BOX PO SCH (19:40)
--- NOTE | 2017-10-28 21:03 | GASTROINTESTINAL CONSULTATION ---
DATE OF CONSULTATION: 10/27/2017 REASON FOR EVALUATION: Hepatic encephalopathy. HISTORY OF PRESENT ILLNESS: The patient is a 72-year-old diagnosed with cirrhosis in February 2015 due to steatohepatitis with risk factors including hyperlipidemia and elevated BMI His course has been complicated by ascites and spontaneous bacterial peritonitis; also has esophageal varices being treated with nadolol. His course has been complicated by a bladder cancer that was removed in July and then in January of 2017, he had a hydrocele repair. This resulted in a fistula with fluid leaking out of the scrotum. Despite efforts to reduce the amount of ascites fluid, he continues to leak fluid out of the fistula in his scrotum. The patient presents to the hospital with hepatic encephalopathy with an elevated ammonia level; he also has some signs of renal insufficiency as well. As his nadolol was held due to low blood pressure and his diuretics have also been held and he has been started on lactulose, which has helped improve his ammonia level, although he is still a little bit encephalopathic. PAST MEDICAL HISTORY: Remarkable for bladder cancer, cirrhosis, umbilical hernia and hydrocele. MEDICATIONS: Include Lasix, Aldactone, Corgard, multiple vitamins, lactulose and vitamin E. ALLERGIES: None. FAMILY HISTORY: Noncontributory. SOCIAL HISTORY: The patient is and lives with his . He is retired. Does not smoke. No alcohol. REVIEW OF SYSTEMS: Unreliable, as the patient is currently not oriented adequately. PHYSICAL EXAMINATION: GENERAL: The patient is lying in bed. He is oriented to person and place, but not time. He seems somewhat lethargic. ABDOMEN: Distended. His umbilicus is protruding. Abdomen is dull to percussion. GENITOURINARY: His scrotum is edematous with the fistula, with fluid leaking out of this fistula tract. IMPRESSION: The patient has got a large amount of ascites with some renal insufficiency, making it difficult for us to continue his diuretics at this time. I plan on scheduling him for a large-volume paracentesis tomorrow followed by 37.5 grams of albumin to try to reduce the pressure on his scrotal fistula. Hopefully, we will be able to resume his diuretics soon. His blood pressure, currently, and pulse are low enough that we should continue to hold his nadolol for now and continue the lactulose for his encephalopathy. We will continue to follow the patient during his hospital stay.
[2017-10-28] MEDS: SODIUM CHLORIDE 0.9% 1000ML 1,000 ML IV SCH (23:43)
[2017-10-28 23:59] VITALS: BP 103/67; PULSE 68; TEMP 36.6; O2SAT 100
[2017-10-29] VITALS (9 sets, daily range): BP systolic 97–107; BP diastolic 63–70; PULSE 61–69; TEMP 36.4–36.7; O2SAT 98–100
[2017-10-29] MEDS: TOCOPHERYL, DL-ALPHA 400 INTER.UNIT CAP PO SCH (08:07)
[2017-10-29] MEDS: BOOST BREEZE NUTRITION DRINK 1 BOX PO SCH ×3 (08:08→17:08)
[2017-10-29] MEDS: LACTULOSE SYRUP 10 GM/15 ML BTL 473 ML PO SCH (08:08)
[2017-10-29] MEDS ORDERED: ALBUMIN HUMAN 25% 12.5 GM/50 ML VIAL IV SCH (09:00)
[2017-10-29 09:30] LABS: HEMATOCRIT 34.4 % (42-52); MEAN CELL VOLUME 91.5 fL (80-100); MEAN CORPUSCULAR HEMOGLOBIN 30.1 pg (25-34); MEAN CORPUSCULAR HGB CONC 32.8 g/dl (32-36); MEAN PLATELET VOLUME 11.1 fL (7.4-10.4); PLATELET COUNT 132 K/uL (130-400); RED BLOOD COUNT 3.76 M/uL (4.7-6.1); WHITE BLOOD COUNT 8.28 K/uL (4.8-10.8)
--- NOTE | 2017-10-29 09:33 | Clinical Documentation Query ---
QUERY 1 OF [address] HUNT, In your clinical opinion is this patient being managed for: ( ) Acute hepatic encephalopathy ( ) Not Agree ( ) Other explanation of clinical findings (Please Explain) ( ) Unable to determine (Please Define) ( X ) Need to Discuss PLEASE SEE NOTE BY DR. COMER, OR FORWARD INQUIRY TO HIM. THANKS The medical record reflects the following clinical findings, treatment, and risk factors. Clinical Indicators: 72 yo male presenting with constant confusion. Ammonia level 58 Treatment: IV fluids, IV albumin, lactulose, monitor ammonia levels, GI consult Risk Factors: WELCH, acute renal failure QUERY 2 OF 2 In your clinical opinion is this patient being managed for: ( ) Acute kidney failure ( ) Not Agree ( ) Other explanation of clinical findings (Please Explain) ( ) Unable to determine (Please Define) ( X ) Need to Discuss PLEASE SEE NOTE BY DR. COMER, OR FORWARD INQUIRY TO HIM. THANKS The medical record reflects the following clinical findings, treatment, and risk factors. Clinical Indicators:72 yo male presenting with constant confusion. BUN 93, Cr 2.24. Documentation reflects "acute renal insufficiency" Treatment: IV bolus then continuous fluids, serial CMP's, IV albumin Risk Factors: cirrhosis, poor appetite/fluid intake Please clarify and document your clinical opinion in the progress notes and discharge summary. Terms such as "probable", "suspected", "likely", "questionable", "possible", or "still to be ruled out" are acceptable. IF IN AGREEMENT, YOU MUST DOCUMENT ABOVE DIAGNOSTIC STATEMENT IN DAILY PROGRESS NOTES AND DISCHARGE SUMMARY. This document is not part of the patient's record. Thank You, Cora Lamb, RN [phone]
--- NOTE | 2017-10-29 09:43 | Clinical Documentation Query ---
QUERY 1 OF [address] COMER, In your clinical opinion is this patient being managed for: (X ) Acute hepatic encephalopathy ( ) Not Agree ( ) Other explanation of clinical findings (Please Explain) ( ) Unable to determine (Please Define) ( ) Need to Discuss The medical record reflects the following clinical findings, treatment, and risk factors. Clinical Indicators: 72 yo male presenting with constant confusion. Ammonia level 58 Treatment: IV fluids, IV albumin, lactulose, monitor ammonia levels, GI consult Risk Factors: WELCH, acute renal failure QUERY 2 OF 2 In your clinical opinion is this patient being managed for: x( ) Acute kidney failure ( ) Not Agree ( ) Other explanation of clinical findings (Please Explain) ( ) Unable to determine (Please Define) ( ) Need to Discuss The medical record reflects the following clinical findings, treatment, and risk factors. Clinical Indicators:72 yo male presenting with constant confusion. BUN 93, Cr 2.24. Documentation reflects "acute renal insufficiency" Treatment: IV bolus then continuous fluids, serial CMP's, IV albumin Risk Factors: cirrhosis, poor appetite/fluid intake Please clarify and document your clinical opinion in the progress notes and discharge summary. Terms such as "probable", "suspected", "likely", "questionable", "possible", or "still to be ruled out" are acceptable. IF IN AGREEMENT, YOU MUST DOCUMENT ABOVE DIAGNOSTIC STATEMENT IN DAILY PROGRESS NOTES AND DISCHARGE SUMMARY. This document is not part of the patient's record. Thank You, Cora Lamb, RN [phone]
[2017-10-29 09:45] LABS: INR 1.5 (0.9-1.1); PROTHROMBIN TIME (PATIENT) 15.9 SECONDS (9.0-12.0)
[2017-10-29 10:05] LABS: BUN/CREATININE RATIO 39.7 (10-20); CALCIUM 8.4 mg/dl (8.5-10.1); CREATININE 1.55 mg/dl (0.60-1.40); POTASSIUM 4.7 mmol/L (3.5-5.1)
[2017-10-29 10:08] LABS: ALB/GLOB RATIO 0.4 (0.9-2)
--- NOTE | 2017-10-29 12:40 | Medical Student: [facility] ---
Med Student Progress Note Date of Service Oct 29, 2017. Subjective 72 yo M with history of WELCH cirrhosis and bladder cancer who presented with fatigue and decrease oral intake. In the ED his ammonia level was found to be 54. He has been having abdominal ascitic fluid and scrotal swelling. Dr. Gutierrez from saw him yesterday and is planning for a paracentesis to help reduce the scrotal swelling. He was unable to give a good urine sample for analysis yesterday due to contamination from scrotal drainage. Today he was oriented to person and place, not time. Ascitic fluid and scrotal swelling still present but he says it's not as painful today. Review of Systems Constitutional: No fever, No chills Eyes: No worsening of vision, No eye pain ENT: No hearing loss Respiratory: No cough, No sputum Cardiac: No chest pain, No orthopnea, No edema Abdomen: No pain, No nausea, No vomiting Musculoskeletal: No joint pain, No muscle pain Male : No dysuria Psychiatric: No depression symptoms Endo: + fatigue Objective Vital Signs Date Time Temp Pulse Resp B/P (MAP) Pulse Ox O2 Delivery O2 Flow Rate FiO2 10/29/17 08:09 36.4 66 18 103/65 (78) 98 Room Air 10/29/17 08:00 Room Air 10/28/17 23:59 36.6 68 20 103/67 (79) 100 Room Air 10/28/17 23:45 Room Air 10/28/17 16:00 Room Air 10/28/17 15:17 36.5 67 16 105/68 (80) 99 Room Air Physical Exam General Appearance: WD/WN Eyes: bilateral eyes normal inspection, bilateral eyes PERRL, bilateral eyes EOMI ENT: normal ENT inspection Neck: supple, no adenopathy, thyroid normal Respiratory/Chest: chest non-tender, lungs clear, normal breath sounds, no respiratory distress Cardiovascular: regular rate, rhythm, no edema, no gallop, no JVD, no murmur Abdomen: normal bowel sounds, non tender, soft, + pertinent finding ( generalized ascitic fluid wave around abdominal area) Extremities: normal range of motion, non-tender, normal inspection, no pedal edema, no calf tenderness 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iatric: + pertinent finding (oriented to person and place, not time) Skin: normal color, warm/dry Laboratory Results Last 24 Hours Test 10/29/17 09:11 White Blood Count 8.28 K/uL Red Blood Count 3.76 M/uL Hemoglobin 11.3 g/dL Hematocrit 34.4 % Mean Corpuscular Volume 91.5 fL Mean Corpuscular Hemoglobin 30.1 pg Mean Corpuscular Hemoglobin Concent 32.8 g/dl RDW Standard Deviation 56.5 fL RDW Coefficient of Variation 17.0 % Platelet Count 132 K/uL Mean Platelet Volume 11.1 fL Prothrombin Time 15.9 SECONDS Prothromb Time International Ratio 1.5 Sodium Level 134 mmol/L Potassium Level 4.7 mmol/L Chloride Level 106 mmol/L Carbon Dioxide Level 19 mmol/L Anion Gap 9.0 mmol/L Blood Urea Nitrogen 62 mg/dl Creatinine 1.55 mg/dl Est Creatinine Clear Calc Drug Dose 41.5 ml/min Estimated GFR () 51.8 Estimated GFR (Non- 44.7 BUN/Creatinine Ratio 39.7 Random Glucose 189 mg/dl Calcium Level 8.4 mg/dl Total Bilirubin 2.6 mg/dl Aspartate Amino Transf (AST/SGOT) 39 U/L Alanine Aminotransferase (ALT/SGPT) 43 U/L Alkaline Phosphatase 139 U/L Ammonia 44.4 umol/L Total Protein 6.9 gm/dl Albumin 2.0 gm/dl Globulin 4.9 gm/dl Albumin/Globulin Ratio 0.4 Assessment and Plan Assessment and Plan: Pt is a 72 yo M with hx of WELCH cirrhosis and bladder cancer. He currently has abdominal fluid wave and scrotal swelling, and the scrotal swelling is painful but not as much as yesterday. On exam, he was oriented to person and place, but not time. Hyperammonemia - On admission was 58, this morning was 44. - Received 10 grams lactulose this morning, will continue lactulose 10grams q AM - Consider rifaximin Hyperkalemia - On admission was 5.7, this morning was 4.7 - Hold spironolactone 25 mg Acute renal insufficiency - This morning was 1.55. Continue to monitor creatinine. Baseline from Sep 2017 is around 1. - Hold lasix 20 mg Hypotension - Found at time of admission, since resolved WELCH Cirrhosis - Hold nadolol - Dr. Gutierrez from saw him yesterday and pt is scheduled to undergo paracentesis. Scrotal swelling - Paracentesis to be performed this afternoon - No fever and WBC is normal at 8.28 - Wound care consulted VTE prophylaxis - SCDs
[2017-10-29 14:10] LABS: URINE APPEARANCE CLEAR (CLEAR); URINE BILIRUBIN NEG (NEG); URINE COLOR DK YELLOW; URINE NITRITE NEG (NEG); URINE PH 5.5 (4.5-7.5); UROBILINOGEN NEG (NEG); ZZUR CULT IF INDIC CLEAN CATCH YES
[2017-10-29 14:12] LABS: MANUAL MICROSCOPIC REQUIRED? NO; REVIEW REQ? YES
[2017-10-29] MEDS ORDERED: ACETAMINOPHEN 500 MG TAB PO PRN (15:00)
--- NOTE | 2017-10-29 15:01 | DIAGNOSTIC IMAGING REPORT ---
PARACENTESIS ABDOMEN W/IMAGING CLINICAL HISTORY: 72 years-old Male with ascites. COMPARISON: CT 10/27/2015 PROCEDURE: The procedure was explained to the patient in the care including the benefits and possible risks/complications. The patient gave verbal understanding and written consent was obtained. A time-out was performed prior to the start of the procedure. The patient was placed on the ultrasound table in the supine position. Using ultrasound guidance, an appropriate procedure site in the right lower abdomen was marked. This area was then prepped and draped in the usual sterile fashion. Local anesthesia was achieved within 1% lidocaine. An 8-Kazakh centesis catheter was then inserted. Approximately 3.9 liters of clear, yellowish fluid was removed and sent to the lab for analysis. The catheter was removed and external pressure was held to achieve hemostasis. A sterile dressing was applied to the procedure site. The patient tolerated the procedure well without immediate complications. IMPRESSION: Successful ultrasound-guided paracentesis with removal of 3.9 L of ascitic fluid. The above report was generated using voice recognition software. It may contain grammatical, syntax or spelling errors. Electronically signed by: Colin Lopez M.D. 10/29/2017 3:00 PM Dictated Date/Time: 10/29/2017 2:59 PM
--- NOTE | 2017-10-29 15:46 | GASTROENTEROLOGY PROGRESS NOTE ---
DATE: 10/29/2017 DATE: 10/29/2017 SUBJECTIVE: The patient just returned from paracentesis where approximately 4-1/2 liters of fluid was obtained. The patient was admitted for encephalopathy, found to have an increased BUN to creatinine ratio suggesting dehydration. On admission, his white count was 10.9 and is down to 8.2 today, hemoglobin overall stable 12.1 to 11.3. There are no reports of gastrointestinal bleeding, hematemesis, coffee-ground emesis, melena, bright red blood per rectum, either in the hospital or prior to admission. Platelet count is 132,000 today, BUN and creatinine are 62 and 1.55 but on admission was 93 and 2.24 and yesterday morning 79 and 1.7. LFTs showed a total bilirubin that has slightly decreased at 2.6 from 3.1 yesterday, AST 39, ALT 43, alkaline phosphatase 139. His ammonia level is up today at 44 from 26.5 yesterday, although was 58 on admission. Albumin level is 2.0 today. MEDICATIONS: Currently include albumin for paracentesis today, lactulose 15 mL daily, Zofran. PHYSICAL EXAMINATION: VITAL SIGNS: This morning, blood pressure 103/65, respirations 18, heart rate 66, afebrile 36.4, 98% on room air. GENERAL: Today, the patient currently just returned from paracentesis. He is awake and alert, although fatigued. HEAD, EYES, EARS, NOSE, AND THROAT: The sclerae are minimally icteric. Oral mucosa is moist. No cervical or supraclavicular adenopathy. There is normal range of motion in extremities. There is no focal neurologic defects. HEART: Normal S1, S2. LUNGS: Clear to auscultation. ABDOMEN: Soft with slight bulging at the flanks although his abdomen is softer than previous admission. There is no evidence of tense ascites. There are no abdominal bruits. I do not appreciate hepatosplenomegaly. EXTREMITIES: Without clubbing, cyanosis or edema. RECTAL: There was no evidence for asterixis today. His blood cultures and urine cultures are pending at this time. His CT scan on admission was reviewed. An ultrasound guided paracentesis today revealed 3.9 liters of clear yellowish fluid removed and sent for analysis which is pending at this time. IMPRESSION AND PLAN: The patient with dehydration that likely drove his mental status changes (hepatic encephalopathy). I spoke with the patient and his at length regarding the need for careful monitoring of his weight at least a few times a weekly, reasonable fluid restriction and salt restriction as well as adequate amounts of protein intake, but not in excess to event hepatic encephalopathy. I believe it is reasonable for the patient to have another evaluation by nutrition during this hospitalization, so she can establish a better diet plan and some of the restrictions needed for management of ascites and hepatic encephalopathy. Would avoid the use of any NSAIDs given his liver disease and renal function. The decision to reintroduce diuretics is challenging, but hopefully with some stability in his dietary intake the least amount needed can be administered with careful monitoring of his renal function. We will continue to follow. Await the results of the paracentesis.
[2017-10-29 16:35] LABS: PERIT FL WBC 307 /uL (0-300); PERITONEAL FLUID RBC 11000 /uL
--- NOTE | 2017-10-29 18:38 | Progress Note ---
Subjective Date of Service: Oct 29, 2017. Subjective Pt evaluation today including: conversation w/ patient, physical exam, chart review, lab review, review of studies, review of inpatient medication list Pain: denies PO Intake: good 72-year-old male with history of non-alcoholic steatohepatitis admitted with worsening ascites and elevated ammonia levels is seen late this afternoon after completion of this paracentesis. He reports feeling much better status post paracentesis. Gastroenterology consultation note is reviewed and appreciated. Problem List Medical Problems: (1) Acute kidney injury Status: Acute (2) CKD (chronic kidney disease) Status: Acute (3) Fever Status: Acute (4) Heme positive stool Status: Acute (5) Hyperkalemia Status: Acute (6) Hyperkalemia Status: Acute (7) Hypotension Status: Acute Review of Systems Constitutional: No fever, No chills Eyes: No redness ENT: No problem reported Respiratory: No cough, No sputum, No wheezing, No shortness of breath Cardiac: No chest pain Abdomen: + problem reported (feels less bloated) Musculoskeletal: No problem reported Psychiatric: No problem reported Skin: + problem reported (scrotal irritation) Medications Current Inpatient Medications Medications (Trade) Dose Ordered Sig/Raffi Route Start Time Stop Time Status Last Admin Dose Admin Ondansetron HCl (Zofran Inj) 4 mg Q6H PRN IV 10/27/17 19:45 11/26/17 19:44 Naproxen (Naprosyn Tab) 500 mg BID PRN PO 10/27/17 19:45 11/26/17 19:44 Future Hold [id number] Acetate (Vitamin E Cap) 800 interunit QAM PO 10/28/17 08:00 11/27/17 08:59 10/29/17 08:07 800 INTERUNIT Lactulose (Chronulac Syrup) 10 gm QAM PO 10/28/17 08:00 11/27/17 07:59 10/29/17 08:08 10 GM Sodium Chloride 1,000 ml @ 40 mls/hr Q24H IV 10/27/17 23:00 10/29/17 22:59 10/28/17 23:43 40 MLS/HR Enteral Nutritional Formula (Boost Breeze Nutritional Drink) 1 box TIDM PO 10/28/17 17:00 11/27/17 16:59 10/29/17 17:08 1 BOX Acetaminophen (Tylenol Tab) 1,000 mg Q6H PRN PO 10/29/17 15:00 11/28/17 14:59 Objective Vital Signs Date Time Temp Pulse Resp B/P (MAP) Pulse Ox O2 Delivery O2 Flow Rate FiO2 10/29/17 17:07 61 18 106/68 (81) 100 Room Air 10/29/17 17:03 36.6 62 18 97/63 (74) 99 Room Air 10/29/17 16:25 36.7 62 18 102/65 (77) 100 Room Air 10/29/17 16:15 36.7 67 18 101/69 (80) 100 Room Air 10/29/17 16:00 99 Room Air 10/29/17 15:45 36.5 65 18 97/66 (76) 99 Room Air 10/29/17 15:29 36.5 69 18 107/70 (82) 100 Room Air 10/29/17 15:15 36.5 67 18 99/66 (77) 99 Room Air 10/29/17 08:09 36.4 66 18 103/65 (78) 98 Room Air 10/29/17 08:00 Room Air 10/28/17 23:59 36.6 68 20 103/67 (79) 100 Room Air 10/28/17 23:45 Room Air Physical Exam General Appearance: WD/WN, no apparent distress Eyes: normal inspection, PERRL ENT: normal ENT inspection Neck: supple Respiratory/Chest: chest non-tender, lungs clear, normal breath sounds, no respiratory distress, no accessory muscle use Cardiovascular: regular rate, rhythm, no edema, no JVD Abdomen: normal bowel sounds, non tender, soft, + pertinent finding (decreased ascites and abdominal distention compared to my examination yesterday.) Extremities: normal range of motion, non-tender, normal inspection 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iatric: no motor/sensory deficits, alert, normal mood/affect, oriented x 3 Skin: + pertinent finding (scrotal edema is probably reduce by one third compared to my examination yesterday.) Laboratory Results Last 24 Hours Test 10/29/17 00:00 10/29/17 09:11 10/29/17 13:20 Peritoneal Fluid Color PINK Peritoneal Fluid Appearance CLOUDY Peritoneal Fluid WBC 307 /uL Peritoneal Fluid RBC 94034 /uL Peritoneal Fld Mononuclear WBCs (%) 70.1 % Peritoneal Fld Polynuclear WBCs (%) 29.9 % White Blood Count 8.28 K/uL Red Blood Count 3.76 M/uL Hemoglobin 11.3 g/dL Hematocrit 34.4 % Mean Corpuscular Volume 91.5 fL Mean Corpuscular Hemoglobin 30.1 pg Mean Corpuscular Hemoglobin Concent 32.8 g/dl RDW Standard Deviation 56.5 fL RDW Coefficient of Variation 17.0 % Platelet Count 132 K/uL Mean Platelet Volume 11.1 fL Prothrombin Time 15.9 SECONDS Prothromb Time International Ratio 1.5 Sodium Level 134 mmol/L Potassium Level 4.7 mmol/L Chloride Level 106 mmol/L Carbon Dioxide Level 19 mmol/L Anion Gap 9.0 mmol/L Blood Urea Nitrogen 62 mg/dl Creatinine 1.55 mg/dl Est Creatinine Clear Calc Drug Dose 41.5 ml/min Estimated GFR () 51.8 Estimated GFR (Non- 44.7 BUN/Creatinine Ratio 39.7 Random Glucose 189 mg/dl Calcium Level 8.4 mg/dl Total Bilirubin 2.6 mg/dl Aspartate Amino Transf (AST/SGOT) 39 U/L Alanine Aminotransferase (ALT/SGPT) 43 U/L Alkaline Phosphatase 139 U/L Ammonia 44.4 umol/L Total Protein 6.9 gm/dl Albumin 2.0 gm/dl Globulin 4.9 gm/dl Albumin/Globulin Ratio 0.4 Urine Color DK YELLOW Urine Appearance CLEAR Urine pH 5.5 Urine Specific [place] 1.020 Urine Protein NEG Urine Glucose (UA) NEG Urine Ketones NEG Urine Occult Blood 1+ Urine Nitrite NEG Urine Bilirubin NEG Urine Urobilinogen NEG Urine Leukocyte Esterase NEG Urine WBC (Auto) 1-5 /hpf Urine RBC (Auto) 10-30 /hpf Urine Hyaline Casts (Auto) 1-5 /lpf Urine Epithelial Cells (Auto) 5-10 /lpf Urine Bacteria (Auto) NEG Urine Yeast (Auto) Assessment and Plan 72-year-old male with history of WELCH, with significant ascites and scrotal edema, with worsening renal function complicating continued diuretics. Also has a history of spontaneous bacterial peritonitis on prior hospitalization. Overall he feels better today status post large volume paracentesis. WELCH with ascites, elevated ammonia level Recheck ammonia in the morning; may need to increase lactulose Diuretic use is limited by his renal function; BMP pending in AM His nadolol remains on hold secondary to low-normal blood pressures His INR is 1.5 secondary to his hepatic dysfunction. Nutrition consultation for patient education Mild hyperkalemia Normalized Recheck in a.m. Acute renal insufficiency Baseline creatinine is around 1 Lasix and Aldactone remain on hold BMP in a.m. VTE: SCDs - elevated INR secondary to auto anticoagulation Code status: Full
[2017-10-30 00:02] VITALS: BP 102/61; PULSE 61; TEMP 36.8; O2SAT 100
[2017-10-30 06:44] LABS: HEMATOCRIT 30.7 % (42-52); MEAN CELL VOLUME 91.4 fL (80-100); MEAN CORPUSCULAR HEMOGLOBIN 30.7 pg (25-34); MEAN CORPUSCULAR HGB CONC 33.6 g/dl (32-36); PLATELET COUNT 105 K/uL (130-400); RED BLOOD COUNT 3.36 M/uL (4.7-6.1); WHITE BLOOD COUNT 7.29 K/uL (4.8-10.8)
[2017-10-30 06:48] LABS: INR 1.6 (0.9-1.1); PROTHROMBIN TIME (PATIENT) 16.7 SECONDS (9.0-12.0)
[2017-10-30 07:13] LABS: BUN/CREATININE RATIO 41.9 (10-20); CALCIUM 8.1 mg/dl (8.5-10.1); CREATININE 1.25 mg/dl (0.60-1.40); POTASSIUM 4.7 mmol/L (3.5-5.1)
[2017-10-30 07:16] LABS: ALB/GLOB RATIO 0.6 (0.9-2)
[2017-10-30 08:22] VITALS: BP 97/63; PULSE 64; TEMP 36.3; O2SAT 99
[2017-10-30] MEDS: LACTULOSE SYRUP 10 GM/15 ML BTL 473 ML PO SCH (08:31)
[2017-10-30] MEDS: BOOST BREEZE NUTRITION DRINK 1 BOX PO SCH ×3 (08:31→17:41)
[2017-10-30] MEDS: TOCOPHERYL, DL-ALPHA 400 INTER.UNIT CAP PO SCH (08:31)
[2017-10-30 15:59] VITALS: BP 104/71; PULSE 65; TEMP 36.5; O2SAT 99
[2017-10-30 16:00] VITALS: O2SAT 99
--- NOTE | 2017-10-30 16:45 | Progress Note ---
Subjective Date of Service: Oct 30, 2017. Subjective Pt evaluation today including: conversation w/ family, physical exam, chart review, lab review, review of studies, review of inpatient medication list Pain: Denies PO Intake: Good Voiding: no voiding problems Mr. Purcell states that he feels a little better today.He is actually out of his bed seated in the chair when I saw him this morning. Problem List Medical Problems: (1) Acute kidney injury Status: Acute (2) CKD (chronic kidney disease) Status: Acute (3) Fever Status: Acute (4) Heme positive stool Status: Acute (5) Hyperkalemia Status: Acute (6) Hyperkalemia Status: Acute (7) Hypotension Status: Acute Review of Systems Constitutional: No fever, No chills Eyes: No redness ENT: No problem reported Respiratory: No shortness of breath Cardiac: No chest pain Abdomen: No pain, No nausea Male : + problem reported (scrotal edema) Neurologic: No memory loss All Other Systems: Reviewed and Negative Medications Current Inpatient Medications Medications (Trade) Dose Ordered Sig/Raffi Route Start Time Stop Time Status Last Admin Dose Admin Ondansetron HCl (Zofran Inj) 4 mg Q6H PRN IV 10/27/17 19:45 11/26/17 19:44 Naproxen (Naprosyn Tab) 500 mg BID PRN PO 10/27/17 19:45 11/26/17 19:44 Future Hold [id number] Acetate (Vitamin E Cap) 800 interunit QAM PO 10/28/17 08:00 11/27/17 08:59 10/30/17 08:31 800 INTERUNIT Lactulose (Chronulac Syrup) 10 gm QAM PO 10/28/17 08:00 11/27/17 07:59 10/30/17 08:31 10 GM Enteral Nutritional Formula (Boost Breeze Nutritional Drink) 1 box TIDM PO 10/28/17 17:00 11/27/17 16:59 10/30/17 08:31 1 BOX Acetaminophen (Tylenol Tab) 1,000 mg Q6H PRN PO 10/29/17 15:00 11/28/17 14:59 Objective Vital Signs Date Time Temp Pulse Resp B/P (MAP) Pulse Ox O2 Delivery O2 Flow Rate FiO2 10/30/17 16:00 99 Room Air 10/30/17 15:59 36.5 65 18 104/71 (82) 99 Room Air 10/30/17 08:31 Room Air 10/30/17 08:22 36.3 64 18 97/63 (74) 99 Room Air 10/30/17 00:02 36.8 61 20 102/61 (75) 100 Room Air 10/29/17 23:30 Room Air 10/29/17 17:07 61 18 106/68 (81) 100 Room Air 10/29/17 17:03 36.6 62 18 97/63 (74) 99 Room Air Physical Exam General Appearance: WD/WN, no apparent distress Eyes: normal inspection ENT: normal ENT inspection, hearing grossly normal Neck: supple, no adenopathy Respiratory/Chest: chest non-tender, lungs clear, normal breath sounds Cardiovascular: regular rate, rhythm Abdomen: normal bowel sounds, non tender, soft, + pertinent finding (Non tender , less distention than upon admission.) Extremities: non-tender, normal inspection 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iatric: no motor/sensory deficits, alert, normal mood/affect, oriented x 3 Skin: normal color, warm/dry Laboratory Results Last 24 Hours Test 10/30/17 06:21 White Blood Count 7.29 K/uL Red Blood Count 3.36 M/uL Hemoglobin 10.3 g/dL Hematocrit 30.7 % Mean Corpuscular Volume 91.4 fL Mean Corpuscular Hemoglobin 30.7 pg Mean Corpuscular Hemoglobin Concent 33.6 g/dl RDW Standard Deviation 56.0 fL RDW Coefficient of Variation 17.0 % Platelet Count 105 K/uL Mean Platelet Volume 11.0 fL Prothrombin Time 16.7 SECONDS Prothromb Time International Ratio 1.6 Sodium Level 132 mmol/L Potassium Level 4.7 mmol/L Chloride Level 106 mmol/L Carbon Dioxide Level 20 mmol/L Anion Gap 6.0 mmol/L Blood Urea Nitrogen 52 mg/dl Creatinine 1.25 mg/dl Est Creatinine Clear Calc Drug Dose 51.4 ml/min Estimated GFR () 67.2 Estimated GFR (Non- 58.0 BUN/Creatinine Ratio 41.9 Random Glucose 78 mg/dl Calcium Level 8.1 mg/dl Total Bilirubin 2.5 mg/dl Aspartate Amino Transf (AST/SGOT) 39 U/L Alanine Aminotransferase (ALT/SGPT) 41 U/L Alkaline Phosphatase 124 U/L Ammonia 42.7 umol/L Total Protein 6.5 gm/dl Albumin 2.4 gm/dl Globulin 4.1 gm/dl Albumin/Globulin Ratio 0.6 Assessment and Plan 72-year-old male with history of WELCH, with significant ascites and scrotal edema, with worsening renal function complicating continued diuretics. Also has a history of spontaneous bacterial peritonitis on prior hospitalization. Overall he feels better today status post large volume paracentesis. WELCH with ascites, elevated ammonia level Increase lactulose to 30 ml PO BID Resume Lasix in AM If renal function remains stable, reintroduce Aldactone the following day. Continue to hold nadolol secondary to low-normal blood pressures His INR continues to rise, 1.6 today. Nutrition consultation for patient education Mild hyperkalemia Resolved Monitor with reintroduction of diuretics Acute renal insufficiency Improved today at 1.25 UTI e.coli isolated in urine Cipro 250 mg PO BID VTE: SCDs - elevated INR secondary to auto anticoagulation Code status: Full
[2017-10-30] MEDS: CIPROFLOXACIN 250 MG TAB PO SCH (19:45)
[2017-10-30] MEDS: LACTULOSE SYRUP 20 GM/30 ML UDC PO SCH (19:45)
[2017-10-31 00:12] VITALS: BP 93/59; PULSE 65; TEMP 36.6; O2SAT 99
--- NOTE | 2017-10-31 02:59 | GASTROENTEROLOGY PROGRESS NOTE ---
DATE: 10/30/2017 SUBJECTIVE: Mr. Purcell is resting comfortably in bed this afternoon, feels better than he had since admission. He has no abdominal pain, nausea, vomiting, feels that his breathing is more comfortable now that he had one paracentesis yesterday and his abdomen is more soft. He did meet with nutrition. MEDICATIONS: His current medications includes lactulose at 10 g daily, Zofran. Diuretics had been held. LABORATORY STUDIES: From earlier today, white count 7.29, hemoglobin 10.3, platelets 105. Serum chemistry, BUN and creatinine are 52 and 1.25, which showed continued improvement since admission. LFTs showed a slight reduction in alkaline phosphatase to 124, ALT 41, AST 39. His laboratory studies from yesterday regarding the peritoneal aspirate is total white count 307, there are many red blood cells at 11,000, PMNs 30% of the peritoneal white blood cell count ALLERGIES: He has no known drug allergies. PHYSICAL EXAMINATION: VITAL SIGNS: Today afebrile at 36.5, blood pressure 104/71, 99% on room air, respirations 18, heart rate 65. GENERAL: The patient is awake, alert and oriented. He has no asterixis. HEENT: Sclerae is mildly icteric: Oral mucosa moist. HEART: Normal S1, S2. LUNGS: Clear to auscultation. ABDOMEN: Soft, protuberant. No evidence for tense ascites or significant shifting dullness. Positive bowel sounds. EXTREMITIES: There is trace edema. Normal range of motion. IMPRESSION AND PLAN: Case discussed with Dr. Elise. We will plan to cautiously begin a diuretic therapy with a small dose of Lasix and possibly a small dose of Aldactone. Lactulose dosing should be increased in order to help combat the encephalopathy, although it is likely that this reflects a state of dehydration on admission that led to his hepatic encephalopathy. The patient has evidence of urinary tract infection as well as Escherichia coli and therefore Cipro is a reasonable choice if there is any evidence for a subtle spontaneous bacterial peritonitis although the white count level is only slightly elevated. Would continue with the current therapy, adjust lactulose cautiously and maintain a low sodium (2 gram diet), water restrictions to no more than 2-2.5 liters of total fluids daily, monitoring weight several times weeks and avoid high protein and processed foods.
[2017-10-31 06:50] VITALS: BP 88/48; PULSE 60; TEMP 36.6; O2SAT 100
[2017-10-31 07:38] LABS: HEMATOCRIT 31.4 % (42-52); MEAN CELL VOLUME 90.8 fL (80-100); MEAN CORPUSCULAR HEMOGLOBIN 30.6 pg (25-34); MEAN CORPUSCULAR HGB CONC 33.8 g/dl (32-36); MEAN PLATELET VOLUME 10.8 fL (7.4-10.4); PLATELET COUNT 126 K/uL (130-400); RED BLOOD COUNT 3.46 M/uL (4.7-6.1)
[2017-10-31] MEDS: BOOST BREEZE NUTRITION DRINK 1 BOX PO SCH (08:00)
[2017-10-31 08:15] LABS: BUN/CREATININE RATIO 39.8 (10-20); CALCIUM 8.3 mg/dl (8.5-10.1); CREATININE 1.3 mg/dl (0.60-1.40)
[2017-10-31] MEDS: TOCOPHERYL, DL-ALPHA 400 INTER.UNIT CAP PO SCH (08:16)
[2017-10-31] MEDS: CIPROFLOXACIN 250 MG TAB PO SCH ×2 (08:17→20:12)
[2017-10-31] MEDS: FUROSEMIDE 20 MG TAB PO SCH (08:17)
[2017-10-31] MEDS: LACTULOSE SYRUP 20 GM/30 ML UDC PO SCH ×2 (08:17→20:13)
[2017-10-31 08:18] LABS: ALB/GLOB RATIO 0.5 (0.9-2)
[2017-10-31 10:46] VITALS: BP 90/57; PULSE 66
--- NOTE | 2017-10-31 12:57 | Medical Student: [facility] ---
Med Student Progress Note Date of Service Oct 31, 2017. Subjective Pt evaluation today including: conversation w/ patient, chart review, lab review Pt is a 72 yo M with WELCH cirrhosis who presented with fatigue and decreased oral intake. Ammonia was elevated at ED and he has been receiving lactulose. Over the past few days it was still elevated so lactulose was increased to 20 grams BID. He said cognitively he is feeling a bit clearer today. Had trouble falling asleep last night and is a little tired right now. Appetite still down, and nutrition consult came by again yesterday. He feels like the ascites in abdomen and scrotal swelling are better. He says the scrotal swelling does not really cause pain anymore. He denies any urinary symptoms and currently receiving ciprofloxacin 250mg BID for UTI. Review of Systems Constitutional: No fever, No chills Eyes: No worsening of vision ENT: No hearing loss Respiratory: No cough, No sputum, No wheezing, No shortness of breath Cardiac: No chest pain Abdomen: + see HPI, No pain, No nausea Musculoskeletal: No joint pain, No muscle pain Male : + see HPI, No dysuria, No urinary frequency Neurologic: No memory loss Psychiatric: No depression symptoms Heme: No abnormal bleeding/bruising Endo: + fatigue Skin: No rash Objective Vital Signs Date Time Temp Pulse Resp B/P (MAP) Pulse Ox O2 Delivery O2 Flow Rate FiO2 10/31/17 06:50 36.6 60 20 88/48 (61) 100 Room Air 10/31/17 01:00 Room Air 10/31/17 00:12 36.6 65 18 93/59 (70) 99 Room Air 10/30/17 16:00 99 Room Air 10/30/17 15:59 36.5 65 18 104/71 (82) 99 Room Air 10/30/17 08:31 Room Air Physical Exam General Appearance: WD/WN, no apparent distress Eyes: bilateral eyes normal inspection, bilateral eyes PERRL, bilateral eyes EOMI ENT: normal ENT inspection, hearing grossly normal Neck: supple, no adenopathy Respiratory/Chest: chest non-tender, lungs clear, normal breath sounds, no respiratory distress Cardiovascular: regular rate, rhythm, no edema, no gallop, no JVD Abdomen: normal bowel sounds, non tender, soft, + pertinent finding (still some swelling/ascitic fluid compared to baseline according to patient but looks much better) Extremities: normal range of motion, non-tender, normal inspection, no pedal edema 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, no motor/sensory deficits, alert Skin: normal color, warm/dry Laboratory Results Last 24 Hours Test 10/31/17 06:43 White Blood Count 8.40 K/uL Red Blood Count 3.46 M/uL Hemoglobin 10.6 g/dL Hematocrit 31.4 % Mean Corpuscular Volume 90.8 fL Mean Corpuscular Hemoglobin 30.6 pg Mean Corpuscular Hemoglobin Concent 33.8 g/dl RDW Standard Deviation 56.0 fL RDW Coefficient of Variation 17.0 % Platelet Count 126 K/uL Mean Platelet Volume 10.8 fL Sodium Level 133 mmol/L Potassium Level 5.0 mmol/L Chloride Level 105 mmol/L Carbon Dioxide Level 21 mmol/L Anion Gap 7.0 mmol/L Blood Urea Nitrogen 52 mg/dl Creatinine 1.30 mg/dl Est Creatinine Clear Calc Drug Dose 49.4 ml/min Estimated GFR () 64.1 Estimated GFR (Non- 55.3 BUN/Creatinine Ratio 39.8 Random Glucose 79 mg/dl Calcium Level 8.3 mg/dl Total Bilirubin 2.3 mg/dl Aspartate Amino Transf (AST/SGOT) 40 U/L Alanine Aminotransferase (ALT/SGPT) 42 U/L Alkaline Phosphatase 134 U/L Ammonia 19.0 umol/L Total Protein 6.6 gm/dl Albumin 2.3 gm/dl Globulin 4.3 gm/dl Albumin/Globulin Ratio 0.5 Assessment and Plan Assessment and Plan: pt is a 72 yo M with hx of cirrhosis from WELCH and hepatic encephalopathy. His lactulose dose was increased yesterday after several days of ammonia elevation and this morning it was 19.0. Hyperammonemia - 58 on admission, elevated in the 40s the last few days, this morning was 19. - Currently on lactulose 20 grams BID Hyperkalemia - On admission was 5.7, this morning was 5.0 - Monitor renal function and if stable, can restart spironolactone. Acute renal insufficiency - Creatinine this morning was 1.6 - Lasix 20mg q AM reintroduced this morning. Will monitor Hypotension - Found at time of admission, has been okay. This morning was 88/48. Did not complain of symptoms WELCH Cirrhosis - Hold nadolol - Pt has been feeling better since paracentesis. Scrotal swelling - Paracentesis seems to have helped reduce the swelling. Pt not reporting any pain or drainage. - No fever and WBC is normal at 8.40 - Wound care consulted UTI - Pt not complaining or reporting any dysuria, urgency, frequency, or other urinary symptoms - Ciprofloxacin 250 mg BID VTE prophylaxis - SCDs. - INR 1.6 due to auto-anticoagulation
[2017-10-31] MEDS ORDERED: BOOST GLUCOSE CONTROL PO SCH (14:00)
[2017-10-31 15:16] VITALS: BP 99/62; PULSE 76; TEMP 36.4; O2SAT 100
[2017-10-31 15:49] VITALS: O2SAT 100
--- NOTE | 2017-10-31 17:24 | Progress Note ---
Subjective Date of Service: Oct 31, 2017. Subjective Pt evaluation today including: conversation w/ patient, physical exam, chart review, lab review, review of studies, conversation w/ managing consultant, review of inpatient medication list Pain: denies PO Intake: good Voiding: no voiding problems, no incontinence Overall, he feels better today. He still has some generalized weakness, and is walking with a walker (he does not use and walker at home). He feels that the scrotal edema is much improved; denies scrotal discomfort or abdominal discomfort. Problem List Medical Problems: (1) Acute kidney injury Status: Acute (2) CKD (chronic kidney disease) Status: Acute (3) Fever Status: Acute (4) Heme positive stool Status: Acute (5) Hyperkalemia Status: Acute (6) Hyperkalemia Status: Acute (7) Hypotension Status: Acute Review of Systems Constitutional: No fever, No chills ENT: No nasal symptoms Respiratory: No shortness of breath Cardiac: No chest pain Abdomen: No pain, No nausea, No vomiting, No diarrhea, No constipation Musculoskeletal: No problem reported Male : No problem reported Neurologic: No problem reported All Other Systems: Reviewed and Negative Medications Current Inpatient Medications Medications (Trade) Dose Ordered Sig/Raffi Route Start Time Stop Time Status Last Admin Dose Admin Ondansetron HCl (Zofran Inj) 4 mg Q6H PRN IV 10/27/17 19:45 11/26/17 19:44 Naproxen (Naprosyn Tab) 500 mg BID PRN PO 10/27/17 19:45 11/26/17 19:44 Future Hold id-Sqmui-Wvfylsvykt Acetate (Vitamin E Cap) 800 interunit QAM PO 10/28/17 08:00 11/27/17 08:59 10/31/17 08:16 800 INTERUNIT Acetaminophen (Tylenol Tab) 1,000 mg Q6H PRN PO 10/29/17 15:00 11/28/17 14:59 Ciprofloxacin (Ciprofloxacin Tab) 250 mg BID PO 10/30/17 20:00 11/04/17 19:59 10/31/17 08:17 250 MG Lactulose (Chronulac Syrup) 20 gm BID PO 10/30/17 20:00 11/27/17 07:59 10/31/17 08:17 20 GM Furosemide (Lasix Tab) 20 mg QAM PO 10/31/17 08:00 11/30/17 07:59 10/31/17 08:17 20 MG Enteral Nutritional Formula (Boost Glucose Control) 1 can TID PO 10/31/17 20:00 11/30/17 13:59 Objective Vital Signs Date Time Temp Pulse Resp B/P (MAP) Pulse Ox O2 Delivery O2 Flow Rate FiO2 10/31/17 15:49 100 Room Air 10/31/17 15:16 36.4 76 18 99/62 (74) 100 Room Air 10/31/17 10:46 66 90/57 (68) 10/31/17 08:10 Room Air 10/31/17 06:50 36.6 60 20 88/48 (61) 100 Room Air 10/31/17 01:00 Room Air 10/31/17 00:12 36.6 65 18 93/59 (70) 99 Room Air Physical Exam General Appearance: WD/WN, no apparent distress Eyes: normal inspection ENT: normal ENT inspection, hearing grossly normal Neck: supple, no adenopathy, thyroid normal Respiratory/Chest: chest non-tender, lungs clear Cardiovascular: regular rate, rhythm Abdomen: normal bowel sounds, soft, no organomegaly, + pertinent finding ( moderate ascites; scrotal edema, less compared to yesterday) Extremities: normal range of motion, non-tender, normal inspection, no pedal edema, no calf tenderness 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iatric: no motor/sensory deficits, alert, normal mood/affect, oriented x 3 Skin: normal color, warm/dry Laboratory Results Last 24 Hours Test 10/31/17 06:43 White Blood Count 8.40 K/uL Red Blood Count 3.46 M/uL Hemoglobin 10.6 g/dL Hematocrit 31.4 % Mean Corpuscular Volume 90.8 fL Mean Corpuscular Hemoglobin 30.6 pg Mean Corpuscular Hemoglobin Concent 33.8 g/dl RDW Standard Deviation 56.0 fL RDW Coefficient of Variation 17.0 % Platelet Count 126 K/uL Mean Platelet Volume 10.8 fL Sodium Level 133 mmol/L Potassium Level 5.0 mmol/L Chloride Level 105 mmol/L Carbon Dioxide Level 21 mmol/L Anion Gap 7.0 mmol/L Blood Urea Nitrogen 52 mg/dl Creatinine 1.30 mg/dl Est Creatinine Clear Calc Drug Dose 49.4 ml/min Estimated GFR () 64.1 Estimated GFR (Non- 55.3 BUN/Creatinine Ratio 39.8 Random Glucose 79 mg/dl Calcium Level 8.3 mg/dl Total Bilirubin 2.3 mg/dl Aspartate Amino Transf (AST/SGOT) 40 U/L Alanine Aminotransferase (ALT/SGPT) 42 U/L Alkaline Phosphatase 134 U/L Ammonia 19.0 umol/L Total Protein 6.6 gm/dl Albumin 2.3 gm/dl Globulin 4.3 gm/dl Albumin/Globulin Ratio 0.5 Assessment and Plan 72-year-old male with history of WELCH, with significant ascites and scrotal edema, with worsening renal function complicating continued diuretics. Also has a history of spontaneous bacterial peritonitis on prior hospitalization. Overall he feels better today status post large volume paracentesis. WELCH with ascites, elevated ammonia level Ammonia level improved, lactulose to 30 ml PO BID His creatinine has remained stable , so will continue Lasix 20 mg by mouth every morning His potassium prohibits reintroduction of Aldactone today Continue to hold nadolol secondary to low-normal blood pressures His INR remains elevated; we'll check an a.m. Nutrition consultation for patient education Mild hyperkalemia Resolved Monitor with reintroduction of diuretics Acute renal insufficiency Stable despite reintroduction of Lasix Recheck tomorrow morning UTI e.coli isolated in urine Cipro 250 mg PO BID VTE: SCDs - elevated INR secondary to auto anticoagulation Code status: Full
[2017-10-31] MEDS: BOOST GLUCOSE CONTROL PO SCH (18:16)
[2017-10-31 23:11] VITALS: BP 90/54; PULSE 19; TEMP 36.7; O2SAT 90
--- NOTE | 2017-11-01 07:17 | GASTROENTEROLOGY PROGRESS NOTE ---
DATE: 10/31/2017 Chart reviewed and the patient examined. Mr. Purcell is feeling better today, continues to tolerate p.o. intake. He reports 1 formed bowel movement despite his increase of lactulose yesterday into this morning. He has no nausea or vomiting. He feels his breathing is comfortable and that his abdominal girth is not as bothersome as it had been. CURRENT MEDICATIONS: Reviewed. He is on a small dose of Lasix at 20 mg daily, ciprofloxacin for an E. coli UTI as well as a borderline elevation in his white blood cell count. He is on lactulose 30 mL twice daily (20 grams b.i.d.), vitamin E and Zofran. His microbiology demonstrated E. coli in the urine and a Gram stain that is revealing corynebacterium that were rare. The source of this is unclear. It is unclear if this represents a contaminant from skin. His other laboratory studies include hemoglobin of 10.6, white count 8.4, hemoglobin is essentially stable, platelets 126,000. Serum chemistry, potassium is 5.0, BUN and creatinine are 52 and 1.3 which are in a stable pattern from yesterday. His transaminases were also stable, AST 40, ALT 42, alkaline phosphatase 134 and total bilirubin is slightly decreased from yesterday at 2.3, down from 2.5. REVIEW OF SYSTEMS: Otherwise noncontributory based on 13-point exam except for mentioned above. PHYSICAL EXAMINATION: VITAL SIGNS: Afebrile, 36.4, blood pressure 99/62, 100% on room air, respirations 18, heart rate 76. GENERAL: The patient is awake, alert and oriented. HEENT: Sclerae are minimally icteric. Oral mucosa moist. HEART: Normal S1, S2. LUNGS: Clear to auscultation. ABDOMEN: Soft without distention. No rebound or guarding. Positive bowel sounds noted. EXTREMITIES: Without clubbing, cyanosis or edema. RECTAL: Deferred. IMPRESSION AND PLAN: Regarding the patient's hepatic encephalopathy, would titrate lactulose up to a value that will produce 2-3 pasty bowel movements daily to avoid excess diarrhea and potential dehydration. Regarding the patient's diuresis, potassium is at the upper limit of normal, and therefore, potassium sparing diuretic may not be prudent presently. In addition, his BUN and creatinine are at his stable point on a very small dose of Lasix. I believe the mainstay of therapy needs to also be, in addition to a small dose of furosemide, a sodium and fluid restriction that will hopefully reduce chance of accumulation. Regarding the potential SBP, the corynebacterium is of unclear origin and may reflect a contaminant. We will await the final cultures. The patient is currently on Cipro and would ask microbiology if this is adequate coverage for both the E. coli and the corynebacterium. If not, we will need to titrate that based on sensitivities. Regarding the patient's overall liver prognosis, management of the patient's ascites and encephalopathy will continue to be a challenge, and I will discuss with Dr. Gutierrez who sees the patient in clinic to see if there are any thoughts on considering referral down to [place] for transplant evaluation. In the meantime, the patient should ambulate with caution, maintain a low sodium, fluid restricted diet, and avoid processed meats and excess protein intake to avoid encephalopathy. All questions answered.
[2017-11-01 07:19] VITALS: BP 90/52; PULSE 68; TEMP 36.3; O2SAT 99
[2017-11-01 07:29] LABS: INR 1.5 (0.9-1.1); PROTHROMBIN TIME (PATIENT) 15.3 SECONDS (9.0-12.0)
--- NOTE | 2017-11-01 07:32 | Medical Student: [facility] ---
Med Student Progress Note Date of Service Nov 01, 2017. Subjective Pt evaluation today including: conversation w/ patient, physical exam, chart review, lab review Pt is a 72 yo M with WELCH cirrhosis who presented with hepatic encephalopathy. His ammonia from this morning is pending. Pt looks tired this morning but reports that he slept well. He started walking in the hallways yesterday with a walker and reported no issues. Still has abdominal ascitic fluid and scrotal swelling but says they are better compared to yesterday. He continues to tolerate PO intake and reports a slight increase in appetite. Review of Systems Constitutional: No fever, No chills Eyes: No worsening of vision ENT: No hearing loss Respiratory: No cough, No sputum, No wheezing, No shortness of breath Cardiac: No chest pain, No orthopnea Abdomen: + see HPI, No pain, No nausea, No vomiting Musculoskeletal: No joint pain Male : + see HPI, No dysuria Neurologic: No memory loss Endo: + fatigue Objective Vital Signs Date Time Temp Pulse Resp B/P (MAP) Pulse Ox O2 Delivery O2 Flow Rate FiO2 11/01/17 07:19 36.3 68 18 90/52 (65) 99 Room Air 11/01/17 00:00 Room Air 10/31/17 23:11 36.7 19 17 90/54 (66) 90 Room Air 10/31/17 15:49 100 Room Air 10/31/17 15:16 36.4 76 18 99/62 (74) 100 Room Air 10/31/17 10:46 66 90/57 (68) 10/31/17 08:10 Room Air Physical Exam Eyes: bilateral eyes normal inspection, bilateral eyes PERRL, bilateral eyes EOMI ENT: normal ENT inspection, hearing grossly normal Neck: supple, no adenopathy, thyroid normal, no JVD Respiratory/Chest: chest non-tender, lungs clear, normal breath sounds, no respiratory distress Cardiovascular: regular rate, rhythm, no edema, no gallop Abdomen: normal bowel sounds, non tender, + pertinent finding (ascitic fluid still present) Extremities: non-tender, normal inspection, no pedal edema 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 He has received paracentesis since being at the hospital which reduced abdominal ascitic fluid and scrotal swelling. He has also been receiving lactulose for elevated ammonia. Hyperammonemia - 58 on admission, down to 19 yesterday. - Currently on lactulose 20 grams BID Hyperkalemia - On admission was 5.7, this morning 5.2 - Monitor renal function and if stable, can restart spironolactone. Acute renal insufficiency - Creatinine this morning 1.38 - Lasix 20mg q AM reintroduced this morning. Will monitor Hypotension - Found at time of admission, has been okay. This morning was 90/52. Did not complain of symptoms WELCH Cirrhosis - Hold nadolol - Pt has been feeling better since paracentesis. Scrotal swelling - Paracentesis seems to have helped reduce the swelling. Pt not reporting any pain or drainage. - No fever and WBC 8.40 yesterday - Wound care consulted UTI - Pt not complaining of urinary symptoms - Continue Ciprofloxacin 250 mg BID VTE prophylaxis - SCDs. - INR this morning 1.5
[2017-11-01 07:48] LABS: CALCIUM 8.3 mg/dl (8.5-10.1); CREATININE 1.38 mg/dl (0.60-1.40); MAGNESIUM 2.2 mg/dl (1.8-2.4); POTASSIUM 5.2 mmol/L (3.5-5.1)
[2017-11-01] MEDS: BOOST GLUCOSE CONTROL PO SCH ×3 (08:00→20:00)
[2017-11-01] MEDS: CIPROFLOXACIN 250 MG TAB PO SCH ×2 (08:40→20:25)
[2017-11-01] MEDS: LACTULOSE SYRUP 20 GM/30 ML UDC PO SCH ×2 (08:40→20:24)
[2017-11-01] MEDS: FUROSEMIDE 20 MG TAB PO SCH (08:40)
[2017-11-01] MEDS: TOCOPHERYL, DL-ALPHA 400 INTER.UNIT CAP PO SCH (08:41)
[2017-11-01 15:14] VITALS: BP 96/64; PULSE 67; TEMP 36.4; O2SAT 100
--- NOTE | 2017-11-01 16:02 | Gastroenterology Progress Note ---
Progress Note Date of Service: Nov 01, 2017 Subjective Pt evaluation today including: conversation w/ patient, conversation w/ family (), physical exam, chart review, lab review, review of studies, review of inpatient medication list CC f/u ascites, encephalopathy HPI Pt without abd complaint. Review of Systems Respiratory: No shortness of breath Cardiac: No chest pain Medications Current Inpatient Medications Medications (Trade) Dose Ordered Sig/Raffi Route Start Time Stop Time Status Last Admin Dose Admin Ondansetron HCl (Zofran Inj) 4 mg Q6H PRN IV 10/27/17 19:45 11/26/17 19:44 Naproxen (Naprosyn Tab) 500 mg BID PRN PO 10/27/17 19:45 11/26/17 19:44 Future Hold ch-Isbeh-Tmrxcnnxgt Acetate (Vitamin E Cap) 800 interunit QAM PO 10/28/17 08:00 11/27/17 08:59 11/01/17 08:41 800 INTERUNIT Acetaminophen (Tylenol Tab) 1,000 mg Q6H PRN PO 10/29/17 15:00 11/28/17 14:59 Ciprofloxacin (Ciprofloxacin Tab) 250 mg BID PO 10/30/17 20:00 11/04/17 19:59 11/01/17 08:40 250 MG Lactulose (Chronulac Syrup) 20 gm BID PO 10/30/17 20:00 11/27/17 07:59 11/01/17 08:40 20 GM Furosemide (Lasix Tab) 20 mg QAM PO 10/31/17 08:00 11/30/17 07:59 11/01/17 08:40 20 MG Enteral Nutritional Formula (Boost Glucose Control) 1 can TID PO 10/31/17 20:00 11/30/17 13:59 11/01/17 13:12 1 CAN Objective Vital Signs Date Time Temp Pulse Resp B/P (MAP) Pulse Ox O2 Delivery O2 Flow Rate FiO2 11/01/17 15:14 36.4 67 18 96/64 (75) 100 Room Air 11/01/17 08:00 Room Air 11/01/17 07:19 36.3 68 18 90/52 (65) 99 Room Air 11/01/17 00:00 Room Air 10/31/17 23:11 36.7 19 17 90/54 (66) 90 Room Air Physical Exam General Appearance: no apparent distress, + thin Respiratory/Chest: lungs clear, no respiratory distress Cardiovascular: no murmur Abdomen: normal bowel sounds, non tender, soft, no organomegaly, + pertinent finding (mildly distended) 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: alert, normal mood/affect, oriented x 3 Laboratory Results Last 24 Hours Test 11/01/17 06:46 11/01/17 06:47 Prothrombin Time 15.3 SECONDS Prothromb Time International Ratio 1.5 Sodium Level 131 mmol/L Potassium Level 5.2 mmol/L Chloride Level 104 mmol/L Carbon Dioxide Level 20 mmol/L Anion Gap 7.0 mmol/L Blood Urea Nitrogen 51 mg/dl Creatinine 1.38 mg/dl Est Creatinine Clear Calc Drug Dose 46.6 ml/min Estimated GFR () 59.6 Estimated GFR (Non- 51.4 BUN/Creatinine Ratio 37.0 Random Glucose 91 mg/dl Calcium Level 8.3 mg/dl Magnesium Level 2.2 mg/dl Assessment and Plan encephalopathy--alert, repeat ammonia in am ascites--diuretic dose prior to admit likely too high and precipitated some renal insufficiency. May need to have frequent paracenteses as outpt. Probably not a good candidate for TIPS given his encephalopathy. Should be on 2 gm Na diet. cirrhosis---discussed with DR Foss who recommended patient think about liver transplant. We are not sure of his candidacy given age and other med problems but we want him to think about whether he would want it at all if he were a candidate. If he feels he wants to be evaluated then outpt appt with liver tx hepatology should be arranged. ?SBP--corynebacterium may be skin contaminant but reasonable to complete treatment course.
--- NOTE | 2017-11-01 18:37 | Progress Note ---
Subjective Date of Service: Nov 01, 2017. Subjective Pt evaluation today including: conversation w/ patient, conversation w/ family , physical exam, chart review, lab review, review of studies, conversation w/ sap pp consultant, review of inpatient medication list Pain: denies PO Intake: no issues, appetite is fair Voiding: no voiding problems I was able to talk with the patient and his today. Reviewed the difficulties in treating recurrent ascites in the setting of electrolyte abnormalities and worsening kidney function. It sounds as if he had some discussion as an outpatient regarding liver transplant, although it has not been until his most recent two admissions that he has had any significant issues. His age is probably at the upper limit for consideration, though this would not preclude at least a visit with the liver program. Overall, he states he feels better then his admission. His blood pressures have been low though he denies any orthostatic symptoms when rising from a seated position. He notes a generalized weakness, but has been able living with a walker in the hallway short distances. Problem List Medical Problems: (1) Acute kidney injury Status: Acute (2) CKD (chronic kidney disease) Status: Acute (3) Fever Status: Acute (4) Heme positive stool Status: Acute (5) Hyperkalemia Status: Acute (6) Hyperkalemia Status: Acute (7) Hypotension Status: Acute Review of Systems Constitutional: No fever, No chills Eyes: No problem reported ENT: No problem reported Respiratory: No problem reported Cardiac: No chest pain Abdomen: No pain, No nausea, No vomiting, No diarrhea, No constipation Musculoskeletal: No problem reported Neurologic: No problem reported Psychiatric: No problem reported All Other Systems: Reviewed and Negative Medications Current Inpatient Medications Medications (Trade) Dose Ordered Sig/Raffi Route Start Time Stop Time Status Last Admin Dose Admin Ondansetron HCl (Zofran Inj) 4 mg Q6H PRN IV 10/27/17 19:45 11/26/17 19:44 Naproxen (Naprosyn Tab) 500 mg BID PRN PO 10/27/17 19:45 11/26/17 19:44 Future Hold wy-Pspgq-[id number] Acetate (Vitamin E Cap) 800 interunit QAM PO 10/28/17 08:00 11/27/17 08:59 11/01/17 08:41 800 INTERUNIT Acetaminophen (Tylenol Tab) 1,000 mg Q6H PRN PO 10/29/17 15:00 11/28/17 14:59 Ciprofloxacin (Ciprofloxacin Tab) 250 mg BID PO 10/30/17 20:00 11/04/17 19:59 11/01/17 08:40 250 MG Lactulose (Chronulac Syrup) 20 gm BID PO 10/30/17 20:00 11/27/17 07:59 11/01/17 08:40 20 GM Furosemide (Lasix Tab) 20 mg QAM PO 10/31/17 08:00 11/30/17 07:59 11/01/17 08:40 20 MG Enteral Nutritional Formula (Boost Glucose Control) 1 can TID PO 10/31/17 20:00 11/30/17 13:59 11/01/17 13:12 1 CAN Objective Vital Signs Date Time Temp Pulse Resp B/P (MAP) Pulse Ox O2 Delivery O2 Flow Rate FiO2 11/01/17 15:14 36.4 67 18 96/64 (75) 100 Room Air 11/01/17 08:00 Room Air 11/01/17 07:19 36.3 68 18 90/52 (65) 99 Room Air 11/01/17 00:00 Room Air 10/31/17 23:11 36.7 19 17 90/54 (66) 90 Room Air Physical Exam General Appearance: WD/WN, no apparent distress, + thin Eyes: normal inspection, PERRL, EOMI ENT: normal ENT inspection Neck: supple, no adenopathy Respiratory/Chest: chest non-tender, lungs clear, normal breath sounds Cardiovascular: regular rate, rhythm Abdomen: normal bowel sounds, non tender, soft, + pertinent finding (mild distention) Extremities: normal range of motion, non-tender, no pedal edema, no calf tenderness 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iatric: no motor/sensory deficits, alert, normal mood/affect, oriented x 3 Laboratory Results Last 24 Hours Test 11/01/17 06:46 11/01/17 06:47 Prothrombin Time 15.3 SECONDS Prothromb Time International Ratio 1.5 Sodium Level 131 mmol/L Potassium Level 5.2 mmol/L Chloride Level 104 mmol/L Carbon Dioxide Level 20 mmol/L Anion Gap 7.0 mmol/L Blood Urea Nitrogen 51 mg/dl Creatinine 1.38 mg/dl Est Creatinine Clear Calc Drug Dose 46.6 ml/min Estimated GFR () 59.6 Estimated GFR (Non- 51.4 BUN/Creatinine Ratio 37.0 Random Glucose 91 mg/dl Calcium Level 8.3 mg/dl Magnesium Level 2.2 mg/dl Assessment and Plan 72-year-old male with history of WELCH, with significant ascites and scrotal edema, with worsening renal function complicating continued diuretics. Also has a history of spontaneous bacterial peritonitis on prior hospitalization. WELCH with ascites, elevated ammonia level Ammonia level improved, continue lactulose 30 ml PO BID - the goal is 2 to 3 soft bowel movements daily. His creatinine has remained stable , so will continue Lasix 20 mg by mouth every morning. I contemplated a second dose of Lasix this afternoon, although his blood pressure probably would not tolerated. His potassium again prohibits reintroduction of Aldactone today Continue to hold nadolol secondary to low-normal blood pressures His INR remains elevated; we'll check an a.m. Nutrition consultation for patient education Mild hyperkalemia Resolved Increasing the Lasix would help the hyperkalemia, we do not think his blood pressure tolerate additional diuresis. Acute renal insufficiency Stable today Recheck tomorrow morning UTI e.coli isolated in urine Cipro 250 mg PO BID Will discuss with gastroenterology transitioning him to a SBE prophylaxis dose following treatment of UTI. VTE: SCDs - elevated INR secondary to auto anticoagulation Code status: Full Continued [facility] stay due to: abnormal vital signs
[2017-11-01 23:59] VITALS: BP 91/54; PULSE 74; TEMP 36.8; O2SAT 100
[2017-11-02 06:52] LABS: BASO % 0.6 %; BASO ABS # 0.04 K/uL (0-0.2); COMPLETE YES; EOS % 1.9 %; HEMATOCRIT 32.6 % (42-52); IG% 0.1 %; LYMPH ABS # 1.23 K/uL (1.2-3.4); MEAN CELL VOLUME 89.3 fL (80-100); MEAN CORPUSCULAR HEMOGLOBIN 30.4 pg (25-34); MEAN PLATELET VOLUME 10.4 fL (7.4-10.4); MONO % 9.7 %; NEUT % 70.7 %; PLATELET COUNT 135 K/uL (130-400); RED BLOOD COUNT 3.65 M/uL (4.7-6.1); WHITE BLOOD COUNT 7.25 K/uL (4.8-10.8)
[2017-11-02 07:20] VITALS: BP 101/68; PULSE 64; TEMP 36.5; O2SAT 100
[2017-11-02 07:28] LABS: BUN/CREATININE RATIO 36.8 (10-20); CALCIUM 8.2 mg/dl (8.5-10.1); CREATININE 1.41 mg/dl (0.60-1.40)
[2017-11-02 07:31] LABS: ALB/GLOB RATIO 0.5 (0.9-2)
[2017-11-02] MEDS: TOCOPHERYL, DL-ALPHA 400 INTER.UNIT CAP PO SCH (08:25)
[2017-11-02] MEDS: CIPROFLOXACIN 250 MG TAB PO SCH ×2 (08:25→19:48)
[2017-11-02] MEDS: BOOST GLUCOSE CONTROL PO SCH ×3 (08:25→19:48)
[2017-11-02] MEDS: FUROSEMIDE 20 MG TAB PO SCH (08:25)
[2017-11-02] MEDS: LACTULOSE SYRUP 20 GM/30 ML UDC PO SCH ×2 (08:25→19:48)
--- NOTE | 2017-11-02 14:56 | Gastroenterology Progress Note ---
Progress Note Date of Service: Nov 02, 2017 Subjective Pt evaluation today including: conversation w/ patient, conversation w/ family (), physical exam, chart review, lab review, review of studies, review of inpatient medication list cc f/u ascites HPI Pt denies abd pain, Feels good. Tolerating diet. Review of Systems Respiratory: No shortness of breath Cardiac: No chest pain Medications Current Inpatient Medications Medications (Trade) Dose Ordered Sig/Raffi Route Start Time Stop Time Status Last Admin Dose Admin Ondansetron HCl (Zofran Inj) 4 mg Q6H PRN IV 10/27/17 19:45 11/26/17 19:44 Naproxen (Naprosyn Tab) 500 mg BID PRN PO 10/27/17 19:45 11/26/17 19:44 Future Hold [id number]-Bsxrb-Vtvmckffhk Acetate (Vitamin E Cap) 800 interunit QAM PO 10/28/17 08:00 11/27/17 08:59 11/02/17 08:25 800 INTERUNIT Acetaminophen (Tylenol Tab) 1,000 mg Q6H PRN PO 10/29/17 15:00 11/28/17 14:59 Ciprofloxacin (Ciprofloxacin Tab) 250 mg BID PO 10/30/17 20:00 11/04/17 19:59 11/02/17 08:25 250 MG Lactulose (Chronulac Syrup) 20 gm BID PO 10/30/17 20:00 11/27/17 07:59 11/02/17 08:25 20 GM Furosemide (Lasix Tab) 20 mg QAM PO 10/31/17 08:00 11/30/17 07:59 11/02/17 08:25 20 MG Enteral Nutritional Formula (Boost Glucose Control) 1 can TID PO 10/31/17 20:00 11/30/17 13:59 11/02/17 13:30 1 CAN Objective Vital Signs Date Time Temp Pulse Resp B/P (MAP) Pulse Ox O2 Delivery O2 Flow Rate FiO2 11/02/17 07:20 36.5 64 20 101/68 (79) 100 Room Air 11/02/17 00:00 Room Air 11/01/17 23:59 36.8 74 20 91/54 (66) 100 Room Air 11/01/17 20:00 Room Air 11/01/17 16:00 Room Air 11/01/17 15:14 36.4 67 18 96/64 (75) 100 Room Air Physical Exam General Appearance: WD/WN, no apparent distress Respiratory/Chest: lungs clear, no respiratory distress Cardiovascular: regular rate, rhythm Abdomen: normal bowel sounds, non tender, soft, no organomegaly, + distended ( mildly and not tense) 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: alert, normal mood/affect, oriented x 3 Laboratory Results Last 24 Hours Test 11/02/17 06:40 White Blood Count 7.25 K/uL Red Blood Count 3.65 M/uL Hemoglobin 11.1 g/dL Hematocrit 32.6 % Mean Corpuscular Volume 89.3 fL Mean Corpuscular Hemoglobin 30.4 pg Mean Corpuscular Hemoglobin Concent 34.0 g/dl Platelet Count 135 K/uL Mean Platelet Volume 10.4 fL Neutrophils (%) (Auto) 70.7 % Lymphocytes (%) (Auto) 17.0 % Monocytes (%) (Auto) 9.7 % Eosinophils (%) (Auto) 1.9 % Basophils (%) (Auto) 0.6 % Neutrophils # (Auto) 5.13 K/uL Lymphocytes # (Auto) 1.23 K/uL Monocytes # (Auto) 0.70 K/uL Eosinophils # (Auto) 0.14 K/uL Basophils # (Auto) 0.04 K/uL RDW Standard Deviation 55.1 fL RDW Coefficient of Variation 16.9 % Immature Granulocyte % (Auto) 0.1 % Immature Granulocyte # (Auto) 0.01 K/uL Sodium Level 132 mmol/L Potassium Level 5.0 mmol/L Chloride Level 104 mmol/L Carbon Dioxide Level 18 mmol/L Anion Gap 9.0 mmol/L Blood Urea Nitrogen 52 mg/dl Creatinine 1.41 mg/dl Est Creatinine Clear Calc Drug Dose 45.6 ml/min Estimated GFR () 58.1 Estimated GFR (Non- 50.1 BUN/Creatinine Ratio 36.8 Random Glucose 80 mg/dl Calcium Level 8.2 mg/dl Total Bilirubin 2.4 mg/dl Aspartate Amino Transf (AST/SGOT) 60 U/L Alanine Aminotransferase (ALT/SGPT) 51 U/L Alkaline Phosphatase 169 U/L Ammonia 41.8 umol/L Total Protein 6.8 gm/dl Albumin 2.2 gm/dl Globulin 4.6 gm/dl Albumin/Globulin Ratio 0.5 Assessment and Plan encephalopathy--alert, ammonia slightly out of range but not a worisome value, needs continued lactulose ascites--I think he has failed diuretics. His kidney function worse today on limited diuretic. I stopped the Lasix and would not restart this or aldactone. . recommend just 2 gm Na diet as outpt and periodic paracentesis. cirrhosis---discussed with DR Foss who recommended patient think about liver transplant. We are not sure of his candidacy given age and other med problems but we want him to think about whether he would want it at all if he were a candidate. If he feels he wants to be evaluated then outpt appt with liver tx hepatology should be arranged. ?SBP--corynebacterium may be skin contaminant but reasonable to complete treatment course. Could be DCed today from GI standpoint.
[2017-11-02 16:04] VITALS: BP 98/65; PULSE 67; TEMP 36.3; O2SAT 100
--- NOTE | 2017-11-02 17:17 | Progress Note ---
Subjective Date of Service: Nov 02, 2017. Subjective Pt evaluation today including: conversation w/ patient, conversation w/ family , physical exam, chart review, lab review, conversation w/ sr risk management consultant, review of inpatient medication list Pain: Denies PO Intake: Good Voiding: no voiding problems, no incontinence General weakness, but about the same as yesterday. Slight increase in Creatinine ; ammonia also increased compared to yesterday. Appetite decreased, but no issues tolerating diet. Problem List Medical Problems: (1) Acute kidney injury Status: Acute (2) CKD (chronic kidney disease) Status: Acute (3) Fever Status: Acute (4) Heme positive stool Status: Acute (5) Hyperkalemia Status: Acute (6) Hyperkalemia Status: Acute (7) Hypotension Status: Acute Review of Systems Constitutional: No fever, No chills Eyes: No problem reported ENT: No problem reported Respiratory: No shortness of breath Cardiac: No chest pain Abdomen: No pain, No nausea, No vomiting, No diarrhea Male : No dysuria, No urinary frequency Neurologic: No problem reported Medications Current Inpatient Medications Medications (Trade) Dose Ordered Sig/Raffi Route Start Time Stop Time Status Last Admin Dose Admin Ondansetron HCl (Zofran Inj) 4 mg Q6H PRN IV 10/27/17 19:45 11/26/17 19:44 Naproxen (Naprosyn Tab) 500 mg BID PRN PO 10/27/17 19:45 11/26/17 19:44 Future Hold ha-Gzvgz-Ikdfwztjfc Acetate (Vitamin E Cap) 800 interunit QAM PO 10/28/17 08:00 11/27/17 08:59 11/02/17 08:25 800 INTERUNIT Acetaminophen (Tylenol Tab) 1,000 mg Q6H PRN PO 10/29/17 15:00 11/28/17 14:59 Ciprofloxacin (Ciprofloxacin Tab) 250 mg BID PO 10/30/17 20:00 11/04/17 19:59 11/02/17 08:25 250 MG Lactulose (Chronulac Syrup) 20 gm BID PO 10/30/17 20:00 11/27/17 07:59 11/02/17 08:25 20 GM Enteral Nutritional Formula (Boost Glucose Control) 1 can TID PO 10/31/17 20:00 11/30/17 13:59 11/02/17 13:30 1 CAN Objective Vital Signs Date Time Temp Pulse Resp B/P (MAP) Pulse Ox O2 Delivery O2 Flow Rate FiO2 11/02/17 16:04 36.3 67 20 98/65 (76) 100 Room Air 11/02/17 16:00 Room Air 11/02/17 08:00 Room Air 11/02/17 07:20 36.5 64 20 101/68 (79) 100 Room Air 11/02/17 00:00 Room Air 11/01/17 23:59 36.8 74 20 91/54 (66) 100 Room Air 11/01/17 20:00 Room Air Physical Exam General Appearance: WD/WN, no apparent distress Eyes: normal inspection ENT: normal ENT inspection, hearing grossly normal Neck: supple, no adenopathy, trachea midline Respiratory/Chest: chest non-tender, lungs clear, normal breath sounds Cardiovascular: regular rate, rhythm, no edema Abdomen: normal bowel sounds, non tender, soft, + pertinent finding (ascites) Extremities: normal range of motion, non-tender, normal inspection 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iatric: no motor/sensory deficits, alert, normal mood/affect, oriented x 3 Skin: warm/dry Laboratory Results Last 24 Hours Test 11/02/17 06:40 White Blood Count 7.25 K/uL Red Blood Count 3.65 M/uL Hemoglobin 11.1 g/dL Hematocrit 32.6 % Mean Corpuscular Volume 89.3 fL Mean Corpuscular Hemoglobin 30.4 pg Mean Corpuscular Hemoglobin Concent 34.0 g/dl Platelet Count 135 K/uL Mean Platelet Volume 10.4 fL Neutrophils (%) (Auto) 70.7 % Lymphocytes (%) (Auto) 17.0 % Monocytes (%) (Auto) 9.7 % Eosinophils (%) (Auto) 1.9 % Basophils (%) (Auto) 0.6 % Neutrophils # (Auto) 5.13 K/uL Lymphocytes # (Auto) 1.23 K/uL Monocytes # (Auto) 0.70 K/uL Eosinophils # (Auto) 0.14 K/uL Basophils # (Auto) 0.04 K/uL RDW Standard Deviation 55.1 fL RDW Coefficient of Variation 16.9 % Immature Granulocyte % (Auto) 0.1 % Immature Granulocyte # (Auto) 0.01 K/uL Sodium Level 132 mmol/L Potassium Level 5.0 mmol/L Chloride Level 104 mmol/L Carbon Dioxide Level 18 mmol/L Anion Gap 9.0 mmol/L Blood Urea Nitrogen 52 mg/dl Creatinine 1.41 mg/dl Est Creatinine Clear Calc Drug Dose 45.6 ml/min Estimated GFR () 58.1 Estimated GFR (Non- 50.1 BUN/Creatinine Ratio 36.8 Random Glucose 80 mg/dl Calcium Level 8.2 mg/dl Total Bilirubin 2.4 mg/dl Aspartate Amino Transf (AST/SGOT) 60 U/L Alanine Aminotransferase (ALT/SGPT) 51 U/L Alkaline Phosphatase 169 U/L Ammonia 41.8 umol/L Total Protein 6.8 gm/dl Albumin 2.2 gm/dl Globulin 4.6 gm/dl Albumin/Globulin Ratio 0.5 Assessment and Plan 72-year-old male with history of WELCH, with significant ascites and scrotal edema, with worsening renal function complicating continued diuretics. Also has a history of spontaneous bacterial peritonitis on prior hospitalization. WELCH with ascites, elevated ammonia level Ammonia level increased; increase lactulose to 30 ml PO TID - the goal is 2 to 3 soft bowel movements daily. Lasix discontinued Having "failed" diuretics, may need to manage with scheduled with centesis Continue to hold nadolol secondary to low-normal blood pressures He has met with nutrition consultation for patient education regarding diet Discussed appointment with liver clinic in [place] upon discharge. Hyperkalemia Borderline high, prohibits Aldactone Increasing the Lasix would help the hyperkalemia, but limited due to his BP and rising Cr. PARADISE (improving) on CRI Likely secondary to diuretic use UTI e.coli isolated in urine Cipro 250 mg PO BID Will discuss with gastroenterology transitioning him to a SBE prophylaxis dose following treatment of UTI. VTE: SCDs - elevated INR secondary to auto anticoagulation Code status: Full Continued [facility] stay due to: abnormal vital signs
[2017-11-03 00:35] VITALS: BP 90/57; PULSE 69; TEMP 36.8; O2SAT 97
[2017-11-03 06:27] LABS: INR 1.5 (0.9-1.1)
[2017-11-03 06:41] LABS: BUN/CREATININE RATIO 35.6 (10-20); CALCIUM 8.2 mg/dl (8.5-10.1); CREATININE 1.43 mg/dl (0.60-1.40); POTASSIUM 5.2 mmol/L (3.5-5.1)
[2017-11-03 07:29] VITALS: BP 93/58; PULSE 67; TEMP 36.3; O2SAT 100
[2017-11-03] MEDS: LACTULOSE SYRUP 20 GM/30 ML UDC PO SCH (08:04)
[2017-11-03] MEDS: BOOST GLUCOSE CONTROL PO SCH (08:05)
[2017-11-03] MEDS: CIPROFLOXACIN 250 MG TAB PO SCH (08:05)
[2017-11-03] MEDS: TOCOPHERYL, DL-ALPHA 400 INTER.UNIT CAP PO SCH (09:21)
[2017-11-03] MEDS ORDERED: LCTL30 PO (11:58)
[2017-11-03] MEDS ORDERED: CIPR1TAB10 PO (11:58)
[2017-11-03] MEDS ORDERED: ZFRI4 PO (11:58)
--- NOTE | 2017-11-03 12:04 | Discharge Instructions ---
Discharge Instructions Date of Service Nov 03, 2017. Admission Reason for Admission: Cirrhosis, Dehydration, Fatigue, Hyperammonemia Discharge Discharge Diagnosis / Problem: cirrhosis, dehydration, fatigue, elevated ammonia level Discharge Goals Goal(s): Decrease discomfort, Improve function, Increase independence, Improve disease control, Improve nutritional status, Learn about illness, Diagnostic testing, Therapeutic intervention, Prevent Disease Progression Activity Recommendations Activity Limitations: resume your previous activity Lifting Limitations: none Exercise/Sports Limitations: gradually increase as tolerated May Resume Sexual Activity: when tolerated Shower/Bathe: no limitations . Instructions / Follow-Up Instructions / Follow-Up As discussed, call gastroenterology office on Saturday to set up follow-up. He will need blood work on Saturday or ; home nursing may be able to control this blood at home. Follow-up with your primary care physician, Dr. Brownlee, as scheduled on November 12. Current Hospital Diet Patient's current hospital diet: Low Potassium Diet (2g K), Low Sodium Diet ( 2gm Na) Discharge Diet Recommended Diet: Low Sodium Diet (2gm Na) Fluid Restriction: 2000 ml (8 cups) Procedures Procedures Performed: Paracentesis Pending Studies Studies pending at discharge: no Laboratory Results Last 24 Hours Test 11/03/17 05:57 Prothrombin Time 16.0 SECONDS Prothromb Time International Ratio 1.5 Sodium Level 128 mmol/L Potassium Level 5.2 mmol/L Chloride Level 103 mmol/L Carbon Dioxide Level 20 mmol/L Anion Gap 5.0 mmol/L Blood Urea Nitrogen 51 mg/dl Creatinine 1.43 mg/dl Est Creatinine Clear Calc Drug Dose 44.9 ml/min Estimated GFR () 57.1 Estimated GFR (Non- 49.3 BUN/Creatinine Ratio 35.6 Random Glucose 82 mg/dl Calcium Level 8.2 mg/dl Ammonia 43.3 umol/L Medical Emergencies . Who to Call and When: Medical Emergencies: If at any time you feel your situation is an emergency, please call 911 immediately. . Non-Emergent Contact Non-Emergency issues call your: Primary Care Provider, [employer] Call Non-Emergent contact if: temperature is above 100.5, your pain is not controlled, your pain is worsening, your pain is unusual for you, your pain is concerning you, you have any medication questions . Past History Medical & Surgical History: (1) Cirrhosis (2) Hyperammonemia (3) Hyperkalemia (4) Dehydration . "Provider Documentation" section prepared by Jeremie Elise. . VTE Core Measure Inpt VTE Proph given/why not?: SCD's [place] Drug Monitoring Program Search Results: no issues identified (no controlled substances prescribed)
--- NOTE | 2017-11-03 12:19 | Discharge Summary ---
Discharge Summary Date of Service Nov 03, 2017. Discharge Summary Admission Date: Oct 27, 2017 at 19:46 Discharge Date: Nov 03, 2017 Discharge Disposition: Home with services Principal Diagnosis: liver cirrhosis Problems/Secondary Diagnoses: WELCH Urinary tract infection Hypertension Elevated ammonia levels Mental status change Immunizations: Have You Had Influenza Vaccine: Unknown History of Tetanus Vaccine?: Unknown History of Pneumococcal: Unknown History of Hepatitis B Vaccine: Unknown Procedures: Paracentesis, abdominal, therapeutic Consultations: Gastroenterology Medication Reconciliation New Medications: Ciprofloxacin Hcl (Cipro) 500 Mg Tab 1 TAB PO DAILY for 30 Days, #30 TAB Lactulose (Lactulose) 20 Gm/30 Ml Syrp 20 GM PO TID for 30 Days, #2700 ML 1 Refill Ondansetron (Ondansetron Hcl) 2 Mg/Ml Inj 4 MG PO Q6H PRN for Nausea, #20 Continued Medications: Multivitamin (Multivitamin) Tab 1 TAB PO QAM, TAB Naproxen (Naprosyn) 500 Mg Tab 500 MG PO BID PRN for GOUT PAIN, TAB Vitamin E (Vitamin E) 400 Unit Tab 800 UNITS PO QAM Discontinued Medications: Furosemide (Lasix) 40 Mg Tab 20 MG PO QAM, TAB Lactulose (Chronulac) 10 Gm/15 Ml Syrp 10 GM PO QAM Nadolol (Corgard) 40 Mg Tab 40 MG PO QAM, TAB Spironolactone (Aldactone) 25 Mg Tab 25 MG PO QAM, TAB Discharge Exam On the day of discharge, the patient was lying in bed with his family at bedside. He feels as well as he did yesterday; certainly better than upon admission. Questions regarding his medications were reviewed with the patient and his . The patient and his had also spoken to gastroenterology yesterday about the possibility of being referred to the liver clinic at [facility]. The idea of having another therapeutic paracentesis in the future was also discussed. Review of Systems: Constitutional: No fever, No chills Eyes: No problem reported ENT: No problem reported Respiratory: No shortness of breath, No dyspnea on exertion Cardiovascular: No palpitations Abdomen: No pain, No nausea, No vomiting, No diarrhea, No constipation Neurologic: No memory loss, No balance problems Physical Exam: General Appearance: WD/WN, no apparent distress Eyes: normal inspection ENT: normal ENT inspection, hearing grossly normal Neck: supple, no adenopathy Respiratory/Chest: chest non-tender, lungs clear Cardiovascular: regular rate, rhythm Abdomen / GI: normal bowel sounds, soft (slight distention) Extremities: no calf tenderness, normal capillary refill 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iatric: no motor/sensory deficits, alert, normal mood/affect , oriented x 3 Skin: warm/dry, no rash Hospital Course 72-year-old male with history of WELCH/cirrhosis and bladder cancer presented to the emergency department noting fatigue, confusion, and decreased oral intake. According to the family, the patient was not taking anything by mouth over the weekend, it was overall more weak and lethargic. When the patient awoke on the day of admission, he was confused. The patient had a prior admission to this hospital for a fever and dyspnea, and he underwent a paracentesis. The patient was admitted to the general medical floor. Gastroenterology was consult. In light of his dehydration and renal function, his Lasix and Aldactone were held. He underwent a therapeutic paracentesis with relief of his symptoms. His Lasix was restarted, however his creatinine lorna and thus it was discontinued. Patient's potassium remained high normal to elevated, prohibiting reinstitution of his Aldactone. The patient's ammonia level was elevated; his lactulose was increased to 30 ML PO TID. The patient's blood pressures remained low normal; his nadolol was held. The patient was noted to have a urinary tract infection. This was treated with Cipro 250 mg by mouth BID. Upon discharge, he was transitioned to Cipro 500 mg daily for SBP prophylaxis. WELCH with ascites, elevated ammonia level Lactulose to 30 ml PO TID - the goal is 2 to 3 soft bowel movements daily. Lasix and Aldactone discontinued due to worsening renal function and hyperkalemia Having "failed" diuretics, may need to manage with scheduled with centesis Continue to hold nadolol secondary to low-normal blood pressures He has met with nutrition consultation for patient education regarding diet Discussed appointment with liver clinic in [place] upon discharge. Hyperkalemia Borderline high, prohibits Aldactone Increasing the Lasix would help the hyperkalemia, but limited due to his BP and rising Cr. BMP on Saturday or this week PARADISE (improving) on CRI Likely secondary to diuretic use UTI e.coli isolated in urine Cipro 250 mg PO BID Upon discharge, transitioned to Cipro 500 mg by mouth daily for SBP prophylaxis VTE: SCDs - elevated INR secondary to auto anticoagulation Code status: Full Total Time Spent: Greater than 30 minutes This includes examination of the patient, discharge planning, medication reconciliation, and communication with other providers. Discharge Instructions Please refer to the electronic Patient Visit Report (Discharge Instructions) for additional information. Additional Copies To Joey Gutierrez M.D.; Martir Brownlee D.O.
[2017-11-03] MEDS ORDERED: ONDA4TAB10 SL (12:24)
[2017-11-03 13:01] VITALS: BP 93/58; PULSE 67; TEMP 36.3; O2SAT 100
== END 2017-11-03 14:00 | disposition home health service (06) | DRG 441 ==
LOC: C.EDB 14:11 → C.MS4W 19:46 → ENRESERV 20:23
PROVIDERS: ADMIT Hospitalist; ATTEND Family Medicine
PROC: 0W9G3ZZ Drainage of Peritoneal Cavity, Percutaneous Approach (ICD-10-PCS; principal; 2017-10-29)
DX: K75.81 Nonalcoholic steatohepatitis (NASH) (principal); K65.2 Spontaneous bacterial peritonitis; E72.20 Disorder of urea cycle metabolism, unspecified; N17.9 Acute kidney failure, unspecified; R18.8 Other ascites; I85.10 Secondary esophageal varices without bleeding; N39.0 Urinary tract infection, site not specified; K74.60 Unspecified cirrhosis of liver; K72.90 Hepatic failure, unspecified without coma; B96.20 Unspecified Escherichia coli [E. coli] as the cause of diseases classified elsewhere; E87.5 Hyperkalemia; I95.9 Hypotension, unspecified; N50.89 Other specified disorders of the male genital organs; Z85.51 Personal history of malignant neoplasm of bladder

== ENCOUNTER 2017-11-10 13:49 | Inpatient (IN) | payer BC, OTHER ==
[~2017-11-10] VITALS: Ht 172.7 cm; Wt 67.8 kg
[~2017-11-10 13:49] MED LIST changes: -AMOX1TAB43 PO; +CIPR1TAB10 PO; -FRS/40 PO; +LCTL30 PO; -LCTS240 PO; -NADO40TA PO; -NAPR-1169 PO; +NAPR-22 PO; +ONDA4TAB10 SL; -SPR25 PO
[2017-11-10] MEDS ORDERED: SODIUM CHLORIDE 0.9% 500ML 500 ML IV STA ×2 (14:05→16:04)
[2017-11-10] MEDS ORDERED: LACTULOSE SYRUP 20 GM/30 ML UDC PO STA (14:05)
[2017-11-10 14:23] LABS: BASO % 0.1 %; BASO ABS # 0.01 K/uL (0-0.2); EOS % 1.1 %; EOS ABS # 0.08 K/uL (0-0.5); HEMATOCRIT 32.2 % (42-52); HEMOGLOBIN 11.7 g/dL (14.0-18.0); IG# 0.02 K/uL (0.00-0.02); LYMPH % 22.2 %; LYMPH ABS # 1.65 K/uL (1.2-3.4); MEAN CELL VOLUME 86.6 fL (80-100); MEAN CORPUSCULAR HEMOGLOBIN 31.5 pg (25-34); MEAN CORPUSCULAR HGB CONC 36.3 g/dl (32-36); MEAN PLATELET VOLUME 11.1 fL (7.4-10.4); MONO % 16.4 %; MONO ABS # 1.22 K/uL (0.11-0.59); NEUT % 59.9 %; NEUT ABS # 4.44 K/uL (1.4-6.5); PLATELET COUNT 122 K/uL (130-400); RED CELL DISTRIBUTION WIDTH CV 16.2 % (11.5-14.5); RED CELL DISTRIBUTION WIDTH SD 51.3 fL (36.4-46.3); WHITE BLOOD COUNT 7.42 K/uL (4.8-10.8)
--- NOTE | 2017-11-10 14:28 | DIAGNOSTIC IMAGING REPORT ---
CHEST ONE VIEW PORTABLE CLINICAL HISTORY: 72 years-old Male presenting with CHEST PAIN. TECHNIQUE: Portable upright AP view of the chest was obtained. COMPARISON: 10/27/2017. FINDINGS: Atherosclerosis of aortic arch. Cardiac silhouette normal in size. Mildly low lung volumes, unchanged. Improved aeration of the right paramediastinal lung base. No new focal infiltrate. No large effusion or pneumothorax. Osseous structures normal. Upper abdomen normal. IMPRESSION: 1. Mildly low lung volumes. No convincing evidence of acute cardiopulmonary disease. Electronically signed by: Ollie Morin M.D. 11/10/2017 2:27 PM Dictated Date/Time: 11/10/2017 2:26 PM
--- NOTE | 2017-11-10 14:32 | EMERGENCY ROOM VISIT NOTE ---
History Report prepared by Corie: Saw Griffin Under the Supervision of: Dr. Shyam Cartwright M.D. First contact with patient: 14:02 Chief Complaint: ALTERED MENTAL STATUS Stated Complaint: AMS History of Present Illness The patient is a 72 year old male who presents to the Emergency Room with complaints of a constant altered mental status beginning today. Per , the patient was ambulating normally yesterday and did not seem to be acting confused. She notes that the patient began having difficulty with his motility last night that progressed into this morning. She reports that he also seemed to be confused today. She states that the patient is normally able to walk and remember his name and the date, and that this is the first time he has acted this way. She notes that the patient was admitted two weeks ago for dehydration , and was mildly confused but did not have difficulty walking. She reports that the patient also came to the emergency department last month. She states that the patient has been having normal bowel movements and has not been experiencing any SOB, CP, cough, congestion, fever, chills, nausea, and vomiting. She notes that the patient has a history of cirrhosis. She reports that the patient took 1 of his 3 daily doses of lactulose this morning, and missed his noon dosage. She states that the patient had multiple paracentesis procedures performed, with 2 3L samples being taken the first time, and 4L being taken the second time. She notes that she does not think that the patient is currently bloated. Source of History: patient, spouse/significant other Onset: today Position: head Quality: other (altered mental status) Timing: constant Associated Symptoms: No fevers, No chills, No cough, No chest pain, No SOB, No nausea, No vomiting Note: Per , the patient has been experiencing difficulty ambulating and confusion. She notes that the patient denies any congestion. Review of Systems See HPI for pertinent positives and negatives. A total of ten systems were reviewed and were otherwise negative. Past Medical & Surgical Medical Problems: (1) Ascites (2) Bladder cancer (3) Cirrhosis (4) Cirrhosis (5) Dehydration (6) Fatigue (7) Hernia (8) Hyperammonemia (9) Liver cirrhosis (10) Sepsis Family History No pertinent family history stated. Social History Smoking Status: Former Smoker Drug Use: none Marital Status: Housing Status: lives with family Occupation Status: retired Current/Historical Medications Scheduled Ciprofloxacin Hcl (Cipro), 1 TAB PO DAILY Lactulose (Lactulose), 20 GM PO TID Multivitamin (Multivitamin), 1 TAB PO QAM Vitamin E (Vitamin E), 800 UNITS PO QAM Scheduled PRN Naproxen (Naprosyn), 500 MG PO BID PRN for GOUT PAIN Ondasetron Odt (Zofran Odt), 4 MG SL Q6H PRN for Nausea or Vomiting Allergies Coded Allergies: No Known Allergies (Unverified , 11/10/17) Physical Exam Vital Signs Date Time Temp Pulse Resp B/P (MAP) Pulse Ox O2 Delivery O2 Flow Rate FiO2 11/10/17 16:03 96 20 107/65 98 11/10/17 15:09 86 20 104/66 100 11/10/17 14:33 100 Room Air 11/10/17 14:00 36.6 82 16 95/61 100 Room Air 11/10/17 13:57 82 Physical Exam GENERAL: Awake, confused, unable to tell me his name but will follow commands, well-appearing, in no distress HENT: Normocephalic, atraumatic. Oropharynx unremarkable. Dry MM. EYES: Normal conjunctiva. Sclera non-icteric. NECK: Supple. No nuchal rigidity. FROM. No JVD. RESPIRATORY: Clear to auscultation. CARDIAC: Regular rate, normal rhythm. Extremities warm and well perfused. Pulses equal. 3/6 systolic murmur. ABDOMEN: Soft, non-distended. No tenderness to palpation. No rebound or guarding. No masses. RECTAL: Deferred. MUSCULOSKELETAL: Chest examination reveals no tenderness. The back is symmetrical on inspection without obvious abnormality. There is no CVA tenderness to palpation. No joint edema. Bilateral upper extremity asterixis. LOWER EXTREMITIES: Calves are equal size bilaterally and non-tender. No edema. No discoloration. NEURO: Normal sensorium. No sensory or motor deficits noted. SKIN: No rash or jaundice noted. Medical Decision & Procedures ER Provider Diagnostic Interpretation: Radiology results as stated below per my review and radiologist interpretation: HEAD WITHOUT CONTRAST (CT) FINDINGS: Concrete Vault Maker topogram: Unremarkable. Ventricles and sulci normal in size. Periventricular and subcortical white matter hypoattenuation, nonspecific but likely indicative of chronic small vessel ischemic change. No mass effect or midline shift. No hemorrhage or acute territorial infarct. No extra-axial fluid collection. Extensive opacification of the ethmoid air cells and sphenoid sinuses as well as the left maxillary sinus and left frontal sinus. Atherosclerosis. IMPRESSION: 1. Chronic small vessel ischemic change. No acute intracranial abnormality. 2. Extensive sinus opacification. Correlate for possible acute sinusitis. Electronically signed by: Ollie Morin M.D. 11/10/2017 3:09 PM CHEST ONE VIEW PORTABLE FINDINGS: Atherosclerosis of aortic arch. Cardiac silhouette normal in size. Mildly low lung volumes, unchanged. Improved aeration of the right paramediastinal lung base. No new focal infiltrate. No large effusion or pneumothorax. Osseous structures normal. Upper abdomen normal. IMPRESSION: 1. Mildly low lung volumes. No convincing evidence of acute cardiopulmonary disease. Electronically signed by: Ollie Morin M.D. 11/10/2017 2:27 PM Laboratory Results Test 11/10/17 13:54 11/10/17 14:51 Osmolality 286 mOsm/kg (280-300) Pro-B-Type Natriuretic Peptide 1408 pg/ml (0-900) Lipase 493 U/L (73-393) Activated Partial Thromboplast Time 38.3 SECONDS (21.0-31.0) Partial Thromboplastin Ratio 1.5 Laboratory results reviewed by me Medications Administered Medications (Trade) Dose Ordered Sig/Raffi Route Start Time Stop Time Status Last Admin Dose Admin Sodium Chloride 500 ml @ 999 mls/hr Q31M STAT IV 11/10/17 14:05 11/10/17 14:35 DC 11/10/17 14:32 999 MLS/HR Lactulose (Chronulac Syrup) 30 gm NOW STAT PO 11/10/17 14:05 11/10/17 14:13 DC 11/10/17 14:31 30 GM Sodium Chloride 500 ml @ 999 mls/hr Q31M STAT IV 11/10/17 16:04 11/10/17 16:34 DC 11/10/17 16:07 999 MLS/HR Sodium Chloride 1,000 ml @ 100 mls/hr Q10H IV 11/10/17 16:39 12/10/17 16:38 11/11/17 13:06 100 MLS/HR ECG Indication: altered mental status Rate (beats per minute): 84 Rhythm: normal sinus Findings: no acute ischemic change, other (Left axis deviation, nonspecific ST and T-wave changes anteriorly) Comparison ECG Date: 07/21/2016 Change: no significant change ED Course 1403: The patient was evaluated in room C10. A complete history and physical exam was performed. 1609: Upon reexamination, the patient was stable. I discussed the test results and treatment plan with him. The patient will be evaluated for further management. Medical Decision I reviewed the patient's past medical history, medications, and the nursing notes as described above. Differential diagnoses include: hepatic encephalopathy, stoke, dehydration, electrolyte imbalance, pneumonia, bronchitis, UTI, SBP, and sepsis. The patient is a 72-year-old gentleman with a past medical history cirrhosis and hepatic encephalopathy on lactulose presents emergency Department with worsening confusion and difficulty with ambulation since last night per hpi. Of note the reports not missing any doses of lactulose. On arrival the patient is confused but in no acute distress, afebrile stable vital signs. He is unable to say his name but says his birthday. He will follow all commands. He does have bilateral upper extremity asterixis. No gross motor deficits. Patient appears clinically dry with dry cracked mucous membranes. Abdomen is nondistended and soft. Labs notable for acute on chronic renal failure with creatinine to 3.5 previously 1.5. Hyponatremia with sodium of 119. BUN/ creatinine greater than 20 suggesting prerenal etiology. Ammonia elevated in the 40s likely contributing the patient's confusion. Troponin mildly elevated at 0.1 however given the patient's renal failure unlikely to be ACS. Will defer heparin at this time given bleeding risk with his cirrhosis INR 1.4. CXR and CT head unremarkable. Case was discussed with MADI Villalta hospitalist to admit the patient for further management. Medication Reconcilliation Current Medication List: was personally reviewed by me Blood Pressure Screening Patient's blood pressure: Normal blood pressure Blood pressure disposition: Did not require urgent referral Consults Time Called: 1608 Consulting Physician: MADI Foley Returned Call: 1609 I discussed the patient with Agatha Foley. He will evaluate the patient for further treatment. Impression Primary Impression: Hepatic encephalopathy Additional Impressions: Hyponatremia Acute on chronic renal failure Elevated troponin Scribe Attestation The scribe's documentation has been prepared under my direction and personally reviewed by me in its entirety. I confirm that the note above accurately reflects all work, treatment, procedures, and medical decision making performed by me. Departure Information Dispostion Being Evaluated By Hospitalist Referrals Martir Brownlee D.O. (PCP) Patient Instructions My [facility] Problem Qualifiers
[2017-11-10 14:51] LABS: ALBUMIN 2.1 gm/dl (3.4-5.0); CALCIUM 8.1 mg/dl (8.5-10.1); CREATININE 3.51 mg/dl (0.60-1.40); POTASSIUM 5.7 mmol/L (3.5-5.1); TOTAL PROTEIN 6.8 gm/dl (6.4-8.2)
--- NOTE | 2017-11-10 15:10 | DIAGNOSTIC IMAGING REPORT ---
HEAD WITHOUT CONTRAST (CT) CLINICAL HISTORY: 72 years-old Male presenting with altered mental status. TECHNIQUE: Multidetector CT imaging of the head was performed without the use of intravenous contrast. IV contrast: None. A dose lowering technique was used consistent with the principles of ALARA (as low as reasonably achievable). COMPARISON: 10/02/2017. CT DOSE (mGy.cm): The estimated cumulative dose is 537.48 mGy.cm. FINDINGS: Online Editor topogram: Unremarkable. Ventricles and sulci normal in size. Periventricular and subcortical white matter hypoattenuation, nonspecific but likely indicative of chronic small vessel ischemic change. No mass effect or midline shift. No hemorrhage or acute territorial infarct. No extra-axial fluid collection. Extensive opacification of the ethmoid air cells and sphenoid sinuses as well as the left maxillary sinus and left frontal sinus. Atherosclerosis. IMPRESSION: 1. Chronic small vessel ischemic change. No acute intracranial abnormality. 2. Extensive sinus opacification. Correlate for possible acute sinusitis. Electronically signed by: Ollie Morin M.D. 11/10/2017 3:09 PM Dictated Date/Time: 11/10/2017 3:06 PM
[2017-11-10 15:23] LABS: INR 1.4 (0.9-1.1)
[2017-11-10] MEDS ORDERED: ACETAMINOPHEN 325 MG TAB PO PRN (16:45)
[2017-11-10] MEDS ORDERED: SODIUM POLYST. SULF SUSP 15G/60ML PO STA (16:49)
[2017-11-10] MEDS ORDERED: CALCIUM GLUCONATE 10% 1,000 MG in SODIUM CHLORIDE 0.9% 50ML 50 ML IV STA (16:50)
[2017-11-10] MEDS ORDERED: DEXTROSE 50% 50 ML SYR IV STA (16:51)
[2017-11-10] MEDS ORDERED: INSULIN HUMAN REGULAR PER UNIT 10 UNITS in SYRINGE 9.9 ML IV STA (16:51)
--- NOTE | 2017-11-10 18:22 | History and Physical ---
History & Physical Date & Time of Service: Nov 10, 2017 at 17:51 Chief Complaint: AMS Primary Care Physician: Martir Brownlee D.O. History of Present Illness Source: patient, spouse, hospital records 72 yo male with history of WELCH causing cirrhosis with recent history of admission for hepatic encephalopathy who was discharged one week ago on Lactulose and his Lasix, Spironolactone and Nadolol were stopped due to mild PARADISE and hypotension. He was scheduled to follow up with Dr. Gutierrez in two days. He was doing well for a few days, his notes that he was drinking water but not eating a lot. They were intentionally trying to avoid sodium as they were instructed that this could lead to volume retention. His abdomen remained stable from an ascites standpoint, no increase in swelling. He did not have any lower extremity swelling or dyspnea. He struggled to eat enough and gradually became more fatigued. He slept well last night. His noticed that he was more confused this morning. Due to his confusion she was concerned that he had developed hepatic encephalopathy. He has been compliant with his Lactulose and his stools have been loose, 2 a day. In the ED his ammonia was 44, however, his Cr was 3.5, markedly elevated compared to prior levels. His sodium was 119 and potassium slightly high at 5.7. Past Medical/Surgical History Medical Problems: (1) Bladder cancer Status: Resolved (2) Hernia Status: Chronic (3) Liver cirrhosis Status: Chronic Family History Colon cancer Social History Smoking Status: Former Smoker Drug Use: none Marital Status: Housing status: lives with family Occupational Status: retired Immunizations History of Influenza Vaccine: Unknown History of Tetanus Vaccine?: Unknown History of Pneumococcal: Unknown History of Hepatitis B Vaccine: Unknown Multi-Drug Resistant Organisms History of MDRO: No Allergies Coded Allergies: No Known Allergies (Unverified , 11/10/17) Home Medications Scheduled Ciprofloxacin Hcl (Cipro), 1 TAB PO DAILY Lactulose (Lactulose), 20 GM PO TID Multivitamin (Multivitamin), 1 TAB PO QAM Vitamin E (Vitamin E), 800 UNITS PO QAM Scheduled PRN Naproxen (Naprosyn), 500 MG PO BID PRN for GOUT PAIN Ondasetron Odt (Zofran Odt), 4 MG SL Q6H PRN for Nausea or Vomiting Review of Systems Constitutional: + weakness, + fatigue, No fever, No chills, No sweats, No weight loss, No problem reported Eyes: No worsening of vision, No eye pain, No redness, No discharge, No diplopia, No problem reported ENT: No hearing loss, No unusual epistaxis, No nasal symptoms, No sore throat, No tinnitus, No dental problems, No trouble swallowing, No problem reported Respiratory: No cough, No sputum, No wheezing, No shortness of breath, No dyspnea on exertion, No dyspnea at rest, No hemoptysis, No problem reported Cardiovascular: No chest pain, No orthopnea, No PND, No edema, No claudication , No palpitations, No problem reported Abdomen: + diarrhea, No pain, No nausea, No vomiting, No constipation, No GI bleeding, No problem reported Musculoskeletal: No joint pain, No muscle pain, No swelling, No calf pain, No problem reported Genitourinary - Male: + problem reported (decreased urine output), No hematuria , No dysuria, No urinary frequency, No urinary urgency Neurologic: + weakness, + problem reported (confusion), No memory loss, No paralysis, No numbness/tingling, No vertigo, No balance problems Psychiatric: No depression symptoms, No anhedonism, No anxiety, No insomnia, No substance abuse, No problem reported Endocrine: + fatigue, No excessive thirst, No excessive urination, No problem reported Hematologic / Lymphatic: No abnormal bleeding/bruising, No clotting problems, No swollen lymph nodes, No night sweats, No problem reported Integumentary: No rash, No itch, No new/changing skin lesions, No color change , No bleeding, No problem reported Allergic / Immunologic: No environmental allergies, No seasonal allergies, No pet sensitivities, No food allergies, No hives, No frequent infections, No poor healing, No prolonged convalescence, No problem reported Physical Exam Vital Signs Date Time Temp Pulse Resp B/P (MAP) Pulse Ox O2 Delivery O2 Flow Rate FiO2 11/10/17 17:40 104 18 100/59 100 Room Air 11/10/17 16:03 96 20 107/65 98 11/10/17 15:09 86 20 104/66 100 11/10/17 14:33 100 Room Air 11/10/17 14:00 36.6 82 16 95/61 100 Room Air 11/10/17 13:57 82 General Appearance: no apparent distress, + thin Head: normocephalic, atraumatic Eyes: normal inspection, EOMI, sclerae normal ENT: normal ENT inspection, hearing grossly normal, pharynx normal Neck: supple, no adenopathy, no JVD, trachea midline Respiratory/Chest: chest non-tender, lungs clear, normal breath sounds, no respiratory distress, no accessory muscle use Cardiovascular: no edema, no gallop, no JVD, no murmur, normal peripheral pulses, + tachycardia Abdomen/GI: normal bowel sounds, non tender, soft, no organomegaly, + pertinent finding (+ ascites, no tenderness) Back: normal inspection, no CVA tenderness, no muscle spasm, normal range of motion Extremities/Musculoskelatal: normal inspection, no calf tenderness, normal capillary refill, no pedal edema, normal range of motion, pelvis stable 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: master plumber II-XII nml as tested, alert, normal mood/affect, normal reflexes, oriented x 3, + pertinent finding (+ asterixis) Skin: normal color, warm/dry, no rash Diagnostics Laboratory Results Results Past 24 Hours Test 11/10/17 13:54 11/10/17 14:05 11/10/17 14:51 Range/Units White Blood Count 7.42 4.8-10.8 K/uL Red Blood Count 3.72 4.7-6.1 M/uL Hemoglobin 11.7 14.0-18.0 g/dL Hematocrit 32.2 42-52 % Mean Corpuscular Volume 86.6 80-100 fL Mean Corpuscular Hemoglobin 31.5 25-34 pg Mean Corpuscular Hemoglobin Concent 36.3 32-36 g/dl Platelet Count 122 130-400 K/uL Mean Platelet Volume 11.1 7.4-10.4 fL Neutrophils (%) (Auto) 59.9 % Lymphocytes (%) (Auto) 22.2 % Monocytes (%) (Auto) 16.4 % Eosinophils (%) (Auto) 1.1 % Basophils (%) (Auto) 0.1 % Neutrophils # (Auto) 4.44 1.4-6.5 K/uL Lymphocytes # (Auto) 1.65 1.2-3.4 K/uL Monocytes # (Auto) 1.22 0.11-0.59 K/uL Eosinophils # (Auto) 0.08 0-0.5 K/uL Basophils # (Auto) 0.01 0-0.2 K/uL RDW Standard Deviation 51.3 36.4-46.3 fL RDW Coefficient of Variation 16.2 11.5-14.5 % Immature Granulocyte % (Auto) 0.3 % Immature Granulocyte # (Auto) 0.02 0.00-0.02 K/uL Sodium Level 119 136-145 mmol/L Potassium Level 5.7 3.5-5.1 mmol/L Chloride Level 92 98-107 mmol/L Carbon Dioxide Level 18 21-32 mmol/L Anion Gap 9.0 3-11 mmol/L Blood Urea Nitrogen 87 7-18 mg/dl Creatinine 3.51 0.60-1.40 mg/dl Est Creatinine Clear Calc Drug Dose 16.1 ml/min Estimated GFR () 19.3 Estimated GFR (Non- 16.6 BUN/Creatinine Ratio 24.8 10-20 Random Glucose 89 70-99 mg/dl Osmolality 286 280-300 mOsm/kg Calcium Level 8.1 8.5-10.1 mg/dl Total Bilirubin 2.3 0.2-1 mg/dl Direct Bilirubin 1.0 0-0.2 mg/dl Aspartate Amino Transf (AST/SGOT) 76 15-37 U/L Alanine Aminotransferase (ALT/SGPT) 63 12-78 U/L Alkaline Phosphatase 173 45-117 U/L Troponin I 0.158 0-0.045 ng/ml Pro-B-Type Natriuretic Peptide 1408 0-900 pg/ml Total Protein 6.8 6.4-8.2 gm/dl Albumin 2.1 3.4-5.0 gm/dl Lipase 493 73-393 U/L Prothrombin Time 14.6 9.0-12.0 SECONDS Prothromb Time International Ratio 1.4 0.9-1.1 Lactic Acid Level 2.6 0.4-2.0 mmol/L Ammonia 44.4 11-32 umol/L Microbiology Results 11/10/17 Blood Culture, Received Pending 11/10/17 Blood Culture, Received Pending CXR normal EKG sinus, Left axis deviation, anterior/lateral ST changes, mild depression and TW inversions Impression Assessment and Plan 72 yo male with known h/o cirrhosis due to WELCH, presents today with weakness, confusion, poor appetite - PARADISE on CKD: Cr up to 3.51 at this time, Cr was 1.4 at time of discharge one week ago patient has decreased urine output, stable ascites, he has been drinking water but poor solute intake received a total of 1000cc NSS in the ED, will give 100cc/hr overnight repeat BMP q4 due to the Na and K check urine sodium level discussed with Dr. Avalos at time of admission as the possibility of hepatorenal syndrome exists if blood pressure goes lower, could add Midodrine - Hyponatremia: likely combination of ascites, poor salt intake (intentional) and drinking free water will treat with NSS check serum and urine osmolality, urine sodium check Na every 4 hours through the night nephrology consulted - Hyperkalemia: likely from PARADISE, will give calcium gluconate, dextrose and insulin, Kayexalate follow BMP q4 observe on tele - Lateral ST changes with mild elevation of troponin: no chest pain will follow on tele, cycle troponin - Cirrhosis: due to WELCH, will consult Dr. Gutierrez compliant with Lactulose, ammonia 44, improved mentation after fluids last admission his Lasix, Spironolactone and Nadolol were stopped his MELD score is 31 at this time, would improve if Cr improves Dr. Gutierrez has discussed [place] [facility] [place] and family as outpatient for consideration of transplant - DVT prophylaxis: Heparin SC total of 60 minutes spent on this admission Level of Care Telemetry Resuscitation Status FULL RESUSCITATION VTE Prophylaxis VTE Risk Assessment Done? Y/N: Yes Risk Level: Moderate Given or contraindicated: Unfractionated heparin SQ
[2017-11-10 18:35] VITALS: O2SAT 99
[2017-11-10 18:36] VITALS: BP 104/73; PULSE 106; TEMP 36.5; O2SAT 99
--- NOTE | 2017-11-10 18:40 | NUR ---
A/ID: PT ARRIVED TO UNIT ABOUT THIS TIME. PT SETTLED BY DAYSHIFT RN. MONITOR INTACT. CODE WORD AND FALL SHEET SIGNED. PT GIVEN YELLOW SOCKS AND FALL BRACELET. CALL MARTE WITHIN REACH. PENDING DISCHARGE.
[2017-11-10 19:00] VITALS: BP 104/73; PULSE 98; TEMP 36.5; O2SAT 99; Ht 172.7 cm; Wt 67.8 kg
[2017-11-10] MEDS: SODIUM CHLORIDE 0.9% 1000ML 1,000 ML IV SCH (19:29)
[2017-11-10 19:55] LABS: PTT PATIENT 38.3 SECONDS (21.0-31.0)
[2017-11-10 20:00] VITALS: O2SAT 99
--- NOTE | 2017-11-10 20:00 | NUR ---
A: Resting in bed, oriented x4, bilateral clear lungs on RA, IV infusing denied pain, sinus rhythm to sinus tackycardia (98 -104 bpm) on the monitor
[2017-11-10 20:40] LABS: CALCIUM 8.3 mg/dl (8.5-10.1); CREATININE 3.34 mg/dl (0.60-1.40)
[2017-11-10 20:56] LABS: POTASSIUM 4.8 mmol/L (3.5-5.1)
[2017-11-10] MEDS: LACTULOSE SYRUP 20 GM/30 ML UDC PO SCH (21:22)
[2017-11-10] MEDS: HEPARIN SOD 5000 UNIT/0.5 ML CARP SQ SCH (21:23)
[2017-11-10 23:22] VITALS: BP 100/67; PULSE 99; TEMP 36.5; O2SAT 100
[2017-11-10 23:58] LABS: CALCIUM 8.1 mg/dl (8.5-10.1); CREATININE 3.22 mg/dl (0.60-1.40); POTASSIUM 4.8 mmol/L (3.5-5.1)
[2017-11-11] VITALS (7 sets, daily range): BP systolic 88–107; BP diastolic 55–69; PULSE 92–99; TEMP 36.4–36.8; O2SAT 96–100
--- NOTE | 2017-11-11 00:01 | NUR ---
A/ID: REFER TO EMR FOR HEAD TO TOE ASSESSMENT. PT DENIES COMPLAINTS OF PAIN OR SHORTNESS OF BREATH AT PRESENT TIME. VSS. IV FLUIDS PER ORDERS. CALL MARTE WITHIN REACH, BED ALARM FOR SAFETY. WILL CONTINUE TO MONITOR. UNKNOWN D/C AT THIS TIME.
--- NOTE | 2017-11-11 04:00 | NUR ---
A: REFER TO EMR FOR HEAD TO TOE ASSESSMENT. PT DENIES COMPLAINTS OF PAIN OR SHORTNESS OF BREATH AT PRESENT TIME. PT INCT OF SMALL AMOUNT OF STOOL- CARE COMPLETED. PT REPOSITIONED IN BED. BED ALARM FOR SAFETY. CALL MARTE WITHIN REACH, WILL CONTINUE TO MONITOR.
[2017-11-11 04:11] LABS: HEMATOCRIT 30.2 % (42-52); HEMOGLOBIN 10.9 g/dL (14.0-18.0); MEAN CELL VOLUME 86.8 fL (80-100); MEAN CORPUSCULAR HEMOGLOBIN 31.3 pg (25-34); MEAN CORPUSCULAR HGB CONC 36.1 g/dl (32-36); RED CELL DISTRIBUTION WIDTH CV 16.5 % (11.5-14.5); RED CELL DISTRIBUTION WIDTH SD 52.1 fL (36.4-46.3); WHITE BLOOD COUNT 6.46 K/uL (4.8-10.8)
[2017-11-11 04:18] LABS: INR 1.4 (0.9-1.1)
[2017-11-11 04:31] LABS: CALCIUM 8.1 mg/dl (8.5-10.1); CREATININE 3.05 mg/dl (0.60-1.40); POTASSIUM 4.8 mmol/L (3.5-5.1)
[2017-11-11 04:40] LABS: PHOSPHORUS 4.6 mg/dl (2.5-4.9); TOTAL PROTEIN 6.1 gm/dl (6.4-8.2)
[2017-11-11 04:58] LABS: PLATELET COUNT 95 K/uL (130-400)
[2017-11-11 04:59] LABS: BASO % 0.2 %; BASO ABS # 0.01 K/uL (0-0.2); EOS % 1.4 %; EOS ABS # 0.09 K/uL (0-0.5); IG# 0.01 K/uL (0.00-0.02); LYMPH ABS # 1.23 K/uL (1.2-3.4); NEUT % 62.2 %; NEUT ABS # 4.02 K/uL (1.4-6.5)
--- NOTE | 2017-11-11 05:00 | NUR ---
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 AWAITING ORDERS.
[2017-11-11] MEDS: SODIUM CHLORIDE 0.9% 1000ML 1,000 ML IV SCH ×2 (06:18→13:06)
[2017-11-11 08:44] LABS: CREATININE 2.89 mg/dl (0.60-1.40); POTASSIUM 4.8 mmol/L (3.5-5.1)
[2017-11-11] MEDS: CIPROFLOXACIN 500 MG TAB PO SCH (09:17)
[2017-11-11] MEDS: LACTULOSE SYRUP 20 GM/30 ML UDC PO SCH ×3 (09:17→21:02)
[2017-11-11] MEDS: HEPARIN SOD 5000 UNIT/0.5 ML CARP SQ SCH (09:22)
--- NOTE | 2017-11-11 11:04 | Progress Note ---
Subjective Date of Service: Nov 11, 2017. Subjective Pt evaluation today including: conversation w/ patient, conversation w/ family , physical exam, chart review, lab review, review of studies, conversation w/ medical economics consultant, review of inpatient medication list Voiding: incontinence looks very lethargic, know his name and 's name, know he is in the hospital, but not able able to tell his BD. Denied pain, Problem List Medical Problems: (1) Acute on chronic renal failure Status: Acute (2) CKD (chronic kidney disease) Status: Acute (3) Elevated troponin Status: Acute (4) Fever Status: Acute (5) Hepatic encephalopathy Status: Acute (6) Hyperkalemia Status: Acute (7) Hyponatremia Status: Acute (8) Hypotension Status: Acute Review of Systems Constitutional: + problem reported (is limited because of lethargic) Objective Vital Signs Date Time Temp Pulse Resp B/P (MAP) Pulse Ox O2 Delivery O2 Flow Rate FiO2 11/11/17 08:26 Room Air 11/11/17 08:08 36.5 92 19 88/55 (66) 100 Room Air 11/11/17 04:02 36.4 97 18 97/65 (76) 100 Room Air 11/11/17 04:00 Room Air 11/10/17 23:59 Room Air 11/10/17 23:22 36.5 99 17 100/67 (78) 100 Room Air 11/10/17 20:00 99 Room Air 11/10/17 19:00 36.5 98 20 104/73 99 Room Air 11/10/17 18:36 36.5 106 18 104/73 (83) 99 Room Air 11/10/17 18:35 99 Room Air 11/10/17 17:40 104 18 100/59 100 Room Air 11/10/17 16:03 96 20 107/65 98 11/10/17 15:09 86 20 104/66 100 11/10/17 14:33 100 Room Air 11/10/17 14:00 36.6 82 16 95/61 100 Room Air 11/10/17 13:57 82 Physical Exam General Appearance: + thin, + pertinent finding (frail lethargic) Eyes: normal inspection ENT: normal ENT inspection Neck: supple, no adenopathy, thyroid normal, no JVD, no carotid bruits, trachea midline Respiratory/Chest: normal breath sounds, no respiratory distress, + decreased breath sounds Cardiovascular: regular rate, rhythm Abdomen: + pertinent finding (ascites) Extremities: normal range of motion, + swelling (1-2+ edema) 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iatric: + pertinent finding ( no facial droop) Skin: normal color Laboratory Results Last 24 Hours Test 11/10/17 13:54 11/10/17 14:51 11/10/17 17:38 11/10/17 18:14 White Blood Count 7.42 K/uL Red Blood Count 3.72 M/uL Hemoglobin 11.7 g/dL Hematocrit 32.2 % Mean Corpuscular Volume 86.6 fL Mean Corpuscular Hemoglobin 31.5 pg Mean Corpuscular Hemoglobin Concent 36.3 g/dl Platelet Count 122 K/uL Mean Platelet Volume 11.1 fL Neutrophils (%) (Auto) 59.9 % Lymphocytes (%) (Auto) 22.2 % Monocytes (%) (Auto) 16.4 % Eosinophils (%) (Auto) 1.1 % Basophils (%) (Auto) 0.1 % Neutrophils # (Auto) 4.44 K/uL Lymphocytes # (Auto) 1.65 K/uL Monocytes # (Auto) 1.22 K/uL Eosinophils # (Auto) 0.08 K/uL Basophils # (Auto) 0.01 K/uL RDW Standard Deviation 51.3 fL RDW Coefficient of Variation 16.2 % Immature Granulocyte % (Auto) 0.3 % Immature Granulocyte # (Auto) 0.02 K/uL Sodium Level 119 mmol/L Potassium Level 5.7 mmol/L Chloride Level 92 mmol/L Carbon Dioxide Level 18 mmol/L Anion Gap 9.0 mmol/L Blood Urea Nitrogen 87 mg/dl Creatinine 3.51 mg/dl Est Creatinine Clear Calc Drug Dose 16.1 ml/min Estimated GFR () 19.3 Estimated GFR (Non- 16.6 BUN/Creatinine Ratio 24.8 Random Glucose 89 mg/dl Osmolality 286 mOsm/kg Calcium Level 8.1 mg/dl Total Bilirubin 2.3 mg/dl Direct Bilirubin 1.0 mg/dl Aspartate Amino Transf (AST/SGOT) 76 U/L Alanine Aminotransferase (ALT/SGPT) 63 U/L Alkaline Phosphatase 173 U/L Troponin I 0.158 ng/ml Pro-B-Type Natriuretic Peptide 1408 pg/ml Total Protein 6.8 gm/dl Albumin 2.1 gm/dl Lipase 493 U/L Prothrombin Time 14.6 SECONDS Prothromb Time International Ratio 1.4 Activated Partial Thromboplast Time 38.3 SECONDS Partial Thromboplastin Ratio 1.5 Lactic Acid Level 2.6 mmol/L Ammonia 44.4 umol/L Bedside Glucose 103 mg/dl 212 mg/dl Test 11/10/17 20:01 11/10/17 23:27 11/11/17 04:00 11/11/17 07:53 Sodium Level 124 mmol/L 125 mmol/L 125 mmol/L 125 mmol/L Potassium Level 4.8 mmol/L 4.8 mmol/L 4.8 mmol/L 4.8 mmol/L Chloride Level 98 mmol/L 97 mmol/L 100 mmol/L 98 mmol/L Carbon Dioxide Level 15 mmol/L 16 mmol/L 16 mmol/L 16 mmol/L Anion Gap 11.0 mmol/L 12.0 mmol/L 9.0 mmol/L 11.0 mmol/L Blood Urea Nitrogen 81 mg/dl 81 mg/dl 83 mg/dl 85 mg/dl Creatinine 3.34 mg/dl 3.22 mg/dl 3.05 mg/dl 2.89 mg/dl Est Creatinine Clear Calc Drug Dose 19.9 ml/min 20.6 ml/min 21.8 ml/min 23.0 ml/min Estimated GFR () 20.5 21.4 22.9 24.4 Estimated GFR (Non- 17.7 18.5 19.7 21.0 BUN/Creatinine Ratio 24.3 25.2 27.2 29.5 Random Glucose 56 mg/dl 82 mg/dl 82 mg/dl 81 mg/dl Lactic Acid Level 2.8 mmol/L Calcium Level 8.3 mg/dl 8.1 mg/dl 8.1 mg/dl 8.0 mg/dl Troponin I 0.165 ng/ml 0.171 ng/ml White Blood Count 6.46 K/uL Red Blood Count 3.48 M/uL Hemoglobin 10.9 g/dL Hematocrit 30.2 % Mean Corpuscular Volume 86.8 fL Mean Corpuscular Hemoglobin 31.3 pg Mean Corpuscular Hemoglobin Concent 36.1 g/dl Platelet Count 95 K/uL Mean Platelet Volume 10.0 fL Neutrophils (%) (Auto) 62.2 % Lymphocytes (%) (Auto) 19.0 % Monocytes (%) (Auto) 17.0 % Eosinophils (%) (Auto) 1.4 % Basophils (%) (Auto) 0.2 % Neutrophils # (Auto) 4.02 K/uL Lymphocytes # (Auto) 1.23 K/uL Monocytes # (Auto) 1.10 K/uL Eosinophils # (Auto) 0.09 K/uL Basophils # (Auto) 0.01 K/uL RDW Standard Deviation 52.1 fL RDW Coefficient of Variation 16.5 % Immature Granulocyte % (Auto) 0.2 % Immature Granulocyte # (Auto) 0.01 K/uL Platelet Estimate DECREASED Echinocytes 1+ Prothrombin Time 15.0 SECONDS Prothromb Time International Ratio 1.4 Phosphorus Level 4.6 mg/dl Magnesium Level 2.4 mg/dl Total Bilirubin 2.5 mg/dl Direct Bilirubin 1.1 mg/dl Aspartate Amino Transf (AST/SGOT) 72 U/L Alanine Aminotransferase (ALT/SGPT) 60 U/L Alkaline Phosphatase 153 U/L Total Protein 6.1 gm/dl Albumin 2.0 gm/dl Assessment and Plan 72 yo male with known h/o cirrhosis due to WELCH, possible end-stage liver disease was recommended to have liver transplantation by GI, readmitted on 11/11 with weakness, confusion, poor appetite - PARADISE on CKD: Cr up to 3.51 upon admission, minimal improving Possible hepatorenal syndrome Cr was 1.4 at time of discharge one week ago Combine Driver , on the case, if blood pressure goes lower, could add Midodrine Possible ESLD with Cirrhosis: due to WELCH, he was recommended to have liver transplantation per GI service in last admission Called to patient's , family not decided yet, family would like to have more information from GI service, I encouraged to ask as much question as possible consulted Dr. Gutierrez, Upon admission MELD -Na Score is 31 and MELD 25, mortality is 19.6% in 3 month Continue Lactulose, follow-up ammonia level Continue to hold Lasix, Spironolactone and Nadolol Agreed to have paracentesis Hyponatremia: likely combination of end-stage liver disease with ascites, poor salt intake and drinking free water, continue current care Hyperkalemia: Resolved and follow-up Lateral ST changes with mild elevation of troponin: no chest pain, troponin trends down, troponin elevation could be from troponin and EKGs from acute on chronic kidney failure DVT prophylaxis: Discontinue Heparin SC because of thrombocytopenia, mild elevated troponin with INR 1.4, SCD ordered Discussed with about possible grave prognosis, because of the above end- stage renal disease, high mortality rate, and possible hepatorenal syndrome, understand want to keep patient in full code for now, however if no hope for medical treatment the family will decide Continued [facility] stay due to: home environment unsafe for pt Discharge planning: home
--- NOTE | 2017-11-11 12:11 | Clinical Documentation Query ---
QUERY 1 OF [address] PINK, In your clinical opinion is this patient being managed for: ( x ) Metabolic encephalopathy ( ) Acute Hepatic encephalopathy ( ) Combination of metabolic and acute hepatic encephalopathy ( ) Not Agree ( ) Other explanation of clinical findings (Please Explain) ( ) Unable to determine (Please Define) ( ) Need to Discuss The medical record reflects the following clinical findings, treatment, and risk factors. Clinical Indicators: 72 yo male presenting with a constantly altered mental status. Na 119, K 5.7, BUN 87, Cr 3.51, ammonia 44.4. CT head without acute intracranial abnormality. Treatment:IV fluids, tele, lactulose tid, monitor PRP's Risk Factors: hyponatremia, PARADISE, missed lactulose dose, QUERY 2 OF 2 In your clinical opinion does this patient have: ( x ) Chronic kidney disease, stage 2-3 ( ) Not Agree ( ) Other explanation of clinical findings (Please Explain) ( ) Unable to determine (Please Define) ( ) Need to Discuss The medical record reflects the following clinical findings, treatment, and risk factors. Clinical Indicators: GFR range of 44.7-84.7 when not experiencing PARADISE Treatment: monitor PRP's, treat comorbid conditions Risk Factors: WELCH, age Please clarify and document your clinical opinion in the progress notes and discharge summary. Terms such as "probable", "suspected", "likely", "questionable", "possible", or "still to be ruled out" are acceptable. IF IN AGREEMENT, YOU MUST DOCUMENT ABOVE DIAGNOSTIC STATEMENT IN DAILY PROGRESS NOTES AND DISCHARGE SUMMARY. This document is not part of the patient's record. Thank You, Cora Lamb, RN [phone]
[2017-11-11 12:37] LABS: CALCIUM 8.2 mg/dl (8.5-10.1); CREATININE 2.84 mg/dl (0.60-1.40); POTASSIUM 5.3 mmol/L (3.5-5.1)
--- NOTE | 2017-11-11 12:47 | Nephrology Consultation ---
Nephrology Consultation Date & Providers Date of Consultation: Nov 11, 2017. Primary Care Provider: Martir Brownlee D.O. Referring Provider: Reason for Consultation Acute renal insufficiency History of Present Illness Mr. Baljeet Purcell is a 72 year-old male with WELCH cirrhosis who presented to the ED at [facility] yesterday with mental status changes. I reviewed the case with Dr. Devine yesterday evening. Baljeet has multiple recent admissions with hepatic encephalopathy. Cirrhosis is complicated by HE as well as ascites. Most recent paracentesis was performed on October 31 during a similar admission. Cultures from that time growing corynebacterium. He was most recently discharged one week ago on lactulose. Lasix, spironolactone and nadolol were stopped due to PARADISE and hypotension. He was scheduled to follow up with Dr. Gutierrez in the GI clinic. Baljeet has not been evaluated for transplant. Records indicated a progressive decline in health. Baljeet has lost a significant amount of weight in the past several months. His functional status is declining. He is anorexic. He has not had fevers or chills. He was started on IVF overnight. Baljeet is tolerating fluids well. He remains lethargic and confused. History and ROS were limited due to his encephalopathy. Past Medical/Surgical History Medical: Cirrhosis History of bladder cancer Umbilical hernia Surgical: None reported Allergies Coded Allergies: No Known Allergies (Unverified , 11/10/17) Inpatient Medications Current Inpatient Medications Medications (Trade) Dose Ordered Sig/Raffi Route Start Time Stop Time Status Last Admin Dose Admin Sodium Chloride 1,000 ml @ 100 mls/hr Q10H IV 11/10/17 16:39 12/10/17 16:38 11/11/17 06:18 100 MLS/HR Acetaminophen (Tylenol Tab) 650 mg Q4H PRN PO 11/10/17 16:45 12/10/17 16:44 Ondansetron HCl (Zofran Inj) 4 mg Q6H PRN IV 11/10/17 16:45 12/10/17 16:44 Ciprofloxacin (Cipro Tab) 500 mg DAILY PO 11/11/17 09:00 11/21/17 08:59 11/11/17 09:17 500 MG Lactulose (Chronulac Syrup) 20 gm TID PO 11/10/17 21:00 12/10/17 20:59 11/11/17 09:17 20 GM Rifaximin (Xifaxan Tab) 550 mg BID PO 11/11/17 21:00 12/11/17 20:59 Social History Smoking Status: Former Smoker Drug Use: none Marital Status: Housing Status: lives with family Occupation: retired Review of Systems A complete review of systems was limited due to patient's mental status. Pertinent positives are noted above. All other systems are negative. Physical Exam Date Time Temp Pulse Resp B/P (MAP) Pulse Ox O2 Delivery O2 Flow Rate FiO2 11/11/17 11:42 36.5 93 18 100/67 (78) 100 Room Air 11/11/17 08:26 Room Air 11/11/17 08:08 36.5 92 19 88/55 (66) 100 Room Air 11/11/17 04:02 36.4 97 18 97/65 (76) 100 Room Air 11/11/17 04:00 Room Air 11/10/17 23:59 Room Air 11/10/17 23:22 36.5 99 17 100/67 (78) 100 Room Air 11/10/17 20:00 99 Room Air 11/10/17 19:00 36.5 98 20 104/73 99 Room Air 11/10/17 18:36 36.5 106 18 104/73 (83) 99 Room Air 11/10/17 18:35 99 Room Air 11/10/17 17:40 104 18 100/59 100 Room Air 11/10/17 16:03 96 20 107/65 98 11/10/17 15:09 86 20 104/66 100 11/10/17 14:33 100 Room Air 11/10/17 14:00 36.6 82 16 95/61 100 Room Air 11/10/17 13:57 82 General Appearance: no apparent distress, + thin, + pertinent finding ( chronically ill appearing) Head: normocephalic, atraumatic Eyes: normal inspection, sclerae normal ENT: normal ENT inspection, pharynx normal, + pertinent finding (oral mucosa dry) Neck: supple, + JVD Respiratory/Chest: no respiratory distress, no accessory muscle use, + decreased breath sounds Cardiovascular: + tachycardia Abdomen/GI: non tender, soft, + distended, + pertinent finding (+ fluid wave) Extremities/Musculoskelatal: normal inspection, no pedal edema 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: + disoriented, + pertinent finding (lethargic) Skin: + pertinent finding (sallow) Laboratory Results Last 24 Hours Test 11/10/17 13:54 11/10/17 14:51 11/10/17 17:38 11/10/17 18:14 White Blood Count 7.42 K/uL Red Blood Count 3.72 M/uL Hemoglobin 11.7 g/dL Hematocrit 32.2 % Mean Corpuscular Volume 86.6 fL Mean Corpuscular Hemoglobin 31.5 pg Mean Corpuscular Hemoglobin Concent 36.3 g/dl Platelet Count 122 K/uL Mean Platelet Volume 11.1 fL Neutrophils (%) (Auto) 59.9 % Lymphocytes (%) (Auto) 22.2 % Monocytes (%) (Auto) 16.4 % Eosinophils (%) (Auto) 1.1 % Basophils (%) (Auto) 0.1 % Neutrophils # (Auto) 4.44 K/uL Lymphocytes # (Auto) 1.65 K/uL Monocytes # (Auto) 1.22 K/uL Eosinophils # (Auto) 0.08 K/uL Basophils # (Auto) 0.01 K/uL RDW Standard Deviation 51.3 fL RDW Coefficient of Variation 16.2 % Immature Granulocyte % (Auto) 0.3 % Immature Granulocyte # (Auto) 0.02 K/uL Sodium Level 119 mmol/L Potassium Level 5.7 mmol/L Chloride Level 92 mmol/L Carbon Dioxide Level 18 mmol/L Anion Gap 9.0 mmol/L Blood Urea Nitrogen 87 mg/dl Creatinine 3.51 mg/dl Est Creatinine Clear Calc Drug Dose 16.1 ml/min Estimated GFR () 19.3 Estimated GFR (Non- 16.6 BUN/Creatinine Ratio 24.8 Random Glucose 89 mg/dl Osmolality 286 mOsm/kg Calcium Level 8.1 mg/dl Total Bilirubin 2.3 mg/dl Direct Bilirubin 1.0 mg/dl Aspartate Amino Transf (AST/SGOT) 76 U/L Alanine Aminotransferase (ALT/SGPT) 63 U/L Alkaline Phosphatase 173 U/L Troponin I 0.158 ng/ml Pro-B-Type Natriuretic Peptide 1408 pg/ml Total Protein 6.8 gm/dl Albumin 2.1 gm/dl Lipase 493 U/L Prothrombin Time 14.6 SECONDS Prothromb Time International Ratio 1.4 Activated Partial Thromboplast Time 38.3 SECONDS Partial Thromboplastin Ratio 1.5 Lactic Acid Level 2.6 mmol/L Ammonia 44.4 umol/L Bedside Glucose 103 mg/dl 212 mg/dl Test 11/10/17 20:01 11/10/17 23:27 11/11/17 04:00 11/11/17 07:53 Sodium Level 124 mmol/L 125 mmol/L 125 mmol/L 125 mmol/L Potassium Level 4.8 mmol/L 4.8 mmol/L 4.8 mmol/L 4.8 mmol/L Chloride Level 98 mmol/L 97 mmol/L 100 mmol/L 98 mmol/L Carbon Dioxide Level 15 mmol/L 16 mmol/L 16 mmol/L 16 mmol/L Anion Gap 11.0 mmol/L 12.0 mmol/L 9.0 mmol/L 11.0 mmol/L Blood Urea Nitrogen 81 mg/dl 81 mg/dl 83 mg/dl 85 mg/dl Creatinine 3.34 mg/dl 3.22 mg/dl 3.05 mg/dl 2.89 mg/dl Est Creatinine Clear Calc Drug Dose 19.9 ml/min 20.6 ml/min 21.8 ml/min 23.0 ml/min Estimated GFR () 20.5 21.4 22.9 24.4 Estimated GFR (Non- 17.7 18.5 19.7 21.0 BUN/Creatinine Ratio 24.3 25.2 27.2 29.5 Random Glucose 56 mg/dl 82 mg/dl 82 mg/dl 81 mg/dl Lactic Acid Level 2.8 mmol/L Calcium Level 8.3 mg/dl 8.1 mg/dl 8.1 mg/dl 8.0 mg/dl Troponin I 0.165 ng/ml 0.171 ng/ml White Blood Count 6.46 K/uL Red Blood Count 3.48 M/uL Hemoglobin 10.9 g/dL Hematocrit 30.2 % Mean Corpuscular Volume 86.8 fL Mean Corpuscular Hemoglobin 31.3 pg Mean Corpuscular Hemoglobin Concent 36.1 g/dl Platelet Count 95 K/uL Mean Platelet Volume 10.0 fL Neutrophils (%) (Auto) 62.2 % Lymphocytes (%) (Auto) 19.0 % Monocytes (%) (Auto) 17.0 % Eosinophils (%) (Auto) 1.4 % Basophils (%) (Auto) 0.2 % Neutrophils # (Auto) 4.02 K/uL Lymphocytes # (Auto) 1.23 K/uL Monocytes # (Auto) 1.10 K/uL Eosinophils # (Auto) 0.09 K/uL Basophils # (Auto) 0.01 K/uL RDW Standard Deviation 52.1 fL RDW Coefficient of Variation 16.5 % Immature Granulocyte % (Auto) 0.2 % Immature Granulocyte # (Auto) 0.01 K/uL Platelet Estimate DECREASED Echinocytes 1+ Prothrombin Time 15.0 SECONDS Prothromb Time International Ratio 1.4 Phosphorus Level 4.6 mg/dl Magnesium Level 2.4 mg/dl Total Bilirubin 2.5 mg/dl Direct Bilirubin 1.1 mg/dl Aspartate Amino Transf (AST/SGOT) 72 U/L Alanine Aminotransferase (ALT/SGPT) 60 U/L Alkaline Phosphatase 153 U/L Total Protein 6.1 gm/dl Albumin 2.0 gm/dl Test 11/11/17 11:58 Impression (1) Hyperkalemia (2) Acute kidney injury (3) Ascites (4) Dehydration (5) Cirrhosis (6) Hepatic encephalopathy (7) Hyponatremia Mr. Baljeet Purcell is a 72-year-old male with cirrhosis complicated by ascites and recurrent hepatic encephalopathy. He was admitted with mental status changes. He has a history of PARADISE consistent with prerenal azotemia in the past. He is non oliguric. Creatinine is improving slowly with fluids. Hyperkalemia was treated and improved. Metabolic acidosis persists. Metabolic profile otherwise is appropriate at this time. Current MELD ~30. Hyponatremia is acute on chronic and hypovolemic. Recommendations -- Rule out SBP with diagnostic paracentesis -- Maintain positive fluid balance -- Repeat metabolic profile this afternoon and monitor q12 hours -- Start HCO3 replacement (will switch IVF to 1/2 NS + 75 mEq HCO3) -- Encourage nutrition -- GI consult pending -- Medications appropriate for renal function -- Urine studies pending -- Renal imaging held for now pending follow up evaluation
--- NOTE | 2017-11-11 12:59 | GASTROINTESTINAL CONSULTATION ---
DATE OF CONSULTATION: 11/11/2017 REASON FOR CONSULTATION: Cirrhosis with electrolyte and kidney dysfunction. 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 The patient's course has been complicated by portal hypertension and ascites and encephalopathy. The patient has been maintained on lactulose which seems to be improving his encephalopathy, but his ascites has become very difficult to manage. 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 We have tried to do paracenteses to reduce the pressure there and it has helped, but his kidney function has suffered and he presents back to the hospital now with a sodium of 119, potassium is 5.7 and his creatinine is 3.5 and it was 1.4 on discharge, not long ago. Ammonia level was only slightly elevated at 44. At home, the patient has been very weak and just drinking water. He was hypotensive on arrival into the hospital. We did discuss previously liver transplant, the patient was undecided about it, today when I talked to him, he is not very coherent to make a decision one way or the other. PAST MEDICAL HISTORY: Bladder cancer, hernia repair, hydrocele repair; cirrhosis secondary to WELCH, complicated by ascites, encephalopathy and esophageal varices. SOCIAL HISTORY: The patient is , former smoker, lives with his family. He is retired. FAMILY HISTORY: Positive for colon cancer. HOME MEDICATIONS: Lactulose, Cipro, multiple vitamin, vitamin E. His diuretics have been stopped at his last discharge along with nadolol to hypotension. REVIEW OF SYSTEMS: Unreliable as the patient is not really coherent. PHYSICAL EXAMINATION: GENERAL: The patient appears very weak. The patient is not really able to follow directions very easily. VITAL SIGNS: Blood pressure is 100/59, pulse 100. ABDOMEN: Shows umbilical hernia and is somewhat distended from ascites but not as much as in the past. Scrotum shows a fistula on the left side with some edema, but no obvious drainage from the fistula at this time. NEUROLOGIC: Shows him to be somewhat sleepy and unable to follow simple commands. IMPRESSION AND PLAN: The patient has severe electrolyte abnormalities as well as hypotension and renal injury. Currently, he is being hydrated with normal saline. This is obviously a poor prognostic sign. Fortunately, his lactulose is not too bad, but his mental status would indicate that it should be worse. I would continue lactulose at this time and consider adding Xifaxan 550 mg twice a day and is certainly not a candidate for kidney transplant at this point in time, but once I have a chance to talk to his family and him when he is more coherent, we would decide whether or not to refer him for consideration. Will follow the patient during his hospital stay.
--- NOTE | 2017-11-11 15:08 | DIAGNOSTIC IMAGING REPORT ---
PARACENTESIS ABDOMEN W/IMAGING CLINICAL HISTORY: 72 years-old Male presenting with Ascites, hepatic encephalopathy. COMPARISON: 10/29/[address] from 10/27/2017. PROCEDURE: The procedure and its risks, benefits and alternatives were discussed with the patient, and written informed consent was obtained. A timeout was performed to confirm patient identity. Limited ultrasound of the abdomen was performed to determine a safe needle entry site. The left lower quadrant was prepped and draped in the usual aseptic fashion. 1% Lidocaine was used for local anesthesia. A paracentesis needle-sheath was inserted into the peritoneal space using ultrasound guidance. The needle was removed and the sheath was connected to tubing and a vacuum suction device. A total of 1 L of clear red-brown ascites was aspirated. The sheath was removed, and a dressing applied. The patient tolerated the procedure well. No immediate complications. IMPRESSION: Ultrasound-guided diagnostic paracentesis with aspiration of 1 L of ascites. Electronically signed by: Ollie Morin M.D. 11/11/2017 3:06 PM Dictated Date/Time: 11/11/2017 3:04 PM
--- NOTE | 2017-11-11 15:09 | NUR ---
Case Management: Consulted for discharge planning. Met with pt and his , Elayne, at bedside. They lives in a 2 story home with 1 floor set-up and 1 step to enter. Pt does not have any equipment at home and pt's thinks he may need a walker. Pt is active with [facility] for nursing but does not have PT/OT. Pt's is uncertain if rehab or returning home with [facility] PT/OT would be best for him. Explained our therapy dept. can evaluate him and give guidance on what would be appropriate. Elayne wanted to wait until therapy evals pt to decide if rehab is indicated. Elayne requested referral/update to [facility] with PT/OT; referral placed. Case Management to follow.
--- NOTE | 2017-11-11 18:22 | PROGRESS NOTE ---
DATE: 11/11/2017 I had a discussion with the patient's this evening and they raised possibility and we talked about potential for him getting a liver transplant given his age at 72s, kind of on the border of age when other things might need to be considered, but right now with his liver decompensating, I think it is reasonable to send him to [place] to be evaluated for potential transplant. He did have a liter of fluid removed from his abdomen earlier today. His electrolytes are starting to correct and his creatinine is starting to return in the right direction. He still is somnolent and encephalopathic. The patient's offered that they have a son in [place], who would be willing to be a live donor if he was to match and he was determined to be a transplant candidate. At this point I think we should probably consider transferring him tomorrow to [facility] so that they can evaluate him to see if he is a potential liver transplant candidate and if not what the best course of treatment for his decompensating liver. The patient's is agreeable to this course of action.
[2017-11-11] MEDS: RIFAXIMIN TAB 550 MG TAB PO SCH (21:01)
[2017-11-11] MEDS: SODIUM BICARBONATE 650 MG TAB PO SCH (21:02)
--- NOTE | 2017-11-12 00:01 | NUR ---
a: refer to emr for head to toe assessment. pt denies complaints of pain or shortness of breath. pt is lethargic. vss. iv fluids per orders. pt turned and repositioned. call lainez within reach, will continue to monitor. unknown d/c at this time.
[2017-11-12 03:45] VITALS: BP 105/73; PULSE 97; TEMP 36.6; O2SAT 97
--- NOTE | 2017-11-12 04:00 | NUR ---
a: refer to emr for head to toe assessment. pt lethargic. no complaints noted. vss. pt inct of urine- care completed. bed alarm fro safety. call lainez within reach, will continue to monitor.
[2017-11-12] MEDS: SODIUM CHLORIDE 0.9% 1000ML 1,000 ML IV SCH ×4 (05:45→21:41)
[2017-11-12 07:22] VITALS: BP 93/58; PULSE 90; TEMP 36.8; O2SAT 95
[2017-11-12 07:56] LABS: HEMATOCRIT 29.9 % (42-52); HEMOGLOBIN 10.7 g/dL (14.0-18.0); MEAN CELL VOLUME 87.4 fL (80-100); MEAN CORPUSCULAR HEMOGLOBIN 31.3 pg (25-34); MEAN CORPUSCULAR HGB CONC 35.8 g/dl (32-36); RED CELL DISTRIBUTION WIDTH CV 16.6 % (11.5-14.5); RED CELL DISTRIBUTION WIDTH SD 53.1 fL (36.4-46.3); WHITE BLOOD COUNT 5.45 K/uL (4.8-10.8)
[2017-11-12 08:06] LABS: MEAN PLATELET VOLUME 10.2 fL (7.4-10.4); PLATELET COUNT 81 K/uL (130-400)
[2017-11-12 08:32] LABS: CALCIUM 7.8 mg/dl (8.5-10.1); CREATININE 2.43 mg/dl (0.60-1.40); POTASSIUM 5.4 mmol/L (3.5-5.1); TOTAL PROTEIN 6.1 gm/dl (6.4-8.2)
[2017-11-12] MEDS: LACTULOSE SYRUP 20 GM/30 ML UDC PO SCH ×3 (08:34→20:31)
[2017-11-12] MEDS: RIFAXIMIN TAB 550 MG TAB PO SCH ×2 (08:34→20:32)
[2017-11-12] MEDS: CIPROFLOXACIN 500 MG TAB PO SCH (08:34)
[2017-11-12] MEDS: SODIUM BICARBONATE 650 MG TAB PO SCH ×3 (08:34→20:32)
--- NOTE | 2017-11-12 09:51 | Nephrology Progress Note ---
Nephrology Progress Note Date of Service Nov 12, 2017. Chief Complaint Acute renal insufficiency Subjective No acute events overnight. Baljeet remains lethargic and confused. He denies pain. No fevers or chills. Appetite poor. Tolerating IVF. Hepatology notes were reviewed today. Random urine sodium was obtained yesterday evening with NS infusing. Review of Systems A complete review of systems was performed. Pertinent positives are noted above. All other systems are negative. Vital Signs Last 8 Hrs Date Time Temp Pulse Resp B/P (MAP) Pulse Ox O2 Delivery O2 Flow Rate FiO2 11/12/17 08:00 Room Air 11/12/17 07:22 36.8 90 16 93/58 (70) 95 11/12/17 04:00 Room Air 11/12/17 03:45 36.6 97 22 105/73 (84) 97 Room Air Last Recorded Weight Weight (Kilograms): 71.700 Physical Exam General Appearance: no apparent distress, + thin, + pertinent finding ( chronically ill appearing, sallow complexion) Head: normocephalic, atraumatic Eyes: normal inspection, sclerae normal ENT: normal ENT inspection, pharynx normal, + pertinent finding (oral mucosa slightly dry) Neck: supple, no JVD Respiratory/Chest: lungs clear, no respiratory distress, no accessory muscle use Cardiovascular: regular rate, rhythm, no gallop Abdomen/GI: non tender, soft, + distended, + pertinent finding Extremities/Musculoskelatal: normal inspection, no pedal edema 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: alert, + disoriented Social History Drug Use: none Marital Status: Housing Status: lives with family Occupation: retired Laboratory Results Past 24 Hours 11/12/17 07:28 11/11/17 11:58 11/12/17 07:28 Test 11/11/17 11:58 11/11/17 15:01 11/11/17 18:28 11/12/17 07:28 Anion Gap 11.0 mmol/L (3-11) 10.0 mmol/L (3-11) Est Creatinine Clear Calc Drug Dose 23.4 ml/min 27.4 ml/min Estimated GFR () 24.9 30.1 Estimated GFR (Non- 21.5 26.0 BUN/Creatinine Ratio 28.0 (10-20) 30.7 (10-20) Calcium Level 8.2 mg/dl (8.5-10.1) 7.8 mg/dl (8.5-10.1) Ammonia 74.0 umol/L (11-32) Troponin I 0.158 ng/ml (0-0.045) Vitamin B12 Level > 2000 pg/mL (211-911) Folate > 24.00 ng/mL (>5.38) Peritoneal Fluid Color RED Peritoneal Fluid Appearance BLOODY Peritoneal Fluid WBC 137 /uL (0-300) Peritoneal Fluid RBC 83325 /uL Peritoneal Fld Mononuclear WBCs (%) 74.2 % Peritoneal Fld Polynuclear WBCs (%) 25.8 % Urine Color DK YELLOW Urine Appearance CLOUDY (CLEAR) Urine pH 5.0 (4.5-7.5) Urine Specific [place] 1.019 (1.000-1.030) Urine Protein NEG (NEG) Urine Glucose (UA) NEG (NEG) Urine Ketones NEG (NEG) Urine Occult Blood TRACE (NEG) Urine Nitrite NEG (NEG) Urine Bilirubin NEG (NEG) Urine Urobilinogen NEG (NEG) Urine Leukocyte Esterase NEG (NEG) Urine WBC (Auto) 1-5 /hpf (0-5) Urine RBC (Auto) 5-10 /hpf (0-4) Urine Hyaline Casts (Auto) 5-10 /lpf (0-5) Urine Epithelial Cells (Auto) >30 /lpf (0-5) Urine Bacteria (Auto) NEG (NEG) Urine Renal Epithelial Cells 0-5 /lpf (0-5) Urine Yeast (Auto) (NONE PRSENT) Urine Random Sodium < 5 mEq/L Red Blood Count 3.42 M/uL (4.7-6.1) Mean Corpuscular Volume 87.4 fL (80-100) Mean Corpuscular Hemoglobin 31.3 pg (25-34) Mean Corpuscular Hemoglobin Concent 35.8 g/dl (32-36) RDW Standard Deviation 53.1 fL (36.4-46.3) RDW Coefficient of Variation 16.6 % (11.5-14.5) Mean Platelet Volume 10.2 fL (7.4-10.4) Total Bilirubin 2.7 mg/dl (0.2-1) Aspartate Amino Transf (AST/SGOT) 85 U/L (15-37) Alanine Aminotransferase (ALT/SGPT) 62 U/L (12-78) Alkaline Phosphatase 160 U/L (45-117) Total Protein 6.1 gm/dl (6.4-8.2) Albumin 2.0 gm/dl (3.4-5.0) Globulin 4.1 gm/dl (2.5-4.0) Albumin/Globulin Ratio 0.5 (0.9-2) Allergies Coded Allergies: No Known Allergies (Unverified , 11/10/17) Medications Current Inpatient Medications Medications (Trade) Dose Ordered Sig/Raffi Route Start Time Stop Time Status Last Admin Dose Admin Sodium Chloride 1,000 ml @ 125 mls/hr Q8H IV 11/10/17 16:39 12/10/17 16:38 11/12/17 05:46 125 MLS/HR Acetaminophen (Tylenol Tab) 650 mg Q4H PRN PO 11/10/17 16:45 12/10/17 16:44 Ondansetron HCl (Zofran Inj) 4 mg Q6H PRN IV 11/10/17 16:45 12/10/17 16:44 Ciprofloxacin (Cipro Tab) 500 mg DAILY PO 11/11/17 09:00 11/21/17 08:59 11/12/17 08:34 500 MG Lactulose (Chronulac Syrup) 20 gm TID PO 11/10/17 21:00 12/10/17 20:59 11/12/17 08:34 20 GM Rifaximin (Xifaxan Tab) 550 mg BID PO 11/11/17 21:00 12/11/17 20:59 11/12/17 08:34 550 MG Sodium Bicarbonate (Sodium Bicarbonate Tab) 1,300 mg TID PO 11/11/17 21:00 12/11/17 20:59 11/12/17 08:34 1,300 MG Impression (1) Hyperkalemia (2) Acute kidney injury (3) Ascites (4) Dehydration (5) Cirrhosis (6) Hepatic encephalopathy (7) Hyponatremia Mr. Baljeet Purcell is a 72-year-old male with cirrhosis complicated by ascites and recurrent hepatic encephalopathy. He was admitted with mental status changes. He has a history of PARADISE consistent with prerenal azotemia in the past. He is non oliguric. Creatinine is improving with fluids. Random William <5 consistent with prerenal azotemia possible HRS. Overall, responding to fluids at this time. BP is low but acceptable. May add midodrine as needed. Metabolic acidosis slowly improving with oral HCO3 replacement. Mild hyperkalemia persists but acceptable. Paracentesis for 1 L performed yesterday without complications. Recommendations -- Maintain positive fluid balance, continue NS @ 100 ml/hr -- Continue oral HCO3 1300 mg TID -- Repeat metabolic profile this afternoon and monitor q12 hours -- Encourage nutrition -- GI consult reviewed - potential transfer to [facility] [place] -- Medications appropriate for renal function -- Urine studies reviewed this morning
[2017-11-12 11:47] VITALS: BP 99/62; PULSE 74; TEMP 36.8; O2SAT 96
[2017-11-12] MEDS ORDERED: SODIUM POLYST. SULF SUSP 15G/60ML PO STA (12:31)
--- NOTE | 2017-11-12 12:56 | NUR ---
health care sanitary technician [facility]: per request of Dr. Owens I contact Dr. Nilson Min's office at [facility] at ([phone]). I leave a message for Dr. Min's nurse w/ my contact info and offer to assist w/ arranging outpatient follow up. Addendum: 11/13/17 at 1324 by Brittany Phan SERV I received a phone call back from [facility] and I was told that they have everything they need to see patient. They plan to see the pt in their clinic on or around December 02. They will contact the pt's to coordinate this appointment.
--- NOTE | 2017-11-12 14:16 | Medical Student: [facility] ---
Med Student Progress Note Date of Service Nov 12, 2017. Subjective Pt evaluation today including: conversation w/ patient, conversation w/ family , physical exam, chart review, lab review, review of studies, review of inpatient medication list Pain: None PO Intake: Good Mr. Purcell is a 72 yo M with hx of WELCH causing cirrhosis and hepatic encephalopathy, admitted for AMS of 1 day onset. When talking to pt this morning , he was A&Ox1, but in the afternoon, he was much more alert and active.He denies any pain. Review of Systems Notes: ROS difficult to obtain due to pt's mental status Objective Vital Signs Date Time Temp Pulse Resp B/P (MAP) Pulse Ox O2 Delivery O2 Flow Rate FiO2 11/12/17 12:00 Room Air 11/12/17 11:47 36.8 74 18 99/62 (74) 96 11/12/17 08:00 Room Air 11/12/17 07:22 36.8 90 16 93/58 (70) 95 11/12/17 04:00 Room Air 11/12/17 03:45 36.6 97 22 105/73 (84) 97 Room Air 11/11/17 23:59 Room Air 11/11/17 23:30 36.8 99 16 96/63 (74) 99 Room Air 11/11/17 19:25 Room Air 11/11/17 19:20 36.6 97 20 97/68 (78) 98 Room Air 11/11/17 17:01 96 Room Air 11/11/17 17:01 Room Air 11/11/17 15:22 36.5 94 20 107/69 (82) 98 Room Air Physical Exam General Appearance: WD/WN, no apparent distress Eyes: bilateral eyes normal inspection, bilateral eyes EOMI Respiratory/Chest: chest non-tender, lungs clear Cardiovascular: regular rate, rhythm, no edema, no gallop Abdomen: normal bowel sounds, non tender, + distended Extremities: no pedal edema, no calf tenderness 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iatric: alert Skin: normal color, warm/dry, no rash Laboratory Results Last 24 Hours Test 11/11/17 15:01 11/11/17 18:28 11/12/17 07:28 11/12/17 10:36 Peritoneal Fluid Color RED Peritoneal Fluid Appearance BLOODY Peritoneal Fluid WBC 137 /uL Peritoneal Fluid RBC 11528 /uL Peritoneal Fld Mononuclear WBCs (%) 74.2 % Peritoneal Fld Polynuclear WBCs (%) 25.8 % Urine Color DK YELLOW Urine Appearance CLOUDY Urine pH 5.0 Urine Specific [place] 1.019 Urine Protein NEG Urine Glucose (UA) NEG Urine Ketones NEG Urine Occult Blood TRACE Urine Nitrite NEG Urine Bilirubin NEG Urine Urobilinogen NEG Urine Leukocyte Esterase NEG Urine WBC (Auto) 1-5 /hpf Urine RBC (Auto) 5-10 /hpf Urine Hyaline Casts (Auto) 5-10 /lpf Urine Epithelial Cells (Auto) >30 /lpf Urine Bacteria (Auto) NEG Urine Renal Epithelial Cells 0-5 /lpf Urine Yeast (Auto) Urine Random Sodium < 5 mEq/L White Blood Count 5.45 K/uL Red Blood Count 3.42 M/uL Hemoglobin 10.7 g/dL Hematocrit 29.9 % Mean Corpuscular Volume 87.4 fL Mean Corpuscular Hemoglobin 31.3 pg Mean Corpuscular Hemoglobin Concent 35.8 g/dl RDW Standard Deviation 53.1 fL RDW Coefficient of Variation 16.6 % Platelet Count 81 K/uL Mean Platelet Volume 10.2 fL Sodium Level 131 mmol/L Potassium Level 5.4 mmol/L Chloride Level 104 mmol/L Carbon Dioxide Level 17 mmol/L Anion Gap 10.0 mmol/L Blood Urea Nitrogen 75 mg/dl Creatinine 2.43 mg/dl Est Creatinine Clear Calc Drug Dose 27.4 ml/min Estimated GFR () 30.1 Estimated GFR (Non- 26.0 BUN/Creatinine Ratio 30.7 Random Glucose 75 mg/dl Calcium Level 7.8 mg/dl Total Bilirubin 2.7 mg/dl Aspartate Amino Transf (AST/SGOT) 85 U/L Alanine Aminotransferase (ALT/SGPT) 62 U/L Alkaline Phosphatase 160 U/L Total Protein 6.1 gm/dl Albumin 2.0 gm/dl Globulin 4.1 gm/dl Albumin/Globulin Ratio 0.5 Arterial Blood pH 7.49 Arterial Blood Partial Pressure CO2 22 mmHg Arterial Blood Partial Pressure O2 115 mm/Hg Arterial Blood HCO3 16 mmol/L Arterial Blood Oxygen Saturation 98.7 % Arterial Blood Base Excess -5.6 mEq/L Arterial Blood Gas Delivery ROOM AIR Jeremi Test POS Medications Medications (Trade) Dose Ordered Sig/Raffi Route Start Time Stop Time Status Last Admin Dose Admin Rifaximin (Xifaxan Tab) 550 mg BID PO 11/11/17 21:00 12/11/17 20:59 11/12/17 08:34 550 MG Sodium Bicarbonate (Sodium Bicarbonate Tab) 1,300 mg TID PO 11/11/17 21:00 12/11/17 20:59 11/12/17 08:34 1,300 MG Sodium Polystyrene Sulfonate (Kayexalate Susp) 15 gm NOW STAT PO 11/12/17 12:31 11/12/17 12:32 DC 11/12/17 13:08 15 GM Assessment and Plan Assessment and Plan: Pt is a 72 yo male with WELCH and h/o cirrhosis and hepatic encephalopathy, possible end-stage liver disease was recommended to have liver transplantation by GI, readmitted on 11/11/2017 with weakness, confusion, poor appetite. Culture on ascities fluid are negative Paracentesis 11/11/17 - IMPRESSION: Ultrasound-guided diagnostic paracentesis with aspiration of 1 L of ascites. CXR 11/10/17 - IMPRESSION: 1. Mildly low lung volumes. No convincing evidence of acute cardiopulmonary disease. Head CT 11/10/17 - IMPRESSION: 1. Chronic small vessel ischemic change. No acute intracranial abnormality. 2. Extensive sinus opacification. Correlate for possible acute sinusitis. ECG 11/11/17 Normal sinus rhythm with Left axis deviation; ST & T wave abnormality, consider inferolateral ischemia, unchanged since 11/10/17 Plan 1. PARADISE 2/2 prerenal azotemia or possibly hepatorenal syndrome. a. Cr continues to decline (2.43 today), baseline of 1.4 on previous hospitalization discharge b. Consulted nephrology Recommended Midodrine if BP continues to decrease c. Bicarb for metabolic acidosis 2. WELCH with cirrhosis and possibly ESLD a. Consulted GI and recommended liver transplantation last hospitalization -Pt and family are considering transferring to [place] to see if a live donor liver transplant between pt and son would be possible b. MELD-NA on admission is 31 and MELD 25 c. Continue Lactulose and follow ammonia level d. Continue to hold Lasix, Spironolactone and Nadolol e. Paracentesis done and 1L of fluid drawn f. Respiratory alkalosis likely 2/2 mild hepatic encephalopathy - continue to monitor for mental status changes and pH fluctuations 3. Hyponatremia 2/2 ESLD with ascities, poor salt intake and increased free water a. Continue NSS at 125 ml/hr 4. Hyperkalemia a. Continue to monitor 5. Lateral ST changes with mild trop elevation a. Continue to follow trop trend Continued [facility] stay due to: home environment unsafe for pt Discharge planning: home
[2017-11-12 15:10] VITALS: BP 102/66; PULSE 99; TEMP 36.6; O2SAT 99
--- NOTE | 2017-11-12 15:23 | Progress Note ---
Subjective Date of Service: Nov 12, 2017. Subjective Pt evaluation today including: conversation w/ patient, conversation w/ family , physical exam, chart review, lab review, review of studies, conversation w/ applications consultant, review of inpatient medication list Still has generalized weakness, however awake and alert and orientated, smiling when family in bedside, looks much better and then yesterday, had paracentesis yesterday about 1 L fluid was removed Problem List Medical Problems: (1) Acute on chronic renal failure Status: Acute (2) CKD (chronic kidney disease) Status: Acute (3) Elevated troponin Status: Acute (4) Fever Status: Acute (5) Hepatic encephalopathy Status: Acute (6) Hyperkalemia Status: Acute (7) Hyponatremia Status: Acute (8) Hypotension Status: Acute Review of Systems Constitutional: + weakness, + fatigue, No fever, No chills, No sweats, No weight loss, No problem reported Eyes: No worsening of vision, No eye pain, No redness, No discharge, No diplopia ENT: No hearing loss, No unusual epistaxis, No nasal symptoms, No sore throat, No tinnitus, No dental problems, No trouble swallowing Respiratory: No cough, No sputum, No wheezing, No shortness of breath, No dyspnea on exertion, No dyspnea at rest, No hemoptysis Cardiac: No chest pain, No orthopnea, No PND, No edema, No claudication, No palpitations Abdomen: + problem reported (extremities is better), No pain, No nausea, No vomiting, No diarrhea, No constipation Musculoskeletal: No joint pain, No muscle pain, No swelling, No calf pain Male : No dysuria, No urinary frequency, No incontinence, No nocturia more than once/night, No slowing stream, No hematuria Neurologic: No memory loss, No paralysis, No weakness, No numbness/tingling, No vertigo, No balance problems Psychiatric: No depression symptoms, No anhedonism, No anxiety, No insomnia, No substance abuse Heme: No abnormal bleeding/bruising, No clotting problems, No swollen lymph nodes, No night sweats Endo: No fatigue, No excessive thirst, No excessive urination Skin: No rash, No itch, No new/changing skin lesions, No color change, No bleeding Objective Vital Signs Date Time Temp Pulse Resp B/P (MAP) Pulse Ox O2 Delivery O2 Flow Rate FiO2 11/12/17 15:10 36.6 99 20 102/66 (78) 99 Room Air 11/12/17 12:00 Room Air 11/12/17 11:47 36.8 74 18 99/62 (74) 96 11/12/17 08:00 Room Air 11/12/17 07:22 36.8 90 16 93/58 (70) 95 11/12/17 04:00 Room Air 11/12/17 03:45 36.6 97 22 105/73 (84) 97 Room Air 11/11/17 23:59 Room Air 11/11/17 23:30 36.8 99 16 96/63 (74) 99 Room Air 11/11/17 19:25 Room Air 11/11/17 19:20 36.6 97 20 97/68 (78) 98 Room Air 11/11/17 17:01 96 Room Air 11/11/17 17:01 Room Air 11/11/17 15:22 36.5 94 20 107/69 (82) 98 Room Air Physical Exam General Appearance: + thin, + pertinent finding (frail very sick looking) Eyes: normal inspection, PERRL, EOMI, sclerae normal ENT: normal ENT inspection, hearing grossly normal, pharynx normal Neck: supple, no adenopathy, thyroid normal, no JVD, no carotid bruits, trachea midline Respiratory/Chest: chest non-tender, normal breath sounds, no respiratory distress, no accessory muscle use, + decreased breath sounds Cardiovascular: regular rate, rhythm, no edema, no gallop, no JVD, no murmur Abdomen: normal bowel sounds, non tender, soft, no organomegaly, no pulsatile mass, + pertinent finding (ascites) Extremities: normal range of motion, non-tender, normal inspection, no pedal edema, no calf tenderness, normal capillary refill, pelvis stable 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iatric: refrigerating engineer II-XII nml as tested, no motor/sensory deficits, alert, normal mood/affect, oriented x 3 Skin: normal color, warm/dry, no rash Lymphatic: no adenopathy Laboratory Results Last 24 Hours Test 11/11/17 18:28 11/12/17 07:28 11/12/17 10:36 Urine Color DK YELLOW Urine Appearance CLOUDY Urine pH 5.0 Urine Specific [place] 1.019 Urine Protein NEG Urine Glucose (UA) NEG Urine Ketones NEG Urine Occult Blood TRACE Urine Nitrite NEG Urine Bilirubin NEG Urine Urobilinogen NEG Urine Leukocyte Esterase NEG Urine WBC (Auto) 1-5 /hpf Urine RBC (Auto) 5-10 /hpf Urine Hyaline Casts (Auto) 5-10 /lpf Urine Epithelial Cells (Auto) >30 /lpf Urine Bacteria (Auto) NEG Urine Renal Epithelial Cells 0-5 /lpf Urine Yeast (Auto) Urine Random Sodium < 5 mEq/L White Blood Count 5.45 K/uL Red Blood Count 3.42 M/uL Hemoglobin 10.7 g/dL Hematocrit 29.9 % Mean Corpuscular Volume 87.4 fL Mean Corpuscular Hemoglobin 31.3 pg Mean Corpuscular Hemoglobin Concent 35.8 g/dl RDW Standard Deviation 53.1 fL RDW Coefficient of Variation 16.6 % Platelet Count 81 K/uL Mean Platelet Volume 10.2 fL Sodium Level 131 mmol/L Potassium Level 5.4 mmol/L Chloride Level 104 mmol/L Carbon Dioxide Level 17 mmol/L Anion Gap 10.0 mmol/L Blood Urea Nitrogen 75 mg/dl Creatinine 2.43 mg/dl Est Creatinine Clear Calc Drug Dose 27.4 ml/min Estimated GFR () 30.1 Estimated GFR (Non- 26.0 BUN/Creatinine Ratio 30.7 Random Glucose 75 mg/dl Calcium Level 7.8 mg/dl Total Bilirubin 2.7 mg/dl Aspartate Amino Transf (AST/SGOT) 85 U/L Alanine Aminotransferase (ALT/SGPT) 62 U/L Alkaline Phosphatase 160 U/L Total Protein 6.1 gm/dl Albumin 2.0 gm/dl Globulin 4.1 gm/dl Albumin/Globulin Ratio 0.5 Arterial Blood pH 7.49 Arterial Blood Partial Pressure CO2 22 mmHg Arterial Blood Partial Pressure O2 115 mm/Hg Arterial Blood HCO3 16 mmol/L Arterial Blood Oxygen Saturation 98.7 % Arterial Blood Base Excess -5.6 mEq/L Arterial Blood Gas Delivery ROOM AIR Jeremi Test POS Assessment and Plan 72 yo male with known h/o cirrhosis due to WELCH, possible end-stage liver disease was recommended to have liver transplantation by GI, readmitted on 11/11 with weakness, confusion, poor appetite - PARADISE on CKD: Cr up to 3.51 upon admission, continue significant improving today Possible hepatorenal syndrome Cr was 1.4 at time of discharge one week ago Lawn Care Technician on the case, Maintain positive fluid balance, continue NS @ 100 ml/hr Continue oral HCO3 1300 mg TID bmp monitor q12 hours Encourage nutrition if blood pressure goes lower, could add Midodrine 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 Encinas, We both agreed to patient's general condition is improving currently stable, will be appropriate outpatient evaluation in transplant center, I did mentioned patient has 3 hospital admission in 2 months, possible difficult to keep patient as outpatient, possible difficult for him to make it as outpatient evaluation for the transplantation. Dr. Encinas said he will speed up to setting up appointment for patient to be seen in transplant center as soon as possible in 1 and 2 week, I also called to our Navigator to continue in our and to setting up appointment for patient in transplant center for patient. Explained to patient's daughter and in bedside about the decision, they agreed and happy. However , Dr. Encinas did agreed if patient's condition deteriorating during this hospitalization, patient can be transferred, the paperwork of transferring and I made is ready, include families consent, family agree and understand about this. Hyponatremia: likely combination of end-stage liver disease with ascites, poor salt intake and drinking free water, continue current care Hyperkalemia: Resolved and follow-up Lateral ST changes with mild elevation of troponin: no chest pain, troponin trends down, troponin elevation could be from troponin and EKGs from acute on chronic kidney failure DVT prophylaxis: Discontinue Heparin SC because of thrombocytopenia, mild elevated troponin with INR 1.4, SCD ordered Continued [facility] stay due to: home environment unsafe for pt Discharge planning: home
[2017-11-12 16:08] LABS: CALCIUM 7.7 mg/dl (8.5-10.1); CREATININE 2.27 mg/dl (0.60-1.40); POTASSIUM 4.7 mmol/L (3.5-5.1)
[2017-11-12 19:35] VITALS: BP 99/66; PULSE 105; TEMP 36.6; O2SAT 98
--- NOTE | 2017-11-12 20:00 | NUR ---
A: pt alert and oriented X4, very drowsy. VSS on room air. denies chest pain and SOB. lung sounds clear throughout. abdomen distended, soft, and non-tender. NSS infusing at 125/hr into left AC. monitoring manager in place. will continue to monitor.
[2017-11-12 23:41] VITALS: BP 102/69; PULSE 99; TEMP 36.4; O2SAT 100
[2017-11-13] VITALS (8 sets, daily range): BP systolic 101–111; BP diastolic 64–75; PULSE 97–110; TEMP 36.4–36.8; O2SAT 94–100
--- NOTE | 2017-11-13 00:01 | NUR ---
A/ID: REFER TO EMR FOR HEAD TO TOE ASSESSMENT. PT LETHARGIC- DOES RESPOND TO STIMULI. PT DENIES COMPLAINTS. VSS. IV FLUIDS PER ORDERS. PT INCT CARE COMPLETED. BED ALARM IN PLACE FOR SAFETY. CALL MARTE WITHIN REACH, WILL CONTINUE TO MONITOR. UNKNOWN D/C AT THIS TIME.
--- NOTE | 2017-11-13 04:00 | NUR ---
a: refer to emr for head to toe assessment. pt denies complaints of pain or shortness of breath at present time. vss. iv fluids per orders. call lainez within reach, will continue to monitor.
[2017-11-13] MEDS: SODIUM CHLORIDE 0.9% 1000ML 1,000 ML IV SCH ×3 (05:43→21:05)
[2017-11-13 08:21] LABS: CALCIUM 7.6 mg/dl (8.5-10.1); CREATININE 1.83 mg/dl (0.60-1.40); POTASSIUM 4.4 mmol/L (3.5-5.1)
[2017-11-13 08:28] LABS: TOTAL PROTEIN 6.1 gm/dl (6.4-8.2)
[2017-11-13] MEDS: SODIUM BICARBONATE 650 MG TAB PO SCH ×3 (09:42→21:03)
[2017-11-13] MEDS: LACTULOSE SYRUP 20 GM/30 ML UDC PO SCH ×3 (09:42→21:03)
[2017-11-13] MEDS: CIPROFLOXACIN 500 MG TAB PO SCH (09:43)
[2017-11-13] MEDS: RIFAXIMIN TAB 550 MG TAB PO SCH ×2 (09:43→21:03)
--- NOTE | 2017-11-13 10:45 | Nephrology Progress Note ---
Nephrology Progress Note Date of Service Nov 13, 2017. Chief Complaint Acute renal insufficiency Subjective No acute events overnight. Baljeet remains confused. He appeared more alert this morning. Appetite poor. Minimal oral intake reported. Stool frequency increased per nursing. No fevers or chills. Tolerating IVF well. I discussed the plan of care with Dr. Owens this morning. Review of Systems A complete review of systems was performed. Pertinent positives are noted above. All other systems are negative. Vital Signs Last 8 Hrs Date Time Temp Pulse Resp B/P (MAP) Pulse Ox O2 Delivery O2 Flow Rate FiO2 11/13/17 08:00 Room Air 11/13/17 06:54 36.8 110 22 108/72 (84) 97 Room Air 11/13/17 04:00 Room Air 11/13/17 03:20 36.7 97 16 110/75 (87) 98 Room Air Last Recorded Weight Weight (Kilograms): 73.300 Physical Exam General Appearance: no apparent distress, + thin Head: normocephalic, atraumatic Eyes: normal inspection, sclerae normal ENT: normal ENT inspection, pharynx normal, + pertinent finding (oral mucosa dry) Neck: supple Respiratory/Chest: lungs clear, no respiratory distress, no accessory muscle use Cardiovascular: regular rate, rhythm, no gallop Abdomen/GI: non tender, soft, + distended Extremities/Musculoskelatal: normal inspection, no pedal edema 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: alert, + disoriented Social History Drug Use: none Marital Status: Housing Status: lives with family Occupation: retired Laboratory Results Past 24 Hours 11/12/17 15:28 11/13/17 07:14 Test 11/12/17 15:28 11/13/17 07:14 Anion Gap 11.0 mmol/L (3-11) 10.0 mmol/L (3-11) Est Creatinine Clear Calc Drug Dose 29.3 ml/min 36.3 ml/min Estimated GFR () 32.7 42.4 Estimated GFR (Non- 28.2 36.6 BUN/Creatinine Ratio 31.7 (10-20) 33.3 (10-20) Calcium Level 7.7 mg/dl (8.5-10.1) 7.6 mg/dl (8.5-10.1) Magnesium Level 2.4 mg/dl (1.8-2.4) 2.3 mg/dl (1.8-2.4) Total Bilirubin 2.5 mg/dl (0.2-1) Aspartate Amino Transf (AST/SGOT) 84 U/L (15-37) Alanine Aminotransferase (ALT/SGPT) 64 U/L (12-78) Alkaline Phosphatase 166 U/L (45-117) Ammonia 69.0 umol/L (11-32) Total Protein 6.1 gm/dl (6.4-8.2) Albumin 2.0 gm/dl (3.4-5.0) Globulin 4.1 gm/dl (2.5-4.0) Albumin/Globulin Ratio 0.5 (0.9-2) Allergies Coded Allergies: No Known Allergies (Unverified , 11/10/17) Medications Current Inpatient Medications Medications (Trade) Dose Ordered Sig/Raffi Route Start Time Stop Time Status Last Admin Dose Admin Sodium Chloride 1,000 ml @ 125 mls/hr Q8H IV 11/10/17 16:39 12/10/17 16:38 11/13/17 05:43 125 MLS/HR Acetaminophen (Tylenol Tab) 650 mg Q4H PRN PO 11/10/17 16:45 12/10/17 16:44 Ondansetron HCl (Zofran Inj) 4 mg Q6H PRN IV 11/10/17 16:45 12/10/17 16:44 Ciprofloxacin (Cipro Tab) 500 mg DAILY PO 11/11/17 09:00 11/21/17 08:59 11/13/17 09:43 500 MG Lactulose (Chronulac Syrup) 20 gm TID PO 11/10/17 21:00 12/10/17 20:59 11/13/17 09:42 20 GM Rifaximin (Xifaxan Tab) 550 mg BID PO 11/11/17 21:00 12/11/17 20:59 11/13/17 09:43 550 MG Sodium Bicarbonate (Sodium Bicarbonate Tab) 1,300 mg TID PO 11/11/17 21:00 12/11/17 20:59 11/13/17 09:42 1,300 MG Impression (1) Hyperkalemia (2) Acute kidney injury (3) Ascites (4) Dehydration (5) Cirrhosis (6) Hepatic encephalopathy (7) Hyponatremia Mr. Baljeet Purcell is a 72-year-old male with cirrhosis complicated by ascites and recurrent hepatic encephalopathy. He was admitted with mental status changes. He has a history of PARADISE consistent with prerenal azotemia in the past. Baseline creatinine has been 1.3 mg/dL. He developed PARADISE consistent with ATN/ prerenal azotemia. He is non oliguric. Creatinine is improving with fluids. Random William <5 consistent with prerenal azotemia possible HRS. Overall, responding to fluids at this time. BP is low but acceptable. For metabolic acidosis continue oral HCO3 replacement. Recommendations -- Maintain positive fluid balance, continue NS @ 125 ml/hr -- Continue oral HCO3 1300 mg TID -- Repeat metabolic profile tomorrow AM -- Encourage nutrition -- Medications appropriate for renal function -- No additional changes at this time
--- NOTE | 2017-11-13 14:12 | Progress Note ---
Subjective Date of Service: Nov 13, 2017. Subjective Pt evaluation today including: conversation w/ patient, conversation w/ family , physical exam, chart review, lab review, review of studies, conversation w/ oracle distribution consultant, review of inpatient medication list Was confused in the morning posted and report, however he is awake and alert and orientated when I seeing him at noon Report generalized weakness, gaining some appetite, no other complaint Deny abdominal pain, denied fever and chill Problem List Medical Problems: (1) Acute on chronic renal failure Status: Acute (2) CKD (chronic kidney disease) Status: Acute (3) Elevated troponin Status: Acute (4) Fever Status: Acute (5) Hepatic encephalopathy Status: Acute (6) Hyperkalemia Status: Acute (7) Hyponatremia Status: Acute (8) Hypotension Status: Acute Review of Systems Constitutional: + weakness, + fatigue Eyes: No worsening of vision, No eye pain, No redness, No discharge, No diplopia ENT: No hearing loss, No unusual epistaxis, No nasal symptoms, No sore throat, No tinnitus, No dental problems, No trouble swallowing Respiratory: No cough, No sputum, No wheezing, No shortness of breath, No dyspnea on exertion, No dyspnea at rest, No hemoptysis Cardiac: + edema, No chest pain, No orthopnea, No PND, No claudication, No palpitations Abdomen: No pain, No nausea, No vomiting, No diarrhea, No constipation Musculoskeletal: + swelling, No joint pain, No muscle pain, No calf pain Male : No dysuria, No urinary frequency, No incontinence, No nocturia more than once/night, No slowing stream, No hematuria Neurologic: No memory loss, No paralysis, No weakness, No numbness/tingling, No vertigo, No balance problems Psychiatric: No depression symptoms, No anhedonism, No anxiety, No insomnia, No substance abuse Heme: No abnormal bleeding/bruising, No clotting problems, No swollen lymph nodes, No night sweats Endo: No fatigue, No excessive thirst, No excessive urination Skin: No rash, No itch, No new/changing skin lesions, No color change, No bleeding Objective Vital Signs Date Time Temp Pulse Resp B/P (MAP) Pulse Ox O2 Delivery O2 Flow Rate FiO2 11/13/17 12:00 Room Air 11/13/17 10:30 36.7 97 18 109/73 (85) 100 Room Air 12/20/17 08:00 Room Air 11/13/17 06:54 36.8 110 22 108/72 (84) 97 Room Air 11/13/17 04:00 Room Air 11/13/17 03:20 36.7 97 16 110/75 (87) 98 Room Air 11/12/17 23:59 Room Air 11/12/17 23:41 36.4 99 16 102/69 (80) 100 Room Air 11/12/17 20:00 Room Air 11/12/17 19:35 36.6 105 16 99/66 (77) 98 Room Air 11/12/17 16:00 Room Air 11/12/17 15:10 36.6 99 20 102/66 (78) 99 Room Air Physical Exam General Appearance: WD/WN, no apparent distress, + cachetic, + thin, + pertinent finding (frail ) Eyes: normal inspection, PERRL, EOMI, sclerae normal ENT: normal ENT inspection, hearing grossly normal, pharynx normal Neck: supple, no adenopathy, thyroid normal, no JVD, no carotid bruits, trachea midline Respiratory/Chest: chest non-tender, lungs clear, normal breath sounds, no respiratory distress, no accessory muscle use Cardiovascular: regular rate, rhythm, no edema, no gallop, no JVD, no murmur, + systolic murmur (2/6 ) Abdomen: normal bowel sounds, non tender, soft, no organomegaly, no pulsatile mass, + pertinent finding (positive for ascites) Extremities: normal range of motion, non-tender, normal inspection, no pedal edema, no calf tenderness, normal capillary refill, pelvis stable 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iatric: credit correspondence clerk II-XII nml as tested, no motor/sensory deficits, alert, normal mood/affect, oriented x 3 Skin: normal color, warm/dry, no rash Lymphatic: no adenopathy Laboratory Results Last 24 Hours Test 11/12/17 15:28 11/13/17 07:14 Sodium Level 132 mmol/L 136 mmol/L Potassium Level 4.7 mmol/L 4.4 mmol/L Chloride Level 105 mmol/L 108 mmol/L Carbon Dioxide Level 16 mmol/L 18 mmol/L Anion Gap 11.0 mmol/L 10.0 mmol/L Blood Urea Nitrogen 72 mg/dl 61 mg/dl Creatinine 2.27 mg/dl 1.83 mg/dl Est Creatinine Clear Calc Drug Dose 29.3 ml/min 36.3 ml/min Estimated GFR () 32.7 42.4 Estimated GFR (Non- 28.2 36.6 BUN/Creatinine Ratio 31.7 33.3 Random Glucose 102 mg/dl 86 mg/dl Calcium Level 7.7 mg/dl 7.6 mg/dl Magnesium Level 2.4 mg/dl 2.3 mg/dl Total Bilirubin 2.5 mg/dl Aspartate Amino Transf (AST/SGOT) 84 U/L Alanine Aminotransferase (ALT/SGPT) 64 U/L Alkaline Phosphatase 166 U/L Ammonia 69.0 umol/L Total Protein 6.1 gm/dl Albumin 2.0 gm/dl Globulin 4.1 gm/dl Albumin/Globulin Ratio 0.5 Assessment and Plan 72 yo male with known h/o cirrhosis due to WELCH, possible end-stage liver disease was recommended to have liver transplantation by GI, readmitted on 11/11 with weakness, confusion, poor appetite - PARADISE on CKD: Cr up to 3.51 upon admission, continue significant improving today Differential diagnosis include acute tubular necrosis , acute renal HTN of dehydration , or hepatorenal syndrome Cr was 1.4 at time of discharge one week ago Personal Assistant on the case, Maintain positive fluid balance, continue NS @ 100 ml/hr Continue oral HCO3 1300 mg TID bmp monitor q12 hours Encourage nutrition if blood pressure goes lower, could add Midodrine Possible ESLD with Cirrhosis: due to WELCH, he was recommended to have liver transplantation per GI service in last admission, GI talked to family yesterday possible inpatient transferring Upon admission MELD -Na Score is 31 and MELD 25, mortality is 19.6% in 3 month Continue Lactulose, follow-up ammonia level Continue to hold Lasix, Spironolactone and Nadolol Discussed with patient's and daughter in bedside, I wish to transferred if possible for inpatient, I called to her [facility] transfer center, talked to Dr. Encinas, Dr. Encinas did agreed if patient's condition deteriorating during this hospitalization, patient can be transferred, the paperwork of transferring and I made is ready, include families consent, family agree and understand about this. Hyponatremia: likely combination of end-stage liver disease with ascites, poor salt intake and drinking free water, continue current care Hyperkalemia: Resolved and follow-up Lateral ST changes with mild elevation of troponin: no chest pain, troponin trends down, troponin elevation could be from troponin and EKGs from acute on chronic kidney failure DVT prophylaxis: Discontinue Heparin SC because of thrombocytopenia, mild elevated troponin with INR 1.4, SCD ordered Continued [facility] stay due to: home environment unsafe for pt Discharge planning: rehab hospital
--- NOTE | 2017-11-13 14:17 | Medical Student: [facility] ---
Med Student Progress Note Date of Service Nov 13, 2017. Subjective Pt evaluation today including: conversation w/ patient, physical exam, chart review, lab review, review of studies, review of inpatient medication list Pain: None PO Intake: Good Voiding: incontinence No acute events overnight. Pt was incontinent in bed this morning. A&O x2 and very drowsy. Difficult for pt to follow conversation. Pt was much more alert this afternoon when visited a second time. Review of Systems Notes: Difficulty obtaining due to patients mental state. Objective Vital Signs Date Time Temp Pulse Resp B/P (MAP) Pulse Ox O2 Delivery O2 Flow Rate FiO2 11/13/17 08:00 Room Air 11/13/17 06:54 36.8 110 22 108/72 (84) 97 Room Air 11/13/17 04:00 Room Air 11/13/17 03:20 36.7 97 16 110/75 (87) 98 Room Air 11/12/17 23:59 Room Air 11/12/17 23:41 36.4 99 16 102/69 (80) 100 Room Air 11/12/17 20:00 Room Air 11/12/17 19:35 36.6 105 16 99/66 (77) 98 Room Air 11/12/17 16:00 Room Air 11/12/17 15:10 36.6 99 20 102/66 (78) 99 Room Air 11/12/17 12:00 Room Air 11/12/17 11:47 36.8 74 18 99/62 (74) 96 Physical Exam General Appearance: WD/WN, no apparent distress Eyes: bilateral eyes normal inspection, bilateral eyes PERRL ENT: hearing grossly normal Respiratory/Chest: chest non-tender, lungs clear, + decreased breath sounds Cardiovascular: regular rate, rhythm, no edema, no gallop Abdomen: normal bowel sounds, non tender, + distended Extremities: no pedal edema, no calf tenderness 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iatric: alert Skin: normal color, warm/dry, no rash Laboratory Results Last 24 Hours Test 11/12/17 10:36 11/12/17 15:28 11/13/17 07:14 Arterial Blood pH 7.49 Arterial Blood Partial Pressure CO2 22 mmHg Arterial Blood Partial Pressure O2 115 mm/Hg Arterial Blood HCO3 16 mmol/L Arterial Blood Oxygen Saturation 98.7 % Arterial Blood Base Excess -5.6 mEq/L Arterial Blood Gas Delivery ROOM AIR Jeremi Test POS Sodium Level 132 mmol/L 136 mmol/L Potassium Level 4.7 mmol/L 4.4 mmol/L Chloride Level 105 mmol/L 108 mmol/L Carbon Dioxide Level 16 mmol/L 18 mmol/L Anion Gap 11.0 mmol/L 10.0 mmol/L Blood Urea Nitrogen 72 mg/dl 61 mg/dl Creatinine 2.27 mg/dl 1.83 mg/dl Est Creatinine Clear Calc Drug Dose 29.3 ml/min 36.3 ml/min Estimated GFR () 32.7 42.4 Estimated GFR (Non- 28.2 36.6 BUN/Creatinine Ratio 31.7 33.3 Random Glucose 102 mg/dl 86 mg/dl Calcium Level 7.7 mg/dl 7.6 mg/dl Magnesium Level 2.4 mg/dl 2.3 mg/dl Total Bilirubin 2.5 mg/dl Aspartate Amino Transf (AST/SGOT) 84 U/L Alanine Aminotransferase (ALT/SGPT) 64 U/L Alkaline Phosphatase 166 U/L Ammonia 69.0 umol/L Total Protein 6.1 gm/dl Albumin 2.0 gm/dl Globulin 4.1 gm/dl Albumin/Globulin Ratio 0.5 Medications Medications Administered Medications (Trade) Dose Ordered Sig/Raffi Route Start Time Stop Time Status Last Admin Dose Admin Sodium Chloride 500 ml @ 999 mls/hr Q31M STAT IV 11/10/17 14:05 11/10/17 14:35 DC 11/10/17 14:32 999 MLS/HR Lactulose (Chronulac Syrup) 30 gm NOW STAT PO 11/10/17 14:05 11/10/17 14:13 DC 11/10/17 14:31 30 GM Sodium Chloride 500 ml @ 999 mls/hr Q31M STAT IV 11/10/17 16:04 11/10/17 16:34 DC 11/10/17 16:07 999 MLS/HR Heparin Sodium (Porcine) (Heparin Sq 5000 Unit/0.5ml) 5,000 unit Q12 SQ 11/10/17 21:00 11/11/17 11:24 DC 11/11/17 09:22 5,000 UNIT Sodium Chloride 1,000 ml @ 125 mls/hr Q8H IV 11/10/17 16:39 12/10/17 16:38 11/13/17 05:43 125 MLS/HR Ciprofloxacin (Cipro Tab) 500 mg DAILY PO 11/11/17 09:00 11/21/17 08:59 11/12/17 08:34 500 MG Lactulose (Chronulac Syrup) 20 gm TID PO 11/10/17 21:00 12/10/17 20:59 11/12/17 20:31 20 GM Sodium Polystyrene Sulfonate (Kayexalate Susp) 15 gm NOW STAT PO 11/10/17 16:49 11/10/17 17:20 DC 11/10/17 17:43 15 GM Calcium Gluconate 1000 mg/Sodium Chloride 60 ml @ 240 mls/hr NOW STAT IV 11/10/17 16:50 11/10/17 17:29 DC 11/10/17 17:59 240 MLS/HR Insulin Human Regular 10 units/ Syringe 10 ml @ 20 mls/min NOW STAT IV 11/10/17 16:51 11/10/17 17:28 DC 11/10/17 17:58 20 MLS/MIN Dextrose (Dextrose 50% 50ML Syringe) 50 ml NOW STAT IV 11/10/17 16:51 11/10/17 17:22 DC 11/10/17 17:52 50 ML Rifaximin (Xifaxan Tab) 550 mg BID PO 11/11/17 21:00 12/11/17 20:59 11/12/17 20:32 550 MG Sodium Bicarbonate (Sodium Bicarbonate Tab) 1,300 mg TID PO 11/11/17 21:00 12/11/17 20:59 11/12/17 20:32 1,300 MG Sodium Polystyrene Sulfonate (Kayexalate Susp) 15 gm NOW STAT PO 11/12/17 12:31 11/12/17 12:32 DC 11/12/17 13:08 15 GM Assessment and Plan Assessment and Plan: Pt is a 72 yo male with WELCH and h/o cirrhosis and hepatic encephalopathy, possible end-stage liver disease was recommended to have liver transplantation by GI, readmitted on 11/11/2017 with weakness, confusion, poor appetite. Culture on blood and ascites fluid are currently negative Paracentesis 11/11/17 - IMPRESSION: Ultrasound-guided diagnostic paracentesis with aspiration of 1 L of ascites. CXR 11/10/17 - IMPRESSION: 1. Mildly low lung volumes. No convincing evidence of acute cardiopulmonary disease. Head CT 11/10/17 - IMPRESSION: 1. Chronic small vessel ischemic change. No acute intracranial abnormality. 2. Extensive sinus opacification. Correlate for possible acute sinusitis. ECG 11/11/17 Normal sinus rhythm with Left axis deviation; ST & T wave abnormality, consider inferolateral ischemia, unchanged since 11/10/17 Plan 1. PARADISE 2/2 prerenal azotemia or possibly hepatorenal syndrome. a. Cr continues to decline (1.83 today), baseline of 1.4 on previous hospitalization discharge b. Consulted nephrology Recommended Midodrine if BP continues to decrease c. Bicarb for metabolic acidosis 2. WELCH with cirrhosis and possibly ESLD a. Consulted GI and recommended liver transplantation last hospitalization -Pt and family will try to work up liver transplant in [place] as outpatient b. MELD-NA on admission is 31 and MELD 25 c. Continue Lactulose and follow ammonia level d. Continue to hold Lasix, Spironolactone and Nadolol e. Paracentesis done and 1L of fluid drawn f. Respiratory alkalosis likely 2/2 mild hepatic encephalopathy - continue to monitor for mental status changes and pH fluctuations 3. Hyponatremia 2/2 ESLD with ascites, poor salt intake and increased free water a. Continue NSS at 125 ml/hr 4. Hyperkalemia a. Continue to monitor b. Kayexalate 5. Lateral ST changes with mild trop elevation a. Continue to follow trop trend Continued [facility] stay due to: home environment unsafe for pt Discharge planning: home
--- NOTE | 2017-11-13 19:47 | GASTROENTEROLOGY PROGRESS NOTE ---
DATE: 11/13/2017 GASTROENTEROLOGY INPATIENT PROGRESS NOTE Chart reviewed, patient examined. The patient is lethargic tonight and although is arousable, has difficulty recalling place, time or this provider who he has met several times in the past. He does not report any discomfort and is resting comfortably in bed. Sclerae are anicteric. LABORATORY STUDIES: Yesterday showed white count 5.4, hemoglobin 10.7 which is slightly trending downward, and platelets of 81,000. His serum chemistries today show pneumonia level is 69 as well as a BUN and creatinine of 61 and 1.8, although these are down from the last couple days, at which time they were 75 and 2.4. Total bilirubin is down to 2.5 from 2.3 on admission, it is down from the high spot of his hospitalization, although was 2.3 on admission. The alkaline phosphatase is mildly elevated at 166. The patient has had no recent imaging studies. Microbiology shows no growth to date on the ascites fluid and blood cultures on 11/11/2017 showed no growth to date. The cell count on 11/11/2017 showed 137 white blood cells, about 20,000 red blood cells, the majority are mononuclear at 74%. MEDICATIONS: The patient's medication list were reviewed and include rifaximin for encephalopathy, ciprofloxacin, lactulose for encephalopathy, Zofran. He is not on any diuretics at this time. PHYSICAL EXAMINATION: VITAL SIGNS: Today, patient's temperature is afebrile at 36.4, respiratory rate 18, blood pressure 108/75, pulse ox 98% on room air. HEENT: Sclerae mildly icteric. MENTAL STATUS: As described above. HEART: Normal S1, S2. LUNGS: Clear to auscultation. ABDOMEN: Soft, but protuberant without evidence of tense ascites. There is no rebound or guarding. There are no abdominal bruits. EXTREMITIES: Without clubbing, cyanosis or significant edema. I made the following recommendations: Based on the chart suggests that patient needs to be transferred to [place] under hepatology and it appears that transfer arrangements are in progress. The patient's mental status seems to change from earlier in the day to the evening. One note is that on laboratory studies from prior studies suggest on several paracenteses including October 01, October 07, October 29 and November 11 all show red blood cell counts that are between 11,000 to 20,000. Although this may reflect blood from the paracentesis, consideration for sources of bloody ascites need to be excluded. We would consider replacing a PPD if not recently performed or alternatively a QuantiFERON for TB. In the meantime, we would continue with therapy and wait transfer to [place]. Renal function seems to be slowly improving but mental status at least at this examination seems to be deteriorating compared to my prior exams over recent hospitalizations. MTDD
--- NOTE | 2017-11-13 20:00 | NUR ---
A: Assessment completed. See EMR for full assessment. Patient resting in bed. Drowsy, awakens to voice. A&OX4. Denies pain or shortness of breath. Lungs clear on RA. O2 sat 97%. SR on monitor. HR in the 90's. VSS. NSS at 125 ml/hr infusing without difficulty via #20 gauge in right AC. Patient incontinent of moderate amount of urine linen and gowns changed. Scrotal edema noted. Call lainez within reach.
[2017-11-14] VITALS (7 sets, daily range): BP systolic 93–113; BP diastolic 64–72; PULSE 88–102; TEMP 36.2–36.7; O2SAT 98–100
--- NOTE | 2017-11-14 | NUR ---
a: No change in assessment. Patient resting in bed. Awakens to voice. Denies pain or shortness of breath. SR on monitor. HR in the 80's. VSS. Patient incontinent of urine and small amount of brown formed stool, care completed. IV fluids infusing without difficulty. Call lainez within reach.
--- NOTE | 2017-11-14 04:00 | NUR ---
A: No change in assessment. Patient resting in bed. No complaints voiced. VSS. SR on monitor. Patient voided 400 ml in urinal and incontinent of moderate amount of brown, formed stool, care provided. IV fluids infusing without difficulty. Call lainez within reach.
[2017-11-14] MEDS: SODIUM CHLORIDE 0.9% 1000ML 1,000 ML IV SCH (05:33)
[2017-11-14] MEDS: CIPROFLOXACIN 500 MG TAB PO SCH (07:51)
[2017-11-14] MEDS: LACTULOSE SYRUP 20 GM/30 ML UDC PO SCH ×3 (07:51→20:52)
[2017-11-14] MEDS: SODIUM BICARBONATE 650 MG TAB PO SCH ×2 (07:51→20:52)
[2017-11-14] MEDS: RIFAXIMIN TAB 550 MG TAB PO SCH ×2 (07:51→20:52)
--- NOTE | 2017-11-14 08:33 | Nephrology Progress Note ---
Nephrology Progress Note Date of Service Nov 14, 2017. Chief Complaint Acute renal insufficiency Subjective No acute events overnight. Baljeet is more awake this morning. Appetite improved. He denies pain. No fevers or chills. Able to eat >25% breakfast and > 250 ml fluid this morning. Multiple BM reported. No abdominal pain. Review of Systems A complete review of systems was performed. Pertinent positives are noted above. All other systems are negative. Vital Signs Last 8 Hrs Date Time Temp Pulse Resp B/P (MAP) Pulse Ox O2 Delivery O2 Flow Rate FiO2 11/14/17 08:00 Room Air 11/14/17 07:14 36.6 98 19 113/71 (85) 100 Room Air 11/14/17 04:00 99 Room Air 11/14/17 03:30 36.2 99 20 109/71 (84) 99 Room Air Last Recorded Weight Weight (Kilograms): 73.800 Physical Exam General Appearance: WD/WN, no apparent distress Head: normocephalic, atraumatic Eyes: normal inspection, sclerae normal ENT: normal ENT inspection, pharynx normal Neck: supple, no JVD Respiratory/Chest: lungs clear, no respiratory distress, no accessory muscle use Cardiovascular: regular rate, rhythm, no gallop Abdomen/GI: non tender, soft, + distended Genitourinary - Male: + pertinent finding (scrotal edema) Extremities/Musculoskelatal: normal inspection, + pertinent finding (mild dependent edema) 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: alert, normal mood/affect Social History Drug Use: none Marital Status: Housing Status: lives with family Occupation: retired Laboratory Results Past 24 Hours Test 11/14/17 07:37 Allergies Coded Allergies: No Known Allergies (Unverified , 11/10/17) Medications Current Inpatient Medications Medications (Trade) Dose Ordered Sig/Raffi Route Start Time Stop Time Status Last Admin Dose Admin Sodium Chloride 1,000 ml @ 125 mls/hr Q8H IV 11/10/17 16:39 12/10/17 16:38 11/14/17 05:33 125 MLS/HR Acetaminophen (Tylenol Tab) 650 mg Q4H PRN PO 11/10/17 16:45 12/10/17 16:44 Ondansetron HCl (Zofran Inj) 4 mg Q6H PRN IV 11/10/17 16:45 12/10/17 16:44 Ciprofloxacin (Cipro Tab) 500 mg DAILY PO 11/11/17 09:00 11/21/17 08:59 11/14/17 07:51 500 MG Lactulose (Chronulac Syrup) 20 gm TID PO 11/10/17 21:00 12/10/17 20:59 11/14/17 07:51 20 GM Rifaximin (Xifaxan Tab) 550 mg BID PO 11/11/17 21:00 12/11/17 20:59 11/14/17 07:51 550 MG Sodium Bicarbonate (Sodium Bicarbonate Tab) 1,300 mg TID PO 11/11/17 21:00 12/11/17 20:59 11/14/17 07:51 1,300 MG Impression (1) Hyperkalemia (2) Acute kidney injury (3) Ascites (4) Dehydration (5) Cirrhosis (6) Hepatic encephalopathy (7) Hyponatremia Mr. Baljeet Purcell is a 72-year-old male with cirrhosis complicated by ascites and recurrent hepatic encephalopathy. He was admitted with mental status changes. He has a history of PARADISE consistent with prerenal azotemia in the past. Baseline creatinine has been 1.3 mg/dL. He developed PARADISE consistent with ATN/ prerenal azotemia. He is non oliguric. Creatinine is improving with fluids. IVF to be discontinued today as oral intake improved and overall volume status acceptable. Random William <5 consistent with prerenal azotemia possible HRS. Improvement with IVF not consistent with HRS1. BP is low but acceptable. For metabolic acidosis continue oral HCO3 replacement. Recommendations -- Encourage oral intake to maintain positive fluid balance -- DC NSS IV -- Continue oral HCO3 1300 mg TID -- Repeat metabolic profile tomorrow AM -- Encourage nutrition -- Medications appropriate for renal function -- No additional changes at this time
[2017-11-14 08:49] LABS: ALBUMIN 1.9 gm/dl (3.4-5.0); CALCIUM 7.4 mg/dl (8.5-10.1); CREATININE 1.45 mg/dl (0.60-1.40); POTASSIUM 4.5 mmol/L (3.5-5.1)
[2017-11-14 08:56] LABS: TOTAL PROTEIN 5.7 gm/dl (6.4-8.2)
--- NOTE | 2017-11-14 11:32 | NUR ---
Case Management: Met with pt's Elayne to discuss discharge needs. I reviewed therapy notes with - that pt needed mod to max assist with transfers, stood at the bedside with mod assist for 3 min. Pt did not take any steps but did sit in the chair. OT has pt being max assist with transfer. would really like to get pt home for the holiday but I did tell her I did not think he would be able to go home from the hospital. We did discuss options for rehab and she mentioned [facility] and [facility]. I did inform her of the differences in the facilities and I was not sure pt would tolerate acute rehab setting at this time. gave permission to make a referral to [facility] but is still hopeful he might be able to return home with help. verbalized concerns for depression and wondered about getting pt started on an antidepressant. Dr Owens came by and was able to verbalize this concern with him. Dr Owens mentioned awaiting conversation with GI - Dr Mesa - regarding possible transfer to [place] from [facility]. Will cont to follow.
--- NOTE | 2017-11-14 14:10 | Medical Student: [facility] ---
Med Student Progress Note Date of Service Nov 14, 2017. Subjective Pt evaluation today including: conversation w/ patient, physical exam, chart review, lab review, review of studies, review of inpatient medication list Pain: None PO Intake: Good Pt is much more alert today than previously. A&Ox3. Denies any acute events last night. No fevers, chills, SOB, chest pain, n/v. Making consistent stools with lactulose. Review of Systems Constitutional: No fever, No chills Respiratory: No cough, No sputum, No shortness of breath Cardiac: No chest pain, No edema Abdomen: No pain, No nausea, No vomiting Male : No dysuria, No urinary frequency Neurologic: No problem reported Psychiatric: No problem reported Skin: No rash, No itch Objective Vital Signs Date Time Temp Pulse Resp B/P (MAP) Pulse Ox O2 Delivery O2 Flow Rate FiO2 11/14/17 12:00 Room Air 11/14/17 11:12 36.5 99 20 111/72 (85) 100 Room Air 11/14/17 08:00 Room Air 11/14/17 07:14 36.6 98 19 113/71 (85) 100 Room Air 11/14/17 04:00 99 Room Air 11/14/17 03:30 36.2 99 20 109/71 (84) 99 Room Air 11/13/17 23:59 94 Room Air 11/13/17 23:20 36.7 100 18 101/64 (76) 99 Room Air 11/13/17 20:00 97 Room Air 11/13/17 18:58 36.5 102 18 111/75 (87) 97 Room Air 11/13/17 16:00 Room Air 11/13/17 15:38 36.4 99 18 108/75 (86) 98 Room Air Physical Exam General Appearance: WD/WN, no apparent distress Eyes: bilateral eyes normal inspection, bilateral eyes PERRL, bilateral eyes EOMI Respiratory/Chest: chest non-tender, lungs clear, + decreased breath sounds Cardiovascular: regular rate, rhythm, no edema, no gallop, + systolic murmur (2 /6) Abdomen: normal bowel sounds, non tender, + distended Extremities: no pedal edema, no calf tenderness 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iatric: alert, normal mood/affect, oriented x 3 Skin: normal color, warm/dry, no rash Laboratory Results Last 24 Hours Test 11/14/17 07:37 11/14/17 13:03 Sodium Level 136 mmol/L Potassium Level 4.5 mmol/L Chloride Level 109 mmol/L Carbon Dioxide Level 18 mmol/L Anion Gap 9.0 mmol/L Blood Urea Nitrogen 52 mg/dl Creatinine 1.45 mg/dl Est Creatinine Clear Calc Drug Dose 45.8 ml/min Estimated GFR () 56.1 Estimated GFR (Non- 48.4 BUN/Creatinine Ratio 35.9 Random Glucose 78 mg/dl Calcium Level 7.4 mg/dl Total Bilirubin 1.9 mg/dl Aspartate Amino Transf (AST/SGOT) 69 U/L Alanine Aminotransferase (ALT/SGPT) 55 U/L Alkaline Phosphatase 158 U/L Total Protein 5.7 gm/dl Albumin 1.9 gm/dl Globulin 3.8 gm/dl Albumin/Globulin Ratio 0.5 Medications Medications Administered Medications (Trade) Dose Ordered Sig/Raffi Route Start Time Stop Time Status Last Admin Dose Admin Sodium Chloride 500 ml @ 999 mls/hr Q31M STAT IV 11/10/17 14:05 11/10/17 14:35 DC 11/10/17 14:32 999 MLS/HR Lactulose (Chronulac Syrup) 30 gm NOW STAT PO 11/10/17 14:05 11/10/17 14:13 DC 11/10/17 14:31 30 GM Sodium Chloride 500 ml @ 999 mls/hr Q31M STAT IV 11/10/17 16:04 11/10/17 16:34 DC 11/10/17 16:07 999 MLS/HR Heparin Sodium (Porcine) (Heparin Sq 5000 Unit/0.5ml) 5,000 unit Q12 SQ 11/10/17 21:00 11/11/17 11:24 DC 11/11/17 09:22 5,000 UNIT Sodium Chloride 1,000 ml @ 125 mls/hr Q8H IV 11/10/17 16:39 11/14/17 13:47 DC 11/14/17 05:33 125 MLS/HR Ciprofloxacin (Cipro Tab) 500 mg DAILY PO 11/11/17 09:00 11/21/17 08:59 11/14/17 07:51 500 MG Lactulose (Chronulac Syrup) 20 gm TID PO 11/10/17 21:00 12/10/17 20:59 11/14/17 07:51 20 GM Sodium Polystyrene Sulfonate (Kayexalate Susp) 15 gm NOW STAT PO 11/10/17 16:49 11/10/17 17:20 DC 11/10/17 17:43 15 GM Calcium Gluconate 1000 mg/Sodium Chloride 60 ml @ 240 mls/hr NOW STAT IV 11/10/17 16:50 11/10/17 17:29 DC 11/10/17 17:59 240 MLS/HR Insulin Human Regular 10 units/ Syringe 10 ml @ 20 mls/min NOW STAT IV 11/10/17 16:51 11/10/17 17:28 DC 11/10/17 17:58 20 MLS/MIN Dextrose (Dextrose 50% 50ML Syringe) 50 ml NOW STAT IV 11/10/17 16:51 11/10/17 17:22 DC 11/10/17 17:52 50 ML Rifaximin (Xifaxan Tab) 550 mg BID PO 11/11/17 21:00 12/11/17 20:59 11/14/17 07:51 550 MG Sodium Bicarbonate (Sodium Bicarbonate Tab) 1,300 mg TID PO 11/11/17 21:00 11/14/17 13:48 DC 11/14/17 07:51 1,300 MG Sodium Polystyrene Sulfonate (Kayexalate Susp) 15 gm NOW STAT PO 11/12/17 12:31 11/12/17 12:32 DC 11/12/17 13:08 15 GM Assessment and Plan Assessment and Plan: Pt is a 72 yo male with WELCH and h/o cirrhosis and hepatic encephalopathy, possible end-stage liver disease was recommended to have liver transplantation by GI, readmitted on 11/11/2017 with weakness, confusion, poor appetite. Culture on blood and ascites fluid are currently negative Paracentesis 11/11/17 - IMPRESSION: Ultrasound-guided diagnostic paracentesis with aspiration of 1 L of ascites. CXR 11/10/17 - IMPRESSION: 1. Mildly low lung volumes. No convincing evidence of acute cardiopulmonary disease. Head CT 11/10/17 - IMPRESSION: 1. Chronic small vessel ischemic change. No acute intracranial abnormality. 2. Extensive sinus opacification. Correlate for possible acute sinusitis. ECG 11/11/17 Normal sinus rhythm with Left axis deviation; ST & T wave abnormality, consider inferolateral ischemia, unchanged since 11/10/17 Plan 1. PARADISE 2/2 prerenal azotemia or possibly hepatorenal syndrome. a. Cr continues to decline (1.45 today), about equal to baseline of 1.4 on previous hospitalization discharge b. Consulted nephrology Recommended Midodrine if BP continues to decrease c. Bicarb for metabolic acidosis 2. WELCH with cirrhosis and possibly ESLD a. Consulted GI and recommended liver transplantation last hospitalization -Pt and family will try to work up liver transplant in [place] as outpatient. There is a possibly of transfer to [place] during this hospitalization. b. MELD-NA on admission is 31 and MELD 25 c. Continue Lactulose and follow ammonia level d. Continue to hold Lasix, Spironolactone and Nadolol e. Paracentesis done and 1L of fluid drawn f. Respiratory alkalosis likely 2/2 mild hepatic encephalopathy - continue to monitor for mental status changes and pH fluctuations 3. Hyponatremia 2/2 ESLD with ascites, poor salt intake and increased free water a. Resolved, discontinued NSS 4. Hyperkalemia - resolved a. Continue to monitor 5. Lateral ST changes with mild trop elevation a. Continue to monitor Continued [facility] stay due to: home environment unsafe for pt Discharge planning: home
--- NOTE | 2017-11-14 15:43 | Progress Note ---
Subjective Date of Service: Nov 14, 2017. Subjective Pt evaluation today including: conversation w/ patient, conversation w/ family , chart review, lab review, review of studies, conversation w/ applications development consultant, review of inpatient medication list Patient is more awake and alert and orientated, smiling and know name, BD and place, and grandchildren in the bedside Deny any complaint Has been taking on the pills , some breakfast this morning Problem List Medical Problems: (1) Acute on chronic renal failure Status: Acute (2) CKD (chronic kidney disease) Status: Acute (3) Elevated troponin Status: Acute (4) Fever Status: Acute (5) Hepatic encephalopathy Status: Acute (6) Hyperkalemia Status: Acute (7) Hyponatremia Status: Acute (8) Hypotension Status: Acute Review of Systems Constitutional: + weakness, + fatigue, No see HPI, No fever, No chills, No sweats, No weight loss, No problem reported Eyes: No see HPI, No worsening of vision, No eye pain, No redness, No discharge , No diplopia, No problem reported ENT: No see HPI, No hearing loss, No unusual epistaxis, No nasal symptoms, No sore throat, No tinnitus, No dental problems, No trouble swallowing, No problem reported Respiratory: + shortness of breath, No see HPI, No cough, No sputum, No wheezing, No dyspnea on exertion, No dyspnea at rest, No hemoptysis, No problem reported Cardiac: No see HPI, No chest pain, No orthopnea, No PND, No edema, No claudication, No palpitations, No problem reported Abdomen: + problem reported (mild ascites), No see HPI, No pain, No nausea, No vomiting, No diarrhea, No constipation, No GI bleeding Musculoskeletal: No see HPI, No joint pain, No muscle pain, No swelling, No calf pain, No problem reported Male : No see HPI, No dysuria, No urinary frequency, No incontinence, No nocturia more than once/night, No slowing stream, No hematuria, No sexual dysfunction, No problem reported Neurologic: No see HPI, No memory loss, No paralysis, No weakness, No numbness/ tingling, No vertigo, No balance problems, No problem reported Psychiatric: No see HPI, No depression symptoms, No anhedonism, No anxiety, No insomnia, No substance abuse, No problem reported Heme: No see HPI, No abnormal bleeding/bruising, No clotting problems, No swollen lymph nodes, No night sweats, No problem reported Endo: No see HPI, No fatigue, No excessive thirst, No excessive urination, No problem reported Skin: No see HPI, No rash, No itch, No new/changing skin lesions, No color change, No bleeding, No problem reported Objective Vital Signs Date Time Temp Pulse Resp B/P (MAP) Pulse Ox O2 Delivery O2 Flow Rate FiO2 11/14/17 15:14 36.7 102 18 93/64 (74) 99 Room Air 11/14/17 12:00 Room Air 11/14/17 11:12 36.5 99 20 111/72 (85) 100 Room Air 11/14/17 08:00 Room Air 11/14/17 07:14 36.6 98 19 113/71 (85) 100 Room Air 11/14/17 04:00 99 Room Air 11/14/17 03:30 36.2 99 20 109/71 (84) 99 Room Air 11/13/17 23:59 94 Room Air 11/13/17 23:20 36.7 100 18 101/64 (76) 99 Room Air 11/13/17 20:00 97 Room Air 11/13/17 18:58 36.5 102 18 111/75 (87) 97 Room Air 11/13/17 16:00 Room Air 11/13/17 15:38 36.4 99 18 108/75 (86) 98 Room Air Physical Exam General Appearance: WD/WN, no apparent distress, + thin, + pertinent finding ( chronic ill-looking) Eyes: normal inspection, PERRL, EOMI, sclerae normal ENT: normal ENT inspection, hearing grossly normal, pharynx normal Neck: supple, no adenopathy, thyroid normal, no JVD, no carotid bruits, trachea midline Respiratory/Chest: chest non-tender, normal breath sounds, no respiratory distress, no accessory muscle use, + decreased breath sounds Cardiovascular: regular rate, rhythm, no edema, no gallop, no JVD, no murmur Abdomen: normal bowel sounds, non tender, soft, no organomegaly, no pulsatile mass, + pertinent finding (ascites) Extremities: normal range of motion, non-tender, normal inspection, no pedal edema, no calf tenderness, normal capillary refill, pelvis stable 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iatric: 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, no motor/sensory deficits, alert, normal mood/affect, oriented x 3 Skin: normal color, warm/dry, no rash Lymphatic: no adenopathy Laboratory Results Last 24 Hours Test 11/14/17 07:37 11/14/17 13:03 Sodium Level 136 mmol/L Potassium Level 4.5 mmol/L Chloride Level 109 mmol/L Carbon Dioxide Level 18 mmol/L Anion Gap 9.0 mmol/L Blood Urea Nitrogen 52 mg/dl Creatinine 1.45 mg/dl Est Creatinine Clear Calc Drug Dose 45.8 ml/min Estimated GFR () 56.1 Estimated GFR (Non- 48.4 BUN/Creatinine Ratio 35.9 Random Glucose 78 mg/dl Calcium Level 7.4 mg/dl Total Bilirubin 1.9 mg/dl Aspartate Amino Transf (AST/SGOT) 69 U/L Alanine Aminotransferase (ALT/SGPT) 55 U/L Alkaline Phosphatase 158 U/L Total Protein 5.7 gm/dl Albumin 1.9 gm/dl Globulin 3.8 gm/dl Albumin/Globulin Ratio 0.5 Assessment and Plan 72 yo male with known h/o cirrhosis due to WELCH, possible end-stage liver disease was recommended to have liver transplantation by GI, readmitted on 11/11 with weakness, confusion, poor appetite Generally has been improving PARADISE on CKD: Cr up to 3.51 upon admission, likely because of dehydration or acute kidney failure, less likely is hepatorenal syndrome continue significant improving every day Cr was 1.4 at time of discharge one week ago, is approaching to baseline Tobacco Sampler on the case, Continue oral HCO3 1300 mg per recommend on the from the bmp monitor Encourage nutrition Possible ESLD with Cirrhosis: due to WELCH, Upon admission MELD -Na Score is 31 and MELD 25, mortality is 19.6% in 3 month Continue Lactulose, follow-up ammonia level Continue to hold Lasix, Spironolactone and Nadolol he was recommended to have liver transplantation per GI service in last admission, GI talked to family possible inpatient transferring Discussed with patient's and daughter in bedside, I called to [facility], talked to Dr. Encinas, Dr. Encinas did agreed if patient's condition deteriorating during this hospitalization, patient can be transferred, the paperwork of transferring and I made is ready, include families consent, family agree and understand about this. However, also discussed with Dr. Encinas, we both feel patient's general condition improves every day,, in this aspect do not need to be transferred as a inpatient, I clarify with Dr. 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 , will follow-up Hyponatremia: likely combination of end-stage liver disease with ascites, poor salt intake and drinking free water, continue current care Hyperkalemia: Resolved and follow-up Lateral ST changes with mild elevation of troponin: no chest pain, troponin trends down, troponin elevation could be from troponin and EKGs from acute on chronic kidney failure DVT prophylaxis: Discontinue Heparin SC because of thrombocytopenia, mild elevated troponin with INR 1.4, SCD ordered Patient need to go to group home for rehabilitation, for the outpatient [facility] transplant center evaluation, both case manager specialist in this hospital and [facility], they have transferred on the medical record and have setting up outpatient evaluation time, per our Navigator , she received a phone call back from [facility] and she was told that they have everything they need to see patient. They plan to see the pt in their clinic on or around December 02. " Continued [facility] stay due to: home environment unsafe for pt Discharge planning: home
--- NOTE | 2017-11-14 16:14 | NUR ---
A: Intake and Output for 1430: Pinon was taken out at 9:15am, no output of 915ml, and pinon put out 200ml after being D/C.
--- NOTE | 2017-11-14 19:22 | GASTROENTEROLOGY PROGRESS NOTE ---
DATE: 11/14/2017 GASTROENTEROLOGY INPATIENT PROGRESS NOTE SUBJECTIVE: Chart reviewed, patient examined. The patient appears slightly more oriented today, although lethargic in nature. He was more arousable than last evening. He is lying in bed with this meal untouched. The patient is oriented to month and person and knows the [place] is approaching. LABORATORY STUDIES: Today - his serum chemistry shows BUN and creatinine of 52 and 1.45, which is slowly declining, over the last couple days. His calcium level was 7.4, AST 69, ALT of 55, alkaline phosphatase 158, these two are slowly decreasing towards normal. Albumin, however, is poor at 1.9. QuantiFERON TB test is pending. Microbiology: There has been no growth to date on blood cultures and Gram stain final from the ascites was negative. PHYSICAL EXAMINATION: OBJECTIVE: VITAL SIGNS: Today afebrile 36.7, blood pressure 93/64, heart rate 102, respirations 18, 99% on room air. HEENT: The patient is mildly icteric. Oral mucosa is parched. HEART: Normal S1, S2. LUNGS: Clear to auscultation. ABDOMEN: Soft, mildly protuberant without evidence of tense ascites. There is no rebound or guarding. It is nontender. There are positive bowel sounds. EXTREMITIES: Without clubbing, cyanosis or edema. RECTAL: Deferred. IMPRESSION AND PLAN: The patient with hepatic encephalopathy due to end-stage liver disease. Renal function is slowly improving each day off diuretic therapy. He is on agents for his encephalopathy including rifaximin 500 mg twice daily and lactulose 30 mL 3 times daily. The patient reports that he has only had one bowel movement overnight. However, the chart showed 3 stools on and 2 for today. The goal would be to have 3 pasty stools each day. It is possible that increasing the rifaximin of 3 times daily may be of some benefit. At the present time, he is not on diuretics and would continue avoid this and work mostly through a fluid and sodium restriction cautiously. Tentative plans are for an expedited outpatient liver clinic evaluation at [place] to determine transplantation candidacy. Await the results of the TB test to exclude the potential of TB infection as the source for bloody perhaps, although I think this is less likely. Dr. Gutierrez will be rounding on the service tomorrow, Saturday.
[2017-11-15] VITALS (7 sets, daily range): BP systolic 92–110; BP diastolic 61–74; PULSE 86–103; TEMP 36.3–36.8; O2SAT 95–100
--- NOTE | 2017-11-15 | NUR ---
RESTING IN BED,VSS, DENIES CURRENT PAIN,CALL MARTE IN REACH,WILL CONTINUE TO MONITOR
[2017-11-15 07:29] LABS: ALBUMIN 1.9 gm/dl (3.4-5.0); CREATININE 1.49 mg/dl (0.60-1.40); POTASSIUM 4.6 mmol/L (3.5-5.1)
[2017-11-15 07:32] LABS: TOTAL PROTEIN 5.8 gm/dl (6.4-8.2)
--- NOTE | 2017-11-15 08:00 | NUR ---
A/ID: PT ASSESSMENT COMPLETED. PT IS AWAKE, ALERT TO PERSON AND PLACE, OTHERWISE CONFUSED. IV INTACT. SR ON MONITOR. PT INCONTINENT OF URINE. CALL MARTE WITHIN REACH. REFUSING SCD'S.
[2017-11-15] MEDS: LACTULOSE SYRUP 20 GM/30 ML UDC PO SCH ×2 (08:08→14:53)
[2017-11-15] MEDS: RIFAXIMIN TAB 550 MG TAB PO SCH ×3 (08:08→20:01)
[2017-11-15] MEDS: CIPROFLOXACIN 500 MG TAB PO SCH (08:08)
[2017-11-15] MEDS: SODIUM BICARBONATE 650 MG TAB PO SCH ×2 (08:09→20:01)
--- NOTE | 2017-11-15 10:15 | NUR ---
Case Management: Spoke with Apolonia at [facility] regarding referral. She states that they did not receive one but also that they do not have any bed availability at the current time. Case management to follow. Addendum: 11/15/17 at 1158 by Sandee Banks SERV Spoke with pt. and his at bedside. Made them aware that [facility] does not have any beds at this time. His would like a referral made to [facility] but wants to talk to them as she is concerned it may be too aggressive. I notified Kathryn and advised her of their concerns. She states that she will go and talk to the patient and his to address concerns. Awaiting update from Dr. Owens as to whether patient will be a possible d/c this weekend as he will need insurance authorization prior to going to a facility. Case management to follow. Addendum: 11/15/17 at 1328 by Sandee Banks SERV Pt. transferred to room 415, appropriate patient case coordinator to follow.
--- NOTE | 2017-11-15 10:27 | Nephrology Progress Note ---
Nephrology Progress Note Date of Service Nov 15, 2017. Chief Complaint Acute renal insufficiency Subjective No acute events overnight. No complaints this morning. Baljeet denies pain. He is thirsty and drinking lots of fluids. No fevers or chills. Generalized weakness limits mobility. Review of Systems A complete review of systems was performed. Pertinent positives are noted above. All other systems are negative. Vital Signs Last 8 Hrs Date Time Temp Pulse Resp B/P (MAP) Pulse Ox O2 Delivery O2 Flow Rate FiO2 11/15/17 08:00 Room Air 11/15/17 07:55 36.4 86 20 96/63 (74) 99 Room Air 11/15/17 04:00 Room Air 11/15/17 03:05 36.4 93 18 103/71 (82) 100 Room Air Last Recorded Weight Weight (Kilograms): 76.000 Physical Exam General Appearance: no apparent distress, + thin Head: normocephalic, atraumatic Eyes: normal inspection, sclerae normal ENT: normal ENT inspection, pharynx normal, + pertinent finding (oral mucosa dry) Neck: supple, no JVD Respiratory/Chest: lungs clear, no respiratory distress, no accessory muscle use Cardiovascular: regular rate, rhythm, no gallop Abdomen/GI: non tender, soft, + distended Extremities/Musculoskelatal: normal inspection, no pedal edema 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: alert, + depressed affect Social History Drug Use: none Marital Status: Housing Status: lives with family Occupation: retired Laboratory Results Past 24 Hours 11/15/17 06:41 Test 11/14/17 13:03 11/15/17 06:41 Anion Gap 9.0 mmol/L (3-11) Est Creatinine Clear Calc Drug Dose 44.6 ml/min Estimated GFR () 54.3 Estimated GFR (Non- 46.9 BUN/Creatinine Ratio 32.5 (10-20) Calcium Level 8.0 mg/dl (8.5-10.1) Total Bilirubin 2.0 mg/dl (0.2-1) Aspartate Amino Transf (AST/SGOT) 82 U/L (15-37) Alanine Aminotransferase (ALT/SGPT) 67 U/L (12-78) Alkaline Phosphatase 187 U/L (45-117) Total Protein 5.8 gm/dl (6.4-8.2) Albumin 1.9 gm/dl (3.4-5.0) Globulin 3.9 gm/dl (2.5-4.0) Albumin/Globulin Ratio 0.5 (0.9-2) Allergies Coded Allergies: No Known Allergies (Unverified , 11/10/17) Medications Current Inpatient Medications Medications (Trade) Dose Ordered Sig/Raffi Route Start Time Stop Time Status Last Admin Dose Admin Acetaminophen (Tylenol Tab) 650 mg Q4H PRN PO 11/10/17 16:45 12/10/17 16:44 Ondansetron HCl (Zofran Inj) 4 mg Q6H PRN IV 11/10/17 16:45 12/10/17 16:44 Ciprofloxacin (Cipro Tab) 500 mg DAILY PO 11/11/17 09:00 11/21/17 08:59 11/15/17 08:08 500 MG Lactulose (Chronulac Syrup) 20 gm TID PO 11/10/17 21:00 12/10/17 20:59 11/15/17 08:08 20 GM Sodium Bicarbonate (Sodium Bicarbonate Tab) 1,300 mg BID PO 11/14/17 21:00 12/11/17 20:59 11/15/17 08:09 1,300 MG Rifaximin (Xifaxan Tab) 550 mg TID PO 11/15/17 09:00 12/11/17 20:59 11/15/17 08:08 550 MG Impression (1) Hyperkalemia (2) Acute kidney injury (3) Ascites (4) Dehydration (5) Cirrhosis (6) Hepatic encephalopathy (7) Hyponatremia Mr. Baljeet Purcell is a 72-year-old male with cirrhosis complicated by ascites and recurrent hepatic encephalopathy. He was admitted with mental status changes. He has a history of PARADISE consistent with prerenal azotemia in the past. Baseline creatinine has been 1.3 mg/dL. He developed PARADISE consistent with ATN/ prerenal azotemia. He is non oliguric. Creatinine is improved with fluids. IVF discontinued yesterday. Volume status is acceptable. Acute hyponatremia noted in the setting of large PO free water intake. Will continue Na replacement and encouraged decreased fluid intake. Continue to monitor. Random William <5 consistent with prerenal azotemia possible HRS. Improvement with IVF not consistent with HRS1. BP is low but acceptable. For metabolic acidosis continue oral HCO3 replacement. Recommendations -- Encourage nutrition -- Limit free water intake to <1.8 L/d -- Continue oral HCO3 1300 mg TID -- Repeat metabolic profile tomorrow AM -- Medications appropriate for renal function
--- NOTE | 2017-11-15 11:28 | Progress Note ---
Subjective Date of Service: Nov 15, 2017. Subjective Pt evaluation today including: conversation w/ patient, conversation w/ family , physical exam, chart review, lab review, review of studies, conversation w/ application support consultant, review of inpatient medication list Continue doing well, awake and alert and orientated, watching TV, conversational , has 2-3 bowel movement yesterday, no bowel movement yet today Problem List Medical Problems: (1) Acute on chronic renal failure Status: Acute (2) CKD (chronic kidney disease) Status: Acute (3) Elevated troponin Status: Acute (4) Fever Status: Acute (5) Hepatic encephalopathy Status: Acute (6) Hyperkalemia Status: Acute (7) Hyponatremia Status: Acute (8) Hypotension Status: Acute Review of Systems Constitutional: + weakness, + fatigue, No fever, No chills, No sweats, No weight loss, No problem reported Eyes: No worsening of vision, No eye pain, No redness, No discharge, No diplopia ENT: No hearing loss, No unusual epistaxis, No nasal symptoms, No sore throat, No tinnitus, No dental problems, No trouble swallowing Respiratory: No cough, No sputum, No wheezing, No shortness of breath, No dyspnea on exertion, No dyspnea at rest, No hemoptysis Cardiac: No chest pain, No orthopnea, No PND, No edema, No claudication, No palpitations Abdomen: No pain, No nausea, No vomiting, No diarrhea, No constipation Musculoskeletal: No joint pain, No muscle pain, No swelling, No calf pain Male : No dysuria, No urinary frequency, No incontinence, No nocturia more than once/night, No slowing stream, No hematuria Neurologic: No memory loss, No paralysis, No weakness, No numbness/tingling, No vertigo, No balance problems Psychiatric: No depression symptoms, No anhedonism, No anxiety, No insomnia, No substance abuse Heme: No abnormal bleeding/bruising, No clotting problems, No swollen lymph nodes, No night sweats Endo: + fatigue, No excessive thirst, No excessive urination Skin: No rash, No itch, No new/changing skin lesions, No color change, No bleeding Objective Vital Signs Date Time Temp Pulse Resp B/P (MAP) Pulse Ox O2 Delivery O2 Flow Rate FiO2 11/15/17 08:00 Room Air 11/15/17 07:55 36.4 86 20 96/63 (74) 99 Room Air 11/15/17 04:00 Room Air 11/15/17 03:05 36.4 93 18 103/71 (82) 100 Room Air 11/15/17 00:00 Room Air 11/14/17 23:23 36.6 94 19 99/66 (77) 98 Room Air 11/14/17 20:00 Room Air 11/14/17 19:41 36.4 88 18 106/71 (83) 99 Room Air 11/14/17 15:30 Room Air 11/14/17 15:14 36.7 102 18 93/64 (74) 99 Room Air 11/14/17 12:00 Room Air Physical Exam General Appearance: WD/WN, no apparent distress, + thin, + pertinent finding ( frail) Eyes: normal inspection, PERRL, EOMI, sclerae normal ENT: normal ENT inspection, hearing grossly normal, pharynx normal Neck: supple, no adenopathy, thyroid normal, no JVD, no carotid bruits, trachea midline Respiratory/Chest: chest non-tender, normal breath sounds, no respiratory distress, no accessory muscle use, + decreased breath sounds Cardiovascular: regular rate, rhythm, no edema, no gallop, no JVD, no murmur Abdomen: normal bowel sounds, non tender, soft, no organomegaly, no pulsatile mass, + pertinent finding (ascites) Extremities: normal range of motion, non-tender, normal inspection, no pedal edema, no calf tenderness, normal capillary refill, pelvis stable 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iatric: internal carver II-XII nml as tested, no motor/sensory deficits, alert, normal mood/affect, oriented x 3 Skin: normal color, warm/dry, no rash Lymphatic: no adenopathy Laboratory Results Last 24 Hours Test 11/14/17 13:03 11/15/17 06:41 Sodium Level 130 mmol/L Potassium Level 4.6 mmol/L Chloride Level 103 mmol/L Carbon Dioxide Level 18 mmol/L Anion Gap 9.0 mmol/L Blood Urea Nitrogen 48 mg/dl Creatinine 1.49 mg/dl Est Creatinine Clear Calc Drug Dose 44.6 ml/min Estimated GFR () 54.3 Estimated GFR (Non- 46.9 BUN/Creatinine Ratio 32.5 Random Glucose 81 mg/dl Calcium Level 8.0 mg/dl Total Bilirubin 2.0 mg/dl Aspartate Amino Transf (AST/SGOT) 82 U/L Alanine Aminotransferase (ALT/SGPT) 67 U/L Alkaline Phosphatase 187 U/L Total Protein 5.8 gm/dl Albumin 1.9 gm/dl Globulin 3.9 gm/dl Albumin/Globulin Ratio 0.5 Assessment and Plan 72 yo male with known h/x cirrhosis due to WELCH, possible end-stage liver disease was recommended to have liver transplantation by GI, readmitted on 11/11 with weakness, confusion, poor appetite Generally has been improving continually PARADISE on CKD: Cr up to 3.51 upon admission, likely because of dehydration or acute kidney failure consistent with ATN/prerenal azotemia, per light cleaner , possible HRS. Improvement with IVF not consistent with HRS1. 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, talked to Dr. Encinas, Dr. Encinas did agreed if patient's condition deteriorating during this hospitalization, patient can be transferred , the paperwork of transferring and I made is ready, include families consent, family agree and understand about this. However, also discussed with Dr. Encinas , we both feel patient's general condition improves every day, in this aspect do not need to be transferred as a inpatient, I clarify with Dr. 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 They plan to see the pt in their clinic on or around December 02. " Patient was transferred to [facility] today, possible ready for discharge to rehabilitation in day 1 or 2 Continued [facility] stay due to: home environment unsafe for pt Discharge planning: rehab hospital, intermediate facility
--- NOTE | 2017-11-15 11:45 | NUR ---
REPORT CALLED TO NATI TAVERA. PT TO BE TRANSFERRED TO ROOM [id number]. SPOUSE AT BEDSIDE AND AWARE.
--- NOTE | 2017-11-15 12:00 | NUR ---
comfort bath provided. pt transferred to medical via wheelchair with transport. meds and belongings sent with pt
--- NOTE | 2017-11-15 13:25 | NUR ---
A Note; Pt's asking if pt will receive PT/OT while hospitalized MD notified and new order received
[2017-11-15] MEDS: ONDANSETRON INJ 2 MG/ML 2 ML VIAL IV PRN (15:38)
--- NOTE | 2017-11-15 15:40 | GASTROENTEROLOGY PROGRESS NOTE ---
DATE: 11/15/2017 DATE: 11/15/2017 The patient is sitting up in a bedside chair drinking a beverage holding his hand steady. He is alert to place but not time. He is not somnolent at all, although his speech pattern is somewhat slow. Objectively his vital signs are normal except for a pulse of 100. His ammonia level is still slightly elevated at 69. Today's sodium is 130, potassium 4.6, BUN is 48, creatinine 1.49. IMPRESSION: The patient's liver and kidney functions are gradually improving. After discussing his case at [facility] with the day care home provider they recommended that he continue to be hospitalized here for improvement and hopefully maybe go to rehab once he is better enough to be discharged and then they will see him at [facility] as an outpatient to evaluate his liver and consider him for liver transplant. For now I plan on increasing his lactulose to 30 mL 3 times a day from 20 mL and he will continue on Xifaxan. Dr. Mesa will be covering over the weekend.
[2017-11-15] MEDS: LACTULOSE SYRUP 30 GM/45 ML UDP PO SCH (20:07)
[2017-11-16] VITALS (8 sets, daily range): BP systolic 84–102; BP diastolic 53–70; PULSE 93–101; TEMP 36.3–36.9; O2SAT 98–100
--- NOTE | 2017-11-16 04:00 | NUR ---
ID: AAO x 3, drowsy/lethargic at times. VSS, sats 94-97% room air. Appetite poor, fluid restrictions maintained. Receiving scheduled lactulose, having 2-3 loose BM's/day. Denies any pain or nausea at this time. See EMR for full assessment. SS following, no immediate discharge plans at this time, will likely need inpatient rehab upon discharge.
[2017-11-16 06:45] LABS: CALCIUM 7.8 mg/dl (8.5-10.1); CREATININE 1.76 mg/dl (0.60-1.40); POTASSIUM 4.8 mmol/L (3.5-5.1)
[2017-11-16] MEDS: RIFAXIMIN TAB 550 MG TAB PO SCH ×3 (07:54→19:31)
[2017-11-16] MEDS: CIPROFLOXACIN 500 MG TAB PO SCH (07:54)
[2017-11-16] MEDS: SODIUM BICARBONATE 650 MG TAB PO SCH ×2 (07:54→19:31)
[2017-11-16] MEDS: LACTULOSE SYRUP 30 GM/45 ML UDP PO SCH ×3 (07:54→19:31)
--- NOTE | 2017-11-16 11:40 | Nephrology Progress Note ---
Nephrology Progress Note Date of Service Nov 16, 2017. Chief Complaint Acute renal insufficiency Subjective No acute events overnight. Baljeet is resting comfortably in bed. He has no acute complaints. No fevers or chills. Appetite is poor. Patient only taking meals with encouragement. Stool frequency increased in response to changes in lactulose dose. No melena or hematochezia reported. Baljeet remains weak. He is slow to answer questions. He denies any concerns on ROS. Review of Systems A complete review of systems was performed. Pertinent positives are noted above. All other systems are negative. Vital Signs Last 8 Hrs Date Time Temp Pulse Resp B/P (MAP) Pulse Ox O2 Delivery O2 Flow Rate FiO2 11/16/17 11:18 36.3 95 18 91/59 (70) 100 Room Air 11/16/17 08:00 98 Room Air 11/16/17 07:46 90/60 (70) 11/16/17 07:38 36.5 94 16 84/53 (63) 98 Room Air 11/16/17 04:21 36.4 93 18 95/64 (74) 98 Room Air Last Recorded Weight Weight (Kilograms): 73.200 Physical Exam General Appearance: no apparent distress, + pertinent finding (generalized weakness and chronically ill appearing) Head: normocephalic, atraumatic Eyes: normal inspection, sclerae normal ENT: normal ENT inspection, pharynx normal Neck: supple, no JVD Respiratory/Chest: lungs clear, no respiratory distress, no accessory muscle use, + decreased breath sounds Cardiovascular: regular rate, rhythm, no murmur Abdomen/GI: non tender, soft, + distended Extremities/Musculoskelatal: normal inspection, no pedal edema 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: alert, + depressed affect Social History Drug Use: none Marital Status: Housing Status: lives with family Occupation: retired Laboratory Results Past 24 Hours 11/16/17 05:43 Test 11/16/17 05:43 Anion Gap 9.0 mmol/L (3-11) Est Creatinine Clear Calc Drug Dose 37.8 ml/min Estimated GFR () 44.4 Estimated GFR (Non- 38.3 BUN/Creatinine Ratio 32.1 (10-20) Calcium Level 7.8 mg/dl (8.5-10.1) Phosphorus Level 3.0 mg/dl (2.5-4.9) Magnesium Level 2.2 mg/dl (1.8-2.4) Allergies Coded Allergies: No Known Allergies (Unverified , 11/10/17) Medications Current Inpatient Medications Medications (Trade) Dose Ordered Sig/Rfafi Route Start Time Stop Time Status Last Admin Dose Admin Acetaminophen (Tylenol Tab) 650 mg Q4H PRN PO 11/10/17 16:45 12/10/17 16:44 Ondansetron HCl (Zofran Inj) 4 mg Q6H PRN IV 11/10/17 16:45 12/10/17 16:44 11/15/17 15:38 4 MG Ciprofloxacin (Cipro Tab) 500 mg DAILY PO 11/11/17 09:00 11/21/17 08:59 11/16/17 07:54 500 MG Sodium Bicarbonate (Sodium Bicarbonate Tab) 1,300 mg BID PO 11/14/17 21:00 12/11/17 20:59 11/16/17 07:54 1,300 MG Rifaximin (Xifaxan Tab) 550 mg TID PO 11/15/17 09:00 12/11/17 20:59 11/16/17 07:54 550 MG Lactulose (Chronulac Syrup) 30 gm TID PO 11/15/17 20:00 12/15/17 19:59 11/16/17 07:54 30 GM Sodium Chloride 1,000 ml @ 125 mls/hr Q8H IV 11/16/17 11:30 12/16/17 11:29 UNV Impression (1) Hyperkalemia (2) Acute kidney injury (3) Ascites (4) Dehydration (5) Cirrhosis (6) Hepatic encephalopathy (7) Hyponatremia Mr. Baljeet Purcell is a 72-year-old male with cirrhosis complicated by ascites and recurrent hepatic encephalopathy. He was admitted with mental status changes. He has a history of recurrent PARADISE consistent with prerenal azotemia. Baseline creatinine has been 1.3 mg/dL. He developed PARADISE consistent with ATN/ prerenal azotemia. He has been non oliguric. Creatinine is improved with fluids. Unfortunately, renal function declined after fluids were stopped. Oral intake is poor. The patient has been moving his bowels frequently in response to lactulose. Laboratory studies notable for acute mild hyponatremia. Random William was found to be <5 consistent with significant prerenal physiology such as possible underlying HRS. However, the patient did respond to IV saline initially. BP is low but has been acceptable. For metabolic acidosis continue oral HCO3 replacement. Shortage of IV bicarbonate noted. Recommendations -- Restart 0.9% saline @ 125 ml/hr -- Encourage nutrition -- Continue oral HCO3 1300 mg TID -- Repeat metabolic profile this afternoon -- Document I/O's -- Monitor CMP daily AM -- If BP does not improve with IVF, would suggest starting midodrine -- If renal function does not improve or there is evidence of increasing extravascular fluid with saline infusions would consider albumin and octreotide -- Medications appropriate for renal function
[2017-11-16] MEDS: SODIUM CHLORIDE 0.9% 1000ML 1,000 ML IV SCH ×2 (12:09→19:31)
--- NOTE | 2017-11-16 12:25 | GASTROENTEROLOGY PROGRESS NOTE ---
DATE: 11/16/2017 INPATIENT GASTROINTESTINAL PROGRESS NOTE SUBJECTIVE: Chart reviewed, patient examined. The patient was seen at approximately 11:30 a.m. this morning and was clearly more alert than he had been in the previous evenings. He is oriented to person, place and time and knows the Ortiz is occurring, although he remains lethargic and slow to respond. He has no complaints as far as abdominal pain, nausea, vomiting and did report some bowel movements which were mostly pasty in nature. REVIEW OF SYSTEMS: Otherwise noncontributory. MEDICATIONS: Include lactulose 30 grams 3 times daily (45 mL 3 times daily) Xifaxan/rifaximin 550 mg 3 times daily, ciprofloxacin 500 daily, and Zofran. LABORATORY STUDIES: Show that his BUN and creatinine are mildly increased since yesterday. His BUN is up to 57 and creatinine 1.76, up 1.49. REVIEW OF SYSTEMS: Otherwise noncontributory based on 13-point exam. PHYSICAL EXAMINATION: GENERAL: The patient's mental status described above. HEENT: Oral mucosa moist. HEART: Normal S1, S2. LUNGS: Clear to auscultation. ABDOMEN: Soft, protuberant but mostly tympanitic without evidence of significant or tense ascites. There is no rebound or guarding. EXTREMITIES: Without clubbing, cyanosis or edema. RECTAL: Deferred. IMPRESSION AND PLAN: The patient with hepatic encephalopathy due to presumably fatty liver disease. Although, he appears more alert at this time, concerns for a slight rise in his BUN and creatinine may suggest a lower intravascular volume status. He is currently not on diuretics. Would carefully watch his stool outputs and if become consistently loose then would reduce the lactulose down to either 45 mL twice daily or back to 15-30 mL twice a day. The patient has a trace asterixis on today's exam. All questions answered. LUIS ANTONIO
--- NOTE | 2017-11-16 15:36 | NUR ---
A: Small amounts of clear,blood tinged drainage leaking from patient's scrotum. Patient's states that this is from when patient had hydrocele repair. MD notified- MD instructed to continue to monitor the drainage.
--- NOTE | 2017-11-16 16:55 | Progress Note ---
Subjective Date of Service: Nov 16, 2017. Subjective Pt evaluation today including: conversation w/ patient, physical exam, chart review, lab review, review of studies, review of inpatient medication list Voiding: no voiding problems Patient is doing well, awake and alert and orientated. Problem List Medical Problems: (1) Acute on chronic renal failure Status: Acute (2) CKD (chronic kidney disease) Status: Acute (3) Elevated troponin Status: Acute (4) Fever Status: Acute (5) Hepatic encephalopathy Status: Acute (6) Hyperkalemia Status: Acute (7) Hyponatremia Status: Acute (8) Hypotension Status: Acute Review of Systems Constitutional: + weakness, + fatigue, No fever, No chills, No sweats, No weight loss, No problem reported Eyes: No worsening of vision, No eye pain, No redness, No discharge, No diplopia ENT: No hearing loss, No unusual epistaxis, No nasal symptoms, No sore throat, No tinnitus, No dental problems, No trouble swallowing Respiratory: No cough, No sputum, No wheezing, No shortness of breath, No dyspnea on exertion, No dyspnea at rest, No hemoptysis Cardiac: No chest pain, No orthopnea, No PND, No edema, No claudication, No palpitations Abdomen: No pain, No nausea, No vomiting, No diarrhea, No constipation Musculoskeletal: No joint pain, No muscle pain, No swelling, No calf pain Male : No dysuria, No urinary frequency, No incontinence, No nocturia more than once/night, No slowing stream, No hematuria Neurologic: No memory loss, No paralysis, No weakness, No numbness/tingling, No vertigo, No balance problems Psychiatric: No depression symptoms, No anhedonism, No anxiety, No insomnia, No substance abuse Heme: No abnormal bleeding/bruising, No clotting problems, No swollen lymph nodes, No night sweats Endo: + fatigue, No excessive thirst, No excessive urination Skin: No rash, No itch, No new/changing skin lesions, No color change, No bleeding Medications Medications (Trade) Dose Ordered Sig/Raffi Route Start Time Stop Time Status Last Admin Dose Admin Lactulose (Chronulac Syrup) 30 gm TID PO 11/15/17 20:00 12/15/17 19:59 11/16/17 07:54 30 GM Objective Vital Signs Date Time Temp Pulse Resp B/P (MAP) Pulse Ox O2 Delivery O2 Flow Rate FiO2 11/16/17 08:00 98 Room Air 11/16/17 07:46 90/60 (70) 11/16/17 07:38 36.5 94 16 84/53 (63) 98 Room Air 11/16/17 04:21 36.4 93 18 95/64 (74) 98 Room Air 11/16/17 00:10 Room Air 11/15/17 23:45 36.4 98 18 92/61 (71) 98 Room Air 11/15/17 21:30 Room Air 11/15/17 19:26 36.4 86 20 110/70 (83) 100 Room Air 11/15/17 16:00 Room Air 11/15/17 15:27 36.5 97 20 96/68 (77) 100 Room Air 11/15/17 12:44 36.8 103 18 109/74 (86) 95 Room Air 11/15/17 12:00 Room Air 11/15/17 11:13 36.3 96 18 94/62 (73) 96 Room Air Physical Exam Comments: General Appearance: WD/WN, no apparent distress, + thin, + pertinent finding ( frail) Eyes: normal inspection, PERRL, EOMI, sclerae normal ENT: normal ENT inspection, hearing grossly normal, pharynx normal Neck: supple, no adenopathy, thyroid normal, no JVD, no carotid bruits, trachea midline Respiratory/Chest: chest non-tender, normal breath sounds, no respiratory distress, no accessory muscle use, + decreased breath sounds Cardiovascular: regular rate, rhythm, no edema, no gallop, no JVD, no murmur Abdomen: normal bowel sounds, non tender, soft, no organomegaly, no pulsatile mass, + pertinent finding (ascites) Extremities: normal range of motion, non-tender, normal inspection, no pedal edema, no calf tenderness, normal capillary refill, pelvis stable 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iatric: flower planter II-XII nml as tested, no motor/sensory deficits, alert, normal mood/affect, oriented x 3 Skin: normal color, warm/dry, no rash Lymphatic: no adenopathy Laboratory Results Last 24 Hours Test 11/16/17 05:43 Sodium Level 129 mmol/L Potassium Level 4.8 mmol/L Chloride Level 102 mmol/L Carbon Dioxide Level 18 mmol/L Anion Gap 9.0 mmol/L Blood Urea Nitrogen 57 mg/dl Creatinine 1.76 mg/dl Est Creatinine Clear Calc Drug Dose 37.8 ml/min Estimated GFR () 44.4 Estimated GFR (Non- 38.3 BUN/Creatinine Ratio 32.1 Random Glucose 78 mg/dl Calcium Level 7.8 mg/dl Phosphorus Level 3.0 mg/dl Magnesium Level 2.2 mg/dl Assessment and Plan 72 yo male with known h/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 -- Cr was 1.4 at time of discharge one week ago, is approaching to baseline, however once fluid restricted Cr trended upward to 1.76 today.-- per nephrology start IVF 125 ml/hr for now. 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 Encinas, Dr. Encinas did agreed if patient's condition deteriorating during this hospitalization, patient can be transferred , the paperwork of transferring and I made is ready, include families consent, family agree and understand about this. However, also discussed with Dr. Encinas , we both feel patient's general condition improves every day, in this aspect do not need to be transferred as a inpatient, I clarify with Dr. 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 transplant center evaluation, both case checker in this hospital and [facility], they have transferred on the medical record and have setting up outpatient evaluation time, per our Navigator , she [place] [facility] [place] was told that they have everything they need to see patient. They plan to see the pt in their clinic on or around December 02. " Possible ready for discharge to rehabilitation in day 1 or 2 Continued [facility] stay due to: home environment unsafe for pt Discharge planning[facility] Continued [facility] stay due to: home environment unsafe for pt Discharge planning[facility]
[2017-11-17] VITALS (11 sets, daily range): BP systolic 90–114; BP diastolic 57–77; PULSE 74–111; TEMP 36.3–36.6; O2SAT 98–100
[2017-11-17] MEDS: SODIUM CHLORIDE 0.9% 1000ML 1,000 ML IV SCH (04:33)
[2017-11-17 05:54] LABS: HEMOGLOBIN 11.3 g/dL (14.0-18.0); MEAN CELL VOLUME 89.9 fL (80-100); MEAN CORPUSCULAR HEMOGLOBIN 31.7 pg (25-34); MEAN CORPUSCULAR HGB CONC 35.3 g/dl (32-36); PLATELET COUNT 107 K/uL (130-400); RED CELL DISTRIBUTION WIDTH SD 55.4 fL (36.4-46.3); WHITE BLOOD COUNT 7.93 K/uL (4.8-10.8)
[2017-11-17 06:31] LABS: ALBUMIN 1.8 gm/dl (3.4-5.0); CALCIUM 7.9 mg/dl (8.5-10.1); POTASSIUM 4.6 mmol/L (3.5-5.1)
[2017-11-17 06:34] LABS: TOTAL PROTEIN 5.9 gm/dl (6.4-8.2)
--- NOTE | 2017-11-17 06:45 | NUR ---
ID: AAO x 3, drowsy. VSS, sats 95-98% room air. Tolerating small amounts of diet, fluid restrictions maintained. IVF infusing, receiving PO antibiotics. Had 2 loose bowel movements overnight following HS Lactulose. Denies any pain or nausea. See EMR for full assessment. SS following, no immediate discharge plans at this time, plan is for inpatient rehab upon discharge.
[2017-11-17] MEDS: LACTULOSE SYRUP 30 GM/45 ML UDP PO SCH ×3 (07:57→21:26)
[2017-11-17] MEDS: CIPROFLOXACIN 500 MG TAB PO SCH (07:58)
[2017-11-17] MEDS: SODIUM BICARBONATE 650 MG TAB PO SCH ×2 (07:58→21:27)
[2017-11-17] MEDS: RIFAXIMIN TAB 550 MG TAB PO SCH ×3 (07:58→21:26)
--- NOTE | 2017-11-17 11:02 | Gastroenterology Progress Note ---
Progress Note Date of Service: Nov 17, 2017 Subjective Pt evaluation today including: conversation w/ patient, physical exam, chart review, lab review, review of studies, review of inpatient medication list cc f/u ESLD, ascites, mental status changes HPI Pt complains of poor appetite. NO abd pain. Review of Systems Respiratory: No shortness of breath Cardiac: No chest pain Medications Current Inpatient Medications Medications (Trade) Dose Ordered Sig/Raffi Route Start Time Stop Time Status Last Admin Dose Admin Acetaminophen (Tylenol Tab) 650 mg Q4H PRN PO 11/10/17 16:45 12/10/17 16:44 Ondansetron HCl (Zofran Inj) 4 mg Q6H PRN IV 11/10/17 16:45 12/10/17 16:44 11/15/17 15:38 4 MG Ciprofloxacin (Cipro Tab) 500 mg DAILY PO 11/11/17 09:00 11/21/17 08:59 11/17/17 07:58 500 MG Sodium Bicarbonate (Sodium Bicarbonate Tab) 1,300 mg BID PO 11/14/17 21:00 12/11/17 20:59 11/17/17 07:58 1,300 MG Rifaximin (Xifaxan Tab) 550 mg TID PO 11/15/17 09:00 12/11/17 20:59 11/17/17 07:58 550 MG Lactulose (Chronulac Syrup) 30 gm TID PO 11/15/17 20:00 12/15/17 19:59 11/17/17 07:57 30 GM Sodium Chloride 1,000 ml @ 125 mls/hr Q8H IV 11/16/17 12:00 12/16/17 11:59 Future Hold 11/17/17 04:33 125 MLS/HR Midodrine (Proamatine Tab) 2.5 mg TID@, PO 11/17/17 12:00 12/17/17 11:59 Albumin Human (Albumin 25%) 12.5 gm Q8 IV 11/17/17 14:00 11/20/17 13:59 Objective Vital Signs Date Time Temp Pulse Resp B/P (MAP) Pulse Ox O2 Delivery O2 Flow Rate FiO2 11/17/17 08:00 99 Room Air 11/17/17 07:46 36.6 101 20 103/74 (84) 99 Room Air 11/17/17 01:41 36.4 74 18 95/63 (74) 100 Room Air 11/17/17 01:00 Room Air 11/16/17 20:10 Room Air 11/16/17 20:00 36.6 101 18 94/65 (75) 100 Room Air 11/16/17 16:00 98 Room Air 11/16/17 15:05 36.9 96 18 102/70 (81) 100 Room Air 11/16/17 11:18 36.3 95 18 91/59 (70) 100 Room Air Physical Exam General Appearance: WD/WN, no apparent distress Respiratory/Chest: lungs clear, no respiratory distress Cardiovascular: regular rate, rhythm Abdomen: normal bowel sounds, non tender, + distended (distended but not tense , no guarding nor rebound. ) 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: normal mood/affect, oriented x 3 Laboratory Results Last 24 Hours Test 11/17/17 05:41 White Blood Count 7.93 K/uL Red Blood Count 3.56 M/uL Hemoglobin 11.3 g/dL Hematocrit 32.0 % Mean Corpuscular Volume 89.9 fL Mean Corpuscular Hemoglobin 31.7 pg Mean Corpuscular Hemoglobin Concent 35.3 g/dl RDW Standard Deviation 55.4 fL RDW Coefficient of Variation 17.0 % Platelet Count 107 K/uL Mean Platelet Volume 10.0 fL Sodium Level 129 mmol/L Potassium Level 4.6 mmol/L Chloride Level 102 mmol/L Carbon Dioxide Level 19 mmol/L Anion Gap 8.0 mmol/L Blood Urea Nitrogen 66 mg/dl Creatinine 2.00 mg/dl Est Creatinine Clear Calc Drug Dose 33.2 ml/min Estimated GFR () 38.1 Estimated GFR (Non- 32.8 BUN/Creatinine Ratio 32.9 Random Glucose 95 mg/dl Calcium Level 7.9 mg/dl Total Bilirubin 1.8 mg/dl Aspartate Amino Transf (AST/SGOT) 70 U/L Alanine Aminotransferase (ALT/SGPT) 63 U/L Alkaline Phosphatase 203 U/L Total Protein 5.9 gm/dl Albumin 1.8 gm/dl Globulin 4.1 gm/dl Albumin/Globulin Ratio 0.4 Assessment and Plan mental status changes---seem improved over description noted at admission hepatic encephalopathy-continue Rifaxamin and Lactulose,, check repeat ammonia in am (last one done 11/13) ESLD-eventual evaluation by [facility] to see if candidate for liver transplant ARF-appreciate nephrology input--note on admit even with lasix and aldactone held, suspect inadequate fluid intake precipatated this Dr Mesa resuming GI care tomorrow 11/18 at 0800.
--- NOTE | 2017-11-17 11:03 | NEPHROLOGY PROGRESS NOTE ---
DATE: 11/17/2017 SUBJECTIVE: Mr. Purcell voices no significant complaints. However, he is obviously weak. He says that his appetite is poor. Looking at his tray, he hardly ate anything that he had for breakfast. He denies nausea or vomiting. He denies abdominal pain. He recognizes that his abdomen is swollen. He denies any significant problems with constipation. He denies abdominal pain. There is no chest pain or shortness of breath. He denies having any orthostatic lightheadedness, but spends most of his time in bed. OBJECTIVE: GENERAL: On physical exam, he appears as a chronically ill gentleman, who was in no distress. He is obviously very weak and frail. He has an obvious loss of muscle mass, particularly in the limb girdle muscles. VITAL SIGNS: He is afebrile (36.6), his blood pressure 103/74, his pulse 101 and regular, respiratory rate 20, and his pulse ox 99%-100% on room air. SKIN: Shows essentially normal skin turgor. He does not appear jaundiced. I do not see any obvious cutaneous stigmata of chronic liver disease. I did not see any spider hemangiomas. He has no palmar erythema. He does have a few scattered ecchymoses. LYMPHATICS: Show no palpable adenopathy. HEAD: Normal. EYES: Somewhat sunken. Eyes did not show any evidence of conjunctival icterus. Pupils are round, equal and reactive to light. EARS, NOSE, MOUTH AND THROAT: Unremarkable. Oral mucous membranes are moist. He does have loss of papillae on his tongue. NECK: Supple. He has no jugular venous distention, carotid bruit or thyromegaly. CHEST: Clear to auscultation, although breath sounds are diminished at the bases related to his positioning at the time of exam as well as his ascites. CARDIAC: Shows a regular rhythm. S1 and S2 are normal. I hear no murmur or gallop. ABDOMEN: Obviously distended with a positive fluid wave. I cannot appreciate any organomegaly or mass. EXTREMITIES: Show no cyanosis, clubbing or peripheral edema. NEUROLOGIC: Shows no lateralizing changes. He has questionable asterixis. PERTINENT LABORATORY WORK: From today shows a white count of 7930. Differential was not done. His hemoglobin is 11.3 and his hematocrit 32.0. Platelet count is 107,000. Clinical chemistries show a sodium of 129 mmol/L, potassium 4.6 mmol/L, chlorides 102 mmol/L, and CO2 content 19 mmol/L. His BUN is up to 66 and his creatinine is up to 2.00. His serum calcium is 7.9 and his total bilirubin is 1.8. His AST is 70 and his ALT is 63. His alkaline phosphatase is 203. His total protein 5.9. His albumin 1.8. ASSESSMENT: Mr. Purcell has obvious advanced hepatic dysfunction. His urine output has not been accurately measured over the course of the past few days. However, he has had a rising BUN and creatinine despite IV fluids. Whether or not this is manufacturers representative of type 2 hepatorenal syndrome at this point or whether or not it is purely from intravascular volume depletion associated with his low serum albumin is unclear. 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 RECOMMENDATIONS: Would hold his IV fluids for now. Would place him on strict I&O. to follow his urine output. Would recheck a urine sodium and creatinine to reconfirm the fact that his urine sodium is quite low despite his IV fluids. Would start him on midodrine 2.5 mg 3 times a day. Would also start albumin infusions 12.5 grams IV every 8 hours. Depending on the results of these interventions, I might suggest that tomorrow we also consider starting him on subcutaneous octreotide. No other immediate recommendations. I will continue to follow with him. Dr. Deandre Avalos and I did discuss all of these interventions as nephrology's recommendations for his continuing care.
[2017-11-17] MEDS: MIDODRINE 2.5 MG TAB PO SCH ×2 (11:44→17:02)
--- NOTE | 2017-11-17 12:50 | Progress Note ---
Subjective Date of Service: Nov 17, 2017. Subjective Pt evaluation today including: conversation w/ patient, physical exam, chart review, lab review, review of studies, conversation w/ telesales consultant, review of inpatient medication list Pain: no Voiding: no voiding problems patient is seen and examined by me. Pt denies chest pain, sob, dizziness, palpitation and loss of consciousness. Pt abd is distended but denies pain, nausea, vomiting and diarrhea. Pt states appetite is poor. Problem List Medical Problems: (1) Acute on chronic renal failure Status: Acute (2) CKD (chronic kidney disease) Status: Acute (3) Elevated troponin Status: Acute (4) Fever Status: Acute (5) Hepatic encephalopathy Status: Acute (6) Hyperkalemia Status: Acute (7) Hyponatremia Status: Acute (8) Hypotension Status: Acute Review of Systems Constitutional: + weakness, + fatigue, No fever, No chills, No sweats Eyes: No worsening of vision Respiratory: No cough, No wheezing, No shortness of breath Cardiac: No chest pain, No orthopnea Abdomen: No pain, No nausea, No vomiting Psychiatric: No depression symptoms Endo: No fatigue Skin: No rash Medications Medications (Trade) Dose Ordered Sig/Raffi Route Start Time Stop Time Status Last Admin Dose Admin Midodrine (Proamatine Tab) 2.5 mg TID@08,,17 PO 11/17/17 12:00 12/17/17 11:59 11/17/17 11:44 2.5 MG Objective Vital Signs Date Time Temp Pulse Resp B/P (MAP) Pulse Ox O2 Delivery O2 Flow Rate FiO2 11/17/17 11:46 108 93/61 (72) 11/17/17 11:02 36.6 106 18 107/77 (87) 99 Room Air 11/17/17 08:00 99 Room Air 11/17/17 07:46 36.6 101 20 103/74 (84) 99 Room Air 11/17/17 01:41 36.4 74 18 95/63 (74) 100 Room Air 11/17/17 01:00 Room Air 11/16/17 20:10 Room Air 11/16/17 20:00 36.6 101 18 94/65 (75) 100 Room Air 11/16/17 16:00 98 Room Air 11/16/17 15:05 36.9 96 18 102/70 (81) 100 Room Air Physical Exam General Appearance: no apparent distress Eyes: EOMI Neck: supple, no JVD Respiratory/Chest: lungs clear, no respiratory distress, no accessory muscle use Cardiovascular: regular rate, rhythm, no JVD Abdomen: normal bowel sounds, non tender, soft, + distended 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iatric: no motor/sensory deficits, alert, normal mood/affect Skin: no rash Laboratory Results Last 24 Hours Test 11/17/17 05:41 11/17/17 11:16 White Blood Count 7.93 K/uL Red Blood Count 3.56 M/uL Hemoglobin 11.3 g/dL Hematocrit 32.0 % Mean Corpuscular Volume 89.9 fL Mean Corpuscular Hemoglobin 31.7 pg Mean Corpuscular Hemoglobin Concent 35.3 g/dl RDW Standard Deviation 55.4 fL RDW Coefficient of Variation 17.0 % Platelet Count 107 K/uL Mean Platelet Volume 10.0 fL Sodium Level 129 mmol/L Potassium Level 4.6 mmol/L Chloride Level 102 mmol/L Carbon Dioxide Level 19 mmol/L Anion Gap 8.0 mmol/L Blood Urea Nitrogen 66 mg/dl Creatinine 2.00 mg/dl Est Creatinine Clear Calc Drug Dose 33.2 ml/min Estimated GFR () 38.1 Estimated GFR (Non- 32.8 BUN/Creatinine Ratio 32.9 Random Glucose 95 mg/dl Calcium Level 7.9 mg/dl Total Bilirubin 1.8 mg/dl Aspartate Amino Transf (AST/SGOT) 70 U/L Alanine Aminotransferase (ALT/SGPT) 63 U/L Alkaline Phosphatase 203 U/L Total Protein 5.9 gm/dl Albumin 1.8 gm/dl Globulin 4.1 gm/dl Albumin/Globulin Ratio 0.4 Ammonia 51.2 umol/L Assessment and Plan 72 yo male with known h/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 -- Cr was 1.4 at time of discharge one week ago, is approaching to baseline, however once fluid restricted Cr trended upward to 2.0 today -- per nephrology fluid restriction, urine electrolytes, albumin and midodrine. 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 Encinas, Dr. Encinas did agreed if patient's condition deteriorating during this hospitalization, patient can be transferred , the paperwork of transferring and I made is ready, include families consent, family agree and understand about this. However, also discussed with Dr. Encinas , we both feel patient's general condition improves every day, in this aspect do not need to be transferred as a inpatient, I clarify with Dr. 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 They plan to see the pt in their clinic on or around December 02. " Possible ready for discharge to rehabilitation in day 1 or 2 Continued [facility] stay due to: home environment unsafe for pt Discharge planning: rehab hospital, alf facility Continued [facility] stay due to: home environment unsafe for pt Discharge planning: rehab hospital, alf facility
[2017-11-17] MEDS: ALBUMIN HUMAN 25% 12.5 GM/50 ML VIAL IV SCH ×2 (14:17→21:26)
--- NOTE | 2017-11-17 14:29 | GENITOURINARY CONSULTATION ---
DATE OF CONSULTATION: 11/17/2017 REASON FOR THE CONSULT: Scrotal edema with weeping of the scrotal tissue. HISTORY OF PRESENTATION: The patient is a 72-year-old male with renal failure as well as cirrhosis of the liver, who has generalized edema as well as abdominal fluid that has been drained with paracentesis. He has had ongoing problems with scrotal edema including a hydrocele repair by Dr. Mccord in January of this year. The patient also has a history of bladder cancer, but denies any recent gross hematuria. I was requested to see him because of this scrotal edema with some weeping from the skin. On physical examination, the patient's scrotum is clearly edematous, enlarged, but there is no erythema. There is a little bit of weeping from the skin. It is not clear from examination whether he has a hydrocele, but I would assume that he just has generalized edema with fluid from a communicating hydrocele coming from his abdomen from the ascites in his abdomen. It is not clear that draining this would be of any benefit and there is certainly a risk of bleeding and infection. We will order a sonogram to assess. We would in the meantime keep the scrotum elevated with a towel under it to try to keep it in the most dependent position possible when lying down. Also, any opened areas, we would place an antibiotic cream on it, might get a scrotal support to try to give him some comfort and/or mesh underwear with dressings to give him some support when he is standing. We will also refer him to see Dr. Mccord for a possible cystoscopy when he is finished with this admission.
--- NOTE | 2017-11-17 15:00 | NUR ---
A: patient has not voided all morning. Bladders scan reading for 527. New orders obtained. Call lainez within reach. will continue to monitor.
--- NOTE | 2017-11-17 21:21 | DIAGNOSTIC IMAGING REPORT ---
TESTICULAR ULTRASOUND CLINICAL HISTORY: Scrotal swelling COMPARISON STUDY: CT scan dated 10/27/2017 FINDINGS: The scrotum is edematous. The right testis measures 2.6 x 1.4 x 1.7 cm. The left testis measures 3 x 1.4 x 2.2 cm. No intratesticular masses are visualized. There is no evidence of testicular torsion. There are bilateral septated scrotal fluid collections, likely representing complex hydroceles. IMPRESSION: 1. Large bilateral septated scrotal fluid collections, likely representing complex hydroceles. 2. No evidence of intratesticular mass. No evidence of testicular torsion. Electronically signed by: Jake Brown M.D. 11/17/2017 9:19 PM Dictated Date/Time: 11/17/2017 9:15 PM
[2017-11-18] VITALS (9 sets, daily range): BP systolic 89–124; BP diastolic 48–72; PULSE 74–126; TEMP 36.4–36.9; O2SAT 96–100
--- NOTE | 2017-11-18 | NUR ---
A: Pt is AAO x 3, drowsy at times. VSS on RA. Kraft draining concentrated rafita color. No c/o pain or SOB. See EMR for full assessment. Discharge plan is uncertain at this time. Will monitor.
[2017-11-18 05:34] LABS: BASO % 0.2 %; BASO ABS # 0.02 K/uL (0-0.2); EOS % 1.3 %; EOS ABS # 0.13 K/uL (0-0.5); HEMATOCRIT 30.9 % (42-52); IG# 0.01 K/uL (0.00-0.02); LYMPH % 14.1 %; LYMPH ABS # 1.47 K/uL (1.2-3.4); MEAN CELL VOLUME 89.6 fL (80-100); MEAN CORPUSCULAR HEMOGLOBIN 31.9 pg (25-34); MEAN CORPUSCULAR HGB CONC 35.6 g/dl (32-36); MEAN PLATELET VOLUME 10.2 fL (7.4-10.4); MONO % 10.7 %; MONO ABS # 1.11 K/uL (0.11-0.59); NEUT % 73.6 %; NEUT ABS # 7.65 K/uL (1.4-6.5); PLATELET COUNT 110 K/uL (130-400); RED CELL DISTRIBUTION WIDTH CV 16.9 % (11.5-14.5); RED CELL DISTRIBUTION WIDTH SD 55.4 fL (36.4-46.3); WHITE BLOOD COUNT 10.39 K/uL (4.8-10.8)
[2017-11-18 05:52] LABS: ALBUMIN 2.3 gm/dl (3.4-5.0); CALCIUM 8.2 mg/dl (8.5-10.1); CREATININE 2.03 mg/dl (0.60-1.40); POTASSIUM 4.6 mmol/L (3.5-5.1)
[2017-11-18] MEDS: ALBUMIN HUMAN 25% 12.5 GM/50 ML VIAL IV SCH ×3 (06:26→22:01)
[2017-11-18] MEDS: LACTULOSE SYRUP 30 GM/45 ML UDP PO SCH ×3 (08:22→20:00)
[2017-11-18] MEDS: RIFAXIMIN TAB 550 MG TAB PO SCH ×3 (08:22→20:05)
[2017-11-18] MEDS: MIDODRINE 2.5 MG TAB PO SCH (08:22)
[2017-11-18] MEDS: CIPROFLOXACIN 500 MG TAB PO SCH (08:23)
[2017-11-18] MEDS: SODIUM BICARBONATE 650 MG TAB PO SCH ×2 (08:23→20:05)
--- NOTE | 2017-11-18 10:58 | NEPHROLOGY PROGRESS NOTE ---
DATE: 11/18/2017 SUBJECTIVE: Mr. Purcell denies any specific complaints today. He denies any problems with abdominal pain. He says that he has been moving his bowels. He denies having any nausea. He denies vomiting. He denies having any chest pain or shortness of breath. He has no symptoms of uremia or volume overload. He has had increasing scrotal edema. OBJECTIVE: GENERAL: On physical exam, Mr. Purcell appears as a cachectic gentleman of about his stated age of 72 or perhaps even older. VITAL SIGNS: He is afebrile (36.6), his blood pressure 106/71, his pulse is 74-126 and regular, respiratory rate is 16, and his pulse ox 100% on room air. SKIN: Shows normal skin turgor. He does not have obvious skin changes consistent with hepatic failure. He does not have obvious jaundice. LYMPHATICS: Show no palpable adenopathy. HEAD: Normal. EYES: Grossly normal. He does not have any significant conjunctival icterus. EARS, NOSE, MOUTH AND THROAT: Unremarkable. His oral mucous membranes are moist. CHEST: Shows elevated hemidiaphragms consistent with his abdominal distention. Breath sounds are diminished at the bases. It is otherwise clear to auscultation and percussion. CARDIAC: Shows a regular rhythm. S1 and S2 are normal. I hear no murmur or gallop. ABDOMEN: Obviously distended. It is tympanitic. He does have a positive fluid wave. I cannot appreciate any organomegaly or mass. He has marked scrotal edema with some minimal blistering. EXTREMITIES: Show no significant peripheral edema. Peripheral pulses are difficult to feel. NEUROLOGIC: Shows a questionable asterixis. He has no lateralizing neurologic changes. His intake and output shown to be positive by 2564 mL yesterday. His cumulative I and O shows that he is positive nearly 12 liters since his hospitalization. LABORATORY WORK: From today shows a white count of 10,390. His hemoglobin is 11.0. His hematocrit is 30.9. Platelet count is 110,000. Clinical chemistries show a sodium of 129 mmol/L, potassium 4.6 mmol/L, chlorides of 103 mmol/L, and CO2 content of 17 mmol/L. His BUN is 61 and his creatinine 2.03, both relatively stable. His serum calcium is 8.2. His total bilirubin 2.5, his AST is 76, his ALT 66 and his alkaline phosphatase is 192. His total protein is 6.0. His albumin 2.3. Blood ammonia done yesterday was 51.2 and today 53.0. 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 He does not appear to be particularly encephalopathic at this time despite somewhat of an elevated blood ammonia. However, he is obviously chronically ill. It appears as if he has responded somewhat to the addition of midodrine as well as albumin. RECOMMENDATIONS: Would continue albumin. Would increase midodrine to 5 mg 3 times a day. Would hold off on octreotide at least for now. However, that would be the next thing to add. If he does not start to diurese and his renal function continues to decline, would add octreotide subcutaneously. The usual suggested dose would be 100 mcg subQ twice daily. I would probably start lower at about 50. Tomorrow, Dr. Pacheco will be rounding around [facility] for nephrology and can help in making a decision.
--- NOTE | 2017-11-18 11:17 | Progress Note ---
Subjective Date of Service: Nov 18, 2017. Subjective Pt evaluation today including: conversation w/ patient, physical exam, review of studies ultrasound shows bilateral complex hydroceles Problem List Medical Problems: (1) Acute on chronic renal failure Status: Acute (2) CKD (chronic kidney disease) Status: Acute (3) Elevated troponin Status: Acute (4) Fever Status: Acute (5) Hepatic encephalopathy Status: Acute (6) Hyperkalemia Status: Acute (7) Hyponatremia Status: Acute (8) Hypotension Status: Acute Objective Vital Signs Date Time Temp Pulse Resp B/P (MAP) Pulse Ox O2 Delivery O2 Flow Rate FiO2 11/18/17 11:11 36.7 102 18 104/72 (83) 96 Room Air 11/18/17 08:00 Room Air 11/18/17 07:25 36.6 126 16 106/71 (83) 100 Room Air 11/18/17 04:00 36.8 74 20 124/72 (89) 98 Room Air 11/18/17 00:41 36.6 102 18 103/71 (82) 100 Room Air 11/18/17 00:00 Room Air 11/17/17 21:28 36.3 100 18 90/57 (68) 98 Room Air 11/17/17 20:00 Room Air 11/17/17 19:46 36.6 108 18 98/62 (74) 98 Room Air 11/17/17 18:09 99 Room Air 11/17/17 16:15 36.6 111 18 114/77 (89) 100 Room Air 11/17/17 15:43 36.6 110 21 100/71 (81) 99 Room Air 11/17/17 14:24 36.3 106 20 94/66 (75) 98 Room Air 11/17/17 11:46 108 93/61 (72) Physical Exam Comments: blood tinged urine in pinon fluid goes into inguinal canal indicating communication with abdomen Laboratory Results Last 24 Hours Test 11/17/17 11:16 11/18/17 05:25 Ammonia 51.2 umol/L 53.0 umol/L White Blood Count 10.39 K/uL Red Blood Count 3.45 M/uL Hemoglobin 11.0 g/dL Hematocrit 30.9 % Mean Corpuscular Volume 89.6 fL Mean Corpuscular Hemoglobin 31.9 pg Mean Corpuscular Hemoglobin Concent 35.6 g/dl Platelet Count 110 K/uL Mean Platelet Volume 10.2 fL Neutrophils (%) (Auto) 73.6 % Lymphocytes (%) (Auto) 14.1 % Monocytes (%) (Auto) 10.7 % Eosinophils (%) (Auto) 1.3 % Basophils (%) (Auto) 0.2 % Neutrophils # (Auto) 7.65 K/uL Lymphocytes # (Auto) 1.47 K/uL Monocytes # (Auto) 1.11 K/uL Eosinophils # (Auto) 0.13 K/uL Basophils # (Auto) 0.02 K/uL RDW Standard Deviation 55.4 fL RDW Coefficient of Variation 16.9 % Immature Granulocyte % (Auto) 0.1 % Immature Granulocyte # (Auto) 0.01 K/uL Sodium Level 129 mmol/L Potassium Level 4.6 mmol/L Chloride Level 103 mmol/L Carbon Dioxide Level 17 mmol/L Anion Gap 9.0 mmol/L Blood Urea Nitrogen 61 mg/dl Creatinine 2.03 mg/dl Est Creatinine Clear Calc Drug Dose 32.7 ml/min Estimated GFR () 37.4 Estimated GFR (Non- 32.3 BUN/Creatinine Ratio 30.0 Random Glucose 87 mg/dl Calcium Level 8.2 mg/dl Total Bilirubin 2.5 mg/dl Aspartate Amino Transf (AST/SGOT) 76 U/L Alanine Aminotransferase (ALT/SGPT) 66 U/L Alkaline Phosphatase 192 U/L Total Protein 6.0 gm/dl Albumin 2.3 gm/dl Globulin 3.7 gm/dl Albumin/Globulin Ratio 0.6 Assessment and Plan keep scrotum elevated pt needs cysto for bladder cancer as outpt Continued [facility] stay due to: home environment unsafe for pt Discharge planning: rehab hospital, penitentiary facility
[2017-11-18] MEDS ORDERED: MIDODRINE 2.5 MG TAB PO SCH (12:00)
--- NOTE | 2017-11-18 14:50 | Progress Note ---
Subjective Date of Service: Nov 18, 2017. Subjective pt appears chronically ill, complaints of scrotal edema and distended stomach, not much appetite today. Problem List Medical Problems: (1) Acute on chronic renal failure Status: Acute (2) CKD (chronic kidney disease) Status: Acute (3) Elevated troponin Status: Acute (4) Fever Status: Acute (5) Hepatic encephalopathy Status: Acute (6) Hyperkalemia Status: Acute (7) Hyponatremia Status: Acute (8) Hypotension Status: Acute Review of Systems Constitutional: + weakness Respiratory: + shortness of breath, + dyspnea on exertion, No cough Cardiac: + edema, No chest pain Abdomen: + diarrhea, + problem reported (distension), No pain, No nausea Neurologic: + weakness, No memory loss Psychiatric: No depression symptoms, No anhedonism Objective Vital Signs Date Time Temp Pulse Resp B/P (MAP) Pulse Ox O2 Delivery O2 Flow Rate FiO2 11/18/17 11:11 36.7 102 18 104/72 (83) 96 Room Air 11/18/17 08:00 Room Air 11/18/17 07:25 36.6 126 16 106/71 (83) 100 Room Air 11/18/17 04:00 36.8 74 20 124/72 (89) 98 Room Air 11/18/17 00:41 36.6 102 18 103/71 (82) 100 Room Air 11/18/17 00:00 Room Air 11/17/17 21:28 36.3 100 18 90/57 (68) 98 Room Air 11/17/17 20:00 Room Air 11/17/17 19:46 36.6 108 18 98/62 (74) 98 Room Air 11/17/17 18:09 99 Room Air 11/17/17 16:15 36.6 111 18 114/77 (89) 100 Room Air 11/17/17 15:43 36.6 110 21 100/71 (81) 99 Room Air Physical Exam General Appearance: + moderate distress, + pertinent finding (chronically ill) Eyes: normal inspection, sclerae normal (not icteric with elevated bili) Respiratory/Chest: + respiratory distress (mild), + decreased breath sounds ( bases) Cardiovascular: regular rate, rhythm, no murmur Abdomen: normal bowel sounds, + distended, + tenderness Extremities: + pedal edema, + pertinent finding (scrotal edema) 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iatric: alert, oriented x 3, + pertinent finding (pt is weak and tired) Laboratory Results Last 24 Hours Test 11/18/17 05:25 White Blood Count 10.39 K/uL Red Blood Count 3.45 M/uL Hemoglobin 11.0 g/dL Hematocrit 30.9 % Mean Corpuscular Volume 89.6 fL Mean Corpuscular Hemoglobin 31.9 pg Mean Corpuscular Hemoglobin Concent 35.6 g/dl Platelet Count 110 K/uL Mean Platelet Volume 10.2 fL Neutrophils (%) (Auto) 73.6 % Lymphocytes (%) (Auto) 14.1 % Monocytes (%) (Auto) 10.7 % Eosinophils (%) (Auto) 1.3 % Basophils (%) (Auto) 0.2 % Neutrophils # (Auto) 7.65 K/uL Lymphocytes # (Auto) 1.47 K/uL Monocytes # (Auto) 1.11 K/uL Eosinophils # (Auto) 0.13 K/uL Basophils # (Auto) 0.02 K/uL RDW Standard Deviation 55.4 fL RDW Coefficient of Variation 16.9 % Immature Granulocyte % (Auto) 0.1 % Immature Granulocyte # (Auto) 0.01 K/uL Sodium Level 129 mmol/L Potassium Level 4.6 mmol/L Chloride Level 103 mmol/L Carbon Dioxide Level 17 mmol/L Anion Gap 9.0 mmol/L Blood Urea Nitrogen 61 mg/dl Creatinine 2.03 mg/dl Est Creatinine Clear Calc Drug Dose 32.7 ml/min Estimated GFR () 37.4 Estimated GFR (Non- 32.3 BUN/Creatinine Ratio 30.0 Random Glucose 87 mg/dl Calcium Level 8.2 mg/dl Total Bilirubin 2.5 mg/dl Aspartate Amino Transf (AST/SGOT) 76 U/L Alanine Aminotransferase (ALT/SGPT) 66 U/L Alkaline Phosphatase 192 U/L Ammonia 53.0 umol/L Total Protein 6.0 gm/dl Albumin 2.3 gm/dl Globulin 3.7 gm/dl Albumin/Globulin Ratio 0.6 Assessment and Plan 72 yo male with known h/x 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 Encinas at [facility] did agreed if patient's condition deteriorating during this hospitalization, patient can be transferred, They plan to see the pt in their clinic on or around December 02. " Local Risk Control Specialist Dr [place]a, is following, with previous bloody ascites , has QuantiFERON gold for TB pending thrombocytopenia from liver disease, anemia likely of chronic disease has been stable Scrotal edema local care and elevation per urology consultation DVT prophylaxis: Discontinue Heparin SC because of thrombocytopenia we will end- stage liver disease, mild elevated INR 1.4, SCD ordered Continued [facility] stay due to: home environment unsafe for pt Discharge planning: rehab hospital, [facility] facility
--- NOTE | 2017-11-18 15:01 | GASTROENTEROLOGY PROGRESS NOTE ---
DATE: 11/18/2017 GASTROENTEROLOGY INPATIENT PROGRESS NOTE SUBJECTIVE: Chart reviewed, patient examined. The patient continues to improve on his mental status and cognition. The patient is clearly more alert than he had been 48 hours ago, is resting comfortably in bed, is oriented to person, place, time, knowing that it is [place]. There is no meaningful asterixis. His oral intake is limited, although he feels like he is dry and his food intake is limited, but he seems to tolerate this well. He has noticed a significant increase in his stool patterns that are now loose and far more frequent than they had been. His dose of lactulose had been adjusted to 45 mL (30 grams) 3 times daily, a few days ago. His renal function has deteriorated and his BUN and creatinine are now 61 and 2.0, compared with 57 and 1.7 on November 16. His TB QuantiFERON is pending and the bowel movements that are recorded number 2 and 2 respectively, although by the patient's description and the nurse' description, these have been more loose than usual. REVIEW OF SYSTEMS: Otherwise noncontributory. PHYSICAL EXAMINATION: GENERAL: The patient is awake, alert and oriented. HEENT: Sclerae are anicteric. Oral mucosa moist. HEART: Normal S1, S2. LUNGS: Overall, clear to auscultation without wheeze. ABDOMEN: Perhaps slightly more distended than it had been with positive bowel sounds. I do not appreciate tense ascites or obvious shifting dullness. EXTREMITIES: Without clubbing, cyanosis or edema. RECTAL: Deferred. LABORATORY DATA: His CBC today shows a white count of 10.3, hemoglobin is stable at 11.0, and platelets are 110,000. IMPRESSION AND PLAN: I made the following recommendations: His ammonia level seems to be reasonably stable at 53 today and it showing a more lucid pattern. It was 69 on November 13. It is possible that the patient is becoming slightly more intravascularly depleted, based on his creatinine and BUN and this may in part be due to the limited oral intake as well as the increased loose stool pattern likely associated with his increased lactulose dosing. Therefore, I would consider reducing the lactulose to 20 grams (30 mL) 3 times daily and would check stools for C. diff. In addition, I believe an abdominal ultrasound to assess for any increase in his ascites is reasonable and if so, paracentesis with albumin replacement may be helpful. Would continue to follow as you were doing. If the renal function continues to do poorly, it may be prudent to readdress transfer with [place] to the liver service. All questions answered.
[2017-11-18] MEDS: MIDODRINE 10 MG TAB PO SCH (17:08)
[2017-11-19] VITALS (9 sets, daily range): BP systolic 91–98; BP diastolic 51–65; PULSE 76–102; TEMP 36.4–36.7; O2SAT 98–100
--- NOTE | 2017-11-19 01:08 | NUR ---
ID: Pt has been resting comfortably in bed. Can be easily aroused. A&O X3, on RA. VSS. No complaints of pain at this time. Right wrist saline lock. Assessment completed see EMR. Hourly rounding maintained. Bed alarm on for safety. Will continue to monitor.
[2017-11-19] MEDS: ALBUMIN HUMAN 25% 12.5 GM/50 ML VIAL IV SCH ×3 (05:37→21:51)
[2017-11-19] MEDS: CIPROFLOXACIN 500 MG TAB PO SCH (08:04)
[2017-11-19] MEDS: LACTULOSE SYRUP 30 GM/45 ML UDP PO SCH ×3 (08:04→19:42)
[2017-11-19] MEDS: RIFAXIMIN TAB 550 MG TAB PO SCH ×3 (08:05→19:42)
[2017-11-19] MEDS: SODIUM BICARBONATE 650 MG TAB PO SCH ×2 (08:06→19:42)
[2017-11-19] MEDS: MIDODRINE 10 MG TAB PO SCH ×3 (08:06→17:02)
--- NOTE | 2017-11-19 09:46 | Nephrology Progress Note ---
Nephrology Progress Note Date of Service Nov 19, 2017. Chief Complaint Follow up evaluation of PARADISE and hyponatremia Subjective Mr. Purcell was seen & examined in his hospital room this morning. He denies fever, dyspnea or abdominal pain. His only complaint is that of generalized weakness. Review of Systems Constitutional: No fever Cardiovascular: No chest pain Respiratory: No dyspnea at rest Abdomen: No pain, No nausea, No vomiting A complete review of systems was performed. Pertinent positives are noted above. All other systems are negative. Vital Signs Last 8 Hrs Date Time Temp Pulse Resp B/P (MAP) Pulse Ox O2 Delivery O2 Flow Rate FiO2 11/19/17 08:00 Room Air 11/19/17 07:15 36.5 95 18 96/65 (75) 100 Room Air 11/19/17 06:15 97 18 97/65 (76) 100 Room Air 11/19/17 05:40 36.6 89 18 92/60 (71) 99 Room Air 11/19/17 03:22 36.5 102 15 91/51 (64) 100 Room Air Last Recorded Weight Weight (Kilograms): 74.900 Physical Exam General Appearance: + pertinent finding (thin, frail appearing w/ distended abdomen) Head: atraumatic (temporal muscle wasting) Eyes: PERRL, EOMI Neck: no adenopathy Respiratory/Chest: lungs clear, no respiratory distress Cardiovascular: regular rate, rhythm Abdomen/GI: + pertinent finding (distended, nontender, hypoactive bowel sounds) Extremities/Musculoskelatal: + pertinent finding (trace pretibial pitting edema ) 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: alert, oriented x 3 Social History Drug Use: none Marital Status: Housing Status: lives with family Occupation: retired Laboratory Results Past 24 Hours Test 11/18/17 16:05 Urine Random Creatinine 150.0 mg/dl Urine Random Sodium 7 mEq/L Allergies Coded Allergies: No Known Allergies (Unverified , 11/10/17) Medications Current Inpatient Medications Medications (Trade) Dose Ordered Sig/Raffi Route Start Time Stop Time Status Last Admin Dose Admin Acetaminophen (Tylenol Tab) 650 mg Q4H PRN PO 11/10/17 16:45 12/10/17 16:44 Ondansetron HCl (Zofran Inj) 4 mg Q6H PRN IV 11/10/17 16:45 12/10/17 16:44 11/15/17 15:38 4 MG Ciprofloxacin (Cipro Tab) 500 mg DAILY PO 11/11/17 09:00 11/21/17 08:59 11/19/17 08:04 500 MG Sodium Bicarbonate (Sodium Bicarbonate Tab) 1,300 mg BID PO 11/14/17 21:00 12/11/17 20:59 11/19/17 08:06 1,300 MG Rifaximin (Xifaxan Tab) 550 mg TID PO 11/15/17 09:00 12/11/17 20:59 11/19/17 08:05 550 MG Lactulose (Chronulac Syrup) 30 gm TID PO 11/15/17 20:00 12/15/17 19:59 11/19/17 08:04 30 GM Sodium Chloride 1,000 ml @ 125 mls/hr Q8H IV 11/16/17 12:00 12/16/17 11:59 Future Hold 11/17/17 04:33 125 MLS/HR Albumin Human (Albumin 25%) 12.5 gm Q8 IV 11/17/17 14:00 11/20/17 13:59 11/19/17 05:37 12.5 GM Midodrine (Proamatine Tab) 5 mg TID@08,,17 PO 11/18/17 17:00 12/18/17 16:59 11/19/17 08:06 5 MG Impression (1) Hyperkalemia (2) Acute kidney injury (3) Ascites (4) Dehydration (5) Cirrhosis (6) Hepatic encephalopathy (7) Hyponatremia Mr. Baljeet Purcell is a 72-year-old male with cirrhosis complicated by ascites and recurrent hepatic encephalopathy. He was admitted with mental status changes. He has a history of recurrent PARADISE consistent with prerenal azotemia. Baseline creatinine has been 1.3 mg/dL. He developed PARADISE consistent with ATN/ prerenal azotemia. He has been non oliguric. Laboratory studies notable for acute mild hyponatremia. Random William was found to be <5 consistent with significant prerenal physiology such as possible underlying HRS. However, the patient did respond to IV saline initially. For metabolic acidosis continue oral HCO3 replacement. Shortage of IV bicarbonate noted. Relative hypotension is treated with oral Midodrine therapy Recommendations ACUTE KIDNEY INJURY: -- Kidney function was relatively stable overnight however patient remains oliguric -- Patient has an element of intravascular volume contraction, possibly HRS 2 -- Continue Midodrine 5 mg po TID -- Continue Albumin 12.5 mg IV q 8 hours -- Start low dose Octreotide 50 mcg SQ BID -- Monitor serial PRP CHRONIC KIDNEY DISEASE: -- Baseline creatinine 1.4 in the setting of cachexia HYPOTENSION: -- On Midodrine, Octreotide, IV Albumin CIRRHOSIS / WELCH: -- Patient may require paracentesis or transfer [place] [facility] Await further input from GI
[2017-11-19] MEDS: OCTREOTIDE ACETATE 100 MCG/ML VIAL SQ SCH ×2 (11:17→19:09)
[2017-11-19 12:26] LABS: QUANTIF MITOGEN-NIL >10.00 IU/ML; QUANTIFERON NEGATIVE (NEGATIVE); QUANTIFERON NIL 0.05 IU/ML
--- NOTE | 2017-11-19 16:27 | NUR ---
Talked about patient at rounds today. Acute care continues. Patient would like to transfer to [facility] for rehab. The [facility] liaison is following. Will follow for discharge planning.
--- NOTE | 2017-11-19 17:00 | Progress Note ---
Subjective Date of Service: Nov 19, 2017. Subjective pt did have some vomiting but now feels better, family has been updated at the bedside, pt is looking forward to evaluation of related donor partial liver transplant Problem List Medical Problems: (1) Acute on chronic renal failure Status: Acute (2) CKD (chronic kidney disease) Status: Acute (3) Elevated troponin Status: Acute (4) Fever Status: Acute (5) Hepatic encephalopathy Status: Acute (6) Hyperkalemia Status: Acute (7) Hyponatremia Status: Acute (8) Hypotension Status: Acute Review of Systems Constitutional: + weakness, + fatigue Respiratory: No cough, No shortness of breath, No dyspnea on exertion Cardiac: + edema, No chest pain Abdomen: + nausea, + vomiting, No pain, No diarrhea Musculoskeletal: No joint pain, No muscle pain Male : No dysuria, No urinary frequency Psychiatric: + depression symptoms, + anxiety, No anhedonism Objective Vital Signs Date Time Temp Pulse Resp B/P (MAP) Pulse Ox O2 Delivery O2 Flow Rate FiO2 11/19/17 14:15 36.5 85 18 93/60 (71) 98 Room Air 11/19/17 12:19 36.4 101 20 91/60 (70) 100 Room Air 11/19/17 08:00 Room Air 11/19/17 07:15 36.5 95 18 96/65 (75) 100 Room Air 11/19/17 06:15 97 18 97/65 (76) 100 Room Air 11/19/17 05:40 36.6 89 18 92/60 (71) 99 Room Air 11/19/17 03:22 36.5 102 15 91/51 (64) 100 Room Air 11/18/17 23:15 Room Air 11/18/17 23:12 36.9 98 16 89/48 (62) 99 Room Air 11/18/17 23:01 36.6 96 16 92/57 (69) 98 Room Air 11/18/17 21:57 36.8 96 16 91/56 (68) 99 Room Air Physical Exam General Appearance: + moderate distress, + thin Eyes: normal inspection, sclerae normal Neck: supple, no JVD Respiratory/Chest: no respiratory distress, + decreased breath sounds Cardiovascular: regular rate, rhythm, no murmur Abdomen: normal bowel sounds, soft, + distended Extremities: + pedal edema, + swelling 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iatric: alert, oriented x 3 Assessment and Plan 72 yo male with known h/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 Encinas at [facility] did agreed if patient's condition deteriorating during this hospitalization, patient can be transferred, They plan to see the pt in their clinic on or around December 02. 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
[2017-11-20] VITALS (10 sets, daily range): BP systolic 88–122; BP diastolic 47–69; PULSE 74–89; TEMP 36.3–36.8; O2SAT 95–100
[2017-11-20] MEDS: OCTREOTIDE ACETATE 100 MCG/ML VIAL SQ SCH ×3 (03:23→18:07)
--- NOTE | 2017-11-20 03:57 | NUR ---
ID: Patient alert; oriented to person and place. VSS. No c/o pain. Abdomen remans distended. Kraft intact & draining. Turning & repositioning in bed; skin care provided. OOB with assist of 1 & walker. D/C plan for transfer to [facility]. D/C date uncertain @ this time. Will continue to monitor.
[2017-11-20 06:02] LABS: HEMATOCRIT 27.3 % (42-52); HEMOGLOBIN 9.3 g/dL (14.0-18.0); MEAN CELL VOLUME 89.8 fL (80-100); MEAN CORPUSCULAR HEMOGLOBIN 30.6 pg (25-34); MEAN CORPUSCULAR HGB CONC 34.1 g/dl (32-36); RED CELL DISTRIBUTION WIDTH CV 16.6 % (11.5-14.5); RED CELL DISTRIBUTION WIDTH SD 55.2 fL (36.4-46.3); WHITE BLOOD COUNT 5.15 K/uL (4.8-10.8)
[2017-11-20] MEDS: ALBUMIN HUMAN 25% 12.5 GM/50 ML VIAL IV SCH (06:10)
[2017-11-20 06:32] LABS: MEAN PLATELET VOLUME 10.1 fL (7.4-10.4); PLATELET COUNT 72 K/uL (130-400)
[2017-11-20 06:38] LABS: ALBUMIN 2.7 gm/dl (3.4-5.0); CALCIUM 8.2 mg/dl (8.5-10.1); CREATININE 2.31 mg/dl (0.60-1.40); POTASSIUM 4.1 mmol/L (3.5-5.1)
[2017-11-20 06:40] LABS: TOTAL PROTEIN 5.6 gm/dl (6.4-8.2)
[2017-11-20] MEDS: LACTULOSE SYRUP 30 GM/45 ML UDP PO SCH ×3 (07:32→19:51)
[2017-11-20] MEDS: SODIUM BICARBONATE 650 MG TAB PO SCH ×2 (07:32→19:53)
[2017-11-20] MEDS: RIFAXIMIN TAB 550 MG TAB PO SCH ×3 (07:32→19:52)
[2017-11-20] MEDS: CIPROFLOXACIN 500 MG TAB PO SCH (07:32)
[2017-11-20] MEDS: MIDODRINE 10 MG TAB PO SCH ×3 (07:34→18:04)
--- NOTE | 2017-11-20 10:41 | Nephrology Progress Note ---
Nephrology Progress Note Date of Service Nov 20, 2017. Chief Complaint Follow up evaluation of PARADISE and hyponatremia Subjective Mr. Purcell was seen & examined in his hospital room this morning. He c/o abdominal distention but denies fever, N&V. Mr. Purcell tolerated SQ Octreotide without complication. Review of Systems Constitutional: No fever Cardiovascular: No chest pain Respiratory: No dyspnea at rest Abdomen: No pain, No nausea, No vomiting Extremities: + leg edema A complete review of systems was performed. Pertinent positives are noted above. All other systems are negative. Vital Signs Last 8 Hrs Date Time Temp Pulse Resp B/P (MAP) Pulse Ox O2 Delivery O2 Flow Rate FiO2 11/20/17 08:00 99 Room Air 11/20/17 07:29 36.5 79 16 95/61 (72) 99 Room Air 11/20/17 06:13 36.6 83 18 88/47 (61) 96 Room Air 11/20/17 04:24 36.5 85 18 92/55 (67) 98 Room Air Last Recorded Weight Weight (Kilograms): 75.400 Physical Exam General Appearance: + pertinent finding (chronically ill appearing) Head: atraumatic (temporal muscle wasting) Eyes: PERRL, EOMI Neck: no adenopathy Respiratory/Chest: lungs clear, no respiratory distress Cardiovascular: regular rate, rhythm Abdomen/GI: + distended (hypoactive bowel sounds) Extremities/Musculoskelatal: + pertinent finding (trace to 1+ pretibial edema) 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: alert, oriented x 3 Social History Drug Use: none Marital Status: Housing Status: lives with family Occupation: retired Laboratory Results Past 24 Hours 11/20/17 05:49 11/20/17 05:49 Test 11/20/17 05:49 Red Blood Count 3.04 M/uL (4.7-6.1) Mean Corpuscular Volume 89.8 fL (80-100) Mean Corpuscular Hemoglobin 30.6 pg (25-34) Mean Corpuscular Hemoglobin Concent 34.1 g/dl (32-36) RDW Standard Deviation 55.2 fL (36.4-46.3) RDW Coefficient of Variation 16.6 % (11.5-14.5) Mean Platelet Volume 10.1 fL (7.4-10.4) Platelet Estimate DECREASED Anion Gap 10.0 mmol/L (3-11) Est Creatinine Clear Calc Drug Dose 28.8 ml/min Estimated GFR () 32.0 Estimated GFR (Non- 27.6 BUN/Creatinine Ratio 30.9 (10-20) Calcium Level 8.2 mg/dl (8.5-10.1) Total Bilirubin 2.4 mg/dl (0.2-1) Aspartate Amino Transf (AST/SGOT) 54 U/L (15-37) Alanine Aminotransferase (ALT/SGPT) 51 U/L (12-78) Alkaline Phosphatase 146 U/L (45-117) Total Protein 5.6 gm/dl (6.4-8.2) Albumin 2.7 gm/dl (3.4-5.0) Globulin 2.9 gm/dl (2.5-4.0) Albumin/Globulin Ratio 0.9 (0.9-2) Allergies Coded Allergies: No Known Allergies (Unverified , 11/10/17) Medications Current Inpatient Medications Medications (Trade) Dose Ordered Sig/Raffi Route Start Time Stop Time Status Last Admin Dose Admin Acetaminophen (Tylenol Tab) 650 mg Q4H PRN PO 11/10/17 16:45 12/10/17 16:44 Ondansetron HCl (Zofran Inj) 4 mg Q6H PRN IV 11/10/17 16:45 12/10/17 16:44 11/15/17 15:38 4 MG Ciprofloxacin (Cipro Tab) 500 mg DAILY PO 11/11/17 09:00 11/21/17 08:59 11/20/17 07:32 500 MG Sodium Bicarbonate (Sodium Bicarbonate Tab) 1,300 mg BID PO 11/14/17 21:00 12/11/17 20:59 11/20/17 07:32 1,300 MG Rifaximin (Xifaxan Tab) 550 mg TID PO 11/15/17 09:00 12/11/17 20:59 11/20/17 07:32 550 MG Lactulose (Chronulac Syrup) 30 gm TID PO 11/15/17 20:00 12/15/17 19:59 11/20/17 07:32 30 GM Sodium Chloride 1,000 ml @ 125 mls/hr Q8H IV 11/16/17 12:00 12/16/17 11:59 Future Hold 11/17/17 04:33 125 MLS/HR Albumin Human (Albumin 25%) 12.5 gm Q8 IV 11/17/17 14:00 11/20/17 13:59 11/20/17 06:10 12.5 GM Midodrine (Proamatine Tab) 5 mg TID@08,12,17 PO 11/18/17 17:00 12/18/17 16:59 11/20/17 07:34 5 MG Octreotide Acetate (Sandostatin Inj) 100 mcg Q8H SQ 11/20/17 10:00 12/20/17 09:59 11/20/17 10:20 100 MCG Impression (1) Hyperkalemia (2) Acute kidney injury (3) Ascites (4) Dehydration (5) Cirrhosis (6) Hepatic encephalopathy (7) Hyponatremia Mr. Purcell is a 72-year-old male with cirrhosis complicated by ascites and recurrent hepatic encephalopathy. He was admitted with mental status changes. He has a history of recurrent PARADISE c/w prerenal azotemia. Baseline creatinine has been 1.3 mg/dL. Laboratory studies notable for acute mild hyponatremia. Random William was found to be <5 consistent with significant prerenal physiology such as possible underlying HRS. However, the patient did respond to IV saline initially. For metabolic acidosis continue oral HCO3 replacement. Shortage of IV bicarbonate noted. Relative hypotension is treated with oral Midodrine therapy Recommendations ACUTE KIDNEY INJURY: -- Kidney recovery has stalled. Creatinine was 2.3 this am. Baseline creatinine has been 1.4 -- Patient has an element of intravascular volume contraction, possibly HRS 2. He has developed tense abdominal ascites -- Continue Midodrine 5 mg po TID. SBP has been 85 - 90 mm HG -- Continue Albumin 12.5 mg IV q 8 hours (serum albumin remains < 3.0) -- Will increase Octreotide to 100 mcg SQ BID -- Monitor serial PRP CHRONIC KIDNEY DISEASE: -- Baseline creatinine 1.4 in the setting of cachexia HYPOTENSION: -- On Midodrine, Octreotide, IV Albumin CIRRHOSIS / WELCH: -- Patient may require paracentesis or transfer to [facility] [place]. Await further input from GI
--- NOTE | 2017-11-20 12:47 | NUR ---
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
--- NOTE | 2017-11-20 14:35 | NUR ---
Pt seen for followup, refer to linked note for full assessment and recommendations. Addendum: 11/20/17 at [address] Amended: Links added.
--- NOTE | 2017-11-20 15:43 | Progress Note ---
Subjective Date of Service: Nov 20, 2017. Subjective this pt looks more alert today, he is tolerant of diet without vomiting, he has some abdominal distension but is not taunt Problem List Medical Problems: (1) Acute on chronic renal failure Status: Acute (2) CKD (chronic kidney disease) Status: Acute (3) Elevated troponin Status: Acute (4) Fever Status: Acute (5) Hepatic encephalopathy Status: Acute (6) Hyperkalemia Status: Acute (7) Hyponatremia Status: Acute (8) Hypotension Status: Acute Review of Systems Constitutional: + weakness, + fatigue, No fever, No chills Respiratory: + shortness of breath, + dyspnea on exertion, No cough Cardiac: + edema, No chest pain Abdomen: + nausea, No pain Musculoskeletal: + joint pain, + swelling Psychiatric: + depression symptoms, No anxiety Objective Vital Signs Date Time Temp Pulse Resp B/P (MAP) Pulse Ox O2 Delivery O2 Flow Rate FiO2 11/20/17 11:43 36.6 85 16 101/69 (80) 95 11/20/17 08:00 99 Room Air 11/20/17 07:29 36.5 79 16 95/61 (72) 99 Room Air 11/20/17 06:13 36.6 83 18 88/47 (61) 96 Room Air 11/20/17 04:24 36.5 85 18 92/55 (67) 98 Room Air 11/20/17 00:20 Room Air 11/19/17 22:45 36.4 86 18 91/54 (66) 98 Room Air 11/19/17 21:48 36.6 83 18 91/55 (67) 99 Room Air 11/19/17 19:32 36.7 76 19 98/62 (74) 99 Room Air 11/19/17 19:30 Room Air Physical Exam General Appearance: WD/WN, + moderate distress Respiratory/Chest: no respiratory distress, + decreased breath sounds Cardiovascular: regular rate, rhythm, + systolic murmur Abdomen: soft, + distended, + tenderness Extremities: + pedal edema, + swelling 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iatric: alert, oriented x 3 Laboratory Results Last 24 Hours Test 11/20/17 05:49 White Blood Count 5.15 K/uL Red Blood Count 3.04 M/uL Hemoglobin 9.3 g/dL Hematocrit 27.3 % Mean Corpuscular Volume 89.8 fL Mean Corpuscular Hemoglobin 30.6 pg Mean Corpuscular Hemoglobin Concent 34.1 g/dl RDW Standard Deviation 55.2 fL RDW Coefficient of Variation 16.6 % Platelet Count 72 K/uL Mean Platelet Volume 10.1 fL Platelet Estimate DECREASED Sodium Level 129 mmol/L Potassium Level 4.1 mmol/L Chloride Level 101 mmol/L Carbon Dioxide Level 18 mmol/L Anion Gap 10.0 mmol/L Blood Urea Nitrogen 71 mg/dl Creatinine 2.31 mg/dl Est Creatinine Clear Calc Drug Dose 28.8 ml/min Estimated GFR () 32.0 Estimated GFR (Non- 27.6 BUN/Creatinine Ratio 30.9 Random Glucose 84 mg/dl Calcium Level 8.2 mg/dl Total Bilirubin 2.4 mg/dl Aspartate Amino Transf (AST/SGOT) 54 U/L Alanine Aminotransferase (ALT/SGPT) 51 U/L Alkaline Phosphatase 146 U/L Total Protein 5.6 gm/dl Albumin 2.7 gm/dl Globulin 2.9 gm/dl Albumin/Globulin Ratio 0.9 Assessment and Plan 72 yo male with known h/x cirrhosis due to WELCH, end-stage liver disease, and 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 Encinas at [facility] did agreed if patient's condition deteriorating during this hospitalization, patient can be transferred, They plan to see the pt in their clinic on December 02 @11:45. 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
[2017-11-21] VITALS (8 sets, daily range): BP systolic 91–99; BP diastolic 51–66; PULSE 80–93; TEMP 36.4–36.8; O2SAT 99–100
[2017-11-21] MEDS: OCTREOTIDE ACETATE 100 MCG/ML VIAL SQ SCH ×3 (01:43→17:59)
--- NOTE | 2017-11-21 03:59 | NUR ---
ID: Pt A/Ox3, lethargic and times of confusion. Denies chest pain, SOB, N/V or pain at this time. VSS on room air. Tolerating regular diet well and compliant with fluid restriction. Kraft intact and patent. Scrotum is swollen and weeping, keeping elevated. Saline lock in the right wrist. For full assessment see EMR. Discharge plans uncertain at this time. Will continue to monitor.
[2017-11-21 06:21] LABS: HEMATOCRIT 28.2 % (42-52); HEMOGLOBIN 9.9 g/dL (14.0-18.0); MEAN CELL VOLUME 90.4 fL (80-100); MEAN CORPUSCULAR HEMOGLOBIN 31.7 pg (25-34); MEAN CORPUSCULAR HGB CONC 35.1 g/dl (32-36); RED CELL DISTRIBUTION WIDTH CV 16.8 % (11.5-14.5); RED CELL DISTRIBUTION WIDTH SD 54.9 fL (36.4-46.3); WHITE BLOOD COUNT 5.75 K/uL (4.8-10.8)
[2017-11-21 06:27] LABS: MEAN PLATELET VOLUME 9.9 fL (7.4-10.4); PLATELET COUNT 83 K/uL (130-400)
[2017-11-21 06:33] LABS: INR 1.7 (0.9-1.1)
[2017-11-21 06:51] LABS: ALBUMIN 2.7 gm/dl (3.4-5.0); CALCIUM 8.1 mg/dl (8.5-10.1); CREATININE 2.43 mg/dl (0.60-1.40); POTASSIUM 3.8 mmol/L (3.5-5.1)
[2017-11-21 06:54] LABS: TOTAL PROTEIN 5.7 gm/dl (6.4-8.2)
[2017-11-21] MEDS: MIDODRINE 10 MG TAB PO SCH ×3 (08:15→16:46)
[2017-11-21] MEDS: CIPROFLOXACIN 500 MG TAB PO SCH ×2 (08:15→12:16)
[2017-11-21] MEDS: SODIUM BICARBONATE 650 MG TAB PO SCH ×2 (08:15→20:02)
[2017-11-21] MEDS: RIFAXIMIN TAB 550 MG TAB PO SCH ×3 (08:15→20:02)
[2017-11-21] MEDS: LACTULOSE SYRUP 30 GM/45 ML UDP PO SCH ×3 (08:16→20:01)
--- NOTE | 2017-11-21 11:07 | Nephrology Progress Note ---
Nephrology Progress Note Date of Service Nov 21, 2017. Chief Complaint Follow up evaluation of PARADISE and hyponatremia Subjective Mr. Purcell was seen & examined in his hospital room this morning. He was sitting up in chair visiting w/ his . Mr. Purcell denied fever, dyspnea or abdominal discomfort. He complains of abdominal distention, LE edema and fatigue. He has a pinon catheter in place due to genital edema Review of Systems Constitutional: No fever Cardiovascular: No chest pain Respiratory: No dyspnea at rest Abdomen: No pain, No nausea, No vomiting Extremities: + leg edema A complete review of systems was performed. Pertinent positives are noted above. All other systems are negative. Vital Signs Last 8 Hrs Date Time Temp Pulse Resp B/P (MAP) Pulse Ox O2 Delivery O2 Flow Rate FiO2 11/21/17 08:23 99 Room Air 11/21/17 07:27 36.5 88 20 96/64 (75) 100 Room Air 11/21/17 03:59 36.6 89 18 99/66 (77) 100 Room Air Last Recorded Weight Weight (Kilograms): 74.900 Physical Exam General Appearance: + thin (frail appearing) Head: atraumatic (temporal muscle wasting) Eyes: PERRL, EOMI Neck: no adenopathy Respiratory/Chest: lungs clear, no respiratory distress Cardiovascular: regular rate, rhythm Abdomen/GI: + distended (nontender. Hypoactive bowel sounds) Genitourinary - Male: + pertinent finding (mild genital edema. Pinon catheter in place draining clear yellow urine.) Extremities/Musculoskelatal: + pertinent finding (trace pretibial edema) 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: alert, oriented x 3 Social History Drug Use: none Marital Status: Housing Status: lives with family Occupation: retired Laboratory Results Past 24 Hours 11/21/17 06:04 11/21/17 06:04 Test 11/21/17 06:04 Red Blood Count 3.12 M/uL (4.7-6.1) Mean Corpuscular Volume 90.4 fL (80-100) Mean Corpuscular Hemoglobin 31.7 pg (25-34) Mean Corpuscular Hemoglobin Concent 35.1 g/dl (32-36) RDW Standard Deviation 54.9 fL (36.4-46.3) RDW Coefficient of Variation 16.8 % (11.5-14.5) Mean Platelet Volume 9.9 fL (7.4-10.4) Prothrombin Time 17.8 SECONDS (9.0-12.0) Prothromb Time International Ratio 1.7 (0.9-1.1) Anion Gap 10.0 mmol/L (3-11) Est Creatinine Clear Calc Drug Dose 27.4 ml/min Estimated GFR () 30.1 Estimated GFR (Non- 26.0 BUN/Creatinine Ratio 29.6 (10-20) Calcium Level 8.1 mg/dl (8.5-10.1) Total Bilirubin 2.2 mg/dl (0.2-1) Aspartate Amino Transf (AST/SGOT) 46 U/L (15-37) Alanine Aminotransferase (ALT/SGPT) 46 U/L (12-78) Alkaline Phosphatase 144 U/L (45-117) Total Protein 5.7 gm/dl (6.4-8.2) Albumin 2.7 gm/dl (3.4-5.0) Globulin 3.0 gm/dl (2.5-4.0) Albumin/Globulin Ratio 0.9 (0.9-2) Allergies Coded Allergies: No Known Allergies (Unverified , 11/10/17) Medications Current Inpatient Medications Medications (Trade) Dose Ordered Sig/Raffi Route Start Time Stop Time Status Last Admin Dose Admin Acetaminophen (Tylenol Tab) 650 mg Q4H PRN PO 11/10/17 16:45 12/10/17 16:44 Ondansetron HCl (Zofran Inj) 4 mg Q6H PRN IV 11/10/17 16:45 12/10/17 16:44 11/15/17 15:38 4 MG Sodium Bicarbonate (Sodium Bicarbonate Tab) 1,300 mg BID PO 11/14/17 21:00 12/11/17 20:59 11/21/17 08:15 1,300 MG Rifaximin (Xifaxan Tab) 550 mg TID PO 11/15/17 09:00 12/11/17 20:59 11/21/17 08:15 550 MG Lactulose (Chronulac Syrup) 30 gm TID PO 11/15/17 20:00 12/15/17 19:59 11/21/17 08:16 30 GM Sodium Chloride 1,000 ml @ 125 mls/hr Q8H IV 11/16/17 12:00 12/16/17 11:59 Future Hold 11/17/17 04:33 125 MLS/HR Midodrine (Proamatine Tab) 5 mg TID@,, PO 11/18/17 17:00 12/18/17 16:59 11/21/17 08:15 5 MG Octreotide Acetate (Sandostatin Inj) 100 mcg Q8H SQ 11/20/17 10:00 12/20/17 09:59 11/21/17 10:07 100 MCG Albumin Human (Albumin 25%) 25 gm Q8 IV 11/21/17 14:00 11/23/17 13:59 Impression (1) Hyperkalemia (2) Acute kidney injury (3) Ascites (4) Dehydration (5) Cirrhosis (6) Hepatic encephalopathy (7) Hyponatremia Mr. Purcell is a 72-year-old male with cirrhosis complicated by ascites and recurrent hepatic encephalopathy. He was admitted with mental status changes. He has a history of recurrent PARADISE c/w prerenal azotemia. Baseline creatinine has been 1.3 mg/dL. Laboratory studies notable for acute mild hyponatremia. Random iWlliam was found to be <5 consistent with significant prerenal physiology such as possible underlying HRS. However, the patient did respond to IV saline initially. For metabolic acidosis continue oral HCO3 replacement. Shortage of IV bicarbonate noted. Relative hypotension is treated with oral Midodrine therapy Recommendations ACUTE KIDNEY INJURY: -- Kidney recovery has stalled. Creatinine was 2.4 this am. Baseline creatinine has been 1.4 -- Patient has an element of intravascular volume contraction, possibly HRS 2. He has developed tense abdominal ascites -- Continue Midodrine 5 mg po TID. SBP has been 85 - 90 mm HG -- Will increase Albumin to 25 mg IV q 8 hours (serum albumin remains < 3.0) -- Continue Octreotide 100 mcg SQ BID -- Monitor serial PRP CHRONIC KIDNEY DISEASE: -- Baseline creatinine 1.4 in the setting of cachexia HYPOTENSION: -- On Midodrine, Octreotide, IV Albumin CIRRHOSIS / WELCH: -- Patient may require paracentesis or transfer to [facility]. Await further input from GI
[2017-11-21] MEDS: ALBUMIN HUMAN 25% 12.5 GM/50 ML VIAL IV SCH ×2 (13:29→21:45)
--- NOTE | 2017-11-21 13:47 | Progress Note ---
Subjective Date of Service: Nov 21, 2017. Subjective Pt evaluation today including: conversation w/ patient, conversation w/ family (pt's ), chart review, lab review Voiding: pinon catheter in place (patent, draining clear, yellow urine ) 72 yo male with ascites and scrotal edema. Pt continues to have scrotal edema with some weeping of the tissue. Denies pain. Scrotal u/s showing large bilateral fluid collections likely complex bilateral hydroceles. Problem List Medical Problems: (1) Acute on chronic renal failure Status: Acute (2) CKD (chronic kidney disease) Status: Acute (3) Elevated troponin Status: Acute (4) Fever Status: Acute (5) Hepatic encephalopathy Status: Acute (6) Hyperkalemia Status: Acute (7) Hyponatremia Status: Acute (8) Hypotension Status: Acute Review of Systems Constitutional: No fever, No chills Respiratory: No shortness of breath Cardiac: No chest pain Abdomen: No pain, No nausea, No vomiting Male : + problem reported (scrotal edema), No hematuria Heme: No abnormal bleeding/bruising Objective Vital Signs Date Time Temp Pulse Resp B/P (MAP) Pulse Ox O2 Delivery O2 Flow Rate FiO2 11/21/17 11:50 36.4 93 18 99/55 (70) 99 Room Air 11/21/17 08:23 99 Room Air 11/21/17 07:27 36.5 88 20 96/64 (75) 100 Room Air 11/21/17 03:59 36.6 89 18 99/66 (77) 100 Room Air 11/21/17 00:00 Room Air 11/20/17 23:04 36.5 88 16 97/64 (75) 99 Room Air 11/20/17 20:00 Room Air 11/20/17 19:32 36.5 87 18 97/64 (75) 100 Room Air 11/20/17 15:46 99 Room Air 11/20/17 15:29 36.3 89 16 93/60 (71) 100 Room Air Physical Exam General Appearance: no apparent distress Eyes: normal inspection ENT: hearing grossly normal Neck: no JVD Respiratory/Chest: no respiratory distress, no accessory muscle use Cardiovascular: no JVD Extremities: normal inspection 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iatric: alert, normal mood/affect, oriented x 3 Skin: normal color Comments: Scrotal edema with some weeping of the tissue noted. Laboratory Results Last 24 Hours Test 12/28/17 06:04 White Blood Count 5.75 K/uL Red Blood Count 3.12 M/uL Hemoglobin 9.9 g/dL Hematocrit 28.2 % Mean Corpuscular Volume 90.4 fL Mean Corpuscular Hemoglobin 31.7 pg Mean Corpuscular Hemoglobin Concent 35.1 g/dl RDW Standard Deviation 54.9 fL RDW Coefficient of Variation 16.8 % Platelet Count 83 K/uL Mean Platelet Volume 9.9 fL Prothrombin Time 17.8 SECONDS Prothromb Time International Ratio 1.7 Sodium Level 131 mmol/L Potassium Level 3.8 mmol/L Chloride Level 103 mmol/L Carbon Dioxide Level 18 mmol/L Anion Gap 10.0 mmol/L Blood Urea Nitrogen 72 mg/dl Creatinine 2.43 mg/dl Est Creatinine Clear Calc Drug Dose 27.4 ml/min Estimated GFR () 30.1 Estimated GFR (Non- 26.0 BUN/Creatinine Ratio 29.6 Random Glucose 95 mg/dl Calcium Level 8.1 mg/dl Total Bilirubin 2.2 mg/dl Aspartate Amino Transf (AST/SGOT) 46 U/L Alanine Aminotransferase (ALT/SGPT) 46 U/L Alkaline Phosphatase 144 U/L Total Protein 5.7 gm/dl Albumin 2.7 gm/dl Globulin 3.0 gm/dl Albumin/Globulin Ratio 0.9 Assessment and Plan A/P: Scrotal edema, hx of bladder cancer Scrotal edema persists. Unfortunately there is unlikely to be any benefit from aspiration of the fluid collection as it is highly likely only to return. Would continue scrotal elevation and management of skin breakdown. Will arrange for an outpatient cysto with Dr. Mccord in the next month for bladder cancer surveillance. No further management at this time. Recall PRN issues. Thanks for allowing us to participate in this pt's care. Continued [facility] stay due to: home environment unsafe for pt Discharge planning: rehab hospital, retirement facility
--- NOTE | 2017-11-21 15:20 | Progress Note ---
Subjective Date of Service: Nov 21, 2017. Subjective this pt is seemingly depressed he has less nausea and no vomiting, did discuss with about paracentesis, will proceed Problem List Medical Problems: (1) Acute on chronic renal failure Status: Acute (2) CKD (chronic kidney disease) Status: Acute (3) Elevated troponin Status: Acute (4) Fever Status: Acute (5) Hepatic encephalopathy Status: Acute (6) Hyperkalemia Status: Acute (7) Hyponatremia Status: Acute (8) Hypotension Status: Acute Review of Systems Constitutional: + weakness, + fatigue Respiratory: + shortness of breath, + dyspnea on exertion, No cough Cardiac: + orthopnea, + edema, No chest pain Abdomen: + pain, + nausea, No vomiting, No diarrhea, No constipation Musculoskeletal: + joint pain, + muscle pain Neurologic: No memory loss, No paralysis, No weakness Psychiatric: + depression symptoms, + anhedonism, No anxiety Objective Vital Signs Date Time Temp Pulse Resp B/P (MAP) Pulse Ox O2 Delivery O2 Flow Rate FiO2 11/21/17 11:50 36.4 93 18 99/55 (70) 99 Room Air 11/21/17 08:23 99 Room Air 11/21/17 07:27 36.5 88 20 96/64 (75) 100 Room Air 11/21/17 03:59 36.6 89 18 99/66 (77) 100 Room Air 11/21/17 00:00 Room Air 11/20/17 23:04 36.5 88 16 97/64 (75) 99 Room Air 11/20/17 20:00 Room Air 11/20/17 19:32 36.5 87 18 97/64 (75) 100 Room Air 11/20/17 15:46 99 Room Air 11/20/17 15:29 36.3 89 16 93/60 (71) 100 Room Air Physical Exam General Appearance: WD/WN, + moderate distress Eyes: normal inspection, sclerae normal Respiratory/Chest: chest non-tender, lungs clear, normal breath sounds Cardiovascular: regular rate, rhythm, + systolic murmur Abdomen: soft, + distended Extremities: + pedal edema, + swelling 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iatric: alert, oriented x 3 Laboratory Results Last 24 Hours Test 11/21/17 06:04 White Blood Count 5.75 K/uL Red Blood Count 3.12 M/uL Hemoglobin 9.9 g/dL Hematocrit 28.2 % Mean Corpuscular Volume 90.4 fL Mean Corpuscular Hemoglobin 31.7 pg Mean Corpuscular Hemoglobin Concent 35.1 g/dl RDW Standard Deviation 54.9 fL RDW Coefficient of Variation 16.8 % Platelet Count 83 K/uL Mean Platelet Volume 9.9 fL Prothrombin Time 17.8 SECONDS Prothromb Time International Ratio 1.7 Sodium Level 131 mmol/L Potassium Level 3.8 mmol/L Chloride Level 103 mmol/L Carbon Dioxide Level 18 mmol/L Anion Gap 10.0 mmol/L Blood Urea Nitrogen 72 mg/dl Creatinine 2.43 mg/dl Est Creatinine Clear Calc Drug Dose 27.4 ml/min Estimated GFR () 30.1 Estimated GFR (Non- 26.0 BUN/Creatinine Ratio 29.6 Random Glucose 95 mg/dl Calcium Level 8.1 mg/dl Total Bilirubin 2.2 mg/dl Aspartate Amino Transf (AST/SGOT) 46 U/L Alanine Aminotransferase (ALT/SGPT) 46 U/L Alkaline Phosphatase 144 U/L Total Protein 5.7 gm/dl Albumin 2.7 gm/dl Globulin 3.0 gm/dl Albumin/Globulin Ratio 0.9 Assessment and Plan 72 yo male with known h/x cirrhosis due to WELCH, end-stage liver disease, and hepato-renal syndrome, slight progression of INR and slight climbing of Cr PARADISE on CKD: concern for hepatorenal syndrome, nephrology oral intake fluid restriction, albumin, midodrine. 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 Encinas at [facility] did agreed if patient's condition deteriorating during this hospitalization, patient can be transferred, They plan to see the pt in their clinic on December 02 @11:45. 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
--- NOTE | 2017-11-21 19:40 | GASTROENTEROLOGY PROGRESS NOTE ---
DATE: 11/21/2017 GASTROENTEROLOGY INPATIENT PROGRESS NOTE SUBJECTIVE: Chart reviewed, patient examined. The patient appears more awake and alert than he has been over the last few days. He does not have any abdominal discomfort, although he is only having one small bowel movement a day. He was started on Sandostatin 3 times daily, per nephrology for renal perfusion. The patient continues on lactulose 45 mL (30 grams) 3 times daily along with rifaximin 550 mg 3 times daily. REVIEW OF SYSTEMS: Otherwise noncontributory based on 13-point exam except for mentioned above. The patient denies any nausea, vomiting, abdominal pain, reports that he is eating well. He continues to have scrotal edema with drainage around the site. PHYSICAL EXAMINATION: VITAL SIGNS: The patient is afebrile at 36.5, blood pressure 92/57, heart rate 86, respirations 16, 99% on room air. GENERAL: The patient is awake, alert and oriented to person and place but had stated that it would soon be [employer] 1977. However, he was easily redirected to the proper year, upcoming year. HEENT: Sclerae mildly icteric. Oral mucosa parched. HEART: Normal S1, S2. LUNGS: Clear to auscultation. ABDOMEN: Soft, obese, distended without tense ascites, no rebound or guarding. There is positive bowel sounds. EXTREMITIES: Without clubbing, cyanosis or edema. RECTAL: Deferred. LABORATORY STUDIES: Today show white count 5.7, hemoglobin is 9.9, and platelets 83,000. Serum chemistry shows that his BUN and creatinine again increasing with today at 72 and 2.43. His total bilirubin today has actually slightly decreased from yesterday at 2.2, AST 46, ALT 46 and alkaline phosphatase 144. His at TB-QuantiFERON testing was negative. INR is 1.7. CURRENT MEDICATIONS: Albumin 25 g IV q. 8 hours and is anticipate to undergo paracentesis tomorrow replacement with 12.5 grams for each liter. He is also on ciprofloxacin, octreotide 3 times daily, midodrine, lactulose, rifaximin, sodium bicarbonate and Zofran p.r.n. IMPRESSION AND PLAN: Agree with a paracentesis is planned for tomorrow with albumin replacement. Renal function remains an issue and this is showing a clear increase over the last several days. Nevertheless, his encephalopathy seems to be somewhat improved with little asterixis and is more awake and alert, albeit confused to date. Depending on his response to albumin, paracentesis, regarding his renal function, it may be prudent to readdress with hepatology at [place] to see if an inpatient transfer is reasonable or continue with the planned outpatient evaluation in early November. All of his questions have answered. LUIS ANTONIO
[2017-11-22] VITALS (23 sets, daily range): BP systolic 80–106; BP diastolic 40–66; PULSE 71–89; TEMP 36.3–36.8; O2SAT 96–100
--- NOTE | 2017-11-22 | NUR ---
ID: Pt alert and oriented this shift. Incontinent of stool, encouraged to ring for assistance and bedpan. Kraft in place, patent and draining. VSS on RA. Assessment completed, no complaints of pain, abdominal distention noted. Paracentesis scheduled for today 11/22. [address], pt compliant. Call lainez left within reach. Bed alarm in place for safety. Will continue to monitor.
[2017-11-22] MEDS: OCTREOTIDE ACETATE 100 MCG/ML VIAL SQ SCH ×3 (03:22→17:55)
[2017-11-22] MEDS: ALBUMIN HUMAN 25% 12.5 GM/50 ML VIAL IV SCH ×3 (06:06→22:02)
[2017-11-22 06:26] LABS: HEMATOCRIT 25.4 % (42-52); HEMOGLOBIN 8.8 g/dL (14.0-18.0); MEAN CELL VOLUME 90.4 fL (80-100); MEAN CORPUSCULAR HEMOGLOBIN 31.3 pg (25-34); MEAN CORPUSCULAR HGB CONC 34.6 g/dl (32-36); RED CELL DISTRIBUTION WIDTH CV 16.8 % (11.5-14.5); RED CELL DISTRIBUTION WIDTH SD 55.1 fL (36.4-46.3); WHITE BLOOD COUNT 4.22 K/uL (4.8-10.8)
[2017-11-22 06:27] LABS: MEAN PLATELET VOLUME 10.4 fL (7.4-10.4); PLATELET COUNT 65 K/uL (130-400)
[2017-11-22 07:01] LABS: ALBUMIN 3.1 gm/dl (3.4-5.0); CALCIUM 8.2 mg/dl (8.5-10.1); CREATININE 2.13 mg/dl (0.60-1.40); POTASSIUM 3.6 mmol/L (3.5-5.1)
[2017-11-22 07:03] LABS: TOTAL PROTEIN 5.7 gm/dl (6.4-8.2)
[2017-11-22] MEDS: MIDODRINE 10 MG TAB PO SCH ×3 (07:35→17:33)
--- NOTE | 2017-11-22 10:13 | DIAGNOSTIC IMAGING REPORT ---
ULTRASOUND GUIDED THERAPEUTIC PARACENTESIS CLINICAL HISTORY: Therapeutic paracentesis. PROCEDURE: The risks, benefits, and alternatives to the procedure were discussed with the patient including the risk of bleeding, infection and injury to adjacent structures. The patient agreed to the procedure and informed written consent was obtained. Following real-time ultrasound localization, the skin of the right lower quadrant was prepped and draped. Following local anesthesia with Xylocaine, the sheath paracentesis needle was inserted and approximately 6.1 liters of serosanguineous fluid was removed by vacuum suction. The patient tolerated the procedure well and no immediate complications were evident. IMPRESSION: Ultrasound-guided paracentesis with removal of 6.1 liters of ascites. Electronically signed by: Andre Cm M.D. 11/22/2017 10:12 AM Dictated Date/Time: 11/22/2017 10:11 AM
[2017-11-22] MEDS: SODIUM BICARBONATE 650 MG TAB PO SCH ×2 (10:14→20:00)
[2017-11-22] MEDS: CIPROFLOXACIN 500 MG TAB PO SCH (10:14)
[2017-11-22] MEDS: LACTULOSE SYRUP 30 GM/45 ML UDP PO SCH ×3 (10:14→20:00)
[2017-11-22] MEDS: RIFAXIMIN TAB 550 MG TAB PO SCH ×3 (10:14→20:00)
--- NOTE | 2017-11-22 11:08 | Nephrology Progress Note ---
Nephrology Progress Note Date of Service Nov 22, 2017. Chief Complaint Follow up evaluation of PARADISE and hyponatremia Subjective Mr. Purcell was seen & examined in his hospital room this morning. On 11/11 he had paracentesis w/ 1 L volume removal. This morning he had repeat parcentesis w/ 6.1 L volume removal. Mr. Purcell states that he tolerated the procedure well. His abdomen is less distended and he is subjectively improved following the procedure Review of Systems Constitutional: No fever Cardiovascular: No chest pain Respiratory: No dyspnea at rest Abdomen: No pain, No nausea, No vomiting Genitourinary - Male: + problem reported (+ genital edema) Extremities: + leg edema A complete review of systems was performed. Pertinent positives are noted above. All other systems are negative. Vital Signs Last 8 Hrs Date Time Temp Pulse Resp B/P (MAP) Pulse Ox O2 Delivery O2 Flow Rate FiO2 11/22/17 10:15 36.4 71 18 96/60 (72) 97 Room Air 11/22/17 08:00 96 Room Air 11/22/17 07:13 36.3 83 18 91/54 (66) 96 Room Air 11/22/17 07:07 36.5 82 16 91/52 (65) 100 Room Air 11/22/17 06:05 36.5 85 16 89/57 (68) Last Recorded Weight Weight (Kilograms): 74.800 Physical Exam General Appearance: no apparent distress Head: atraumatic (temporal muscle wasting) Eyes: PERRL, EOMI Neck: no adenopathy Respiratory/Chest: lungs clear, no respiratory distress Cardiovascular: regular rate, rhythm Abdomen/GI: soft (+ BS, nontender. No longer distended) Genitourinary - Male: + pertinent finding (pinon catheter in place draining clear yellow urine) Extremities/Musculoskelatal: no pedal edema 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: alert, oriented x 3 Social History Drug Use: none Marital Status: Housing Status: lives with family Occupation: retired Laboratory Results Past 24 Hours 11/22/17 05:48 11/22/17 05:48 Test 11/22/17 05:48 Red Blood Count 2.81 M/uL (4.7-6.1) Mean Corpuscular Volume 90.4 fL (80-100) Mean Corpuscular Hemoglobin 31.3 pg (25-34) Mean Corpuscular Hemoglobin Concent 34.6 g/dl (32-36) RDW Standard Deviation 55.1 fL (36.4-46.3) RDW Coefficient of Variation 16.8 % (11.5-14.5) Mean Platelet Volume 10.4 fL (7.4-10.4) Anion Gap 12.0 mmol/L (3-11) Est Creatinine Clear Calc Drug Dose 31.2 ml/min Estimated GFR () 35.3 Estimated GFR (Non- 30.4 BUN/Creatinine Ratio 33.5 (10-20) Calcium Level 8.2 mg/dl (8.5-10.1) Total Bilirubin 2.3 mg/dl (0.2-1) Aspartate Amino Transf (AST/SGOT) 35 U/L (15-37) Alanine Aminotransferase (ALT/SGPT) 37 U/L (12-78) Alkaline Phosphatase 119 U/L (45-117) Total Protein 5.7 gm/dl (6.4-8.2) Albumin 3.1 gm/dl (3.4-5.0) Globulin 2.6 gm/dl (2.5-4.0) Albumin/Globulin Ratio 1.2 (0.9-2) Allergies Coded Allergies: No Known Allergies (Unverified , 11/10/17) Medications Current Inpatient Medications Medications (Trade) Dose Ordered Sig/Raffi Route Start Time Stop Time Status Last Admin Dose Admin Acetaminophen (Tylenol Tab) 650 mg Q4H PRN PO 11/10/17 16:45 12/10/17 16:44 Ondansetron HCl (Zofran Inj) 4 mg Q6H PRN IV 11/10/17 16:45 12/10/17 16:44 11/15/17 15:38 4 MG Sodium Bicarbonate (Sodium Bicarbonate Tab) 1,300 mg BID PO 11/14/17 21:00 12/11/17 20:59 11/22/17 10:14 1,300 MG Rifaximin (Xifaxan Tab) 550 mg TID PO 11/15/17 09:00 12/11/17 20:59 11/22/17 10:14 550 MG Lactulose (Chronulac Syrup) 30 gm TID PO 11/15/17 20:00 12/15/17 19:59 11/22/17 10:14 30 GM Sodium Chloride 1,000 ml @ 125 mls/hr Q8H IV 11/16/17 12:00 12/16/17 11:59 Future Hold 11/17/17 04:33 125 MLS/HR Midodrine (Proamatine Tab) 5 mg TID@08,,17 PO 11/18/17 17:00 12/18/17 16:59 11/22/17 07:35 5 MG Octreotide Acetate (Sandostatin Inj) 100 mcg Q8H SQ 11/20/17 10:00 12/20/17 09:59 11/22/17 10:19 100 MCG Albumin Human (Albumin 25%) 25 gm Q8 IV 11/21/17 14:00 11/23/17 13:59 11/22/17 06:06 25 GM Ciprofloxacin (Cipro Tab) 500 mg DAILY PO 11/21/17 13:00 12/21/17 12:59 11/22/17 10:14 500 MG Albumin Human (Albumin 25%) 12.5 gm UD PRN IV 11/21/17 15:15 11/24/17 15:14 Impression (1) Hyperkalemia (2) Acute kidney injury (3) Ascites (4) Dehydration (5) Cirrhosis (6) Hepatic encephalopathy (7) Hyponatremia Mr. Purcell is a 72-year-old male with cirrhosis complicated by ascites and recurrent hepatic encephalopathy. He was admitted with mental status changes. He has a history of recurrent PARADISE c/w prerenal azotemia. Baseline creatinine has been 1.3 mg/dL. Laboratory studies notable for acute mild hyponatremia. Random William was found to be <5 consistent with significant prerenal physiology such as possible underlying HRS. However, the patient did respond to IV saline initially. For metabolic acidosis continue oral HCO3 replacement. Shortage of IV bicarbonate noted. Relative hypotension is treated with oral Midodrine therapy Recommendations ACUTE KIDNEY INJURY: -- Kidney function is mildly improved. Creatinine is 2.1 this am. Baseline creatinine has been 1.4 -- Patient has an element of intravascular volume contraction, possibly HRS 2. He had tense abdominal ascites and underwent 6.1 L paracentesis this am -- Continue Midodrine 5 mg po TID. SBP has been 85 - 90 mm HG -- Albumin is now ~ 3.0. Will continue Albumin 25 g IV q 8 hours today and then stop (paracentesis this am) -- Continue Octreotide 100 mcg SQ BID -- Monitor serial PRP CHRONIC KIDNEY DISEASE: -- Baseline creatinine 1.4 in the setting of cachexia HYPOTENSION: -- On Midodrine, Octreotide, IV Albumin CIRRHOSIS / WELCH: -- Patient may require transfer to [facility]. Await further input from GI : -- Bilateral hydrocele with scrotal edema. Pinon remains in place -- If scrotal edema resolves following paracentesis then bladder catheter can be removed.
[2017-11-22] MEDS: ALBUMIN HUMAN 25% 12.5 GM/50 ML VIAL IV PRN ×6 (11:26→17:34)
--- NOTE | 2017-11-22 12:04 | NUR ---
Chart reviewed. Acute care continues. Patient will need a rehab setting. [facility] liaison is following. Sent a referral to [facility] today since talked about it with other embedded case manager. Will follow for discharge planning.
--- NOTE | 2017-11-22 14:23 | Gastroenterology Progress Note ---
Progress Note Date of Service: Nov 22, 2017 Subjective Pt evaluation today including: conversation w/ patient, physical exam, chart review, lab review, review of studies CC f/u encophalopathy HPI Per nursing patient had one bm today and one overnight. Pt had paracentesis this am 6L. He denies abd pain. States his appetite is good. Review of Systems Respiratory: No shortness of breath Cardiac: No chest pain Medications Current Inpatient Medications Medications (Trade) Dose Ordered Sig/Raffi Route Start Time Stop Time Status Last Admin Dose Admin Acetaminophen (Tylenol Tab) 650 mg Q4H PRN PO 11/10/17 16:45 12/10/17 16:44 Ondansetron HCl (Zofran Inj) 4 mg Q6H PRN IV 11/10/17 16:45 12/10/17 16:44 11/15/17 15:38 4 MG Sodium Bicarbonate (Sodium Bicarbonate Tab) 1,300 mg BID PO 11/14/17 21:00 12/11/17 20:59 11/22/17 10:14 1,300 MG Rifaximin (Xifaxan Tab) 550 mg TID PO 11/15/17 09:00 12/11/17 20:59 11/22/17 13:57 550 MG Lactulose (Chronulac Syrup) 30 gm TID PO 11/15/17 20:00 12/15/17 19:59 11/22/17 13:57 30 GM Sodium Chloride 1,000 ml @ 125 mls/hr Q8H IV 11/16/17 12:00 12/16/17 11:59 Future Hold 11/17/17 04:33 125 MLS/HR Midodrine (Proamatine Tab) 5 mg TID@08,,17 PO 11/18/17 17:00 12/18/17 16:59 11/22/17 12:09 5 MG Octreotide Acetate (Sandostatin Inj) 100 mcg Q8H SQ 11/20/17 10:00 12/20/17 09:59 11/22/17 10:19 100 MCG Albumin Human (Albumin 25%) 25 gm Q8 IV 11/21/17 14:00 11/23/17 13:59 11/22/17 13:57 25 GM Ciprofloxacin (Cipro Tab) 500 mg DAILY PO 11/21/17 13:00 12/21/17 12:59 12/29/17 10:14 500 MG Albumin Human (Albumin 25%) 12.5 gm UD PRN IV 11/21/17 15:15 11/24/17 15:14 11/22/17 12:59 12.5 GM Objective Vital Signs Date Time Temp Pulse Resp B/P (MAP) Pulse Ox O2 Delivery O2 Flow Rate FiO2 11/22/17 13:53 36.6 72 16 87/57 (67) 100 Room Air 11/22/17 12:14 36.4 76 18 94/61 (72) 100 Room Air 11/22/17 11:55 36.5 79 18 91/52 (65) 11/22/17 11:21 36.4 77 18 87/43 (58) 100 Room Air 11/22/17 10:45 36.5 71 18 96/62 (73) 99 11/22/17 10:15 36.4 71 18 96/60 (72) 97 Room Air 11/22/17 08:00 96 Room Air 11/22/17 07:13 36.3 83 18 91/54 (66) 96 Room Air 11/22/17 07:07 36.5 82 16 91/52 (65) 100 Room Air 11/22/17 06:05 36.5 85 16 89/57 (68) 11/22/17 00:00 99 Room Air 11/22/17 00:00 36.6 89 18 106/66 (79) 99 Room Air 11/21/17 22:00 99 Room Air 11/21/17 21:43 36.8 80 18 91/51 (64) 99 Room Air 11/21/17 19:33 36.6 83 18 98/66 (77) 100 Room Air 11/21/17 16:39 Room Air 11/21/17 15:36 36.5 86 16 92/57 (69) 99 Room Air Physical Exam General Appearance: WD/WN, no apparent distress Respiratory/Chest: lungs clear, no respiratory distress Cardiovascular: regular rate, rhythm Abdomen: normal bowel sounds, non tender, soft, no organomegaly, no pulsatile mass, + distended (mildly distended from ascites but soft, no guarding nor rebound, ) 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: normal mood/affect, oriented x 3 Laboratory Results Last 24 Hours Test 11/22/17 05:48 White Blood Count 4.22 K/uL Red Blood Count 2.81 M/uL Hemoglobin 8.8 g/dL Hematocrit 25.4 % Mean Corpuscular Volume 90.4 fL Mean Corpuscular Hemoglobin 31.3 pg Mean Corpuscular Hemoglobin Concent 34.6 g/dl RDW Standard Deviation 55.1 fL RDW Coefficient of Variation 16.8 % Platelet Count 65 K/uL Mean Platelet Volume 10.4 fL Sodium Level 133 mmol/L Potassium Level 3.6 mmol/L Chloride Level 103 mmol/L Carbon Dioxide Level 17 mmol/L Anion Gap 12.0 mmol/L Blood Urea Nitrogen 71 mg/dl Creatinine 2.13 mg/dl Est Creatinine Clear Calc Drug Dose 31.2 ml/min Estimated GFR () 35.3 Estimated GFR (Non- 30.4 BUN/Creatinine Ratio 33.5 Random Glucose 85 mg/dl Calcium Level 8.2 mg/dl Total Bilirubin 2.3 mg/dl Aspartate Amino Transf (AST/SGOT) 35 U/L Alanine Aminotransferase (ALT/SGPT) 37 U/L Alkaline Phosphatase 119 U/L Total Protein 5.7 gm/dl Albumin 3.1 gm/dl Globulin 2.6 gm/dl Albumin/Globulin Ratio 1.2 Assessment and Plan mental status changes---stable hepatic encephalopathy-continue Rifaxamin and Lactulose ESLD-eventual evaluation by [place] to see if candidate for liver transplant-- [facility]-appreciate nephrology input-- Per my conversation from Dr Valenzuela today he has an outpt appt at [place] for Dec 02. The plan is if his renal function remains stable and octreotide and albumin can be stopped to go to [facility] and keep outpt [place] appointment. I would recommend if renal function deteriorates on or off treatment to do inpatient transfer to [place].
--- NOTE | 2017-11-22 14:29 | Progress Note ---
Subjective Date of Service: Nov 22, 2017. Subjective pt remains fatigued, he does feel somewhat improved after thoracentesis, we did discuss depression and his outlook for transplant. Problem List Medical Problems: (1) Acute on chronic renal failure Status: Acute (2) CKD (chronic kidney disease) Status: Acute (3) Elevated troponin Status: Acute (4) Fever Status: Acute (5) Hepatic encephalopathy Status: Acute (6) Hyperkalemia Status: Acute (7) Hyponatremia Status: Acute (8) Hypotension Status: Acute Review of Systems Constitutional: + weakness, + fatigue Respiratory: No cough, No shortness of breath, No dyspnea on exertion Cardiac: + edema, No chest pain Abdomen: No pain, No nausea, No vomiting, No diarrhea, No constipation Male : No dysuria, No urinary frequency Neurologic: No memory loss, No paralysis Psychiatric: No depression symptoms, No anhedonism Objective Vital Signs Date Time Temp Pulse Resp B/P (MAP) Pulse Ox O2 Delivery O2 Flow Rate FiO2 11/22/17 13:53 36.6 72 16 87/57 (67) 100 Room Air 11/22/17 12:14 36.4 76 18 94/61 (72) 100 Room Air 11/22/17 11:55 36.5 79 18 91/52 (65) 11/22/17 11:21 36.4 77 18 87/43 (58) 100 Room Air 11/22/17 10:45 36.5 71 18 96/62 (73) 99 11/22/17 10:15 36.4 71 18 96/60 (72) 97 Room Air 11/22/17 08:00 96 Room Air 11/22/17 07:13 36.3 83 18 91/54 (66) 96 Room Air 11/22/17 07:07 36.5 82 16 91/52 (65) 100 Room Air 11/22/17 06:05 36.5 85 16 89/57 (68) 11/22/17 00:00 99 Room Air 11/22/17 00:00 36.6 89 18 106/66 (79) 99 Room Air 11/21/17 22:00 99 Room Air 11/21/17 21:43 36.8 80 18 91/51 (64) 99 Room Air 11/21/17 19:33 36.6 83 18 98/66 (77) 100 Room Air 11/21/17 16:39 Room Air 11/21/17 15:36 36.5 86 16 92/57 (69) 99 Room Air Physical Exam General Appearance: + moderate distress, + thin Eyes: normal inspection, sclerae normal Respiratory/Chest: chest non-tender, lungs clear, + decreased breath sounds ( bases) Cardiovascular: regular rate, rhythm, no murmur Abdomen: + distended, + tenderness Extremities: no pedal edema, no calf tenderness 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iatric: alert, oriented x 3 Laboratory Results Last 24 Hours Test 11/22/17 05:48 White Blood Count 4.22 K/uL Red Blood Count 2.81 M/uL Hemoglobin 8.8 g/dL Hematocrit 25.4 % Mean Corpuscular Volume 90.4 fL Mean Corpuscular Hemoglobin 31.3 pg Mean Corpuscular Hemoglobin Concent 34.6 g/dl RDW Standard Deviation 55.1 fL RDW Coefficient of Variation 16.8 % Platelet Count 65 K/uL Mean Platelet Volume 10.4 fL Sodium Level 133 mmol/L Potassium Level 3.6 mmol/L Chloride Level 103 mmol/L Carbon Dioxide Level 17 mmol/L Anion Gap 12.0 mmol/L Blood Urea Nitrogen 71 mg/dl Creatinine 2.13 mg/dl Est Creatinine Clear Calc Drug Dose 31.2 ml/min Estimated GFR () 35.3 Estimated GFR (Non- 30.4 BUN/Creatinine Ratio 33.5 Random Glucose 85 mg/dl Calcium Level 8.2 mg/dl Total Bilirubin 2.3 mg/dl Aspartate Amino Transf (AST/SGOT) 35 U/L Alanine Aminotransferase (ALT/SGPT) 37 U/L Alkaline Phosphatase 119 U/L Total Protein 5.7 gm/dl Albumin 3.1 gm/dl Globulin 2.6 gm/dl Albumin/Globulin Ratio 1.2 Assessment and Plan 72 yo male with known h/x cirrhosis due to WELCH, end-stage liver disease, and hepato-renal syndrome, 6 Liter paracentesis 11/22, some improvement of renal function PARADISE on CKD: concern for hepatorenal syndrome, nephrology supervising albumin, midodrine. 11/19 started sc octreotide, increased dose 11/20 blood pressure remains stable , plan will be to keep albumin until serum albumin is >3 the will stop both albumin and octreotide and if does well may transition to [facility] until outpt appointment with [place] [facility] Hyponatremia secondary to liver cirrhosis, improved ESLD with Cirrhosis: due to WELCH, Gastroenterology if following and coordinating with [facility] in case need of transplantation son wants to donate Lactulose, Xifaxan , plans to follow up at [place] December [address] Encinas at [facility] did agreed if patient's condition deteriorating during this hospitalization, patient can be transferred, They plan to see the pt in their clinic on December 02 @11:45. previous bloody ascites, has QuantiFERON gold for TB negative, thrombocytopenia from liver disease, anemia likely of chronic disease stable Scrotal edema improved with local care DVT prophylaxis: Did discontinue Heparin SC because of thrombocytopenia, SCD ordered Continued [facility] stay due to: home environment unsafe for pt Discharge planning: rehab hospital, [facility] facility
[2017-11-22] MEDS: ONDANSETRON INJ 2 MG/ML 2 ML VIAL IV PRN (20:10)
--- NOTE | 2017-11-22 22:14 | NUR ---
A: Patient refused night time medications stating "I will take them tomorrow". Educated patient on importance of taking medications, but patient continuing to refuse stating "I will take them in the morning".
[2017-11-23] VITALS (8 sets, daily range): BP systolic 91–100; BP diastolic 49–65; PULSE 71–83; TEMP 36.4–36.8; O2SAT 98–100
--- NOTE | 2017-11-23 01:24 | NUR ---
ID: Patient alert and oriented x 4. No complaints of pain. Kraft draining concentrated yellow urine. See EMR for full head to toe assessment. services mgr following for d/c planning. Will continue to monitor.
[2017-11-23] MEDS: OCTREOTIDE ACETATE 100 MCG/ML VIAL SQ SCH ×3 (01:30→17:32)
[2017-11-23] MEDS: ALBUMIN HUMAN 25% 12.5 GM/50 ML VIAL IV SCH (05:12)
[2017-11-23 06:56] LABS: HEMATOCRIT 24.3 % (42-52); HEMOGLOBIN 8.5 g/dL (14.0-18.0); MEAN CELL VOLUME 90.7 fL (80-100); MEAN CORPUSCULAR HEMOGLOBIN 31.7 pg (25-34); RED CELL DISTRIBUTION WIDTH CV 16.5 % (11.5-14.5); RED CELL DISTRIBUTION WIDTH SD 54.4 fL (36.4-46.3); WHITE BLOOD COUNT 3.36 K/uL (4.8-10.8)
[2017-11-23 06:57] LABS: MEAN PLATELET VOLUME 10.2 fL (7.4-10.4); PLATELET COUNT 53 K/uL (130-400)
[2017-11-23 07:16] LABS: INR 2.1 (0.9-1.1)
[2017-11-23 07:22] LABS: ALBUMIN 4.3 gm/dl (3.4-5.0); CALCIUM 8.6 mg/dl (8.5-10.1); CREATININE 2.31 mg/dl (0.60-1.40); POTASSIUM 3.8 mmol/L (3.5-5.1)
[2017-11-23 07:24] LABS: TOTAL PROTEIN 6.3 gm/dl (6.4-8.2)
[2017-11-23 07:26] LABS: BASO % 0.3 %; BASO ABS # 0.01 K/uL (0-0.2); EOS % 2.7 %; EOS ABS # 0.09 K/uL (0-0.5); IG# 0.01 K/uL (0.00-0.02); LYMPH % 13.1 %; LYMPH ABS # 0.44 K/uL (1.2-3.4); MONO % 12.2 %; MONO ABS # 0.41 K/uL (0.11-0.59); NEUT % 71.4 %
[2017-11-23] MEDS: CIPROFLOXACIN 500 MG TAB PO SCH (08:35)
[2017-11-23] MEDS: SODIUM BICARBONATE 650 MG TAB PO SCH ×2 (08:36→19:25)
[2017-11-23] MEDS: RIFAXIMIN TAB 550 MG TAB PO SCH ×3 (08:36→19:25)
[2017-11-23] MEDS: MIDODRINE 10 MG TAB PO SCH ×3 (08:36→17:32)
[2017-11-23] MEDS: LACTULOSE SYRUP 30 GM/45 ML UDP PO SCH ×3 (08:38→19:25)
--- NOTE | 2017-11-23 12:17 | Nephrology Progress Note ---
Nephrology Progress Note Date of Service Nov 23, 2017. Chief Complaint Follow up evaluation of PARADISE and hyponatremia Subjective Mr. Purcell was seen & examined in his hospital room this morning. He underwent paracentesis for 6 L volume removal 11/22. He reports that his abdomen is less distended and he feels subjectively improved. He voices no new medical concerns at this time. Review of Systems Constitutional: No fever Cardiovascular: No chest pain Respiratory: No dyspnea at rest Abdomen: No pain, No nausea, No vomiting Extremities: + leg edema A complete review of systems was performed. Pertinent positives are noted above. All other systems are negative. Vital Signs Last 8 Hrs Date Time Temp Pulse Resp B/P (MAP) Pulse Ox O2 Delivery O2 Flow Rate FiO2 11/23/17 11:14 36.5 72 17 100/64 (76) 100 Room Air 11/23/17 08:21 36.8 75 15 92/55 (67) 98 Room Air 11/23/17 08:00 Room Air 11/23/17 06:59 36.8 78 18 94/65 (75) 100 Room Air 11/23/17 05:30 36.5 71 18 96/61 (73) 100 Room Air 11/23/17 04:12 36.4 72 20 91/49 (63) 100 Room Air Last Recorded Weight Weight (Kilograms): 66.100 Physical Exam General Appearance: + cachetic Head: atraumatic (temporal muscle wasting) Eyes: PERRL, EOMI Neck: no adenopathy Respiratory/Chest: lungs clear, no respiratory distress Cardiovascular: regular rate, rhythm Abdomen/GI: normal bowel sounds, non tender, soft Genitourinary - Male: + pertinent finding (pinon catheter in place draining orange urine) Extremities/Musculoskelatal: no calf tenderness, + pertinent finding (trace pretibial edema) 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: alert, oriented x 3 Social History Drug Use: none Marital Status: Housing Status: lives with family Occupation: retired Laboratory Results Past 24 Hours 11/23/17 06:30 Red Blood Count 2.68, Mean Corpuscular Volume 90.7, Mean Corpuscular Hemoglobin 31.7, Mean Corpuscular Hemoglobin Concent 35.0, Mean Platelet Volume 10.2, Neutrophils (%) (Auto) 71.4, Lymphocytes (%) (Auto) 13.1, Monocytes (%) (Auto) 12.2, Eosinophils (%) (Auto) 2.7, Basophils (%) (Auto) 0.3, Neutrophils # (Auto ) 2.40, Lymphocytes # (Auto) 0.44, Monocytes # (Auto) 0.41, Eosinophils # (Auto ) 0.09, Basophils # (Auto) 0.01 11/23/17 06:30 Test 11/23/17 06:30 White Blood Count 3.36 K/uL (4.8-10.8) Red Blood Count 2.68 M/uL (4.7-6.1) Hemoglobin 8.5 g/dL (14.0-18.0) Hematocrit 24.3 % (42-52) Mean Corpuscular Volume 90.7 fL (80-100) Mean Corpuscular Hemoglobin 31.7 pg (25-34) Mean Corpuscular Hemoglobin Concent 35.0 g/dl (32-36) Platelet Count 53 K/uL (130-400) Mean Platelet Volume 10.2 fL (7.4-10.4) Neutrophils (%) (Auto) 71.4 % Lymphocytes (%) (Auto) 13.1 % Monocytes (%) (Auto) 12.2 % Eosinophils (%) (Auto) 2.7 % Basophils (%) (Auto) 0.3 % Neutrophils # (Auto) 2.40 K/uL (1.4-6.5) Lymphocytes # (Auto) 0.44 K/uL (1.2-3.4) Monocytes # (Auto) 0.41 K/uL (0.11-0.59) Eosinophils # (Auto) 0.09 K/uL (0-0.5) Basophils # (Auto) 0.01 K/uL (0-0.2) RDW Standard Deviation 54.4 fL (36.4-46.3) RDW Coefficient of Variation 16.5 % (11.5-14.5) Immature Granulocyte % (Auto) 0.3 % Immature Granulocyte # (Auto) 0.01 K/uL (0.00-0.02) Toxic Granulation 1+ Echinocytes 1+ Prothrombin Time 21.8 SECONDS (9.0-12.0) Prothromb Time International Ratio 2.1 (0.9-1.1) Anion Gap 11.0 mmol/L (3-11) Est Creatinine Clear Calc Drug Dose 27.8 ml/min Estimated GFR () 32.0 Estimated GFR (Non- 27.6 BUN/Creatinine Ratio 29.1 (10-20) Calcium Level 8.6 mg/dl (8.5-10.1) Total Bilirubin 2.5 mg/dl (0.2-1) Aspartate Amino Transf (AST/SGOT) 24 U/L (15-37) Alanine Aminotransferase (ALT/SGPT) 29 U/L (12-78) Alkaline Phosphatase 84 U/L (45-117) Ammonia 46.0 umol/L (11-32) Total Protein 6.3 gm/dl (6.4-8.2) Albumin 4.3 gm/dl (3.4-5.0) Globulin 2.0 gm/dl (2.5-4.0) Albumin/Globulin Ratio 2.2 (0.9-2) Allergies Coded Allergies: No Known Allergies (Unverified , 11/10/17) Medications Current Inpatient Medications Medications (Trade) Dose Ordered Sig/Raffi Route Start Time Stop Time Status Last Admin Dose Admin Acetaminophen (Tylenol Tab) 650 mg Q4H PRN PO 11/10/17 16:45 12/10/17 16:44 Ondansetron HCl (Zofran Inj) 4 mg Q6H PRN IV 11/10/17 16:45 12/10/17 16:44 11/22/17 20:10 4 MG Sodium Bicarbonate (Sodium Bicarbonate Tab) 1,300 mg BID PO 11/14/17 21:00 12/11/17 20:59 11/23/17 08:36 1,300 MG Rifaximin (Xifaxan Tab) 550 mg TID PO 11/15/17 09:00 12/11/17 20:59 11/23/17 08:36 550 MG Lactulose (Chronulac Syrup) 30 gm TID PO 11/15/17 20:00 12/15/17 19:59 11/23/17 08:38 30 GM Sodium Chloride 1,000 ml @ 125 mls/hr Q8H IV 11/16/17 12:00 12/16/17 11:59 Future Hold 11/17/17 04:33 125 MLS/HR Midodrine (Proamatine Tab) 5 mg TID@08,,17 PO 11/18/17 17:00 12/18/17 16:59 11/23/17 08:36 5 MG Octreotide Acetate (Sandostatin Inj) 100 mcg Q8H SQ 11/20/17 10:00 12/20/17 09:59 11/23/17 09:47 100 MCG Albumin Human (Albumin 25%) 25 gm Q8 IV 11/21/17 14:00 11/23/17 13:59 11/23/17 05:12 25 GM Ciprofloxacin (Cipro Tab) 500 mg DAILY PO 11/21/17 13:00 12/21/17 12:59 11/23/17 08:35 500 MG Albumin Human (Albumin 25%) 12.5 gm UD PRN IV 11/21/17 15:15 11/24/17 15:14 11/22/17 17:34 12.5 GM Impression (1) Hyperkalemia (2) Acute kidney injury (3) Ascites (4) Dehydration (5) Cirrhosis (6) Hepatic encephalopathy (7) Hyponatremia Mr. Purcell is a 72-year-old male with cirrhosis complicated by ascites and recurrent hepatic encephalopathy. He was admitted with mental status changes. He has a history of recurrent PARADISE c/w prerenal azotemia. Baseline creatinine has been 1.3 mg/dL. Kidney function has been declining despite IV hydration. Urine sodium has been < 5. 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 He is now on Midodrine, Octreotide and Albumin therapy For metabolic acidosis continue oral HCO3 replacement. Shortage of IV bicarbonate noted. Recommendations ACUTE KIDNEY INJURY: -- Kidney function is stable. Creatinine is 2.3 this am. Baseline creatinine has been 1.4 -- Patient has an element of intravascular volume contraction, possibly HRS 2. He had tense abdominal ascites and underwent 6.1 L paracentesis yesterday -- Continue Midodrine 5 mg po TID. SBP has been 85 - 90 mm HG -- Albumin is now > 3.0. Will stop IV SPA -- Continue Octreotide 100 mcg SQ BID -- Monitor serial PRP CHRONIC KIDNEY DISEASE: -- Baseline creatinine 1.4 in the setting of cachexia HYPOTENSION: -- On Midodrine and Octreotide. Will stop IV Albumin CIRRHOSIS / WELCH: -- [place] [facility] [place] Await further input from GI : -- Bilateral hydrocele with scrotal edema. Pinon remains in place -- If scrotal edema resolves following paracentesis then bladder catheter can be removed.
--- NOTE | 2017-11-23 12:50 | Progress Note ---
Subjective Date of Service: Nov 23, 2017. Subjective pt is in somewhat better spirits today, less nausea and tolerating po intake, albumin is up but did have post paracentesis albumin 11/22 Problem List Medical Problems: (1) Acute on chronic renal failure Status: Acute (2) CKD (chronic kidney disease) Status: Acute (3) Elevated troponin Status: Acute (4) Fever Status: Acute (5) Hepatic encephalopathy Status: Acute (6) Hyperkalemia Status: Acute (7) Hyponatremia Status: Acute (8) Hypotension Status: Acute Review of Systems Constitutional: + weakness, No fever, No chills Respiratory: + dyspnea on exertion, No cough, No sputum, No shortness of breath Cardiac: + edema, No chest pain Abdomen: + nausea, No pain, No vomiting, No diarrhea Musculoskeletal: + joint pain, + muscle pain Male : No dysuria, No urinary frequency Psychiatric: + depression symptoms, + anhedonism Objective Vital Signs Date Time Temp Pulse Resp B/P (MAP) Pulse Ox O2 Delivery O2 Flow Rate FiO2 11/23/17 11:14 36.5 72 17 100/64 (76) 100 Room Air 11/23/17 08:21 36.8 75 15 92/55 (67) 98 Room Air 11/23/17 08:00 Room Air 11/23/17 06:59 36.8 78 18 94/65 (75) 100 Room Air 11/23/17 05:30 36.5 71 18 96/61 (73) 100 Room Air 11/23/17 04:12 36.4 72 20 91/49 (63) 100 Room Air 11/23/17 00:00 Room Air 11/22/17 23:53 36.8 72 18 88/42 (57) 99 Room Air 11/22/17 23:24 80/40 (53) 11/22/17 21:58 95/40 (58) 11/22/17 21:41 36.6 77 18 80/40 (53) 99 Room Air 11/22/17 19:26 36.6 80 18 90/41 (57) 99 Room Air 11/22/17 19:00 99 Room Air 11/22/17 16:47 86 91/51 (64) 11/22/17 16:00 Room Air 11/22/17 15:40 84 96/52 (67) 11/22/17 15:14 36.5 77 16 90/55 (67) 99 Room Air 11/22/17 14:49 36.5 73 16 92/55 (67) 100 Room Air 11/22/17 13:53 36.6 72 16 87/57 (67) 100 Room Air 11/22/17 13:00 36.7 78 18 90/56 (67) 100 Room Air Physical Exam General Appearance: WD/WN, + moderate distress Eyes: normal inspection, + abnormal sclerae exam Respiratory/Chest: chest non-tender, lungs clear, normal breath sounds Cardiovascular: regular rate, rhythm, no murmur Abdomen: non tender, soft, + distended Extremities: + pedal edema, + swelling (scrotal) 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iatric: alert, oriented x 3 Laboratory Results Last 24 Hours Test 11/23/17 06:30 White Blood Count 3.36 K/uL Red Blood Count 2.68 M/uL Hemoglobin 8.5 g/dL Hematocrit 24.3 % Mean Corpuscular Volume 90.7 fL Mean Corpuscular Hemoglobin 31.7 pg Mean Corpuscular Hemoglobin Concent 35.0 g/dl Platelet Count 53 K/uL Mean Platelet Volume 10.2 fL Neutrophils (%) (Auto) 71.4 % Lymphocytes (%) (Auto) 13.1 % Monocytes (%) (Auto) 12.2 % Eosinophils (%) (Auto) 2.7 % Basophils (%) (Auto) 0.3 % Neutrophils # (Auto) 2.40 K/uL Lymphocytes # (Auto) 0.44 K/uL Monocytes # (Auto) 0.41 K/uL Eosinophils # (Auto) 0.09 K/uL Basophils # (Auto) 0.01 K/uL RDW Standard Deviation 54.4 fL RDW Coefficient of Variation 16.5 % Immature Granulocyte % (Auto) 0.3 % Immature Granulocyte # (Auto) 0.01 K/uL Toxic Granulation 1+ Echinocytes 1+ Prothrombin Time 21.8 SECONDS Prothromb Time International Ratio 2.1 Sodium Level 134 mmol/L Potassium Level 3.8 mmol/L Chloride Level 104 mmol/L Carbon Dioxide Level 19 mmol/L Anion Gap 11.0 mmol/L Blood Urea Nitrogen 67 mg/dl Creatinine 2.31 mg/dl Est Creatinine Clear Calc Drug Dose 27.8 ml/min Estimated GFR () 32.0 Estimated GFR (Non- 27.6 BUN/Creatinine Ratio 29.1 Random Glucose 91 mg/dl Calcium Level 8.6 mg/dl Total Bilirubin 2.5 mg/dl Aspartate Amino Transf (AST/SGOT) 24 U/L Alanine Aminotransferase (ALT/SGPT) 29 U/L Alkaline Phosphatase 84 U/L Ammonia 46.0 umol/L Total Protein 6.3 gm/dl Albumin 4.3 gm/dl Globulin 2.0 gm/dl Albumin/Globulin Ratio 2.2 Assessment and Plan 72 yo male with known h/x cirrhosis due to WELCH, end-stage liver disease, and hepato-renal syndrome, 6 Liter paracentesis 11/22, some improvement of renal function PARADISE on CKD: concern for hepatorenal syndrome, nephrology supervising stopping [id number], continuing midodrine. 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 Encinas at [facility] [place] agreed if patient's condition deteriorating during this hospitalization, patient can be transferred, They plan to see the pt in their clinic on December 02 @11:45. previous bloody ascites, has QuantiFERON gold for TB negative, thrombocytopenia from liver disease, anemia likely of chronic disease remains stable Scrotal edema continues to improve DVT prophylaxis: Did discontinue Heparin SC because of thrombocytopenia, SCD ordered Continued [facility] stay due to: home environment unsafe for pt Discharge planning: rehab hospital, jail facility
--- NOTE | 2017-11-23 16:44 | Gastroenterology Progress Note ---
Progress Note Date of Service: Nov 23, 2017 Subjective Pt evaluation today including: conversation w/ patient, conversation w/ family (), physical exam, chart review, lab review, review of studies, review of inpatient medication list cc f/u encephalopathy, ESLD HPI Pt is alert. Denies abd pain. Some vomiting with and medication injection but otherwise he states tolerating diet. Nursing notes stool this am loose but no color noted and patient does not recall color. Review of Systems Respiratory: No shortness of breath Cardiac: No chest pain Medications Current Inpatient Medications Medications (Trade) Dose Ordered Sig/Raffi Route Start Time Stop Time Status Last Admin Dose Admin Acetaminophen (Tylenol Tab) 650 mg Q4H PRN PO 11/10/17 16:45 12/10/17 16:44 Ondansetron HCl (Zofran Inj) 4 mg Q6H PRN IV 11/10/17 16:45 12/10/17 16:44 11/22/17 20:10 4 MG Sodium Bicarbonate (Sodium Bicarbonate Tab) 1,300 mg BID PO 11/14/17 21:00 12/11/17 20:59 11/23/17 08:36 1,300 MG Rifaximin (Xifaxan Tab) 550 mg TID PO 11/15/17 09:00 12/11/17 20:59 11/23/17 14:31 550 MG Lactulose (Chronulac Syrup) 30 gm TID PO 11/15/17 20:00 12/15/17 19:59 11/23/17 14:31 30 GM Midodrine (Proamatine Tab) 5 mg TID@ PO 11/18/17 17:00 12/18/17 16:59 11/23/17 12:30 5 MG Octreotide Acetate (Sandostatin Inj) 100 mcg Q8H SQ 11/20/17 10:00 12/20/17 09:59 11/23/17 09:47 100 MCG Ciprofloxacin (Cipro Tab) 500 mg DAILY PO 11/21/17 13:00 12/21/17 12:59 11/23/17 08:35 500 MG Objective Vital Signs Date Time Temp Pulse Resp B/P (MAP) Pulse Ox O2 Delivery O2 Flow Rate FiO2 11/23/17 16:00 Room Air 11/23/17 15:57 36.7 75 16 93/52 (66) 98 Room Air 11/23/17 11:14 36.5 72 17 100/64 (76) 100 Room Air 11/23/17 08:21 36.8 75 15 92/55 (67) 98 Room Air 11/23/17 08:00 Room Air 11/23/17 06:59 36.8 78 18 94/65 (75) 100 Room Air 11/23/17 05:30 36.5 71 18 96/61 (73) 100 Room Air 11/23/17 04:12 36.4 72 20 91/49 (63) 100 Room Air 11/23/17 00:00 Room Air 11/22/17 23:53 36.8 72 18 88/42 (57) 99 Room Air 11/22/17 23:24 80/40 (53) 11/22/17 21:58 95/40 (58) 11/22/17 21:41 36.6 77 18 80/40 (53) 99 Room Air 11/22/17 19:26 36.6 80 18 90/41 (57) 99 Room Air 11/22/17 19:00 99 Room Air 11/22/17 17:45 78 92/56 (68) Room Air 11/22/17 16:47 86 91/51 (64) Physical Exam General Appearance: WD/WN, no apparent distress Respiratory/Chest: lungs clear, no respiratory distress Cardiovascular: regular rate, rhythm Abdomen: normal bowel sounds, non tender, soft, no organomegaly, no pulsatile mass, + distended (mild distension from ascites.) 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: alert, normal mood/affect Laboratory Results Last 24 Hours Test 11/23/17 06:30 White Blood Count 3.36 K/uL Red Blood Count 2.68 M/uL Hemoglobin 8.5 g/dL Hematocrit 24.3 % Mean Corpuscular Volume 90.7 fL Mean Corpuscular Hemoglobin 31.7 pg Mean Corpuscular Hemoglobin Concent 35.0 g/dl Platelet Count 53 K/uL Mean Platelet Volume 10.2 fL Neutrophils (%) (Auto) 71.4 % Lymphocytes (%) (Auto) 13.1 % Monocytes (%) (Auto) 12.2 % Eosinophils (%) (Auto) 2.7 % Basophils (%) (Auto) 0.3 % Neutrophils # (Auto) 2.40 K/uL Lymphocytes # (Auto) 0.44 K/uL Monocytes # (Auto) 0.41 K/uL Eosinophils # (Auto) 0.09 K/uL Basophils # (Auto) 0.01 K/uL RDW Standard Deviation 54.4 fL RDW Coefficient of Variation 16.5 % Immature Granulocyte % (Auto) 0.3 % Immature Granulocyte # (Auto) 0.01 K/uL Toxic Granulation 1+ Echinocytes 1+ Prothrombin Time 21.8 SECONDS Prothromb Time International Ratio 2.1 Sodium Level 134 mmol/L Potassium Level 3.8 mmol/L Chloride Level 104 mmol/L Carbon Dioxide Level 19 mmol/L Anion Gap 11.0 mmol/L Blood Urea Nitrogen 67 mg/dl Creatinine 2.31 mg/dl Est Creatinine Clear Calc Drug Dose 27.8 ml/min Estimated GFR () 32.0 Estimated GFR (Non- 27.6 BUN/Creatinine Ratio 29.1 Random Glucose 91 mg/dl Calcium Level 8.6 mg/dl Total Bilirubin 2.5 mg/dl Aspartate Amino Transf (AST/SGOT) 24 U/L Alanine Aminotransferase (ALT/SGPT) 29 U/L Alkaline Phosphatase 84 U/L Ammonia 46.0 umol/L Total Protein 6.3 gm/dl Albumin 4.3 gm/dl Globulin 2.0 gm/dl Albumin/Globulin Ratio 2.2 Assessment and Plan mental status changes---stable hepatic encephalopathy-continue Rifaxamin and Lactulose--ammonia only mild elevation at 46 ESLD-eventual evaluation by [facility] to see if candidate for liver transplant-- [facility]-appreciate nephrology input-- elevated PT--worse--give vit K in case this is from inadequate po intake. could be further liver deterioaraton, however. Outpt appt at [facility] for Dec 02. The plan is if his renal function remains stable go to halfway and keep outpt [facility] appointment. I would recommend if renal function deteriorates on or off treatment to do inpatient transfer to [facility].
[2017-11-24] MEDS: OCTREOTIDE ACETATE 100 MCG/ML VIAL SQ SCH ×2 (01:52→10:45)
[2017-11-24 04:23] VITALS: BP 87/53; PULSE 85; TEMP 36.6; O2SAT 98
[2017-11-24 06:34] LABS: HEMATOCRIT 28.1 % (42-52); HEMOGLOBIN 9.8 g/dL (14.0-18.0); MEAN CELL VOLUME 90.9 fL (80-100); MEAN CORPUSCULAR HEMOGLOBIN 31.7 pg (25-34); MEAN CORPUSCULAR HGB CONC 34.9 g/dl (32-36); NUCLEATED RED BLOOD CELL ABS 0.02 K/uL (0-0); RED CELL DISTRIBUTION WIDTH CV 16.9 % (11.5-14.5); RED CELL DISTRIBUTION WIDTH SD 55.6 fL (36.4-46.3); WHITE BLOOD COUNT 5.47 K/uL (4.8-10.8)
[2017-11-24 06:39] LABS: MEAN PLATELET VOLUME 10.3 fL (7.4-10.4)
[2017-11-24 06:40] LABS: PLATELET COUNT 60 K/uL (130-400)
[2017-11-24 06:42] LABS: INR 2.1 (0.9-1.1)
[2017-11-24 07:04] LABS: CALCIUM 8.9 mg/dl (8.5-10.1); CREATININE 2.43 mg/dl (0.60-1.40); POTASSIUM 3.5 mmol/L (3.5-5.1)
[2017-11-24 07:16] LABS: TOTAL PROTEIN 6.3 gm/dl (6.4-8.2)
[2017-11-24 07:51] LABS: BASO % 0.4 %; BASO ABS # 0.02 K/uL (0-0.2); EOS % 2.7 %; EOS ABS # 0.15 K/uL (0-0.5); IG# 0.01 K/uL (0.00-0.02); LYMPH ABS # 0.82 K/uL (1.2-3.4); MONO % 13.9 %; MONO ABS # 0.76 K/uL (0.11-0.59); NEUT % 67.8 %; NEUT ABS # 3.71 K/uL (1.4-6.5)
[2017-11-24] MEDS: SODIUM BICARBONATE 650 MG TAB PO SCH ×2 (08:11→20:28)
[2017-11-24] MEDS: CIPROFLOXACIN 500 MG TAB PO SCH (08:11)
[2017-11-24] MEDS: RIFAXIMIN TAB 550 MG TAB PO SCH ×3 (08:12→20:28)
[2017-11-24] MEDS: MIDODRINE 10 MG TAB PO SCH ×3 (08:12→16:25)
[2017-11-24] MEDS: LACTULOSE SYRUP 30 GM/45 ML UDP PO SCH ×3 (08:13→20:28)
[2017-11-24 08:19] VITALS: BP 92/61; PULSE 84; TEMP 36.6; O2SAT 100
[2017-11-24 08:30] VITALS: O2SAT 100
[2017-11-24 11:25] VITALS: BP 99/64; PULSE 87; TEMP 36.6; O2SAT 97
--- NOTE | 2017-11-24 11:52 | Nephrology Progress Note ---
Nephrology Progress Note Date of Service Nov 24, 2017. Chief Complaint Follow up evaluation of PARADISE and hyponatremia Subjective Mr. Purcell was seen & examined in his hospital room this morning. He remains weak. He denies N&V or abdominal pain. Mr. Purcell is subjectively improved since his paracentesis earlier this week. Review of Systems Constitutional: No fever Cardiovascular: No chest pain Respiratory: No dyspnea at rest Abdomen: No pain, No nausea, No vomiting, No diarrhea Genitourinary - Male: No dysuria Extremities: No leg edema A complete review of systems was performed. Pertinent positives are noted above. All other systems are negative. Vital Signs Last 8 Hrs Date Time Temp Pulse Resp B/P (MAP) Pulse Ox O2 Delivery O2 Flow Rate FiO2 11/24/17 11:25 36.6 87 18 99/64 (76) 97 Room Air 11/24/17 08:30 100 Room Air 11/24/17 08:19 36.6 84 17 92/61 (71) 100 Room Air 11/24/17 04:23 36.6 85 16 87/53 (64) 98 Room Air Last Recorded Weight Weight (Kilograms): 67.800 Physical Exam General Appearance: + cachetic Head: atraumatic (temporal muscle wasting) Neck: no adenopathy Respiratory/Chest: lungs clear, no respiratory distress Cardiovascular: regular rate, rhythm Abdomen/GI: soft (hypoactive bowel sounds) Extremities/Musculoskelatal: no calf tenderness, no pedal edema 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: alert, oriented x 3 Social History Drug Use: none Marital Status: Housing Status: lives with family Occupation: retired Laboratory Results Past 24 Hours 11/24/17 06:06 Red Blood Count 3.09, Mean Corpuscular Volume 90.9, Mean Corpuscular Hemoglobin 31.7, Mean Corpuscular Hemoglobin Concent 34.9, Mean Platelet Volume 10.3, Neutrophils (%) (Auto) 67.8, Lymphocytes (%) (Auto) 15.0, Monocytes (%) (Auto) 13.9, Eosinophils (%) (Auto) 2.7, Basophils (%) (Auto) 0.4, Neutrophils # (Auto ) 3.71, Lymphocytes # (Auto) 0.82, Monocytes # (Auto) 0.76, Eosinophils # (Auto ) 0.15, Basophils # (Auto) 0.02 11/24/17 06:06 Test 11/24/17 06:06 White Blood Count 5.47 K/uL (4.8-10.8) Red Blood Count 3.09 M/uL (4.7-6.1) Hemoglobin 9.8 g/dL (14.0-18.0) Hematocrit 28.1 % (42-52) Mean Corpuscular Volume 90.9 fL (80-100) Mean Corpuscular Hemoglobin 31.7 pg (25-34) Mean Corpuscular Hemoglobin Concent 34.9 g/dl (32-36) Platelet Count 60 K/uL (130-400) Mean Platelet Volume 10.3 fL (7.4-10.4) Neutrophils (%) (Auto) 67.8 % Lymphocytes (%) (Auto) 15.0 % Monocytes (%) (Auto) 13.9 % Eosinophils (%) (Auto) 2.7 % Basophils (%) (Auto) 0.4 % Neutrophils # (Auto) 3.71 K/uL (1.4-6.5) Lymphocytes # (Auto) 0.82 K/uL (1.2-3.4) Monocytes # (Auto) 0.76 K/uL (0.11-0.59) Eosinophils # (Auto) 0.15 K/uL (0-0.5) Basophils # (Auto) 0.02 K/uL (0-0.2) RDW Standard Deviation 55.6 fL (36.4-46.3) RDW Coefficient of Variation 16.9 % (11.5-14.5) Immature Granulocyte % (Auto) 0.2 % Immature Granulocyte # (Auto) 0.01 K/uL (0.00-0.02) Nucleated RBC Absolute Count (auto) 0.02 K/uL (0-0) Nucleated Red Blood Cells % 0.3 % Echinocytes 1+ Prothrombin Time 21.8 SECONDS (9.0-12.0) Prothromb Time International Ratio 2.1 (0.9-1.1) Anion Gap 12.0 mmol/L (3-11) Est Creatinine Clear Calc Drug Dose 27.1 ml/min Estimated GFR () 30.1 Estimated GFR (Non- 26.0 BUN/Creatinine Ratio 28.9 (10-20) Calcium Level 8.9 mg/dl (8.5-10.1) Total Bilirubin 3.3 mg/dl (0.2-1) Aspartate Amino Transf (AST/SGOT) 29 U/L (15-37) Alanine Aminotransferase (ALT/SGPT) 29 U/L (12-78) Alkaline Phosphatase 91 U/L (45-117) Total Protein 6.3 gm/dl (6.4-8.2) Albumin 4.0 gm/dl (3.4-5.0) Globulin 2.3 gm/dl (2.5-4.0) Albumin/Globulin Ratio 1.7 (0.9-2) Allergies Coded Allergies: No Known Allergies (Unverified , 11/10/17) Medications Current Inpatient Medications Medications (Trade) Dose Ordered Sig/Raffi Route Start Time Stop Time Status Last Admin Dose Admin Acetaminophen (Tylenol Tab) 650 mg Q4H PRN PO 11/10/17 16:45 12/10/17 16:44 Ondansetron HCl (Zofran Inj) 4 mg Q6H PRN IV 11/10/17 16:45 12/10/17 16:44 11/22/17 20:10 4 MG Sodium Bicarbonate (Sodium Bicarbonate Tab) 1,300 mg BID PO 11/14/17 21:00 12/11/17 20:59 11/24/17 08:11 1,300 MG Rifaximin (Xifaxan Tab) 550 mg TID PO 11/15/17 09:00 12/11/17 20:59 11/24/17 08:12 550 MG Lactulose (Chronulac Syrup) 30 gm TID PO 11/15/17 20:00 12/15/17 19:59 11/24/17 08:13 30 GM Midodrine (Proamatine Tab) 5 mg TID@ PO 11/18/17 17:00 12/18/17 16:59 11/24/17 08:12 5 MG Octreotide Acetate (Sandostatin Inj) 100 mcg Q8H SQ 11/20/17 10:00 12/20/17 09:59 11/24/17 10:45 100 MCG Ciprofloxacin (Cipro Tab) 500 mg DAILY PO 11/21/17 13:00 12/21/17 12:59 11/24/17 08:11 500 MG Impression (1) Hyperkalemia (2) Acute kidney injury (3) Ascites (4) Dehydration (5) Cirrhosis (6) Hepatic encephalopathy (7) Hyponatremia Mr. Purcell is a 72-year-old male with cirrhosis complicated by ascites and recurrent hepatic encephalopathy. He was admitted with mental status changes. He has a history of recurrent PARADISE c/w prerenal azotemia. Baseline creatinine has been 1.3 mg/dL. Kidney function has been declining despite IV hydration. Urine sodium has been < 5. 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 He is now on Midodrine, Octreotide and Albumin therapy For metabolic acidosis continue oral HCO3 replacement. Shortage of IV bicarbonate noted. 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 Kidney function appears to be stabilizing. Creatinine is 2.4 this am (Baseline 1.4) -- Patient had tense abdominal ascites and underwent 6.1 L paracentesis 11/22/17 -- Continue Midodrine 5 mg po TID. SBP has been 85 - 90 mm HG -- Albumin is now > 3.0. Albumin infusions have been discontinued -- Will stop Octreotide and monitor kidney function CHRONIC KIDNEY DISEASE: -- Baseline creatinine 1.4 in the setting of cachexia HYPOTENSION: -- Continue Midodrine therapy CIRRHOSIS / WELCH: -- Patient may require transfer to [facility] [place]. Await further input from GI : -- Bilateral hydrocele with scrotal edema. Kraft remains in place -- If scrotal edema resolves following paracentesis then bladder catheter can be removed.
[2017-11-24] MEDS ORDERED: PHYTONADIONE INJ 5 MG in SODIUM CHLORIDE 0.9% 50ML 50 ML IV ONE (14:30)
[2017-11-24 15:07] VITALS: BP 99/64; PULSE 79; TEMP 36.5; O2SAT 99
--- NOTE | 2017-11-24 15:22 | Gastroenterology Progress Note ---
Progress Note Date of Service: Nov 24, 2017 Subjective Pt evaluation today including: conversation w/ patient, conversation w/ family (daugh), physical exam, chart review, lab review, review of studies, review of inpatient medication list cc f/u ESLD, mental status changes HPI Pt denies abd pain. Had some n/v this am.Although alert and knows daughters name he is somewhat confused per daughters evaluation. Review of Systems Respiratory: No shortness of breath Cardiac: No chest pain daughter Medications Current Inpatient Medications Medications (Trade) Dose Ordered Sig/Raffi Route Start Time Stop Time Status Last Admin Dose Admin Acetaminophen (Tylenol Tab) 650 mg Q4H PRN PO 11/10/17 16:45 12/10/17 16:44 Ondansetron HCl (Zofran Inj) 4 mg Q6H PRN IV 11/10/17 16:45 12/10/17 16:44 11/22/17 20:10 4 MG Sodium Bicarbonate (Sodium Bicarbonate Tab) 1,300 mg BID PO 11/14/17 21:00 12/11/17 20:59 11/24/17 08:11 1,300 MG Rifaximin (Xifaxan Tab) 550 mg TID PO 11/15/17 09:00 12/11/17 20:59 11/24/17 14:24 550 MG Lactulose (Chronulac Syrup) 30 gm TID PO 11/15/17 20:00 12/15/17 19:59 11/24/17 14:25 30 GM Midodrine (Proamatine Tab) 5 mg TID@, PO 11/18/17 17:00 12/18/17 16:59 11/24/17 12:57 5 MG Ciprofloxacin (Cipro Tab) 500 mg DAILY PO 11/21/17 13:00 12/21/17 12:59 11/24/17 08:11 500 MG Objective Vital Signs Date Time Temp Pulse Resp B/P (MAP) Pulse Ox O2 Delivery O2 Flow Rate FiO2 11/24/17 15:07 36.5 79 18 99/64 (76) 99 Room Air 11/24/17 11:25 36.6 87 18 99/64 (76) 97 Room Air 11/24/17 08:30 100 Room Air 11/24/17 08:19 36.6 84 17 92/61 (71) 100 Room Air 11/24/17 04:23 36.6 85 16 87/53 (64) 98 Room Air 11/24/17 00:00 Room Air 11/23/17 23:40 36.6 83 18 91/52 (65) 98 Room Air 11/23/17 20:05 36.7 77 18 98/64 (75) 100 Room Air 11/23/17 16:00 Room Air 11/23/17 15:57 36.7 75 16 93/52 (66) 98 Room Air Physical Exam General Appearance: WD/WN, no apparent distress Respiratory/Chest: lungs clear, no respiratory distress Abdomen: normal bowel sounds, non tender, soft, no organomegaly, no pulsatile mass, + distended (mild distension from ascites) 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: alert, normal mood/affect Skin: normal color Laboratory Results Last 24 Hours Test 11/24/17 06:06 White Blood Count 5.47 K/uL Red Blood Count 3.09 M/uL Hemoglobin 9.8 g/dL Hematocrit 28.1 % Mean Corpuscular Volume 90.9 fL Mean Corpuscular Hemoglobin 31.7 pg Mean Corpuscular Hemoglobin Concent 34.9 g/dl Platelet Count 60 K/uL Mean Platelet Volume 10.3 fL Neutrophils (%) (Auto) 67.8 % Lymphocytes (%) (Auto) 15.0 % Monocytes (%) (Auto) 13.9 % Eosinophils (%) (Auto) 2.7 % Basophils (%) (Auto) 0.4 % Neutrophils # (Auto) 3.71 K/uL Lymphocytes # (Auto) 0.82 K/uL Monocytes # (Auto) 0.76 K/uL Eosinophils # (Auto) 0.15 K/uL Basophils # (Auto) 0.02 K/uL RDW Standard Deviation 55.6 fL RDW Coefficient of Variation 16.9 % Immature Granulocyte % (Auto) 0.2 % Immature Granulocyte # (Auto) 0.01 K/uL Nucleated RBC Absolute Count (auto) 0.02 K/uL Nucleated Red Blood Cells % 0.3 % Echinocytes 1+ Prothrombin Time 21.8 SECONDS Prothromb Time International Ratio 2.1 Sodium Level 135 mmol/L Potassium Level 3.5 mmol/L Chloride Level 105 mmol/L Carbon Dioxide Level 18 mmol/L Anion Gap 12.0 mmol/L Blood Urea Nitrogen 70 mg/dl Creatinine 2.43 mg/dl Est Creatinine Clear Calc Drug Dose 27.1 ml/min Estimated GFR () 30.1 Estimated GFR (Non- 26.0 BUN/Creatinine Ratio 28.9 Random Glucose 89 mg/dl Calcium Level 8.9 mg/dl Total Bilirubin 3.3 mg/dl Aspartate Amino Transf (AST/SGOT) 29 U/L Alanine Aminotransferase (ALT/SGPT) 29 U/L Alkaline Phosphatase 91 U/L Total Protein 6.3 gm/dl Albumin 4.0 gm/dl Globulin 2.3 gm/dl Albumin/Globulin Ratio 1.7 Assessment and Plan mental status changes---slightly worse today. repeat ammonia today hepatic encephalopathy-continue Rifaxamin and Lactulose--ammonia only mild elevation at 46 yesterday ESLD-eventual evaluation by [place] to see if candidate for liver transplant-- [facility]-appreciate nephrology input-- BUN/CR worse today elevated PT--I inadvertently did not order vit K yesterday but was ordered today BUN/CR and TB worse today and mental status deterioration. Although he is not acutely decompensating he is getting worse and not better despite our best efforts here. I discussed with DR Garcia regarding my recommendation to intiate transfer to [place] now rather plan to be DCed with outpt workup. He states he will call [place] today. Told daughter of my recommedation to go to [place] as intpt if/when they can accept him.
[2017-11-24] MEDS ORDERED: XFX550 PO (16:10)
[2017-11-24] MEDS ORDERED: PRMT10 PO (16:10)
[2017-11-24] MEDS ORDERED: SODI650T8 PO (16:10)
[2017-11-24] MEDS ORDERED: LCTL30 PO (16:10)
[2017-11-24] MEDS ORDERED: SODIUM CHLORIDE 0.9% 500ML 500 ML IV SCH (16:15)
--- NOTE | 2017-11-24 16:30 | NUR ---
A: Pt being transferred to [facility]. A+O X 4, made family aware of transfer. Lung sounds clear on RA. Self repositions in bed. BS, softly distended, nontender. SL in R FA, WNL. Kraft intact, draining concentrated yellow urine. Will continue to monitor. Addendum: 11/24/17 at 2157 by Alexia Schulz RN A: Pt transferred to [facility] via [facility]. Family took all belongings. Kraft catheter and IV site intact/patent. BP low prior to leaving facility, made aware and 1L bolus started. Report called and given to Jenny DAMIAN.
[2017-11-24] MEDS ORDERED: LACTULOSE SYRUP 30 GM/45 ML UDP PO STA (17:06)
--- NOTE | 2017-11-24 17:06 | Discharge Summary ---
Discharge Summary Date of Service Nov 24, 2017. Discharge Summary Admission Date: Nov 10, 2017 at 16:47 Discharge Date: Nov 24, 2017 Discharge Disposition: Acute care facility ([facility]; accepting attending - Dr. 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 question of hepatorenal syndrome 2. acute renal failure 3. hyponatremia - resolved 4. hyperkalemia - resolved 5. h/o bladder cancer 6. hepatic encephalopathy 7. positive troponin likely 2nd to acute renal failure Immunizations: Have You Had Influenza Vaccine: Unknown History of Tetanus Vaccine?: Unknown History of Pneumococcal: Unknown History of Hepatitis B Vaccine: Unknown Procedures: 1. head CT negative for stroke 2. testicular ultrasound - IMPRESSION: 1. Large bilateral septated scrotal fluid collections, likely representing complex hydroceles. 2. No evidence of intratesticular mass. No evidence of testicular torsion. 3. paracentesis x 2 (first removed 1 liter; second removed 6 liters) Consultations: 1. gastroenterology - Joey Gutierrez MD 2. urology - Brian Singleton MD 3. nephrology - Deandre Avalos DO PT, OT Medication Reconciliation New Medications: Midodrine (Midodrine HCl) 10 Mg Tab 5 MG PO TID@08,12,17, #90 TAB 1 Refill Rifaximin (Xifaxan) 550 Mg Tab 550 MG PO TID, #90 TAB 1 Refill Sodium Bicarbonate (Sodium Bicarbonate) 650 Mg Tab 1300 MG PO BID, #120 TAB 0 Refills Changed Medications: Lactulose (Lactulose) 20 Gm/30 Ml Syrp 30 GM PO TID for 30 Days, #4050 ML 1 Refill (Changed from: 20 GM; 2700) Continued Medications: Ciprofloxacin Hcl (Cipro) 500 Mg Tab 1 TAB PO DAILY for 30 Days, #30 TAB Multivitamin (Multivitamin) Tab 1 TAB PO QAM, TAB Ondasetron Odt (Zofran Odt) 4 Mg Tab 4 MG SL Q6H PRN for Nausea or Vomiting, #20 TAB 1 Refill Vitamin E (Vitamin E) 400 Unit Tab 800 UNITS PO QAM Discontinued Medications: Naproxen (Naprosyn) 500 Mg Tab 500 MG PO BID PRN for GOUT PAIN, TAB Discharge Exam Physical Exam: General Appearance: no apparent distress, + cachetic, + thin Eyes: + pertinent finding (mild horizontal nystagmus ) ENT: + pertinent finding (MM slightly dry) Neck: no JVD Respiratory/Chest: no respiratory distress, no accessory muscle use, + decreased breath sounds (both bases) Cardiovascular: regular rate, rhythm, no gallop, no murmur, normal peripheral pulses Abdomen / GI: normal bowel sounds, non tender, soft, + distended (with ascites (mild to mild-moderate)), + splenomegaly Extremities: no pedal edema 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iatric: + disoriented, + pertinent finding (drowsy but arousable; +asterixis) Skin: + pertinent finding (no jaundice ) Hospital Course HISTORY OF PRESENT ILLNESS: 72 yo male with history of cirrhosis 2nd to WELCH and with recent history of admission for hepatic encephalopathy who was discharged one week ago on Lactulose. During that recent admission his Lasix, Spironolactone and Nadolol were stopped due to mild PARADISE and hypotension. He was scheduled to follow up with Dr. Gutierrez from [facility] in two days. He was doing well for a few days at home. His noted that he was drinking water but not eating a lot. They were intentionally trying to avoid sodium as they were instructed that this could lead to volume retention. His abdomen remained stable from an ascites standpoint with no increase in swelling. He did not have any lower extremity swelling or dyspnea. He struggled to eat enough and gradually became more fatigued. On the day of hospital admission his noticed that he was more confused. Due to his confusion she was concerned that he had developed hepatic encephalopathy once again. He was compliant with his Lactulose. In the ED his ammonia was 44, however, his Creatinine was 3.5, which was markedly elevated compared to prior levels (baseline in the mid 1's). His sodium was 119 and potassium was high at 5.7. HOSPITAL COURSE: The patient's urine sodium level was <5 at time of admission. His acute renal failure was thought to be prerenal in origin from volume depletion and thus he received IV hydration early on in his hospitalization. His sodium and creatinine both improved with fluids. Concurrently his hepatic encephalopathy was treated with lactulose & rifaximin with improvement in his mentation. Hyperkalemia resolved with customary measures including kayexalate, IV fluids, etc. On 11/11/17 the patient underwent a diagnostic paracentesis showing no evidence of SBP based on cell counts. Fluid was grossly bloody, however. Ascites culture remained negative. The patient underwent a second paracentesis on 11/22/17 due to worsening, tense ascites; 6 liters of fluid was removed. This time, however, the fluid was clear. He was maintained on cipro daily for SBP prophylaxis throughout his stay. Although there was a transient improvement in his creatinine down to about 1.4 early in his stay, Mr. Purcell's kidney function quickly deteriorated once again to greater than 2. Thus, over the last week prior to transfer to [facility], he was treated for possible hepatorenal syndrome with midodrine, octreotide, and albumin infusions. Creatinine on day of transfer was 2.4 despite the above measures. Along with a lack of sustained improvement in his creatinine the patient also had worsening coagulopathy. His INR on day of discharge was 2.1, rising from 1.4 at time of admission. He received a dose of IV vitamin K prior to transfer in the rare event some of the coagulopathy was from poor nutrition leading to vitamin K deficiency. Lastly, despite consistent use of rifaximin & lactulose, the patient's mental status worsened prior to discharge with evidence of hepatic encephalopathy on examination. Biochemically his ammonia level lorna to 99 on 11/24/17. After discussion with GI it was felt that Mr. Purcell would best be served at a tertiary care center where specialized liver services were available. [facility] was contacted, and Dr. Price Roberts accepted this patient in transfer for ongoing care. 11/22/17 05:48 11/23/17 06:30 Red Blood Count 2.68, Mean Corpuscular Volume 90.7, Mean Corpuscular Hemoglobin 31.7, Mean Corpuscular Hemoglobin Concent 35.0, Mean Platelet Volume 10.2, Neutrophils (%) (Auto) 71.4, Lymphocytes (%) (Auto) 13.1, Monocytes (%) (Auto) 12.2, Eosinophils (%) (Auto) 2.7, Basophils (%) (Auto) 0.3, Neutrophils # (Auto ) 2.40, Lymphocytes # (Auto) 0.44, Monocytes # (Auto) 0.41, Eosinophils # (Auto ) 0.09, Basophils # (Auto) 0.01 11/24/17 06:06 Red Blood Count 3.09, Mean Corpuscular Volume 90.9, Mean Corpuscular Hemoglobin 31.7, Mean Corpuscular Hemoglobin Concent 34.9, Mean Platelet Volume 10.3, Neutrophils (%) (Auto) 67.8, Lymphocytes (%) (Auto) 15.0, Monocytes (%) (Auto) 13.9, Eosinophils (%) (Auto) 2.7, Basophils (%) (Auto) 0.4, Neutrophils # (Auto ) 3.71, Lymphocytes # (Auto) 0.82, Monocytes # (Auto) 0.76, Eosinophils # (Auto ) 0.15, Basophils # (Auto) 0.02 11/22/17 05:48 11/23/17 06:30 11/24/17 06:06 Test 11/22/17 05:48 11/23/17 06:30 11/24/17 06:06 11/24/17 15:35 Red Blood Count 2.81 M/uL (4.7-6.1) 2.68 M/uL (4.7-6.1) 3.09 M/uL (4.7-6.1) Mean Corpuscular Volume 90.4 fL (80-100) 90.7 fL (80-100) 90.9 fL (80-100) Mean Corpuscular Hemoglobin 31.3 pg (25-34) 31.7 pg (25-34) 31.7 pg (25-34) Mean Corpuscular Hemoglobin Concent 34.6 g/dl (32-36) 35.0 g/dl (32-36) 34.9 g/dl (32-36) RDW Standard Deviation 55.1 fL (36.4-46.3) 54.4 fL (36.4-46.3) 55.6 fL (36.4-46.3) RDW Coefficient of Variation 16.8 % (11.5-14.5) 16.5 % (11.5-14.5) 16.9 % (11.5-14.5) Mean Platelet Volume 10.4 fL (7.4-10.4) 10.2 fL (7.4-10.4) 10.3 fL (7.4-10.4) Anion Gap 12.0 mmol/L (3-11) 11.0 mmol/L (3-11) 12.0 mmol/L (3-11) Est Creatinine Clear Calc Drug Dose 31.2 ml/min 27.8 ml/min 27.1 ml/min Estimated GFR () 35.3 32.0 30.1 Estimated GFR (Non- 30.4 27.6 26.0 BUN/Creatinine Ratio 33.5 (10-20) 29.1 (10-20) 28.9 (10-20) Calcium Level 8.2 mg/dl (8.5-10.1) 8.6 mg/dl (8.5-10.1) 8.9 mg/dl (8.5-10.1) Total Bilirubin 2.3 mg/dl (0.2-1) 2.5 mg/dl (0.2-1) 3.3 mg/dl (0.2-1) Aspartate Amino Transf (AST/SGOT) 35 U/L (15-37) 24 U/L (15-37) 29 U/L (15-37) Alanine Aminotransferase (ALT/SGPT) 37 U/L (12-78) 29 U/L (12-78) 29 U/L (12-78) Alkaline Phosphatase 119 U/L (45-117) 84 U/L (45-117) 91 U/L (45-117) Total Protein 5.7 gm/dl (6.4-8.2) 6.3 gm/dl (6.4-8.2) 6.3 gm/dl (6.4-8.2) Albumin 3.1 gm/dl (3.4-5.0) 4.3 gm/dl (3.4-5.0) 4.0 gm/dl (3.4-5.0) Globulin 2.6 gm/dl (2.5-4.0) 2.0 gm/dl (2.5-4.0) 2.3 gm/dl (2.5-4.0) Albumin/Globulin Ratio 1.2 (0.9-2) 2.2 (0.9-2) 1.7 (0.9-2) White Blood Count 3.36 K/uL (4.8-10.8) 5.47 K/uL (4.8-10.8) Hemoglobin 8.5 g/dL (14.0-18.0) 9.8 g/dL (14.0-18.0) Hematocrit 24.3 % (42-52) 28.1 % (42-52) Platelet Count 53 K/uL (130-400) 60 K/uL (130-400) Neutrophils (%) (Auto) 71.4 % 67.8 % Lymphocytes (%) (Auto) 13.1 % 15.0 % Monocytes (%) (Auto) 12.2 % 13.9 % Eosinophils (%) (Auto) 2.7 % 2.7 % Basophils (%) (Auto) 0.3 % 0.4 % Neutrophils # (Auto) 2.40 K/uL (1.4-6.5) 3.71 K/uL (1.4-6.5) Lymphocytes # (Auto) 0.44 K/uL (1.2-3.4) 0.82 K/uL (1.2-3.4) Monocytes # (Auto) 0.41 K/uL (0.11-0.59) 0.76 K/uL (0.11-0.59) Eosinophils # (Auto) 0.09 K/uL (0-0.5) 0.15 K/uL (0-0.5) Basophils # (Auto) 0.01 K/uL (0-0.2) 0.02 K/uL (0-0.2) Immature Granulocyte % (Auto) 0.3 % 0.2 % Immature Granulocyte # (Auto) 0.01 K/uL (0.00-0.02) 0.01 K/uL (0.00-0.02) Toxic Granulation 1+ Echinocytes 1+ 1+ Prothrombin Time 21.8 SECONDS (9.0-12.0) 21.8 SECONDS (9.0-12.0) Prothromb Time International Ratio 2.1 (0.9-1.1) 2.1 (0.9-1.1) Ammonia 46.0 umol/L (11-32) 99.0 umol/L (11-32) Nucleated RBC Absolute Count (auto) 0.02 K/uL (0-0) Nucleated Red Blood Cells % 0.3 % Date/Time Source Procedure Growth Status 11/10/17 14:52 Blood Blood Culture - Final NO GROWTH Complete 11/10/17 14:51 Blood Blood Culture - Final NO GROWTH Complete 11/11/17 15:01 Ascities Fluid Gram Stain - Final Complete 11/11/17 15:01 Ascities Fluid Bacterial Culture - Final NO GROWTH Complete I would like to thank Dr. Price Roberts for accepting Mr. Purcell in transfer to [facility]. Reagan Garcia MD Total Time Spent: Greater than 30 minutes This includes examination of the patient, discharge planning, medication reconciliation, and communication with other providers. Discharge Instructions Please refer to the electronic Patient Visit Report (Discharge Instructions) for additional information. Follow-Up to be determined after his hospitalization at [facility] Additional Copies To Alexei Tim M.D.; Baljeet Pacheco M.D.; Joey Gutierrez M.D.; Martir Brownlee D.O.
[2017-11-24 20:25] VITALS: BP 95/55; PULSE 80; TEMP 36.8; O2SAT 99
[2017-11-24] MEDS ORDERED: SODIUM CHLORIDE 0.9% 1000ML 1,000 ML IV SCH (21:15)
[2017-11-25] MEDS ORDERED: ONDANSETRON INJ 2 MG/ML 2 ML VIAL ONE (02:06)
== END 2017-11-24 21:15 | disposition short-term general hospital (02) | DRG 441 ==
LOC: EDBD 13:49 → C.EDC 13:50 → C.2T 16:47 → EDBEDREQ 16:55 → ENRESERV 17:01 → C.4E 11-15 12:36
PROVIDERS: ADMIT Internal Medicine; ATTEND Internal Medicine
PROC: 0W9G3ZZ Drainage of Peritoneal Cavity, Percutaneous Approach (ICD-10-PCS; principal; 2017-11-11)
PROC: 0W9G3ZZ Drainage of Peritoneal Cavity, Percutaneous Approach (ICD-10-PCS; 2017-11-22)
DX: K72.90 Hepatic failure, unspecified without coma (principal); K76.7 Hepatorenal syndrome; E87.1 Hypo-osmolality and hyponatremia; E87.2 Acidosis; R18.8 Other ascites; N17.9 Acute kidney failure, unspecified; K75.81 Nonalcoholic steatohepatitis (NASH); E87.5 Hyperkalemia; K74.60 Unspecified cirrhosis of liver; N50.89 Other specified disorders of the male genital organs; D63.8 Anemia in other chronic diseases classified elsewhere; I95.9 Hypotension, unspecified; N43.3 Hydrocele, unspecified; N18.3 Chronic kidney disease, stage 3 (moderate); Z79.899 Other long term (current) drug therapy; Z87.891 Personal history of nicotine dependence; Z85.51 Personal history of malignant neoplasm of bladder